=== PATIENT | female | born 1970 | race Caucasian/White ===

== ENCOUNTER 2018-04-22 21:30 | Inpatient (IN) | payer OTHER, SELFPAY ==
[2018-04-22 21:31] VITALS: BP 117/93; PULSE 80; RESP 22; TEMP 36.2; O2SAT 100; BMI 21.9
[2018-04-22 21:38] VITALS: BP 117/93; PULSE 74; RESP 20; O2SAT 100
--- NOTE | 2018-04-22 21:41 | EKG12_ITS ---
Test Reason : CHEST PAIN Blood Pressure : / mmHG Vent. Rate : 073 BPM Atrial Rate : 073 BPM P-R Int : 142 ms QRS Dur : 092 ms QT Int : 400 ms P-R-T Axes : 073 081 072 degrees QTc Int : 440 ms Normal sinus rhythm Incomplete right bundle branch block Confirmed by SEBAS RODRIGUEZ, RONAN ([id number]), field map editor JADON CAMPBELL ([id number]) on 05/03/2018 8:32:20 AM Referred By: GLORY Confirmed By:RONAN MULLEN MD
[2018-04-22 21:46] VITALS: O2SAT 100
--- NOTE | 2018-04-22 21:55 | RAD_ITS ---
STUDY: X-RAY CHEST REASON FOR EXAM: Female, 48 years old. Chest pain TECHNIQUE: AP COMPARISON: January 08, 2017 FINDINGS: The lungs are clear and expanded. There is no demonstrated pleural abnormality. Normal size heart. Normal mediastinum and patrick. Normal visualized pulmonary arteries. Normal visualized aortic arch and descending thoracic aorta. Normal visualized thoracic spine. Normal visualized ribs, clavicles, and shoulders. There is no demonstrated abnormality of the visualized soft tissue structures of the upper abdomen. RAD/Chest 1 View (Portable) IMPRESSION: Normal x-ray examination of the chest. Electronically Signed: Hernandez Mckeon MD at 22:29 EDT , Service support ,
[2018-04-22 21:58] LABS: Absolute Lymphocyte Count 1.82 X10^3/ul (0.83-4.51); Absolute Neutrophil Count 2.8 X10^3/uL (2.0-7.7); Eosinophil# 0.02 X10^3/uL; Eosinophils% 0.4 % (0-5); Hematocrit 48.5 % (37-47); Hemoglobin 16.8 g/dl (12.0-15.0); Lymphocyte # 1.82 X10^3/ul (4.0); Lymphocyte % 36.3 % (19-41); Mean Corp Hgb Conc 34.6 g/gl (32-36); Mean Corpuscular Hgb 32.8 pg (27.0-32.0); Mean Corpuscular Volume 94.7 fL (81-99); Mean Platelet Vol. 9.6 fl (6.2-12.0); Monocyte# 0.36 X10^3/uL; Monocyte% 7.2 % (0-10); Neutrophil # 2.82 X10^3/uL (2.7-7.7); Neutrophil % 56.1 % (47-70); POSITIVE COUNT NO; POSITIVE DIFFERENTIAL NO; POSITIVE MORPHOLOGY NO; Platelet Count 268 K/mm3 (150-450); RBC Distribution Width CV 11.9 % (11.6-14.6); RBC Distribution Width SD 41.2 fl (35.1-43.9); Red Blood Count 5.12 M/mm3 (4.2-5.4)
[2018-04-22 22:14] LABS: Anion Gap 6 (5-15); BUN 12 mg/dL (7-18); BUN/Creat Ratio 14.8 RATIO (10-20); Calcium,Total 9.5 mg/dL (8.5-10.1); Chloride 104 mmol/L (98-107); Creatinine, Serum 0.81 mg/dL (0.55-1.02); EST Glomerular Filtration Rate 80 mL/min (>60); Est Glom Filt Rate - Afr Amer 96 mL/min (>60); Glucose 114 mg/dL (74-106); Potassium 3.4 mmol/L (3.5-5.1); Sodium Level 138 mmol/L (136-145)
--- NOTE | 2018-04-22 22:41 | ED.VISSUMM ---
- ER Visit Summary Date of Service: 04/22/18 Chief Complaint: [] Chest pain History of Present Illness: The patient is a 48 F complaining of chest discomfort since yesterday gradual onset continuous burning and indigestion sensation in her throat and the center of her chest. Feels like it is on fire. Worse with movement of her body. Relieved by nothing. She tried Rolaids with moderate relief. Tonight when she was lying down it took her breath away which brought her in. She states her arms and left flank developed hives 2 hours ago. She has never had these before. No cardiac PE or dissection risk factors. No previous stress test. No history of reflux or gastric ulcers Physical Examination: [] Vital signs reviewed General: Well-nourished well-developed Head: Normocephalic atraumatic Eyes: Pupils equal round and reactive to light extraocular movements intact ENT: TMs clear no hemotympanum no trauma Neck: Nontender full range of motion Cardiovascular: Regular rate rhythm no murmurs normal S1-S2 Respiratory: No distress clear to auscultation bilaterally chest nontender Abdomen: Soft nontender nondistended normal bowel sounds no masses Back: Nontender no CVA tenderness Extremities: Nontender active range of motion ?4 extremities no trauma Skin: Normal color no trauma Neuro alert oriented cranial nerves II through XII intact normal strength sensation reflexes Test Results: [] Emergency Department Course and Treatment: [] EKG shows sinus at 73 without ischemia. Chest x-ray shows nothing acute. CBC is normal except hemoglobin 16.8. Chemistries normal except potassium 3.4. Troponin negative less than 0.01. Given a dose of Benadryl and GI cocktail for her symptoms and she still had some chest pain. Her hives did get better with the Benadryl. She was given a dose of morphine 4 mg and IV Pepcid possibly 30-40 minutes after the initial GI cocktail did not provide relief. The patient had bradycardia 15 minutes after the morphine. The patient's stated that she was talking normally and then fell asleep. He turned around and woke her up and she talked to him. He stated that he turned around changing chin on the TV and looked back and she was unconscious. Maintaining sleep the nursing staff arrived. Nursing staff noted on the monitor that she went asystolic. CPR was began. Patient received 20 compressions and she came to conscious. Compressions were stopped. Patient was bradycardic on the monitors in the 20s and 30s. IV fluids were opened up and she was put on a nonrebreather. Patient given a dose of Narcan and atropine. She slowly regained full consciousness. Heart rate came up to the 80s. She is remained stable. Repeat EKG showed nothing acute. No arrhythmia or ischemia. Second troponin was negative. CT Angio of the chest is neg for acute disease. She will be admitted for further monitoring and treatment. Treatment Plan: [] Disposition: [] Impression: Chest pain Skin hives Cardiac arrest with asystole Sinus bradycardia Total critical CARE time 30-74 minutes This note was generated with [employer] Windows dictation software. It may contain incorrect words, spelling, and punctuation that were not noted in review of the chart prior to signing ED Disposition - Plan for ED Patient: Disposition: Home or Assisted Living Chief Complaint: Chest Pain Instructions: ED Chest Pain NonCardiac Prescriptions: Famotidine [Pepcid] 20 mg PO BID #28 tab Referrals: Lenora Sarah DO [Primary Care Provider] -
--- NOTE | 2018-04-22 22:44 | DCINST.ED_ITS ---
ED Disposition - Plan for ED Patient: Disposition: Home or Assisted Living Chief Complaint: Chest Pain Instructions: ED Chest Pain NonCardiac Prescriptions: Famotidine [Pepcid] 20 mg PO BID #28 tab Referrals: Lenora Sarah DO [Primary Care Provider] -
[2018-04-22] MEDS: DiphenhydrAMINE 25 MG Capsule 50 MG PO (22:49)
[2018-04-22] MEDS: Mag Hydrox/Al Hydrox/Simeth 30 ML UDC PO (22:52)
[2018-04-22 23:15] VITALS: BP 117/78; PULSE 62; RESP 18; O2SAT 98
[2018-04-22] MEDS: Morphine 4 MG/ML Syringe IV (23:50)
[2018-04-22] MEDS: Famotidine 20mg IV Push Syringe Q24 300 MG IVP (23:51)
[2018-04-22 23:56] VITALS: BP 110/82; PULSE 69; RESP 18; O2SAT 100
[2018-04-23] VITALS (41 sets, daily range): BP systolic 78–122; BP diastolic 46–89; PULSE 46–81; RESP 11–26; TEMP 36.1–37.1; O2SAT 96–100; BMI 22.1
[2018-04-23] MEDS: Atropine Sulfate 1 MG/10 ML Syringe 0.5 MG IV (00:06)
[2018-04-23] MEDS: Naloxone 0.4 MG/ML Syringe IV (00:07)
--- NOTE | 2018-04-23 00:10 | EKG12_ITS ---
Test Reason : UNRESPONSIVE Blood Pressure : / mmHG Vent. Rate : 066 BPM Atrial Rate : 066 BPM P-R Int : 164 ms QRS Dur : 088 ms QT Int : 424 ms P-R-T Axes : 071 077 060 degrees QTc Int : 444 ms Normal sinus rhythm Normal ECG Confirmed by SEBAS RODRIGUEZ, RONAN ([id number]), managing editor JADON CAMPBELL ([id number]) on 04/26/2018 1:13:26 PM Referred By: TOYA Confirmed By:RONAN MULLEN MD
--- NOTE | 2018-04-23 00:27 | CT_ITS ---
STUDY: CTA CHEST REASON FOR EXAM: Female, 48 years old. Chest pain and shortness of breath RADIATION DOSAGE (If Supplied By Facility): CTDIvol = ( 9.35 ) mGy, DLP = ( 392.95 ) mGycm TECHNIQUE: The examination was performed with the intravenous administration of 75ML ml of Isovue 370 contrast material. Post-processing of the angiographic images was performed, with multiplanar reformation and 3D reconstruction. Individualized dose optimization techniques were used for this CT. COMPARISON: April 22, 2018 chest x-ray FINDINGS: Normal enhancement of the main pulmonary artery and right and left pulmonary arteries. Normal enhancement of the bilateral peripheral pulmonary arteries. There is no demonstrated pulmonary embolism. The aorta has a anterior arch bulge/outpouching seen on image #164 /301 series #602 sagittal views which is most suggestive of a ductus diverticulum. There is no demonstrated aortic dissection. Normal heart and pericardium. Normal mediastinum. Normal hilar regions. Normal visualized trachea and bronchi. There is a hyperinflated appearance of the lungs without focal consolidation pleural effusion or pulmonary edema. Normal pulmonary parenchyma. Normal pleura. Normal chest wall structures. There are degenerative changes of thoracic spine. Normal visualized upper abdomen. CT/CTA Chest W/WO Contrast IMPRESSION: No evidence of pulmonary embolism. No evidence of focal infiltrate. Ductus diverticulum of the aorta. Electronically Signed: Anju Burt MD at 1:22 EDT Tel , Service support ,
--- NOTE | 2018-04-23 00:28 | ED.RN ---
After morphine administration at 2350, this RN was in room talking with pt and . was still having abd pain and epigastric pain. was giving report to RN and monitor read carmen in the 30's and then asystole. see code charting.
--- NOTE | 2018-04-23 01:45 | HP.PCM_ITS ---
Problem List (1) Chest pain Status: Acute Qualifiers: Chest pain type: unspecified Qualified Code(s): R07.9 - Chest pain, unspecified History of Present Illness Date of Admission: 04/23/18 Chief Complaint: chest pain The patient is a 48 year old female patient who presented with chest pain that began yesterday. She complained of burning and indigestion in her chest that radiated up to her throat. She has no previous cardiac history nor risk factors. Initial troponin was negative and a GI cocktail was administered with the thought of GI etiology. Her pain in the esophagus/chest pain became worse so she received 4mg of morphine for her pain. She started to develop some hives as well and Benadryl was given. Soon thereafter she was in asystole. [facility] team was called in the ER. She received chest compressions x 20 and a pulse was obtained. She had a heart rate of 20-30 and was given atropine and her heart rate returned to within normal limits. She received a dose of Narcan as well. It was thought that she responded strongly to the narcotics. She is now tired but denies chest pain. She will be admitted to the ICU overnight for continued monitoring following [facility] team and intervention. Past Medical History Allergies acetaminophen [From Percocet] Allergy (Verified 04/23/18 00:01) Itching oxycodone HCl [From Percocet] Allergy (Verified 04/23/18 00:01) Itching anesthesia Adverse Reaction (Uncoded 04/23/18 00:01) Other became very sick after previous surgeries pt does not know what kind of anesthetic was used Home Medications: Ambulatory Orders Medication Instructions Recorded Famotidine [Pepcid] 20 mg PO BID #28 tab 04/22/18 Surgical History: cholecystectomy Smoking Status: Never smoker - *Family History Maternal History Items: No pertinent history Review of Systems Constitutional: Denies: Chills, Fever, Weight Change HEENT: Denies: Head Aches, Sinus Congestion, Sinus Drainage Cardiovascular: Reports: Chest Pain. Denies: Palpitations Respiratory: Denies: Cough, Shortness of breath at rest, Sputum production Gastrointestinal: Denies: Abdominal Pain, Nausea, Vomiting Genitourinary: Denies: Dysuria Musculoskeletal: Denies: Joint Pain, Joint Tenderness Skin: Denies: Rash, Wounds Neurological: Denies: Numbness, Tingling, Focal weakness Psychiatric: Denies: Anxiety, Depression, Homicidal Ideations, Suicidal Ideations Hematologic/ Lymphatic: Denies: Easy Bruising, Easy Bleeding VTE Information - Inpt Only VTE Present on Admission: No VTE Mechan Device Prophylaxis: None VTE Pharm Prophylaxis ordered?: Yes Patient Problems: Active and Suspected Problems Chest pain (Acute) - Physical Exam General: Alert, Oriented x3, Cooperative HEENT: Atraumatic, Normocephalic Neck: Supple, No JVD, Negative Carotid Bruits Lungs: Clear to auscultation, Normal air movement, No rhonchi, No wheeze, No rales Cardiovascular: Regular rate, Regular Rhythm, Normal S1, Normal S2, No murmurs Abdomen: Bowel Sounds Present, Soft, Non Tender Extremities: No edema Skin: No breakdown Musculoskeletal: No Tenderness to Palpation of Joints or Extremities Neurological: Neuro grossly intact Psych/Mental Status: Normal Affect, Appropriate Vital Signs Temp Pulse Resp BP Pulse Ox 97.1 F L 69 16 103/66 99 04/22/18 21:31 04/23/18 01:23 04/23/18 01:23 04/23/18 01:23 04/23/18 01:23 Oxygen Flow Rate (L/min) 2 Oxygen Delivery Method Nasal Cannula Weight: 142 lb 6.698 oz Body Mass Index (BMI) 21.9 Laboratory Tests Past 24 Hrs 04/22/18 04/22/18 04/23/18 21:45 21:45 00:20 WBC 5.0 RBC 5.12 Hgb 16.8 H Hct 48.5 H MCV 94.7 MCH 32.8 H MCHC 34.6 RDW 11.9 RDW Differential 41.2 Plt Count 268 MPV 9.6 Immature Gran % (Auto) 0.000 Neut % (Auto) 56.1 Lymph % (Auto) 36.3 [place] % (Auto) 7.2 Eos % (Auto) 0.4 Baso % (Auto) 0.0 Absolute Neuts (auto) 2.8 Absolute Lymphs (auto) 1.82 Total Counted Not Reportable Sodium 138 Potassium 3.4 L Chloride 104 Carbon Dioxide 28.0 Anion Gap 6 BUN 12 Creatinine 0.81 Estim Creat Clear Calc 80.80 Est GFR (MDRD) Af Amer 96 Est GFR (MDRD) Non-Af 80 BUN/Creatinine Ratio 14.8 Glucose 114 H Calcium 9.5 Troponin I < 0.015 < 0.015 Assessment/Plan All Active Problems Chest pain (Acute) Plan - admit to ICU - consult ICU physician - cycle cardiac enzymes - toradol 15mg iv q 6hrs prn pain, asa and oxygen per protocol - may consider stress test in future but tondeepthi will continue to monitor her recovery - cbc, bmp in am - LMWH for DVT prophylaxis Code Visit Inpatient E&M: 65833 Init Hosp L3
--- NOTE | 2018-04-23 02:39 | NURSING ---
ER nurse called to bring pt up at 02:30. Pt arrived to floor at 02:40
[2018-04-23] MEDS: Ketorolac 15 MG/ML Vial IV ×2 (03:19→14:18)
[2018-04-23] MEDS: 0.9% NaCl Peripheral Flush Adult/Peds IV ×2 (03:20→03:21)
[2018-04-23 04:30] LABS: Hematocrit 39.9 % (37-47); Hemoglobin 13.7 g/dl (12.0-15.0); Mean Corp Hgb Conc 34.3 g/gl (32-36); Mean Corpuscular Hgb 32.9 pg (27.0-32.0); Mean Corpuscular Volume 95.7 fL (81-99); Mean Platelet Vol. 9.4 fl (6.2-12.0); Platelet Count 223 K/mm3 (150-450); RBC Distribution Width CV 11.6 % (11.6-14.6); RBC Distribution Width SD 39.6 fl (35.1-43.9); Red Blood Count 4.17 M/mm3 (4.2-5.4); White Blood Count 2.5 K/mm3 (4.4-11.0)
[2018-04-23 04:31] LABS: Scan Indicated on CBC? Y/N NO
[2018-04-23 04:46] LABS: ALB/GLOB Ratio 1.1 RATIO (0.9-2.4); AST(SGOT) 142 U/L (15-37); Alanine Aminotransfer ALT/SGPT 210 U/L (13-56); Albumin, Serum 3.3 g/dL (3.2-5.0); Alkaline Phosphatase 117 U/L (45-117); Anion Gap 6 (5-15); BUN 12 mg/dL (7-18); BUN/Creat Ratio 15.4 RATIO (10-20); Calcium,Total 8.2 mg/dL (8.5-10.1); Chloride 107 mmol/L (98-107); Cholesterol 155 mg/dL (200); Creatinine, Serum 0.78 mg/dL (0.55-1.02); EST Glomerular Filtration Rate 84 mL/min (>60); Est Glom Filt Rate - Afr Amer 101 mL/min (>60); Estimated Creatinine Clearance 83.91 ml/min; Globulin 2.9 g/dL (2.2-4.2); Glucose 95 mg/dL (74-106); High Density Lipoprotein 47 mg/dL; Potassium 4.2 mmol/L (3.5-5.1); Protein, Total 6.2 g/dL (6.4-8.2); Sodium Level 143 mmol/L (136-145); Triglycerides 83 mg/dL; Very Low Density Lipoprotein 17 mg/dL (5-40)
[2018-04-23 05:06] LABS: M R Staph aureus DNA By PCR Negative (Negative); Probe Check PASS; Specimen Processing Control PASS
--- NOTE | 2018-04-23 07:08 | ECHOD_ITS ---
Reason For Study: CHEST PAIN Procedure This was a 2D Doppler, Color Flow transthoracic echocardiogram. The study was technically difficult. Exam performed portable in ICU/CCU. Left Ventricle Normal LV size. Left ventricular systolic function is normal. The estimated ejection fraction is 60 %. Normal diastology for age. No regional wall motion abnormalities noted. Right Ventricle Borderline enlarged right ventricle. Normal systolic function. Atria Normal left atrium. Normal right atrium. No doppler evidence for ASD. Mitral Valve There is no mitral annular calcification. Normal mitral valve. Trivial mitral valve insufficiency. Tricuspid Valve Normal tricuspid valve. Mild to moderate (1-2+) tricuspid valve insufficiency. Right ventricular systolic pressure estimated to be 22 mmHg. Aortic Valve Trisinus/trileaflet aortic valve. Normal aortic valve. Pulmonic Valve The pulmonic valve is not well visualized. Great Vessels The aortic root is not well visualized. Pericardium/Pleural Trivial pericardial effusion. There are no echocardiographic indications of cardiac tamponade. MMode/2D Measurements & Calculations LVIDd: 4.2 cm IVSd: 0.75 cm LAV(MOD-bp): 24.4 ml LVIDs: 2.8 cm LVPWd: 0.80 cm LAV(MOD-bp) Indexed: 14.0 ml/m2 RVDd: 3.6 cm FS: 32.7 % LAV(MOD-sp2): 20.5 ml LAV(MOD-sp4): 29.1 ml LVAd ap4: 23.1 cm2 SV(MOD-sp4): 39.3 ml SV(sp4-el): 42.2 ml EDV(MOD-sp4): 62.3 ml EDV(sp4-el): 65.0 ml LVAs ap4: 12.4 cm2 ESV(MOD-sp4): 23.0 ml ESV(sp4-el): 22.8 ml EF(MOD-sp4): 63.1 % EF(sp4-el): 64.9 % LA A4 area: 11.7 cm2 RA A4 area: 11.5 cm2 Time Measurements MV dec time: 0.23 sec Doppler Measurements & Calculations MV E max alfred: 59.9 cm/sec Lat Peak E' Alfred: 12.8 cm/sec Med Peak E' Alfred: 9.9 cm/sec MV A max alfred: 38.9 cm/sec E/E' lat: 4.7 E/E' med: 6.1 MV E/A: 1.5 Ao V2 max: 85.0 cm/sec LV V1 max: 61.0 cm/sec PA V2 max: 57.5 cm/sec Ao max P.9 mmHg LV V1 max P.5 mmHg TR max alfred: 219.9 cm/sec TR max P.4 mmHg Interpretation Summary The study was technically difficult. Left ventricular systolic function is normal. The estimated ejection fraction is 60 %. Borderline enlarged right ventricle. Trivial mitral valve insufficiency. Mild to moderate (1-2+) tricuspid valve insufficiency. Trivial pericardial effusion. There are no echocardiographic indications of cardiac tamponade. Right ventricular systolic pressure estimated to be 22 mmHg. Normal diastology for age. Ordering Physician: Myles Engle Referring Physician: FREDDY WORTHINGTON Performed By: Sarika Wright, KEITH, RVT
--- NOTE | 2018-04-23 07:22 | CON.PCM_ITS ---
Problem List (1) Cardiac asystole Status: Acute (2) Chest pain Status: Acute Qualifiers: Chest pain type: unspecified Qualified Code(s): R07.9 - Chest pain, unspecified Reason for Consult Date of Consultation: 04/23/18 Reason for Consultation: Asystolic arrest History of Present Illness: The patient is a 48 year old F, with no real significant past medical history, who presented to [facility] on 04/22/2018 after complaining of a 3 day history of progressive and gradual continuous burning and indigestion sensation in her chest with radiation into her neck. Patient stated that it felt like fire. Patient had also reported nausea with no vomiting. No melena or hematochezia was reported. Patient states that she attempted Rolaids at home with moderate relief, but given progression and concern that the pain was going to take her breath away, patient presented to the ER for evaluation. Patient was noted to have hives on her arms and flank, which is not normal for her. Patient was given Benadryl. While in the emergency department, patient was noted to have a normal sinus rhythm EKG with a heart rate of 73. Chest x-ray was unremarkable and labs showed only a hemoglobin of 16.8. Patient was given a GI cocktail along with Benadryl for GI symptoms. Patient was given 4 mg of morphine when no response to GI cocktail was noted. Approximately 15 minutes later, the patient developed bradycardia with decreased level of consciousness. Patient was then noted to go asystolic and CPR was initiated. Patient reportedly received brief compressions and was noted to be bradycardic in the 20s and 30s on telemetry. Patient was given supplemental oxygen and an IV fluid bolus. Patient was given Narcan with reported response. Patient was also given atropine with elevation in heart rate to the 80s. CT scan of the chest was obtained showing no acute pulmonary embolism. Patient was admitted to the intensive care unit for further monitoring. Patient reports significant improvement in symptoms today. Patient is not reporting any nausea or chest pain at this time. Patient does report that she tends to run lower blood pressure, but is unable to provide examples. Patient does state that her resting heart rate is typically approximately 70 on her [employer] wristwatch. Patient states it is very odd for her to develop hives. Patient does report a history of back pain with recent surgery, but does not take narcotics at baseline. Patient does state that she regularly exercises on a bicycle and overall has had no health concerns. Patient reports a brief history of social tobacco exposure in her 20s. Patient reports rare alcohol and no illicit drug use. 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 Patient denies any exposure to asbestos or tuberculosis. Past Medical History Allergies acetaminophen [From Percocet] Allergy (Verified 04/23/18 00:01) Itching oxycodone HCl [From Percocet] Allergy (Verified 04/23/18 00:01) Itching anesthesia Adverse Reaction (Uncoded 04/23/18 00:01) Other became very sick after previous surgeries pt does not know what kind of anesthetic was used Surgical History: cholecystectomy Smoking Status: Never smoker Tobacco Use: Non-smoker - *Family History Maternal History Items: No pertinent history Review of Systems Comment: See HPI, otherwise negative ?10 systems. Patient Problems: Active and Suspected Problems Chest pain (Acute) Cardiac asystole (Acute) Objective: CTA of the chest was personally reviewed. This shows no significant infiltrates , mediastinal lymphadenopathy or pulmonary embolism. There was a potential artifact noted in the ascending aorta on my review. Plans to review this with radiology - Physical Exam General: Alert, Oriented x3, Cooperative, No apparent distress, Well developed, Well nourished, - - Speaks in full sentences. Appears stated age. HEENT: Atraumatic, PERRLA, EOMI, Normocephalic, - - No scleral icterus or injection noted. Oral: Moist Mucosa, No Gingival or Mucosal Lesions/ Ulcerations Neck: Supple, No JVD, No Nodes, Trachea Midline Lungs: Clear to auscultation, Normal air movement, No rhonchi, No wheeze, No rales, - - Symmetric expansion. No dullness to percussion. Cardiovascular: Normal S1, Normal S2, No murmurs, Bradycardic, No rub noted, No Gallop Abdomen: Bowel Sounds Present, Soft, Non Tender, Non-Distended Extremities: No clubbing, No cyanosis, No edema Skin: No rashes, No breakdown Musculoskeletal: No Tenderness to Palpation of Joints or Extremities, No Muscle Wasting Lymphatic: No Cervical, Supraclavicular, or Inguinal Adenopathy Neurological: Cranial nerves II-XII grossly intact, Neuro grossly intact, Motor Exam 5/5 strength throughout, Sensory exam intact to light touch and pain Psych/Mental Status: Alert and oriented to time, place, person, mood and affect Vital Signs Temp Pulse Resp BP Pulse Ox 36.9 C 46 L 13 81/56 L 99 04/23/18 06:00 04/23/18 07:00 04/23/18 07:00 04/23/18 07:00 04/23/18 07:00 Oxygen Flow Rate (L/min) 4 Oxygen Delivery Method Room Air Weight: 64.9 kg Body Mass Index (BMI) 22.1 Intake and Output for Last 24 Hours 04/21/18 04/22/18 04/23/18 23:59 23:59 23:59 Intake Total 100 / 100 Output Total 100 / 100 Balance 0 / 0 Laboratory Tests Past 24 Hrs 04/23/18 04/23/18 04/23/18 03:00 03:15 04:15 WBC 2.5 L RBC 4.17 L Hgb 13.7 Hct 39.9 MCV 95.7 MCH 32.9 H MCHC 34.3 RDW 11.6 RDW Differential 39.6 Plt Count 223 MPV 9.4 Sodium Potassium Chloride Carbon Dioxide Anion Gap BUN Creatinine Estim Creat Clear Calc Est GFR (MDRD) Af Amer Est GFR (MDRD) Non-Af BUN/Creatinine Ratio Glucose Calcium Total Bilirubin AST ALT Alkaline Phosphatase Troponin I < 0.015 Total Protein Albumin Globulin Albumin/Globulin Ratio Triglycerides Cholesterol LDL Cholesterol VLDL Cholesterol HDL Cholesterol MRSA (PCR) Negative 04/23/18 04:15 WBC RBC Hgb Hct MCV MCH MCHC RDW RDW Differential Plt Count MPV Sodium 143 Potassium 4.2 Chloride 107 Carbon Dioxide 30.0 Anion Gap 6 BUN 12 Creatinine 0.78 Estim Creat Clear Calc 83.91 Est GFR (MDRD) Af Amer 101 Est GFR (MDRD) Non-Af 84 BUN/Creatinine Ratio 15.4 Glucose 95 Calcium 8.2 L Total Bilirubin 0.60 AST 142 H ALT 210 H Alkaline Phosphatase 117 Troponin I Total Protein 6.2 L Albumin 3.3 Globulin 2.9 Albumin/Globulin Ratio 1.1 Triglycerides 83 Cholesterol 155 LDL Cholesterol 91 VLDL Cholesterol 17 HDL Cholesterol 47 MRSA (PCR) Clinical Impression(s) from Imaging Studies Chest X-Ray 04/22/18 21:55 IMPRESSION: Normal x-ray examination of the chest. Electronically Signed: Hernandez Mckeon MD at 22:29 EDT , Service support , Chest CTA 04/23/18 00:27 IMPRESSION: No evidence of pulmonary embolism. No evidence of focal infiltrate. Ductus diverticulum of the aorta. Electronically Signed: Anju Burt MD at 1:22 EDT Tel , Service support , Assessment/Plan Active and Suspected Problems Chest pain (Acute) Cardiac asystole (Acute) RECOMMENDATION: 1. Continue telemetry 2. Review CT with radiology 3. Stat echocardiogram 4. Check orthostatics IMPRESSIONS: 1. Asystolic arrest status post CPR Patient with rapid response to CPR while in the ER. Patient appears to be improved compared to previous. Patient's blood pressure and heart rate are on the lower side, but acceptable at this time. Some concern on review of CT scan for possible dissection, so will review with radiology. Also obtain an echocardiogram. Patient currently doing well on room air. Will hold off on adding any pressors until further information can be obtained. Cardiology is consulted and will see the patient. Patient should remain in the intensive care unit for now Addendum 950: CT does not show any dissection per radiology. Echocardiogram was reviewed at the bedside and did not show any regurgitation. Code Visit Inpatient E&M: 22085 Init Hosp L3
--- NOTE | 2018-04-23 07:27 | NURSING ---
Charting documented by Linda Vee RN reviewed and agreed with by this RN
[2018-04-23] MEDS: Aspirin E.C. 325 MG Tablet PO (09:41)
--- NOTE | 2018-04-23 14:10 | PCM.CONS.C ---
Problem List (1) Chest pain Status: Acute Qualifiers: Chest pain type: unspecified Qualified Code(s): R07.9 - Chest pain, unspecified (2) Cardiac asystole Status: Acute (3) Hypotension Status: Acute Reason for Consult Date of Consultation: 04/23/18 History of Present Illness: The patient is a 48 year old white female with no past cardiovascular history other than nausea/emesis induced syncopal events who presents for evaluation of chest pain and subsequent cardiac arrest secondary to asystole. The patient states she was in her usual state of health until approximately the last 2 days when she is developed abdominal discomfort with subsequent radiation to her chest and neck with associated sensation of nausea without emesis. She denied any significant change in her respiratory status at rest or with exertion. There has been no recurrent near syncope or syncope. She states she was concerned that she had contracted a gastroenteritis virus as other people at her work related environment had similar conditions. She subsequently noted that she broke out in hives . She presented to the emergency department for further evaluation and care. There she was being evaluated for possible gastrointestinal related issues and treated for such. This time she received a GI cocktail . She states she still had symptoms. Thus for her ongoing symptoms as well as concerns of her hives she received a combination of morphine sulfate and Benadryl. She was subsequently noted to have evidence of marked sinus bradycardia and then became asystolic. She required CPR of reportedly 20 compressions. She had return of her rate and rhythm, etc. She was then placed in the ICU for further evaluation and care. Today she states overall she feels better. She did have a small meal early this morning without any significant recurrence of her obvious symptoms. She still has some epigastric tenderness to palpation. She has undergone evaluation with cardiac enzymes which have been negative. Her ECGs have demonstrated sinus rhythm without acute ECG changes. She underwent a transthoracic echocardiogram. The results are as noted below. Interpretation Summary The study was technically difficult. Left ventricular systolic function is normal. The estimated ejection fraction is 60 %. Borderline enlarged right ventricle. Trivial mitral valve insufficiency. Mild to moderate (1-2+) tricuspid valve insufficiency. Trivial pericardial effusion. There are no echocardiographic indications of cardiac tamponade. Right ventricular systolic pressure estimated to be 22 mmHg. Normal diastology for age. She also underwent a chest CT scan. There was no reported great vessel disease with respect to thoracic aortic dissection. There was no thromboembolic events. She has been otherwise active healthy person, bicycling multiple miles per week, other than a history of musculoskeletal/back related issues/surgery and status post cholecystectomy-remote. She has denied previous episodes of orthopnea, PND, or peripheral pitting edema. However, she has had nausea/emesis induced syncopal events in the past. Noted she had similar type events when she had her gallbladder related disease prior to her cholecystectomy. [] Past Medical History Allergies/Adverse Reactions: Allergies acetaminophen [From Percocet] Allergy (Verified 04/23/18 00:01) Itching oxycodone HCl [From Percocet] Allergy (Verified 04/23/18 00:01) Itching anesthesia Adverse Reaction (Uncoded 04/23/18 00:01) Other became very sick after previous surgeries pt does not know what kind of anesthetic was used Surgical History: cholecystectomy - *Family History Maternal History Items: No pertinent history Lives: Spouse/ Significant Other Smoking Status: Never smoker Tobacco Use: Non-smoker Alcohol: None Drugs: None Review of Systems - Review of Systems General: Denies: Fever, Night Sweats, Fatigue Cardiovascular: Reports: Chest Discomfort, Chest Discomfort at Rest, Near Syncope, Syncope. Denies: Shortness of Breath, Orthopnea, PND, Peripheral Edema, Palpitations, Lightheadedness, Dizziness Respiratory: Denies: Cough, Sputum Production, Hemoptysis Gastrointestinal: Reports: Indigestion, Heart Burn, Abdominal Discomfort. Denies: Hematemesis, Hematochezia, Melena Genitourinary: Denies: Dysuria, Hematuria Skin: Denies: Rash Subjectve: This is a 48-year-old white female who appears to be resting comfortably at the moment in no acute distress. Objective: Vital Signs Temp Pulse Resp BP Pulse Ox 98.7 F 60 16 103/69 97 04/23/18 11:59 04/23/18 13:00 04/23/18 13:00 04/23/18 13:00 04/23/18 13:00 Oxygen Flow Rate (L/min) 4 Oxygen Delivery Method Room Air Weight: 143 lb 1.28 oz Body Mass Index (BMI) 22.1 Orthostatic Vital Signs Start: 04/23/18 11:06 Freq: q24h Status: Active Protocol: Activity Type Activity Date Activity User E-Sign Co-Sign Detail Recorded Client Recorded Date Recorded By Document 04/23/18 10:30 DEAN [id number] 04/23/18 11:08 DEAN 04/23/18 10:30 Orthostatic Vitals Standing -Blood Pressure (90/60-120/80) 85/64 L -Extremity Use Right Arm -Pulse Rate (60-100) 68 Sitting -Blood Pressure (90/60-120/80) 93/69 -Extremity Use Right Arm -Pulse Rate (60-100) 81 Lying -Blood Pressure (90/60-120/80) 91/55 L -Extremity Use Right Arm -Pulse Rate (60-100) 56 L Intake and Output for Last 24 Hours 04/21/18 04/22/18 04/23/18 23:59 23:59 23:59 Intake Total 460 / 460 Output Total 600 / 600 Balance -140 / -140 General: Healthy Appearing, Awake, Alert, Oriented x 3, Cooperative, No Acute Distress HEENT: Atraumatic, Normocephalic, PERRL, EOMI, Sclera Non Icteric Oral: Moist Mucosa Neck: Supple, Good ROM, No JVD Lungs: Clear to auscultation Cardiovascular: Regular Rhythm, Normal S1, Normal S2 Vascular: No Carotid Bruits Abdomen: Bowel Sounds Present, Soft, - - Positive epigastric tenderness Extremities: No Cyanosis, No Clubbing, No edema Neurological: No Focal Motor or Sensory Deficit Psych/Mental Status: Appropriate, Normal Affect 04/23/18 03:15: Troponin I < 0.015 04/23/18 04:15: WBC 2.5 L, RBC 4.17 L, Hgb 13.7, Hct 39.9, MCV 95.7, MCH 32.9 H, MCHC 34.3, RDW 11.6, RDW Differential 39.6, Plt Count 223, MPV 9.4 04/23/18 04:15: Sodium 143, Potassium 4.2, Chloride 107, Carbon Dioxide 30.0, Anion Gap 6, BUN 12, Creatinine 0.78, Est GFR (MDRD) Af Amer 101, Est GFR (MDRD) Non-Af 84, BUN/Creatinine Ratio 15.4, Glucose 95, Calcium 8.2 L, Total Bilirubin 0.60, Triglycerides 83, Cholesterol 155, LDL Cholesterol 91, VLDL Cholesterol 17, HDL Cholesterol 47 Rhythm: Sinus rhythm EKG: As noted above ECHO: As noted above CXR: Preliminary evaluation: No acute cardiopulmonary disease process: Please see official report Chest CT Scan: As noted above: Please see official report Assessment/Plan 1. Chest pain The patient has had chest discomfort. The etiology is unclear at this time. There are concerns she may have gastrointestinal related symptoms. At the same time there are concerns based upon her subsequent cardiovascular event that there could be concerns of underlying coronary artery disease with myocardial ischemia. The patient does not appear to have classic symptoms of ongoing pericardial disease. She has been evaluated for great vessel disease which appears to be negative based upon the chest CTA scan. Thus at the present time, with the patient's symptoms, events, etc. was felt reasonable the patient be further evaluated for the possibility of premature CAD with a diagnostic cardiac catheterization. The procedure and risks were discussed with the patient and she agrees to this approach. 2. Cardiac arrest-asystole The patient did have a cardiac arrest event. The clinical scenario is as previously described. It is unclear whether this may be related to a vasovagal mediated event compounded by the multiple medications she received that may affect her vital signs versus being related to a primary underlying cardiovascular mediated event with CAD and subsequent ischemic mediated cardiac dysrhythmia/conduction system related events, etc. Thus far there appears to be no other obvious issues to explain her event other than her aforementioned concerns. She has been in the ICU. Her rhythm has remained sinus rhythm. She has had no other obvious cardiac dysrhythmias or conduction system related events reported. At the present time she will continue to be monitored. Based upon her clinical scenario and objective findings she will undergo further evaluation for the possibility of CAD with diagnostic cardiac catheterization. If this is unremarkable and there are no other etiologies to explain her event other than possible vasovagal mediated events then she may also need to be further evaluated for the possibility of an underlying primary cardiac dysrhythmia with continued inpatient and outpatient cardiac rhythm monitoring devices. Based upon concerns of possible vasovagal mediated events that she may eventually need to be further evaluated with a formal tilt table study. 3. Hypotension The patient does have a low blood pressure. She appears to be without acute symptoms at this time. Her blood pressures will need to be monitored. She may need additional medications to support her blood pressure if deemed appropriate. At the moment medications that may lower her blood pressure are being avoided. Comment: The patient's case has been discussed with the patient, her spouse, Dr. Tanner, and Dr. Engle. This note was generated with [employer] software. It may contain incorrect words, spelling, and punctuation that were not noted in checking the note before signing.
--- NOTE | 2018-04-23 14:20 | NURSING ---
to laborer pipelines per bed on monitor, laborer pipelines RN in attendance.
[2018-04-23 14:25] LABS: Prothrombin Time (Protime)PT. 12.9 SECONDS (11.7-14.9)
[2018-04-23 14:26] LABS: Partial Thromboplast Time 25.8 Seconds (24.1-36.2)
--- NOTE | 2018-04-23 14:52 | CASEMGMT ---
According to [facility] website, the following are in-network tertiary facilities: [facility], [place], [facility], [facility], [facility], and . Alex HWANG CM
--- NOTE | 2018-04-23 14:56 | CASEMGMT ---
This RN CM to room to complete CM assessment and pt is out of the dept having a heart cath at this time. SStsridhar HWANG CM
--- NOTE | 2018-04-23 15:32 | CL.D_ITS ---
Patient Name: SUMANTH ACOSTA Study Date: 04/23/2018 Performing: Raffi Moralez MD Ht: 67 inches 171 cm : 1970 Wt: 143.5 lbs 65 kg Age: 48 Gender: female BSA: 1.76 PROCEDURE(S) PERFORMED [id number] CLINICAL PROFILE AND INDICATIONS Indications: Other Heart Failure: None Stress/Imaging Stress/Image Study Performed: No Angina Classification Anginal Classification w/in 2 Weeks: CCS IV CAD Presentations: Other: Chest pain - unspecified; Cardiac Arrest - asystole CONCLUSIONS Normal Left Ventricular End Diastolic Pressure Normal LV size, wall motion,and systolic function LVEF: by LV gram 65 % Normal coronary arteries RECOMMENDATIONS Risk factor modification Medical therapy DESCRIPTION OF PROCEDURE The patient arrived to the procedure lab. The risks and benefits of the procedure as well as a full d escription of our services here and current unavailability of surgical backup were fully explained to the patient and/or their significant other prior to the catheterization. The Timeout was completed, verifying the correct patient and procedure. The patient's procedural site was prepped and draped in the usual fashion. Local anesthetic was given subcutaneously to right groin region with Lidocaine 2%. Using a modified Seldinger technique, arterial access was obtained via the right femoral artery, a 4 Fr sheath was inserted Left Coronary Artery selective angiography was performed in multiple views us ing a 4 Fr. JL5 catheter. Right Coronary Artery selective angiography was then performed in multiple views using a 4 Fr. 3DRC catheter. Left Ventriculography was performed in COLLAZO projection using a 4 Fr . Pigtail catheter. LV to AO pullback pressures were then recorded.The arterial sheath was pulled and manual compression applied until hemostasis is achieved. CORONARY ANGIOGRAPHY DOMINANCE: Right Dominant LEFT HEART ASSESSMENT Left Ventricular Ejection Fraction: by LV Gram 65 % Normal LV wall motion Normal Left Ventricular End Diastolic Pressure LVEDP: 12 mmHg LEFT MAIN: Angiographically normal LEFT ANTERIOR DECENDING ARTERY: Angiographically normal CIRCUMFLEX ARTERY: Angiographically normal RIGHT CORONARY ARTERY: Angiographically normal VALVE FINDINGS: Normal Aortic Valve function Normal Mitral Valve function AORTIC ROOT: Possible dilatation COMPLICATIONS No Complications PROCEDURE MEDICATIONS Versed 1 mg IV Versed 1 mg IV Oxygen: 2 L/min via nasal cannula Solu-medrol 125 mg IV 04/23/2018 14:40:35 SUMMARY OF HEMODYNAMIC DATA Time AIR REST ECG 14:34:57 AO 102/63 (81) SA 14:57:48 LV 120/10, 28 15:06:05 LV 115/8, 12 15:06:12 LV 118/5, 21 15:07:37 LVp 119/5, 16 15:07:43 AOp 120/62 (87) 15:07:48 Signed By Raffi Moralez MD On 04/23/2018 15:31:51 Raffi Moralez MD
[2018-04-23] MEDS: Mag Hydrox/Al Hydrox/Simeth 30 ML UDC PO (17:23)
--- NOTE | 2018-04-23 18:52 | PCM.HOSP.N ---
Hospitalist Note Patient was seen and examined today briefly in the ICU, I had a discussion with her information systems director concerning her medical care. Patient underwent a cardiac catheterization this afternoon which did not show any occlusive coronary artery disease. Patient will probably need an event monitor placed at the time of discharge.
[2018-04-23] MEDS: Pantoprazole Sodium 40 MG Tablet PO (21:33)
[2018-04-24] VITALS (9 sets, daily range): BP systolic 86–107; BP diastolic 54–73; PULSE 55–76; RESP 12–18; TEMP 36.3–36.8; O2SAT 96–100
[2018-04-24] MEDS: 0.9% NaCl Peripheral Flush Adult/Peds IV (04:11)
[2018-04-24 04:45] LABS: Anion Gap 7 (5-15); BUN 12 mg/dL (7-18); BUN/Creat Ratio 19.1 RATIO (10-20); Calcium,Total 8.7 mg/dL (8.5-10.1); Chloride 109 mmol/L (98-107); Creatinine, Serum 0.63 mg/dL (0.55-1.02); EST Glomerular Filtration Rate 107 mL/min (>60); Est Glom Filt Rate - Afr Amer 129 mL/min (>60); Estimated Creatinine Clearance 103.89 ml/min; Glucose 128 mg/dL (74-106); Potassium 4.2 mmol/L (3.5-5.1); Sodium Level 144 mmol/L (136-145)
--- NOTE | 2018-04-24 06:44 | PCM.PN.INT ---
Subjective: Patient did well overnight. No complaints this morning. Patient denies recurrence of pain leading to presentation except for a brief episode yesterday associated with swallowing of Protonix. Patient's blood pressure has improved, but remains bradycardic. Objective: Left heart catheterization was completed yesterday and shows no lesion requiring intervention. General: Alert, Oriented x3, Cooperative, No apparent distress, Well developed, Well nourished, - - Speaking in full sentences. HEENT: Atraumatic, PERRLA, EOMI, Normocephalic, - - No scleral icterus or injection noted. Oral: Moist Mucosa, No Gingival or Mucosal Lesions/ Ulcerations Neck: Supple, No JVD, No Nodes, Trachea Midline Lungs: Clear to auscultation, Normal air movement, No rhonchi, No wheeze, No rales, - - Symmetric expansion. No dullness to percussion. Cardiovascular: Regular rate, Regular Rhythm, Normal S1, Normal S2, No murmurs, No rub noted, No Gallop Abdomen: Bowel Sounds Present, Soft, Non Tender, Non-Distended Extremities: No clubbing, No cyanosis, No edema, Capillary Refill Less than 3 Seconds Skin: No rashes, No breakdown Musculoskeletal: No Tenderness to Palpation of Joints or Extremities, No Muscle Wasting Lymphatic: No Cervical, Supraclavicular, or Inguinal Adenopathy Neurological: Cranial nerves II-XII grossly intact, Neuro grossly intact, Motor Exam 5/5 strength throughout Psych/Mental Status: Alert and oriented to time, place, person, mood and affect Vital Signs Temp Pulse Resp BP Pulse Ox 36.3 C L 61 16 97/64 100 04/24/18 05:19 04/24/18 05:19 04/24/18 05:19 04/24/18 05:19 04/24/18 05:19 Oxygen Flow Rate (L/min) 2 Oxygen Delivery Method Room Air Weight: 64.9 kg Body Mass Index (BMI) 22.1 Orthostatic Vital Signs Start: 04/23/18 11:06 Freq: q24h Status: Active Protocol: Activity Type Activity Date Activity User E-Sign Co-Sign Detail Recorded Client Recorded Date Recorded By Document 04/23/18 10:30 DEAN [id number] 04/23/18 11:08 DEAN 04/23/18 10:30 Orthostatic Vitals Standing -Blood Pressure (90/60-120/80) 85/64 L -Extremity Use Right Arm -Pulse Rate (60-100) 68 Sitting -Blood Pressure (90/60-120/80) 93/69 -Extremity Use Right Arm -Pulse Rate (60-100) 81 Lying -Blood Pressure (90/60-120/80) 91/55 L -Extremity Use Right Arm -Pulse Rate (60-100) 56 L Intake and Output for Last 24 Hours 04/22/18 04/23/18 04/24/18 23:59 23:59 23:59 Intake Total 967 / 967 1865 / 1865 Output Total 1000 / 1000 1000 / 1000 Balance -33 / -33 865 / 865 Labs (Last 48 Hours) 04/23/18 04/23/18 04/23/18 03:00 03:15 04:15 WBC 2.5 L RBC 4.17 L Hgb 13.7 Hct 39.9 MCV 95.7 MCH 32.9 H MCHC 34.3 RDW 11.6 RDW Differential 39.6 Plt Count 223 MPV 9.4 PT INR APTT Sodium Potassium Chloride Carbon Dioxide Anion Gap BUN Creatinine Estim Creat Clear Calc Est GFR (MDRD) Af Amer Est GFR (MDRD) Non-Af BUN/Creatinine Ratio Glucose Calcium Total Bilirubin AST ALT Alkaline Phosphatase Troponin I < 0.015 Total Protein Albumin Globulin Albumin/Globulin Ratio Triglycerides Cholesterol LDL Cholesterol VLDL Cholesterol HDL Cholesterol MRSA (PCR) Negative 04/23/18 04/23/18 04/24/18 04:15 14:10 04:15 WBC RBC Hgb Hct MCV MCH MCHC RDW RDW Differential Plt Count MPV PT 12.9 INR 1.0 APTT 25.8 Sodium 143 144 Potassium 4.2 4.2 Chloride 107 109 H Carbon Dioxide 30.0 28.0 Anion Gap 6 7 BUN 12 12 Creatinine 0.78 0.63 Estim Creat Clear Calc 83.91 103.89 Est GFR (MDRD) Af Amer 101 129 Est GFR (MDRD) Non-Af 84 107 BUN/Creatinine Ratio 15.4 19.1 Glucose 95 128 H Calcium 8.2 L 8.7 Total Bilirubin 0.60 AST 142 H ALT 210 H Alkaline Phosphatase 117 Troponin I Total Protein 6.2 L Albumin 3.3 Globulin 2.9 Albumin/Globulin Ratio 1.1 Triglycerides 83 Cholesterol 155 LDL Cholesterol 91 VLDL Cholesterol 17 HDL Cholesterol 47 MRSA (PCR) Clinical Impression(s) from Imaging Studies Chest CTA 04/23/18 00:27 IMPRESSION: No evidence of pulmonary embolism. No evidence of focal infiltrate. Ductus diverticulum of the aorta. Electronically Signed: Anju Burt MD at 1:22 EDT Tel , Service support , ADDENDUM: 04/23/18 0918 Medical Necessity - Tobacco Use Smoking Status: Never smoker Tobacco Use: Non-smoker Assessment/Plan All Active Problems Chest pain (Acute) Cardiac asystole (Acute) Hypotension (Acute) RECOMMENDATION: 1. Liberalize diet 2. Consider outpatient GI workup 3. Likely okay to be discharged from my perspective IMPRESSIONS: 1. Asystolic arrest status post CPR Patient did well overnight. Patient did have a brief recurrence with swallowing Protonix. Unclear if presenting symptoms secondary to esophagitis. This could be worked up as an outpatient. Patient had a heart catheterization yesterday showing no lesion requiring intervention. Patient's orthostatic blood pressures are normal. No desaturation is been noted with ambulation. No recurrent events of asystole, bradycardia or heart block have been noted over the last 24 hours of telemetry monitoring. Code Visit Inpatient E&M: [id number] [facility] Hosp L2
--- NOTE | 2018-04-24 06:46 | NURSING ---
Charting documented by Linda Vee RN reviewed and agreed with by this RN
[2018-04-24] MEDS: Mag Hydrox/Al Hydrox/Simeth 30 ML UDC PO (08:38)
[2018-04-24] MEDS: Aspirin E.C. 325 MG Tablet PO (08:39)
--- NOTE | 2018-04-24 08:49 | PCM.PN.CARD ---
Subjectve: The patient is awake and alert. She has no new acute complaints or concerns other than some residual chest discomfort related to her previous CPR/compressions. She states her abdominal discomfort has improved. Objective: Vital Signs Temp Pulse Resp BP Pulse Ox 98.2 F 74 15 107/73 100 04/24/18 08:00 04/24/18 08:00 04/24/18 08:00 04/24/18 08:00 04/24/18 08:41 Oxygen Flow Rate (L/min) 2 Oxygen Delivery Method Room Air Weight: 143 lb 1.28 oz Body Mass Index (BMI) 22.1 Orthostatic Vital Signs Start: 04/23/18 11:06 Freq: q24h Status: Active Protocol: Activity Type Activity Date Activity User E-Sign Co-Sign Detail Recorded Client Recorded Date Recorded By Document 04/23/18 10:30 DEAN [id number] 04/23/18 11:08 DEAN 04/23/18 10:30 Orthostatic Vitals Standing -Blood Pressure (90/60-120/80) 85/64 L -Extremity Use Right Arm -Pulse Rate (60-100) 68 Sitting -Blood Pressure (90/60-120/80) 93/69 -Extremity Use Right Arm -Pulse Rate (60-100) 81 Lying -Blood Pressure (90/60-120/80) 91/55 L -Extremity Use Right Arm -Pulse Rate (60-100) 56 L Intake and Output for Last 24 Hours 04/22/18 04/23/18 04/24/18 23:59 23:59 23:59 Intake Total 967 / 967 1865 / 1865 Output Total 1000 / 1000 1000 / 1000 Balance -33 / -33 865 / 865 General: Healthy Appearing, Awake, Alert, Oriented x 3, Cooperative, No Acute Distress HEENT: Atraumatic, Normocephalic, PERRL, EOMI, Sclera Non Icteric Oral: Moist Mucosa Neck: Supple, Good ROM, No JVD Lungs: Clear to auscultation Cardiovascular: Regular Rhythm, Normal S1, Normal S2 Vascular: No Carotid Bruits, Normal Femoral Pulses Abdomen: Bowel Sounds Present, Soft, Non Tender Extremities: No Cyanosis, No Clubbing, No edema Neurological: No Focal Motor or Sensory Deficit Psych/Mental Status: Appropriate, Normal Affect 04/23/18 14:10: PT 12.9, INR 1.0, APTT 25.8 04/24/18 04:15: Sodium 144, Potassium 4.2, Chloride 109 H, Carbon Dioxide 28.0, Anion Gap 7, BUN 12, Creatinine 0.63, Est GFR (MDRD) Af Amer 129, Est GFR (MDRD) Non-Af 107, BUN/Creatinine Ratio 19.1, Glucose 128 H, Calcium 8.7 Rhythm: Sinus rhythm Medical Necessity - Tobacco Use Smoking Status: Never smoker Tobacco Use: Non-smoker Assessment/Plan 1. Chest pain The patient has undergone diagnostic cardiac catheterization based upon her aforementioned symptoms and objective findings. She had angiographically normal-appearing coronary arteries and overall preserved LV systolic function. Thus at the present time it appears her chest discomfort is non-CAD related. It may be related to her previous concerns of a gastrointestinal related illness and subsequently, at the present time, with respect to her post CPR/compression musculoskeletal tenderness. 2. Cardiac arrest-asystole The patient did have a cardiac arrest event. The present time there are concerns, based on the patient's past history, past negative responses to medications such as narcotics and antihistamines such as Benadryl, with respect to what appears to be vasovagal mediated near syncope/syncope, that the patient may have variance to a similar type event during her emergency department evaluation. She has undergone cardiovascular evaluation from a noninvasive and invasive standpoint. Thus far there is been no obvious evidence of acute coronary syndrome, coronary artery disease, left ventricular systolic dysfunction, or great vessel disease. Also she has been monitored. She has had no recurrent cardiac dysrhythmias or conduction system disturbances. At the present time she will continue to be monitored while she is in the hospital. As an outpatient she will have a 30 day ambulatory event monitor and attempt to correlate any concerning symptoms with underlying rate and rhythm changes. Depending upon her overall status she may need further evaluation for possible vagal mediated events with a tilt table study. 3. Hypotension The patient does have a low blood pressure. He states her blood pressures tend to run on the low side area and she appears to be without obvious symptoms related to her lower blood pressures. Comment: The patient's case has been discussed with the patient and Dr. Tanner. This note was generated with [employer] dictation software. It may contain incorrect words, spelling, and punctuation that were not noted in checking the note before signing.
--- NOTE | 2018-04-24 08:54 | PN.CARD_ITS ---
Subjectve: The patient is awake and alert. She has no new acute complaints or concerns other than some residual chest discomfort related to her previous CPR/ compressions. She states her abdominal discomfort has improved. Objective: Vital Signs Temp Pulse Resp BP Pulse Ox 98.2 F 74 15 107/73 100 04/24/18 08:00 04/24/18 08:00 04/24/18 08:00 04/24/18 08:00 04/24/18 08:41 Oxygen Flow Rate (L/min) 2 Oxygen Delivery Method Room Air Weight: 143 lb 1.28 oz Body Mass Index (BMI) 22.1 Orthostatic Vital Signs Start: 04/23/18 11:06 Freq: q24h Status: Active Protocol: Activity Type Activity Date Activity User E-Sign Co-Sign Detail Recorded Client Recorded Date Recorded By Document 04/23/18 10:30 DEAN [id number] 04/23/18 11:08 DEAN 04/23/18 10:30 Orthostatic Vitals Standing -Blood Pressure (90/60-120/80) 85/64 L -Extremity Use Right Arm -Pulse Rate (60-100) 68 Sitting -Blood Pressure (90/60-120/80) 93/69 -Extremity Use Right Arm -Pulse Rate (60-100) 81 Lying -Blood Pressure (90/60-120/80) 91/55 L -Extremity Use Right Arm -Pulse Rate (60-100) 56 L Intake and Output for Last 24 Hours 04/22/18 04/23/18 04/24/18 23:59 23:59 23:59 Intake Total 967 / 967 1865 / 1865 Output Total 1000 / 1000 1000 / 1000 Balance -33 / -33 865 / 865 General: Healthy Appearing, Awake, Alert, Oriented x 3, Cooperative, No Acute Distress HEENT: Atraumatic, Normocephalic, PERRL, EOMI, Sclera Non Icteric Oral: Moist Mucosa Neck: Supple, Good ROM, No JVD Lungs: Clear to auscultation Cardiovascular: Regular Rhythm, Normal S1, Normal S2 Vascular: No Carotid Bruits, Normal Femoral Pulses Abdomen: Bowel Sounds Present, Soft, Non Tender Extremities: No Cyanosis, No Clubbing, No edema Neurological: No Focal Motor or Sensory Deficit Psych/Mental Status: Appropriate, Normal Affect 04/23/18 14:10: PT 12.9, INR 1.0, APTT 25.8 04/24/18 04:15: Sodium 144, Potassium 4.2, Chloride 109 H, Carbon Dioxide 28.0, Anion Gap 7, BUN 12, Creatinine 0.63, Est GFR (MDRD) Af Amer 129, Est GFR (MDRD ) Non-Af 107, BUN/Creatinine Ratio 19.1, Glucose 128 H, Calcium 8.7 Rhythm: Sinus rhythm Medical Necessity - Tobacco Use Smoking Status: Never smoker Tobacco Use: Non-smoker Assessment/Plan 1. Chest pain The patient has undergone diagnostic cardiac catheterization based upon her aforementioned symptoms and objective findings. She had angiographically normal -appearing coronary arteries and overall preserved LV systolic function. Thus at the present time it appears her chest discomfort is non-CAD related. It may be related to her previous concerns of a gastrointestinal related illness and subsequently, at the present time, with respect to her post CPR/compression musculoskeletal tenderness. 2. Cardiac arrest-asystole The patient did have a cardiac arrest event. The present time there are concerns, based on the patient's past history, past negative responses to medications such as narcotics and antihistamines such as Benadryl, with respect to what appears to be vasovagal mediated near syncope/ syncope, that the patient may have variance to a similar type event during her emergency department evaluation. She has undergone cardiovascular evaluation from a noninvasive and invasive standpoint. Thus far there is been no obvious evidence of acute coronary syndrome, coronary artery disease, left ventricular systolic dysfunction, or great vessel disease. Also she has been monitored. She has had no recurrent cardiac dysrhythmias or conduction system disturbances. At the present time she will continue to be monitored while she is in the hospital. As an outpatient she will have a 30 day ambulatory event monitor and attempt to correlate any concerning symptoms with underlying rate and rhythm changes. Depending upon her overall status she may need further evaluation for possible vagal mediated events with a tilt table study. 3. Hypotension The patient does have a low blood pressure. He states her blood pressures tend to run on the low side area and she appears to be without obvious symptoms related to her lower blood pressures. Comment: The patient's case has been discussed with the patient and Dr. Tanner. This note was generated with [employer] dictation software. It may contain incorrect words, spelling, and punctuation that were not noted in checking the note before signing.
[2018-04-24] MEDS: DiphenhydrAMINE 25 MG Capsule 50 MG PO (09:12)
--- NOTE | 2018-04-24 09:14 | PCM.DC ---
- Discharge Diagnoses Current Active Problems: Current Active and Chronic Problems Chest pain (Acute) Cardiac asystole (Acute) Hypotension (Acute) You will use the following diet at home:: No restrictions Your food should be the consistency of: Regular Your liquids should be the consistency of: Regular/Thin Discharge Activity: Return to Normal Activity Weight Bearing Status: Full weight bearing Instructions: ED Chest Pain NonCardiac Additional Instructions: go to cardiopulmonary department after discharge to have an event monitor placed Allergies/Adverse Reactions: Allergies acetaminophen [From Percocet] Allergy (Verified 04/23/18 00:01) Itching oxycodone HCl [From Percocet] Allergy (Verified 04/23/18 00:01) Itching anesthesia Adverse Reaction (Uncoded 04/23/18 00:01) Other became very sick after previous surgeries pt does not know what kind of anesthetic was used Primary Care Physician: Lenora Sarah DO [Primary Care Provider] - Please follow up with your Primary Care Physician in: in 2 weeks Test Results: Test results from this visit will be discussed in further detail at your follow-up appointment, if applicable. Please Follow Up With: Raffi Moralez MD When: in 4 weeks
--- NOTE | 2018-04-24 09:17 | DCINST_ITS ---
- Discharge Diagnoses Current Active Problems: Current Active and Chronic Problems Chest pain (Acute) Cardiac asystole (Acute) Hypotension (Acute) You will use the following diet at home:: No restrictions Your food should be the consistency of: Regular Your liquids should be the consistency of: Regular/Thin Discharge Activity: Return to Normal Activity Weight Bearing Status: Full weight bearing Instructions: ED Chest Pain NonCardiac Additional Instructions: go to cardiopulmonary department after discharge to have an event monitor placed Allergies/Adverse Reactions: Allergies acetaminophen [From Percocet] Allergy (Verified 04/23/18 00:01) Itching oxycodone HCl [From Percocet] Allergy (Verified 04/23/18 00:01) Itching anesthesia Adverse Reaction (Uncoded 04/23/18 00:01) Other became very sick after previous surgeries pt does not know what kind of anesthetic was used Primary Care Physician: Lenora Sarah DO [Primary Care Provider] - Please follow up with your Primary Care Physician in: in 2 weeks Test Results: Test results from this visit will be discussed in further detail at your follow- up appointment, if applicable. Please Follow Up With: Raffi Moralez MD When: in 4 weeks
--- NOTE | 2018-04-24 11:51 | CASEMGMT ---
Addendum entered by Logan Colby 04/24/18 12:43: Pt stated would like Adv Directive info. E.Summer BEST notified. Original Note: SEE RN GABBIE ASSESS LINK: Intro role to RN GABBIE. Pt sitting up in recliner chair, alert, and oriented. Pt willing to participate in assessment and is able to answer questions appropriately. D/C PLAN: Home no needs. Rashard LAL RN CM
--- NOTE | 2018-04-25 11:28 | DS.PCM_ITS ---
Discharge Date and Diagnosis Date of Admission: 04/23/18 Date of Discharge: 04/24/18 - Primary Discharge Diagnosis #1 cardiac [id number] unclear #2 chest pain-noncardiac in nature, musculoskeletal etiology suspected #3 hypotension #4 hives-etiology unknown #5 hypokalemia Hospital Course and Treatment Operations: None Procedures: 2-D Echocardiogram, Cardiac catheterization Summary of Care Provided: The patient is a 48 year old F seen in the emergency room at [facility] complaints of chest discomfort. Workup in the emergency room showed a normal sinus rhythm on her EKG at 73 without ischemic changes, chest x-ray showed nothing acute, CBC was normal except for hemoglobin of 16.8, potassium was slightly low at 3.4, troponin was unremarkable. Patient was given a dose of Benadryl and GI cocktail for her symptomology in the emergency room but still had some chest pain, she was given a dose of IV morphine and IV Pepcid after the initial treatment with the GI cocktail did not provide relief. Approximately 15 minutes after the administration of the morphine, patient had a bradycardic episode and the patient's was in the room with her and he noticed that she lost consciousness, nursing staff noted on the monitor that the patient went into asystole, CPR was begun and patient received 20 compressions and then became alert and conscious. Patient was noted be bradycardic on the monitors then in the 20s and 30s, IV fluid was administered, patient was given a dose of Narcan and atropine. She is heart rate increased to the 80s, repeat EKG is performed and showed no acute ischemic changes. Another troponin was obtained which was negative, CT angiogram of the chest was performed which was negative for acute disease. Patient was admitted to the ICU for chest pain and cardiac arrest with asystole, she was seen in consultation by cardiology and she continued to have episodes of chest pain but her troponins remained normal. It was felt that the patient should undergo cardiac catheterization to rule out serious coronary disease, echocardiogram was performed also. Echocardiogram was normal, cardiac catheterization was also normal. Patient was observed in the ICU and the next morning on 04/23/18, she was seen and examined by myself as well as cardiology, it was felt she was stable for discharge, she was discharged with instructions to go to the cardiopulmonary department for application of a 30 day event monitor. Discharge Activity: Return to Normal Activity Weight Bearing Status: Full weight bearing Primary Care Physician: Lenora Sarah DO [Primary Care Provider] - Please follow up with your Primary Care Physician in: in 2 weeks Please Follow Up With: Raffi Moralez MD When: in 4 weeks Patient Instructions: ED Chest Pain NonCardiac Disposition: Home Minutes spent on discharge:: 32 Patient Condition:: Stable Medical Necessity - Tobacco Use Smoking Status: Never smoker Tobacco Use: Non-smoker Meaningful Use Info Meaningful Use Diagnoses (Choose all that apply): None applicable Code Visit Inpatient E&M: 55718 Disch Hosp
== END 2018-04-24 12:45 | disposition home or self-care (01) | DRG 287 ==
LOC: ED 04-23 01:51 → ICU 04-23 01:52
PROVIDERS: Internal Medicine Cardiovascular Disease; Admitting Provider Family Medicine; Emergency Provider Emergency Medicine; Family Provider Internal Medicine; PCP Internal Medicine; Visit Provider Internal Medicine
DX: I46.9 Cardiac arrest, cause unspecified (principal); R07.9 Chest pain, unspecified; I95.9 Hypotension, unspecified; R00.1 Bradycardia, unspecified; L50.9 Urticaria, unspecified; E87.6 Hypokalemia; R10.13 Epigastric pain
CPT/HCPCS: 71045; 71275; 80048; 80053; 80061; 84484; 85025; 85027; 85610; 85730; 87641; 92950; 93005; 93306; 93458; 99152; 99153; 99283; J7030; Q9967; A4216; C1769; C1894; J2310; J3490

== ENCOUNTER → 2018-04-24 11:13 | Outpatient (REF) | payer OTHER, SELFPAY | LOC: CVS 11:13 | PROVIDERS: Family Provider Internal Medicine; PCP Internal Medicine; Visit Provider Internal Medicine Cardiovascular Disease | DX: R00.1 Bradycardia, unspecified (principal) | CPT/HCPCS: 93270 ==

== ENCOUNTER → 2019-08-25 09:10 | Outpatient (CLI) | payer BC, SELFPAY ==
--- NOTE | 2019-08-25 09:18 | US_ITS ---
STUDY: RENAL ULTRASOUND - COMPLETE REASON FOR EXAM: Female, 49 years old. Chronic, recurrent UTIs TECHNIQUE: Ultrasound evaluation of the kidneys was performed with real-time and static franklin-scale imaging. COMPARISON: None. FINDINGS: RIGHT KIDNEY: Normal location of the right kidney, which is normal in size. The right kidney measures 11.5 x 5.0 x 3.9 cm. There is a normal cortex of the right kidney. The renal cortex measures 1.6 cm. There is no right renal mass or cyst. There are no right renal calculi. There is an extra-renal pelvis of the right kidney. There is no distention of the renal calyces. DISTAL RIGHT URETER: There is non-visualization of the distal right ureter. There is no demonstrated right ureterovesical junction calculus. There is a visualized right ureteral jet. LEFT KIDNEY: Normal location of the left kidney, which is normal in size. The left kidney measures 11.2 x 5.2 x 5.6 cm. There is a normal cortex of the left kidney. The renal cortex measures 2.1 cm. There is no left renal mass or cyst. There are no left renal calculi. There is no left hydronephrosis. DISTAL LEFT URETER: There is non-visualization of the distal left ureter. There is no demonstrated left ureterovesical junction calculus. There is a visualized left ureteral jet. BLADDER: The distended urinary bladder has a volume of 240 ml. The empty urinary bladder has a volume of 33 ml. There is a normal wall thickness of the distended urinary bladder. There is no demonstrated mass within the urinary bladder. Low-level spectral foci of the urinary bladder. US/Kidney and Bladder IMPRESSION: 1. No hydronephrosis or shadowing calculi. 2. Urinary bladder luminal spectral foci to be related to infectious debris, hemorrhagic products or proteinaceous material. Electronically Signed: Mauricio Alexander MD (Brooks) at 9:07 EST , Service support ,
== END ==
PROVIDERS: Family Provider Internal Medicine; PCP Internal Medicine; Referring Provider Urology; Visit Provider Urology
DX: N39.0 Urinary tract infection, site not specified (principal); N11.9 Chronic tubulo-interstitial nephritis, unspecified
CPT/HCPCS: 76770

== ENCOUNTER 2019-09-30 06:02 | Day surgery (SDC) | payer BC, SELFPAY ==
[2019-09-30 06:26] VITALS: BP 110/72; PULSE 66; RESP 16; TEMP 36.3; O2SAT 100; BMI 22.6
[2019-09-30] MEDS: Lactated Ringers 1,000 ML 100 ML IV (06:40)
--- NOTE | 2019-09-30 07:41 | OP.PCM_ITS ---
Problem List (1) Urethral stenosis Status: Acute (2) Urinary tract infection Status: Acute Report of Operation Date of Procedure: 09/30/19 Pre-Operative Diagnosis: urethral stenosis, urinary tract infection Post-Operative Diagnosis: same Surgery/Procedure Performed:: cystoscopy, urethral dilation, pelvic exam under anesthesia Type of Anesthesia:: General Specimen's removed: none Description of Procedure: The patient is a 49-year-old female who is been having issues with recurrent urinary tract infections, lower abdominal and pelvic pain. On evaluation in the office I was unable to pass the cystoscope for further evaluation. We have decided to proceed with intervention and evaluation under anesthesia. Risks benefits and alternatives were discussed and informed consent was obtained. The patient was taken to the operating room and placed on the operating room table. Anesthesia monitored the head, neck, airway, IV access and vital signs throughout the case. Once anesthesia was appropriately administered the patient was prepped and draped in usual sterile fashion. On pelvic exam, the posterior floor under anesthesia was felt to be very thin and there is significant atrophy of the levator complexes bilaterally. The uterus is enlarged on exam and definitely causing external compression of the bladder. The urethra was subsequently dilated from 16 Luxembourgish to 30 Luxembourgish, using urethral sounds. A cystourethroscopy with a 70 degree lens was then performed. There is diffuse cy stitis cystica. There are no masses or areas of mucosal abnormality other than the cystitis cystica present. The the detrusor musculature appears thin and there are multiple varicose veins visible under the bladder mucosa. There are no ulcerations identified. There is no trabeculation present. The urethra was normal on cystoscopic visualization. The patient's bladder was then emptied. She was awakened and taken to the recovery room in good condition. There were no complications during the procedure. Grafts/Implants Used: none - Complications none - Admit VTE Documentation VTE Present on Admission: Yes VTE Mechan Device Prophylaxis: SCD's VTE Pharm Prophylaxis ordered?: No Reason prophylaxis not ordered:: Treatment Not Indicated
--- NOTE | 2019-09-30 07:43 | DCINST_ITS ---
Discharge Diet: No Restrictions Discharge Activity: Return to Normal Activity, May not drive while taking narcotic pain medications. Call your doctor if you observe: Fever of 101 or Higher, Inability to urinate, Inability to have a bowel movement, Shortness of breath, Chest pain, Calf discomfort, Uncontrolled pain Allergies/Adverse Reactions: Allergies acetaminophen [From Percocet] Allergy (Verified 09/30/19 06:26) Itching oxycodone HCl [From Percocet] Allergy (Verified 09/30/19 06:26) Itching morphine Adverse Reaction (Verified 09/30/19 06:26) Other states heart stopped with morphine 2017. had to have narcan anesthesia Adverse Reaction (Uncoded 09/30/19 06:26) Other became very sick after previous surgeries pt does not know what kind of anesthetic was used Medications to take at Discharge L.acidoph,Paracasei, B.lactis [Probiotic] 1 ea PO DAILY 09/22/19 RX: Nitrofurantoin Macrocrystals [Macrobid] 1 cap PO BID 09/30/19 Primary Care Physician: Lenora Sarah DO [Primary Care Provider] - Test Results: Test results from this visit will be discussed in further detail at your follow- up appointment, if applicable. Please Follow Up With: Alba Ricks MD When: call office for appt in 2-3 weeks Proposed Discharge Date: 09/30/19
[2019-09-30 08:16] VITALS: BP 110/72; BP 99/66; PULSE 92; RESP 14; TEMP 36.6; O2SAT 97
[2019-09-30 08:30] VITALS: BP 110/72; BP 91/63; PULSE 76; RESP 14; O2SAT 98
[2019-09-30 08:44] VITALS: BP 110/72; BP 95/65; PULSE 67; RESP 14; O2SAT 98
[2019-09-30 08:56] VITALS: BP 110/72; BP 91/59; PULSE 66; RESP 14; TEMP 36.3; O2SAT 99
[2019-09-30 10:38] VITALS: BP 110/72; BP 93/64; PULSE 64; RESP 16; TEMP 36.3; O2SAT 98
== END 2019-09-30 10:48 | disposition home or self-care (01) ==
LOC: SDC 06:03 → AC 06:04
PROVIDERS: Family Provider Internal Medicine; PCP Internal Medicine; Referring Provider Urology; Visit Provider Urology
PROC: 0T7D8ZZ Dilation of Urethra, Via Natural or Artificial Opening Endoscopic (ICD-10-PCS; CPT 52281; principal; 2019-09-30 07:20)
DX: N35.92 Unspecified urethral stricture, female (principal); N30.80 Other cystitis without hematuria; Z87.440 Personal history of urinary (tract) infections
CPT/HCPCS: 00910; 52281; J7120

== ENCOUNTER 2019-12-25 10:13 | Emergency (ER) | payer BC, SELFPAY ==
[2019-12-25 10:13] VITALS: BP 98/60; PULSE 72; RESP 18; O2SAT 98
[2019-12-25 10:15] VITALS: BP 91/60; PULSE 118; RESP 20; TEMP 36.6; O2SAT 98; BMI 22.8
--- NOTE | 2019-12-25 10:54 | ED.DCSUM_ITS ---
- ER Visit Summary Date of Service: 12/25/19 Chief Complaint: Nausea, vomiting and diarrhea with epigastric abdominal pain History of Present Illness: The patient is a 49 F is post prior cholecystectomy. No other segment past medical history. Said last night she began feeling ill with indigestion. Today she is noted nausea vomiting and diarrhea. With epigastric pain. She denies any chest pain or shortness of breath. No exertional symptoms recently. She denies any hematemesis or melena. No fever. No dysuria. Physical Examination: Well-appearing middle-aged female. No acute distress. Vital signs showed initial blood pressure 91/60 consistent with mild dehydration. Heart rate 118. And afebrile. H EENT exam unremarkable save for mild dry mucous membranes. Neck nontender no lymphadenopathy. Lungs clear to auscultation. Heart tachycardic rate about 115 no murmur. Abdomen soft. Nondistended. Normal bowel sounds. No peritoneal signs. Mild tenderness periumbilical and epigastric. Right upper and right lower quadrant unremarkable. No hernias or masses. No signs of obstruction. Patient moving all 4 extremities. No edema. Back nontender. Neurologically she is awake alert with no focal motor deficits. Test Results: White count of 3. Hemoglobin 15. Chemistries normal normal creatinine gap. Liver enzymes are somewhat elevated alk phos 150 ALT 112 AST 79 but they have been this high or higher before. Lipase normal. Emergency Department Course and Treatment: Patient treated with IV fluids for dehydration, nausea and vomiting. Treated with Zofran for nausea. Labs are being obtained. Repeat exam patient doing well at 12:20 PM. Abdomen is benign. Nondistended. Soft. No peritoneal signs. No signs of obstruction. Patient I went over all of her labs. Clinically she is feeling better after the Toradol. She deferred getting the Zofran because her nausea was improving on its own. Clinically I do not feel this to be an obstruction nor do I feel that she needs any imaging. Treatment Plan: Fluids and rest. Zofran as needed for nausea. Tylenol and Motrin as needed. Follow-up with your doctor if not improving. Return if worse. Disposition: dc Impression: Acute viral gastroenteritis Acute abdominal pain Acute dehydration This note was generated with [employer] dictation software. It may contain incorrect words, spelling, and punctuation that were not noted in review of the chart prior to signing ED Disposition - Plan for ED Patient: Referrals: Lenora Sarah DO [Primary Care Provider] -
[2019-12-25 11:01] LABS: Absolute Lymphocyte Count 0.55 X10^3/uL (0.83-4.51); Absolute Neutrophil Count 2.5 X10^3/uL (2.0-7.7); Basophil# 0.02 X10^3/uL; Basophil% 0.6 % (0-1); Hematocrit 45.9 % (37-47); Hemoglobin 15.5 g/dL (12.0-15.0); Lymphocyte # 0.55 X10^3/ul (4.0); Lymphocyte % 15.9 % (19-41); Mean Corp Hgb Conc 33.8 g/dL (32-36); Mean Corpuscular Hgb 31.6 pg (27.0-32.0); Mean Corpuscular Volume 93.7 fL (81-99); Mean Platelet Vol. 9.5 fl (6.2-12.0); Monocyte# 0.39 X10^3/uL; Monocyte% 11.3 % (0-10); NRBC Flagged by Analyzer 0 % (0-5); Neutrophil # 2.49 X10^3/uL (2.7-7.7); Neutrophil % 71.9 % (47-70); POSITIVE DIFFERENTIAL YES; Platelet Count 279 K/mm3 (150-450); RBC Distribution Width CV 11.8 % (11.6-14.6); RBC Distribution Width SD 40.5 fl (35.1-43.9); White Blood Count 3.5 K/mm3 (4.4-11.0)
[2019-12-25 11:04] LABS: Differential Indicated SCAN CRITERIA MET
[2019-12-25] MEDS: Ketorolac 30 MG/ML Syringe IV (11:07)
[2019-12-25] MEDS: 0.9% Normal Saline 1,000 ML 1000 ML IV (11:07)
[2019-12-25 11:14] LABS: AST(SGOT) 79 U/L (15-37); Alanine Aminotransfer ALT/SGPT 112 U/L (13-56); Albumin, Serum 4.3 g/dL (3.2-5.0); Alkaline Phosphatase 150 U/L (45-117); Anion Gap 10 (5-15); BUN 16 mg/dL (7-18); BUN/Creat Ratio 16.6 RATIO (10-20); Calcium,Total 9.5 mg/dL (8.5-10.1); Chloride 101 mmol/L (98-107); Creatinine, Serum 0.96 mg/dL (0.55-1.02); EST Glomerular Filtration Rate 65 mL/min (>60); Est Glom Filt Rate - Afr Amer 78 mL/min (>60); Estimated Creatinine Clearance 67.42 ml/min; Globulin 4.4 g/dL (2.2-4.2); Glucose 116 mg/dL (74-106); Lipase 114 U/L (73-393); Potassium 3.5 mmol/L (3.5-5.1); Protein, Total 8.7 g/dL (6.4-8.2); Sodium Level 139 mmol/L (136-145)
[2019-12-25 11:22] LABS: Differential Comment SCANNED
[2019-12-25 12:11] VITALS: BP 97/43; PULSE 78; RESP 16; O2SAT 100
--- NOTE | 2019-12-25 12:30 | ED.DEP ---
ED Disposition - Plan for ED Patient: Disposition: Home or Assisted Living Instructions: ED Viral Gastroenteritis Prescriptions: Dicyclomine HCl [Bentyl] 10 mg PO TID PRN PRN #10 cap PRN Reason: abdominal pain Prescription Printed Ondansetron [Zofran Odt] 4 mg PO Q8H PRN PRN #10 tab PRN Reason: Nausea Prescription Printed Referrals: Lenora Sarah DO [Primary Care Provider] - 3-5 Days if not improving Additional Instructions: Plenty of fluids and rest. Zofran as needed for nausea. Tylenol and Motrin for pain. This should improve over the next 24 to 48 hours. Follow-up with your doctor if not improving return emergency department if worse. Clinically this is most likely from a viral gastroenteritis. There is no signs of a bowel obstruction or any type of retained gallstone.
[2019-12-25 12:49] VITALS: BP 97/43; PULSE 75; RESP 16; O2SAT 96
[2019-12-26 11:37] LABS: Pathologist Review Reviewed
== END 2019-12-25 12:49 | disposition home or self-care (01) ==
PROVIDERS: Emergency Provider Emergency Medicine; PCP Internal Medicine
DX: A08.4 Viral intestinal infection, unspecified (principal); E86.0 Dehydration; Z90.49 Acquired absence of other specified parts of digestive tract
CPT/HCPCS: 80053; 83690; 85025; 96361; 96374; 99284; J7030; A4216; J2405

== ENCOUNTER → 2021-09-15 | Outpatient (CLI) | payer OTHER, SELFPAY ==
[2021-09-21 16:35] LABS: HPV APTIMA, High Risk Negative (Negative)
== END | disposition home or self-care (01) ==
LOC: LABSPEC 15:42
PROVIDERS: PCP Internal Medicine; Referring Provider Nurse Practitioner Women's Health; Visit Provider Nurse Practitioner Women's Health
DX: Z78.0 Asymptomatic menopausal state (principal)
CPT/HCPCS: 87624; 88175; G0145

== ENCOUNTER 2021-10-27 14:59 | Outpatient (CLI) | payer OTHER, SELFPAY ==
--- NOTE | 2021-10-27 15:01 | BI_ITS ---
MAMMOGRAPHY - BILATERAL SCREENING REASON FOR EXAM: Female, 51 years old. Routine annual screening examination. PERTINENT HISTORY: Mother with breast cancer. TECHNIQUE: Digital bilateral breast don (3D mammographic acquisition) in the CC and MLO projections. 2-D mediolateral oblique (MLO) and craniocaudad (CC) views of both breasts were obtained. CAD: Full Field Digital Mammography with Computer Added Detection was performed. COMPARISON: None. Baseline examination. FINDINGS: Breast Composition: The breasts are heterogeneously dense, which may obscure small masses. There are no dominant masses or suspicious calcifications. No other significant abnormalities are identified. BI/SCRN MAMM (CAD)W/DON BILAT IMPRESSION: Negative screening mammogram. Yearly followup mammogram recommended. (A) ASSESSMENT CATEGORY: BIRADS Category 1: Negative. A letter regarding these results will be sent to the patient by the facility within 30 days. Approximately 10% of breast cancers are not detected by mammography. A normal mammogram should not delay biopsy of a clinically suspicious abnormality. [id number] Electronically Signed: Wiliam Reynaga MD at 8:18 EST ,
== END 2021-10-27 23:59 | disposition short-term general hospital (02) ==
LOC: OPBI 14:59
PROVIDERS: PCP Internal Medicine; Referring Provider Nurse Practitioner Women's Health; Visit Provider Nurse Practitioner Women's Health
DX: Z12.31 Encounter for screening mammogram for malignant neoplasm of breast (principal); Z15.01 Genetic susceptibility to malignant neoplasm of breast; Z15.09 Genetic susceptibility to other malignant neoplasm
CPT/HCPCS: 77063; 77067

== ENCOUNTER → 2024-01-31 | Outpatient (CLI) | payer OTHER, SELFPAY ==
--- NOTE | 2024-01-31 07:54 | CT_ITS ---
STUDY: CT BRAIN WITHOUT CONTRAST REASON FOR EXAM: Female, 53 years old. Acute nonintractable headache unspexified RADIATION DOSAGE (If Supplied By Facility): CTDIvol = ( 44.99 ) mGy, DLP = ( 796.11 ) mGycm TECHNIQUE: Transaxial CT imaging of the brain was performed without administration of intravenous contrast material. Individualized dose optimization techniques were used for this CT. COMPARISON: No relevant priors. FINDINGS: Normal soft tissue structures. Normal calvarium. Normal size ventricles and extra-axial spaces for the patient''s age. Normal white matter tracts of the cerebral hemispheres. Normal basal ganglia and thalami. Normal brainstem. Normal cerebellum. There is no intracranial hemorrhage. There are no findings of an acute ischemic infarction. Partial opacification of the sphenoid sinuses bilaterally. CT/Brain/Head without Contrast IMPRESSION: Partial opacification of the sphenoid sinuses bilaterally. Electronically Signed: Wiliam Reynaga MD at 15:18 EDT ,
== END | disposition home or self-care (01) ==
PROVIDERS: PCP Internal Medicine; Referring Provider Internal Medicine; Visit Provider Internal Medicine
DX: R51.9 Headache, unspecified (principal)
CPT/HCPCS: 70450

== ENCOUNTER → 2024-09-02 | Outpatient (CLI) | payer OTHER, SELFPAY ==
--- NOTE | 2024-09-02 15:02 | BI_ITS ---
MAMMOGRAPHY - BILATERAL SCREENING REASON FOR EXAM: Female, 54 years old. Routine annual screening examination. PERTINENT HISTORY: Mother with breast cancer. TECHNIQUE: Digital bilateral breast don (3D mammographic acquisition) in the CC and MLO projections. 2-D mediolateral oblique (MLO) and craniocaudad (CC) views of both breasts were obtained. CAD: Full Field Digital Mammography with Computer Added Detection was performed. COMPARISON: Comparison is made with prior study dated October 27, 2021. FINDINGS: Breast Composition: The breasts are heterogeneously dense, which may obscure small masses. There are no dominant masses or suspicious calcifications. No other significant abnormalities are identified. There has been no significant change since the prior study. BI/SCRN MAMM (CAD)W/DON BILAT IMPRESSION: Stable bilateral screening mammogram. Yearly follow-up mammogram recommended. (A) ASSESSMENT CATEGORY: BIRADS Category 1: Negative. A letter regarding these results will be sent to the patient by the facility within 30 days. Approximately 10% of breast cancers are not detected by mammography. A normal mammogram should not delay biopsy of a clinically suspicious abnormality. [id number] Electronically Signed: Wiliam Reynaga MD at 15:28 EST ,
== END | disposition home or self-care (01) ==
LOC: OPBI 15:02
PROVIDERS: PCP Internal Medicine; Referring Provider Nurse Practitioner Women's Health; Visit Provider Nurse Practitioner Women's Health
DX: Z12.31 Encounter for screening mammogram for malignant neoplasm of breast (principal); Z80.3 Family history of malignant neoplasm of breast
CPT/HCPCS: 77063; 77067

== ENCOUNTER → 2025-09-10 | Outpatient (CLI) | payer OTHER, SELFPAY ==
[2025-09-10 15:23] LABS: Mucous, Urine 0 SEEN /hpf (<or=2+)
--- OUTSIDE RECORDS SUMMARY | 2025-09-10 18:07 | XMS RPT_ITS | CCD ---
Author Organization [facility] ion [facility] Care Team Providers Care Model Engine Mechanic Name Role Phone Elin, Lenora Unavailable Erick Marie Unavailable Unavailable Jose Manuel Luna Unavailable Kofi Balbuena Unavailable Edson Figueredo Unavailable Aj Osullivan Unavailable Micheal Juarez Unavailable Gravmanuel Syl Unavailable Unavailable Danielle, Sara Unavailable Unavailable Cady Cohn Unavailable Unavailable Sara Young Unavailable Unavailable Unavailable Unavailable Slakristopher, Rita Unavailable Unavailable Alba Ricks Unavailable Janny Pink Unavailable Unavailable Gravius, Syl Unavailable Unavailable Cristy Centeno Unavailable Unavailable Sara Santos Unavailable Unavailable Steve Steven Unavailable Unavailable Janny Pink Unavailable Unavailable EMILIANO MEYERS Attending Unavailable SELF, SELF Referring Unavailable Lenora Sarah DO Unavailable Erick Marie Unavailable Unavailable Jose Manuel Luna Unavailable Dr. Kofi Balbuena Unavailable Alba Ricks Unavailable Edson Figueredo Unavailable Aj Osullivan MD Unavailable Micheal Juarez MD Unavailable Cristy Centeno LPN Unavailable Unavailable Javier Tuttle CMA Unavailable Unavailable Messenger Sara HWANG Unavailable Unavailable Steve Steven LPN Unavailable Unavailable Gravius MEDICAL RECORDS CUSTODIAN, Syl Unavailable Unavailable Sara Yougn Unavailable Unavailable Cady Cohn Unavailable Unavailable Joesph HWANG, Janny Gill Unavailable Unavailable Unavailable Unavailable Elin DOLenora Attending Unavailable Elin DO, Lenora Referring Unavailable Elin DO, Lenora Consulting Unavailable Elin, Lenora Unavailable Lucas Marino Unavailable Unavailabl e [facility], He [facility] Unavailable [place] UNDER GROUND MINER, Connor Unavailable Unavailable Elin DO, Lenora K Unavailable Elin DO, Lenora K Primary Care Provider HUY CAMPBELL Attending Unavailable HUY CAMPBELL Referring Unavailable ELIN, LENORA Donta Primary Care Unavailable Elin DUMONT, Dr. Cooley Primary Care Provider Rambo RODRIGUEZ, Dr. Willis Attending Provider Elin DUMONT, Dr. Cooley Referring Provider PINKY VIRK Attending Unavailable PINKY VIRK Primary Care Unavailable PINKY VIRK Admitting Unavailable Elin, Lenora Referring Unavailable Elin, Lenora Primary Care Unavailable Alba Ricks Attending Unavailable Elin, Lenora Referring Unavailable Elin, Lenora Primary Care Unavailable [place] PUBLIC HE[employer] AIDES TEACHER, Yesenia Attending Unavailable Elin, Lenora Primary Care Unavailable Leslie PUBLIC HEALTH AIDES TEACHER, Yesenia Referring Unavailable Leslie PUBLIC HEALTH AIDES TEACHER, Yesenia Attending Unavailable Elin, Lenora Referring Unavailable Elin, Lenora Primary Care Unavailable Alba Ricks Attending Unavailable Allergies Allergy Classification Reported Allergen(s) Allergy Type Date of Onset Reaction(s) Facility (20 sources) NITROFURANTOIN, MACROCRYSTALS / Nitrofurantoin, Monohydrate; Translations: [Macrobid *URINARY ANTI-INFECTIVES*] Drug Allergy 03-23-20 20 Unknown [facility] Work Phone: Comment on above: GI upset (20 sources) Morphine Derivatives drug allergy [facility] Work Phone: Comment on above: arrest (4 sources) Acetaminophen Drug Allergy 09-15-20 21 Unknown, Itching [facility] (6 sources) Morphine; Translations: [MORPHINE] Drug Allergy 09-30-20 19 Cardiac arrhythmia/arr est, Other, Unknown [facility] Comment on above: states heart stopped with morphine 2017. had to have narcan (2 sources) Nitrofurantoin Drug Allergy 06-05-20 25 Unknown, passed out [facility] (3 sources) oxyCODONE; Translations: [OXYCODONE] Drug Allergy 08-05-20 18 Itching, Unknown [facility] (4 sources) oxyCODONE; Translations: [oxycodone HCl] Drug Allergy 09-15-20 21 Itching [facility] (4 sources) anesthesia; Translations: [anesthesia] Propensity to adverse reactions 09-15-20 21 Other [facility] Comment on above: became very sick af ter previous surgeries pt does not know what kind of anesthetic was used (1 source) NITROFURANTOIN MONOHYD/M-CRYST; Translations: [NITROFURANTOIN MONOHYD/M-CRYST] Propensity to adverse reactions to drug (disorder) 03-23-20 20 [facility] 2 Repository (1 source) Acetaminophen Drug Allergy 06-05-20 [facility] Repository (1 source) Morphine Drug Allergy 06-05-20 [facility] Repository (1 source) Nitrofurantoin Drug Allergy 06-05-20 [facility] Repository Medications Current Medications Medication Drug Class(es) Dates Sig (Normalized) Sig (Original) cyclobenzaprine hydrochloride 5 mg oral tablet (4 sources) Muscle Relaxant Start: 06-02-2023 take 1 tablet by mouth three times daily cyclobenzaprine 5 mg oral tablet ; 1 tab(s) orally 3 times a day, As Needed Quantity: 12 Refills: 0 Ordered: 02-Jun-2023 Lucas Marino Start: 02-Jun-2023 Generic Substitution Allowed Comments: Some non-prescription drugs may aggravate your condition. Read all labels carefully. If a warning appears, check with your doctor before taking.This drug may impair the ability to drive or operate machinery. Use care until you become familiar with its effects. Comment on above: Some non-prescriptio n drugs may aggravate your condition. Read all labels carefully. If a warning appears, check with your doctor before taking.This drug may impair the ability to drive or operate machinery. Use care until you become familiar with its effects. Medication taken as needed. hyoscyamine sulfate 0.12 mg / methenamine 118 mg / methylene blue 10 mg / phenyl salicylate 36 mg / sodium phosphate, monobasic 40.8 mg oral capsule (1 source) Oxidation-Reduct ion Agent Start: 06-05-2025 Methen-M.Blue-S.Phos -Phsal-Hyo (Uro-Mp) 118-10-40.8-36 mg capsule Active 1 {tbl} PO .COMPLEX 90 1 June 05, 2025 12:00am 1 TAB orally TID for 7 days, then BID for 7 days, then QHS for 30 days then PRN; administer with plenty of fluids L.Acidoph, Paracasei,B. Lactis (1 source) Start: 09-22-2019 L.Acidoph, Paracasei,B. Lactis Active 1 EACH PO DAILY September 22, 2019 1:00am L.Acidoph,Paracasei,B .Animalis 1 EACH capsule (2 sources) Start: 09-22-2019 take 1 capsule by mouth once daily L.Acidoph,Paracasei, B.Animalis 1 EACH capsule Active 1 NMA PO DAILY September 22, 2019 1:00am supplement meclizine hydrochloride 25 mg oral tablet (20 sources) Antiemetic Start: 06-02-2023 take 1 tablet by mouth three times daily meclizine 25 mg oral tablet ; 1 tab(s) orally 3 times a day Quantity: 12 Refills: 0 Ordered: 02-Jun-2023 Lucas Marino Start: 02-Jun-2023 Generic Substitution Allowed Comments: May cause drowsiness. Alcohol may intensify this effect. Use care when operating dangerous machinery. Start: 12-13-2011 End: 07-10-2012 take 1 tablet by mouth every four to six hours as needed for dizziness ANTIVERT, 12.5MG (Oral Tablet) 1 Tablet q4-6 hr prn for dizziness for 0 days Quantity: 30 {Tablet} Refills: 0 Ordered: 10-Jul-2012 Sara Santos RN Start : 13-Dec-2011 End : 10-Jul-2012 Inactive Comment on above: May cause drowsiness . Alcohol may intensify this effect. Use care when operating dangerous machinery. oxyCODONE hydrochloride 5 mg oral tablet (1 source) Opioid Agonist Start: 01-18-20 End: 01-21-20 take 1 tablet by mouth every six hours for pain oxyCODONE (Roxicodone) 5 mg immediate release tablet Indications: Sprain of left knee, initial encounter Take 1 tablet (5 mg) by mouth every 6 hours if needed for severe pain (7 - 10) for up to 3 days. 12 tablet 01/17/2025 01/20/2025 Active predniSONE 20 mg oral tablet (20 sources) Start: 06-02-20 End: 06-06-20 take 2 tablets by mouth once daily at mealtime predniSONE 20 mg oral tablet ; 2 tab(s) orally once a day Quantity: 10 Refills: 0 Ordered: 02-Jun-2023 Lucas Marino Start: 02-Jun-2023 End: 06-Jun-2023 Generic Substitution Allowed Comments: It is very important that you take or use this exactly as directed. Do not skip doses or discontinue unless directed by your doctor.Obtain medical advice before taking any non-prescription drugs as some may affect the action of this medication.Take with food or milk. Start: 09-14-2011 End: 10-05-2011 PREDNISONE, 20MG (Oral Table t) 1 Tablet qd x7 days. 1/2 qd x 7 days and 1/2 qod x 1 week for 21 days Quantity: 13 {Tablet} Refills: 0 Ordered: 14-Sep-2011 Janny Pink RN Start : 14-Sep-2011 End : 05-Oct-2011 Inactive Comment on above: It is very important that you take or use this exactly as directed. Do not skip doses or discontinue unless directed by your doctor.Obtain medical advice before taking any non-prescription drugs as some may affect the action of this medication.Take with food or milk. Completed/Discontinued Medications Medication Drug Class(es) Dates Sig (Normalized) Sig (Original) acetaminophen 325 mg / HYDROcodone bitartrate 5 mg oral tablet (20 sources) Opioid Agonist Start: 10-09-2014 End: 07-22-2015 take 1-2 tablets by mouth every four hours as needed HYDROCODONE-ACETA MINOPHEN, 5-325MG (Oral Tablet) 1-2 Tablet Tablet q4 hrs prn for 4 days Refills: 0 Ordered: 22-Jul-2015 LIDIA Jacques LPN Start : 09-Oct-2014 End : 22-Jul-2015 Inactive Start: 08-31-2011 End: 07-10-2012 take 1 tablet by mouth twice daily VICODIN, 5-500MG (Oral Tablet) 1 Tablet bid for 0 days Quantity: 60 {Tablet} Refills: 2 Ordered: 10-Jul-2012 Sara Santos RN Start : 31-Aug-2011 End : 10-Jul-2012 Inactive acetaminophen 325 mg / oxyCODONE hydrochloride 5 mg oral tablet (4 sources) Opioid Agonist Start: 01-16-2025 End: 01-16-2025 take 1 tablet by mouth once as needed for pain 1 tablet, oral, Once, On Sun01/16/25 at 2220, For 1 dose, If ordered PRN for pain, nurse is permitted to administer this medication for higher pain scores based on patient preference? Yes Start: 07-30-2013 End: 07-31-2013 Oxycodone-Acetaminophen 1 TA BLET tablet Discontinued 1 - 2 {tbl} PO EVERY 4 HOURS NEEDED as needed for Pain July 30, 2013 12:00am July 31, 2013 2:19pm Start: 07-30-2013 End: 07-31-2013 take 1 tablet by mouth every four hours as needed Oxycodone-Acetaminophen Discontinued 1 - 2 TABLET PO EVERY 4 HOURS NEEDED July 30, 2013 12:00am July 31, 2013 2:19pm [id number] 60 actuat albuterol 0.09 mg/actuat metered dose inhaler (20 sources) beta2-Adrenergic Agonist Start: 02-16-2010 End: 02-26-2010 VENTOLIN HFA, 108 (90 Base)MCG/ACT (Inhalation Aerosol Solution) 2 (two) Aerosol Soln q 6 hr prn for 10 days Quantity: 1 {Aerosol_Soln} Refills: 0 Ordered: 07-Mar-2010 Lenora Sarah DO, DO, Kathleen Start : 16-Feb-2010 End : 26-Feb-2010 Inactive Start: 02-16-2010 End: 02-26-2010 VENTOLIN HFA, 108 (90 Base)M CG/ACT (Inhalation Aerosol Solution) 2 (two) Aerosol Soln q 6 hr prn for 10 days Quantity: 1 {Aerosol_Soln} Refills: 0 Ordered: 07-Mar-2010 Elin DUMONT Lenora Jesus DO Start : 16-Feb-2010 End : 26-Feb-2010 Inactive amoxicillin 875 mg / clavulanate 125 mg oral tablet (20 sources) Penicillin-class Antibacterial Start: 06-15-2014 End: 06-29-2014 take 1 tablet by mouth twice daily AUGMENTIN, 875-125MG (Oral Tablet) 1 Tablet bid for 14 days Quantity: 28 {Tablet} Refills: 0 Ordered: 15-Jun-2014 Nereyda Iyer Start : 15-Jun-2014 End : 29-Jun-2014 Inactive bifidobacterium infantis 4 mg oral capsule (20 sources) Start: 08-27-2013 End: 10-09-2014 take 1 capsule by mouth once daily ALIGN, 4MG (Oral Capsule) 1 Capsule daily for 0 days Quantity: 30 {Capsule} Refills: 0 Ordered: 09-Oct-2014 Sara Santos RN Start : 27-Aug-2013 End : 09-Oct-2014 Inactive ciclesonide 0.05 mg/actuat metered dose nasal spray (20 sources) Start: 08-15-2010 End: 12-13-2011 OMNARIS, 50MCG/ACT (Nasal Suspension) 2 (two) Suspension qd for 0 days Quantity: 1 {Suspension} Refills: 0 Ordered: 13-Dec-2011 Riri Johnson LPN Start : 15-Aug-2010 End : 13-Dec-2011 Inactive ciprofloxacin 500 mg oral tablet (20 sources) Quinolone Antimicrobial Start: 08-07-2019 End: 08-14-2019 take 1 tablet by mouth twice daily Ciprofloxacin HCl 500 MG Oral Tablet 1 (one) Tablet bid for 7 days Quantity: 14 {Tablet} Refills: 0 Ordered: 07-Aug-2019 Sara Young Start : 07-Aug-2019 End : 14-Aug-2019 Inactive Start: 06-18-2018 End: 06-21-2018 take 1 tablet by mouth twice daily Ciprofloxacin HCl 500 MG Oral Tablet 1 (one) Tablet bid for 3 days Quantity: 6 {Tablet} Refills: 0 Ordered: 18-Jun-2018 Nereyda Iyer CNP Start : 18-Jun-2018 End : 21-Jun-2018 Inactive Start: 04-29-2014 End: 05-06-2014 take 1 tablet by mouth twice daily CIPRO, 500MG (Oral Tablet) 1 Tablet bid for 7 days Quantity: 20 {Tablet} Refills: 0 Ordered: 29-Apr-2014 Nereyda Iyer Start : 29-Apr-2014 End : 06-May-2014 Inactive 24 hr clarithromycin 500 mg extended release oral tablet (20 sources) Macrolide Antimicrobial Start: 11-06-2006 End: 11-06-2006 take 2 tablets by mouth once daily BIAXIN XL PAC, 500MG (Oral Tablet Extended Release 24 Hour) 2 (two) Tablet ER 24HR Daily for 0 days Quantity: 1 {Tablet_ER_24HR} Refills: 0 Ordered: 06-Nov-2006 Riri Johnson LPN Start : 06-Nov-2006 End : 06-Nov-2006 Discontinued Comments: Pt could not tolerate Start: 11-06-2006 End: 11-06-2006 take 2 tablets by mouth once daily BIAXIN XL PAC, 500MG (Oral Tablet Extended Release 24 Hour) 2 (two) Tablet ER 24HR Daily for 0 days Quantity: 1 {Tablet_ER_24HR} Refills: 0 Ordered: 06-Nov-2006 Riri Johnson LPN Start : 06-Nov-2006 End : 06-Nov-2006 Discontinued Comments: Pt could not tolerate Comment on above: Pt could not tolerat e dicyclomine hydrochloride 10 mg oral capsule (3 sources) Anticholinergic Start: 12-25-19 End: 09-15-20 21 take 1 capsule by mouth three times daily as needed for pain Dicyclomine 10 MG capsule Discontinued 10 mg PO 3 TIMES DAILY NEEDED as needed for abdominal pain 10 0 December 25, 2019 12:39pm September 15, 2021 3:23pm etodolac 200 mg oral capsule (20 sources) Nonsteroidal Anti-inflammatory Drug Start: 10-09-19 15 End: 07-22-20 15 take 1 capsule by mouth three times daily ETODOLAC, 200MG (Oral Capsule) 1 (one) Capsule Capsule tid for 5 days Refills: 0 Ordered: 22-Jul-2015 LIDIA Jacques LPN Start : 09-Oct-2014 End : 22-Jul-2015 Inactive Start: 03-07-2010 End: 08-15-2010 take 2 tablets by mouth once daily ETODOLAC CR, 400MG (Oral Tablet Extended Release 24 Hour) 2 (two) Tablet ER 24HR qd for 0 days Quantity: 30 {Tablet_ER_24HR} Refills: 0 Ordered: 15-Aug-2010 Sara Santos RN Start : 07-Mar-2010 End : 15-Aug-2010 Inactive 14 actuat fluticasone propionate 0.25 mg/actuat / salmeterol 0.05 mg/actuat dry powder inhaler (20 sources) Corticosteroid, beta2-Adrenergic Agonist Start: 11-05-2006 End: 12-13-2007 ADVAIR DISKUS, 250-50MCG/DOSE (Inhalation Miscellaneous) 1 (one) Misc Twice daily for 0 days Refills: 0 Ordered: 05-Nov-2006 Riri Johnson LPN Start : 05-Nov-2006 End : 13-Dec-2007 Inactive Start: 11-05-2006 End: 12-13-2007 ADVAIR DISKUS, 250-50MCG/DOS E (Inhalation Miscellaneous) 1 (one) Misc Twice daily for 0 days Refills: 0 Ordered: 05-Nov-2006 Riri Johnson LPN Start : 05-Nov-2006 End : 13-Dec-2007 Inactive gabapentin 300 mg oral capsule (20 sources) Anti-epileptic Agent Start: 01-22-2020 End: 02-18-2020 Gabapentin 300 MG Oral Capsule 1 (one) Capsule qhs for one week can increase to onebid for 0 days Quantity: 60 {Capsule} Refills: 0 Ordered: 18-Feb-2020 Syl Chandler CMA Start : 22-Jan-2020 End : 18-Feb-2020 Discontinued Comments: B02.9sixty Start: 09-08-2011 End: 07-10-2012 take 1 capsule by mouth once daily NEURONTIN, 300MG (Oral Capsule) 1 Capsule qd for 0 days Quantity: 30 {Capsule} Refills: 1 Ordered: 10-Jul-2012 Sara Santos RN Start : 08-Sep-2011 End : 10-Jul-2012 Inactive Comment on above: B02.9sixty 12 hr guaiFENesin 600 mg extended release oral tablet (20 sources) Start: 4 End: 5 MUCINEX, 600MG (Oral Tablet Extended Release 12 Hour) 1 (one) Tablet ER 12HR bid for 0 days Quantity: 30 {Tablet} Refills: 0 Ordered: 09-Oct-2014 Sara Santos RN Start : 15-Jun-2014 End : 09-Oct-2014 Inactive ibuprofen 400 mg oral tablet (20 sources) Nonsteroidal Anti-inflammatory Drug Start: End: 0 take 1 tablet by mouth every six hours Ibuprofen 400 MG Oral Tablet 1 (one) Tablet Tablet q6hrs for 0 days Quantity: 30 {Tablet} Refills: 0 Ordered: 25-Dec-2019 Sara Santos RN Start : 12-Jun-2018 End : 25-Dec-2019 Inactive Start: 10-16-2014 End: 07-22-2015 take 1 tablet by mouth three times daily as needed IBUPROFEN, 600MG (Oral Tablet) 1 (one) Tablet tid prn with food for 0 days Quantity: 60 {Tablet} Refills: 0 Ordered: 22-Jul-2015 LIDIA Jacques LPN Start : 16-Oct-2014 End : 22-Jul-2015 Inactive Start: 07-28-2013 End: 07-31-2013 Ibuprofen 600 MG tablet Discontinued 800 mg PO EVERY 6 HOURS NEEDED as needed for Pain July 28, 2013 12:00am July 31, 2013 2:19pm Start: 07-28-2013 End: 07-31-2013 take 800 mg by mouth every six hours as needed Ibuprofen Discontinued 800 MG PO EVERY 6 HOURS NEEDED July 28, 2013 12:00am July 31, 2013 2:19pm Start: 07-04-2013 End: 07-22-2015 take 1 tablet by mouth once daily at mealtime IBUPROFEN, 800MG (Oral Tablet) 1 Tablet daily for 810 days Quantity: 30 {Tablet} Refills: 0 Ordered: 22-Jul-2015 LIDIA Jacques LPN Start : 04-Jul-2013 End : 22-Jul-2015 Inactive Comments: take with food Comment on above: take with food 1 ml ketorolac tromethamine 30 mg/ml injection (8 sources) Nonsteroidal Anti-inflammatory Drug, Cyclooxygenase Inhibitor Start: 01-18-20 End: 01-18-20 inject 15 mg by intramuscular injection once 15 mg, intramuscula r, Once, On 01/17/25 at 0030, For 1 dose Start: 06-02-2023 End: 06-06-2023 take 1 tablet by mouth four times daily at mealtime ketorolac 10 mg oral tablet ; 1 tab(s) orally 4 times a day Quantity: 20 Refills: 0 Ordered: 02-Jun-2023 Lucas Marino Start: 02-Jun-2023 End: 06-Jun-2023 Generic Substitution Allowed Comments: It is very important that you take or use this exactly as directed. Do not skip doses or discontinue unless directed by your doctor.May cause drowsiness or dizziness.Obtain medical advice before taking any non-prescription drugs as some may affect the action of this medication.Take with food or milk. Start: 09-30-2019 End: 10-07-2019 take 1 tablet by mouth every six hours Ketorolac 10 MG tablet Discontinued 10 mg PO EVERY 6 HOURS 20 7 0 September 30, 2019 1:00am October 06, 2019 1:00am October 07, 2019 1:08am Comment on above: It is very important that you take or use this exactly as directed. Do not skip doses or discontinue unless directed by your doctor.May cause drowsiness or dizziness.Obtain medical advice before taking any non-prescription drugs as some may affect the action of this medication.Take with food or milk. levoFLOXacin 500 mg oral tablet (20 sources) Quinolone Antimicrobial Start: 2009 End: 2011 take 1 tablet by mouth once daily LEVAQUIN, 500MG (Oral Tablet) 1 Tablet daily for 0 days Quantity: 10 {Tablet} Refills: 0 Ordered: 13-Dec-2011 Riri Johnson LPN Start : 15-Aug-2010 End : 13-Dec-2011 Inactive LORazepam 0.5 mg oral tablet (20 sources) Benzodiazepine End: 2009 take 1 tablet by mouth every eight hours ATIVAN, 0.5MG (Oral Tablet) 1 q 8 hrs for 0 days Refills: 0 Ordered: 15-Aug-2010 Sara Santos RN End : 15-Aug-2010 Inactive meloxicam 15 mg oral tablet (3 sources) Nonsteroidal Anti-inflammatory Drug Start: 2022 take 1 tablet by mouth once daily at mealtime meloxicam 15 mg oral tablet 1 (one) tablet qd with food for 0 days Quantity: 30 {Tablet} Refills: 0 Ordered: 07-Jun-2023 Lenora Sarah DO, DO, Kathleen Start : 07-Jun-2023 Active methylPREDNISolone 4 mg oral tablet (20 sources) Corticosteroid Start: 2014 End: 2014 take 1 tablet by mouth at mealtime MEDROL (KARL), 4MG (Oral Tablet) 1 (one) Tablet TAD for 0 days Quantity: 1 {Package} Refills: 0 Ordered: 22-Jul-2015 LIDIA Jacques LPN Start : 11-Nov-2014 End : 22-Jul-2015 Inactive Comments: with food Comment on above: with food naproxen sodium 220 mg oral tablet (20 sources) Nonsteroidal Anti-inflammatory Drug Start: 2007 End: 2011 take 2 tablets by mouth twice daily as needed ALEVE, 220MG (Oral Tablet) 2 (two) Tablet Twice daily/PRN for 0 days Refills: 0 Ordered: 10-Jul-2012 Sara Santos RN Start : 13-Dec-2007 End : 10-Jul-2012 Inactive nitrofurantoin, macrocrystals 100 mg oral capsule (20 sources) Nitrofuran Antibacterial Start: 2016 End: 2016 take 1 capsule by mouth twice daily Nitrofurantoin Macrocrystal 100 MG Oral Capsule 1 (one) Capsule bid for 0 days Quantity: 10 {Capsule} Refills: 0 Ordered: 08-Jan-2017 Kaitlin Burch CMA Start : 03-Jan-2017 End : 08-Jan-2017 Inactive nitrofurantoin, macrocrystals 25 mg / nitrofurantoin, monohydrate 75 mg oral capsule (20 sources) Nitrofuran Antibacterial Start: 2024 End: 2024 take 1 capsule by mouth twice daily at mealtime Nitrofurantoin Monohyd/M-Cryst (Macrobid) 100 mg capsule Discontinued 100 mg PO TWICE A DAY 14 0 May 18, 2025 12:00am June 05, 2025 1:50pm must administer with a meal/food Start: 06-12-2018 End: 06-18-2018 take 1 capsule by mouth twice daily Macrobid 100 MG Oral Capsule 1 (one) Capsule Capsule bid for 7 days Quantity: 14 {Capsule} Refills: 0 Ordered: 18-Jun-2018 Janny Pink RN Start : 12-Jun-2018 End : 18-Jun-2018 Inactive ondansetron 4 mg disintegrating oral tablet (20 sources) Serotonin-3 Receptor Antagonist Start: 12-25-2019 End: 09-15-2021 take 1 tablet by mouth every eight hours as needed for nausea Ondansetron 4 MG tablet Discontinued 4 mg PO EVERY 8 HOURS NEEDED as needed for Nausea December 25, 2019 12:00am September 15, 2021 3:23pm Start: 08-07-2019 End: 12-25-2019 take 1 tablet by mouth every eight hours as needed Zofran 4 MG Oral Tablet 1 (one) Tablet q8hrs prn for 4 days Quantity: 12 {Tablet} Refills: 0 Ordered: 25-Dec-2019 Sara Santos RN Start : 07-Aug-2019 End : 25-Dec-2019 Inactive Start: 06-17-2018 End: 08-07-2019 take 1 tablet by mouth every eight hours as needed Ondansetron 8 MG Oral Tablet Disintegrating 1 (one) Tablet Tablet PO Q8 Hours PRN for 0 days Quantity: 9 {Tablet} Refills: 0 Ordered: 07-Aug-2019 Janny Pink RN Start : 17-Jun-2018 End : 07-Aug-2019 Inactive Start: 10-09-2014 End: 07-22-2015 take 1 tablet by mouth every eight hours as needed ZOFRAN, 4MG (Oral Tablet) 1 (one) Tablet Tablet q8hrs prn for 4 days Refills: 0 Ordered: 22-Jul-2015 Lenora Sarah DO, DO, Kathleen Start : 09-Oct-2014 End : 22-Jul-2015 Discontinued Comments: This order discontinued per [facility]. Comment on above: This order discontin ued per [facility]. 12 hr orphenadrine citrate 100 mg extended release oral tablet (20 sources) Muscle Relaxant Start: 10-09-19 15 End: 07-22-20 15 ORPHENADRINE CITRATE ER, 100MG (Oral Tablet Extended Release 12 Hour) 1 (one) Tablet ER 12HR Tablet ER 12HR bid for 4 days Refills: 0 Ordered: 22-Jul-2015 LIDIA Jacques LPN Start : 09-Oct-2014 End : 22-Jul-2015 Inactive oseltamivir 75 mg oral capsule (20 sources) Neuraminidase Inhibitor Start: 11-06-19 07 End: 11-26-19 07 take 1 capsule by mouth twice daily TAMIFLU, 75MG (Oral Capsule) 1 (one) Capsule BID for 5 days Quantity: 10 {Capsule} Refills: 0 Ordered: 06-Nov-2006 Riri Johnson LPN Start : 06-Nov-2006 End : 26-Nov-2006 Inactive pantoprazole 40 mg delayed release oral tablet (20 sources) Proton Pump Inhibitor Start: 03-08-20 09 take 1 tablet by mouth once daily PROTONIX, 40MG (Oral Tablet Delayed Release) 1 (one) Tablet DR daily for 0 days Quantity: 30 {Tablet_DR} Refills: 0 Ordered: 16-Feb-2010 Sara Santos RN Start : 08-Mar-2009 Inactive phenazopyridine hydrochloride 200 mg oral tablet (20 sources) Start: 12-15-19 23 take 1 tablet by mouth three times daily as needed Pyridium 200 mg oral tablet 1 (one) tablet tid prn urinary freq for 0 days Quantity: 20 {Tablet} Refills: 0 Ordered: 14-Dec-2022 Lenora Sarah DO, DO, Kathleen Start : 14-Dec-2022 Active Start: 02-03-2008 End: 02-06-2008 take 1 tablet by mouth three times daily PYRIDIUM, 100MG (Oral Tablet) 1 Tablet tid for 2 days Quantity: 6 {Tablet} Refills: 0 Ordered: 03-Feb-2008 BisiNereyda neal Start : 03-Feb-2008 End : 06-Feb-2008 Inactive promethazine hydrochloride 12.5 mg oral tablet (20 sources) Phenothiazine Start: 11-06-2006 End: 12-13-2007 take 1 tablet by mouth three times daily as needed PHENERGAN, 12.5MG (Oral Tablet) 1 (one) Tablet TID/PRN for 0 days Quantity: 10 {Tablet} Refills: 0 Ordered: 06-Nov-2006 Riri Johnson LPN Start : 06-Nov-2006 End : 13-Dec-2007 Inactive sulfacetamide sodium 100 mg/ml ophthalmic solution (20 sources) Sulfonamide Antibacterial Start: 07-22-2015 End: 01-03-2017 Bleph-10 10 % Ophthalmic Solution 1 (one) Solution 1-2 gtt every 4 hours while awake both eyes for 0 days Quantity: 1 {Bottle} Refills: 0 Ordered: 03-Jan-2017 Rita Goldberg LPN Start : 22-Jul-2015 End : 03-Jan-2017 Discontinued sulfamethoxazole 800 mg / trimethoprim 160 mg oral tablet (20 sources) Dihydrofolate Reductase Inhibitor Antibacterial, Sulfonamide Antimicrobial Start: 12-14-2022 End: 12-24-2022 take 1 tablet by mouth twice daily Bactrim DS 800-160 mg oral tablet 1 (one) Tablet bid for 10 days Quantity: 20 {Tablet} Refills: 0 Ordered: 14-Dec-2022 Lenora Sarah DO, DO, Kathleen Start : 14-Dec-2022 End : 24-Dec-2022 Inactive Start: 10-08-2018 End: 01-06-2019 take 1 tablet by mouth once daily Bactrim DS 800-160 MG Oral Tablet 1 (one) Tablet qd for 90 days Quantity: 90 {Tablet} Refills: 0 Ordered: 08-Oct-2018 Lenora Sarah DO, DO, Kathleen Start : 08-Oct-2018 End : 06-Jan-2019 Inactive tiZANidine 4 mg oral tablet (3 sources) Central alpha-2 Adrenergic Agonist Start: 06-07-2023 take 1 tablet by mouth three times daily as needed for muscle spasms tiZANidine 4 mg oral tablet 1 (one) tablet tid prn muscle spasm for 0 days Quantity: 20 {Tablet} Refills: 0 Ordered: 07-Jun-2023 Lenora Sarah DO, DO, Kathleen Start : 07-Jun-2023 Active triamcinolone acetonide 0.055 mg/actuat metered dose nasal spray (20 sources) Corticosteroid Start: 12-13-2011 End: 07-10-2012 NASACORT AQ, 55MCG/ACT (Nasal Aerosol Solution) 2 (two) Puff(s) each nare daily for 0 days Refills: 0 Ordered: 10-Jul-2012 Sara Santos RN Start : 13-Dec-2011 End : 10-Jul-2012 Inactive Start: 12-13-2011 End: 07-10-2012 NASACORT AQ, 55MCG/ACT (Nasa l Aerosol Solution) 2 (two) Puff(s) each nare daily for 0 days Refills: 0 Ordered: 10-Jul-2012 Sara Santos RN Start : 13-Dec-2011 End : 10-Jul-2012 Inactive Start: 12-13-2011 End: 07-10-2012 NASACORT AQ, 55MCG/ACT (Nasa l Aerosol Solution) 2 (two) Puff(s) each nare daily for 0 days Refills: 0 Ordered: 10-Jul-2012 Sara Santos LPN Start : 13-Dec-2011 End : 10-Jul-2012 Inactive valACYclovir 1000 mg oral tablet (20 sources) Herpesvirus Nucleoside Analog DNA Polymerase Inhibitor, Herpes Simplex Virus Nucleoside Analog DNA Polymerase Inhibitor, Herpes Zoster Virus Nucleoside Analog DNA Polymerase Inhibitor Start: 01-22-2020 End: 01-29-2020 take 1 tablet by mouth three times daily Valtrex 1 GM Oral Tablet 1 Tablet tid for 7 days Quantity: 21 {Tablet} Refills: 0 Ordered: 22-Jan-2020 Lenora Sarah DO, DO, Kathleen Start : 22-Jan-2020 End : 29-Jan-2020 Inactive Start: 12-13-2011 End: 12-14-2011 take 1 tablet by mouth twice daily VALTREX, 1GM (Oral Tablet) 1 Tablet bid for 1 days Quantity: 2 {Tablet} Refills: 0 Ordered: 13-Dec-2011 Jaylon RODRIGUEZ Theodora Start : 13-Dec-2011 End : 14-Dec-2011 Inactive NEGATED: Highlighted row has not occurred!drug or medication (20 sources) No Known Histori carrie Medications Problems Active Problems Problem Classification Problem Date Documented Da te Episodic/Chronic Abdominal pain (20 sources) Acute abdominal pain; Translations: [Epigastric pain] Resolved: 12-14-2022 08-16-2015 Episodic Acute bronchitis (20 sources) Acute bronchitis; Translations: [Acute bronchitis] Resolved: 05-03-2011 05-01-2013 Episodic Anxiety disorders (20 sources) Anxiety; Translations: [Anxiety] 07-12-2020 Chronic Cardiac arrest and ventricular fibrillation (3 sources) Asystole; Translations: [Cardiac arrest, cause unspecified] 09-30-2019 Chronic Cardiac dysrhythmias (20 sources) Palpitations; Translations: [Palpitations] Resolved: 07-22-2015 07-22-2015 Episodic Chronic obstructive pulmonary disease and bronchiectasis (20 sources) Bronchitis; Translations: [Bronchitis] Onset: 07-10-2012 Resolved: 05-01-2013 07-06-2015 Episodic Chronic obstructive pulmonary disease and bronchiectasis (20 sources) Chronic obstructive pulmonary disease and bronchiectasis Conditions associated with dizziness or vertigo (20 sources) Dizziness; Translations: [Vertigo] Resolved: 07-22-2015 03-19-2019 Episodic Diseases of white blood cells (20 sources) Leukopenia; Translations: [Leukopenia, unspecified type] 03-19-2019 Chronic Fever of unknown origin (20 sources) Fever with chills; Translations: [Fever chills] Resolved: 10-08-2018 10-08-2018 Episodic Fluid and electrolyte disorders (20 sources) Dehydration; Translations: [Dehydration] Resolved: 10-08-2018 06-20-2018 Episodic Genitourinary symptoms and ill-defined conditions (20 sources) Urinary symptoms ; Translations: [Bilirubinuria] Resolved: 06-07-2023 03-19-2019 Episodic Comment on above: resolved recurrent Headache; including migraine (20 sources) Pain in face; Translations: [Headache] Resolved: 07-22-2015 07-22-2015 Episodic Inflammation; infection of eye (except that caused by tuberculosis or sexually transmitteddisease) (20 sources) Viral conjunctivitis; Translations: [Bilateral viral conjunctivitis] Resolved: 06-07-2023 03-19-2019 Episodic Comment on above: told could be allerg y told not work while draining. Influenza (20 sources) Influenza with other respiratory manifestations; Translations: [Influenza due to unidentified influenza virus with other respiratory manifestations] Resolved: 02-18-2009 09-08-2015 Episodic Comment on above: Probable? Will have tested and if positive pt to get scipt filled. Menopausal disorders (2 sources) Menopausal flushing; Translations: [Menopausal and female climacteric states] 09-02-2024 Chronic Nausea and vomiting (20 sources) Nausea; Translations: [Vomiting] Resolved: 10-08-2018 08-17-2015 Episodic Nonmalignant breast conditions (20 sources) Breast lump; Translations: [Breast lump] Resolved: 07-22-2015 08-20-2015 Episodic Nonspecific chest pain (20 sources) Chest pain; Translations: [Chest pain at rest] Onset: 07-10-2012 Resolved: 07-22-2015 07-22-2015 Episodic Comment on above: musculosketal/ combi carol with pleuritic in nature Other bone disease and musculoskeletal deformities (20 sources) Tietze's disease; 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, NOS] Resolved: 07-22-2015 07-22-2015 Episodic Other circulatory disease (3 sources) Low blood pressure; Translations: [Hypotension, unspecified] 09-30-2019 Episodic Other connective tissue disease (20 sources) Pain in calf; Translations: [Calf pain] Resolved: 02-18-2009 05-01-2013 Episodic Other diseases of bladder and urethra (3 sources) Urethral stenosis; Translations: [Urethral stenosis] 09-30-2019 Episodic Other ear and sense organ disorders (20 sources) Impacted cerumen; Translations: [Cerumen impaction] Resolved: 05-03-2011 07-06-2015 Episodic Other gastrointestinal disorders (20 sources) Diarrhea; Translations: [Diarrhea] Resolved: 05-01-2013 05-01-2013 Episodic Comment on above: most likely side eff ect from augmentin Other infections; including parasitic (6 sources) Late effects of other and unspecified infectious and parasitic diseases; 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] 06-07-2023 Chronic Other lower respiratory disease (20 sources) Cough; Translations: [Cough] Onset: 07-10-2012 Resolved: 05-01-2013 05-01-2013 Episodic Other lower respiratory disease (20 sources) Dyspnea; Translations: [Dyspnea on exertion] Episodic Other nervous system disorders (6 sources) Impaired cognition; Translations: [Brain fog] 06-07-2023 Episodic Other nervous system disorders (4 sources) Word finding difficulty ; Translations: [Word finding difficulty] 06-08-2023 Episodic Other non-traumatic joint disorders (20 sources) Hip pain; Translations: [Pain in unspecified hip] Resolved: 02-18-2009 08-17-2015 Episodic Other non-traumatic joint disorders (20 sources) Joint pain; Translations: [Pain in unspecified joint] Resolved: 07-22-2015 08-16-2015 Episodic Comment on above: generalized aches sh e could be getting version of a flu but no fever currently and asx otherwise-- she has had jt aches badly in past so we are just going to w/u now mary beth since liver enz normalized and shouldnt be and all etiology for that being negative Other nutritional; endocrine; and metabolic disorders (10 sources) Lipids abnormal; Translations: [Abnormal cholesterol test] 07-12-2020 Chronic Other skin disorders (15 sources) Eruption; Translations: [Rash] 07-12-2020 Episodic Other upper respiratory infections (20 sources) Acute pharyngitis; Translations: [Acute sinusitis, unspecified] Onset: 12-13-2011 Resolved: 07-22-2015 08-17-2015 Episodic Otitis media and related conditions (20 sources) Dysfunction of eustachian tube; Translations: [Eustachian tube dysfunction] Resolved: 07-22-2015 07-22-2015 Episodic Residual codes; unclassified (20 sources) Postmenopausal state; Translations: [Postmenopausal (Renamed from Postmenopausal status)] 03-19-2019 Episodic Residual codes; unclassified (20 sources) Family history of malignant neoplasm of breast; Translations: [Family history of malignant neoplasm of breast] Resolved: 07-22-2015 07-22-2015 Episodic Residual codes; unclassified (20 sources) Body mass index (BMI) 20.0-20.9, adult; Translations: [Body mass index (BMI) 21.0-21.9, adult] Resolved: 12-14-2022 03-19-2019 Episodic Residual codes; unclassified (18 sources) Body Mass Index between 19-24, adult; Translations: [Finding of body mass index] 06-12-2018 Episodic Residual codes; unclassified (20 sources) Generalized aches and pains; Translations: [Body aches] 03-19-2019 Episodic Residual codes; unclassified (10 sources) Influenza vaccination declined; Translations: [Influenza vaccination declined (Renamed from Refused influenza vaccine)] 07-12-2020 Episodic Residual codes; unclassified (20 sources) Non-smoker; Translations: [Nonsmoker] 12-14-2022 Episodic Residual codes; unclassified (3 sources) BRCA2 gene mutation positive; Translations: [Genetic susceptibility to malignant neoplasm of breast] 09-15-2021 Episodic Comment on above: Patient and 2 daught ers are positive. Patient's mother with breast and ovarian cancer. Sep 0603/2024 colon cancerPatient will do yearly mammogram and breast MRI alternating Q6mo. Considering pelvic US vs BSO. Enc consult Dr Canales for screening options Residual codes; unclassified (2 sources) Family history of cancer of colon; Translations: [Family history of malignant neoplasm of digestive organs] 09-02-2024 Episodic Residual codes; unclassified (2 sources) Family history of malignant neoplasm of ovary in first degree relative; Translations: [Family history of malignant neoplasm of ovary] 09-02-2024 Episodic Comment on above: mother Residual codes; unclassified (2 sources) Family history of malignant neoplasm of breast in first degree relative; Translations: [Family history of malignant neoplasm of breast] 09-02-2024 Episodic Spondylosis; intervertebral disc disorders; other back problems (20 sources) Degeneration of lumbar intervertebral disc; Translations: [Other intervertebral disc degeneration, lumbar region] 03-19-2019 Chronic Spondylosis; intervertebral disc disorders; other back problems (20 sources) Low back pain; Translations: [Spasm of back muscles] Resolved: 07-22-2015 07-22-2015 Episodic Comment on above: worsening will MRIdo ing exercises, known herniation in past been to ER x 2on nsaids pos st leg raise Sprains and strains (20 sources) Other sprains and strains of ankle; Translations: [Other ankle sprain] Onset: 01-16-2025 Resolved: 02-18-2009 05-01-2013 Episodic Syncope (2 sources) Syncope; Translations: [Syncope and collapse] 06-02-2023 Episodic Unclassified (20 sources) Unclassified (20 sources) ARTHRALGIAS 719.40 Unclassified (20 sources) Non-smoker; Translations: [Nonsmoker] 03-19-2019 Unclassified (20 sources) Cerumen impaction (380.4) Unclassified (20 sources) PHARYNGITIS, ACUTE (462.) Unclassified (20 sources) Breast screening (V76.10) Unclassified (20 sources) BMI 21.0-21.9, adult; Translations: [Body mass index 20-24 - normal] 10-08-2018 Unclassified (20 sources) Leukopenia, unspecified type Unclassified (20 sources) Chronic back pain, unspecified back location, unspecified back pain laterality Unclassified (2 sources) SYNCOPAL EPISODE 06-02-2023 Comment on above: SYNCOPAL EPISODE Unclassified (1 source) Back pain, acute 06-02-2023 Urinary tract infections (20 sources) Acute cystitis; Translations: [Recurrent urinary tract infection] Onset: 06-05-2025 Resolved: 07-22-2015 07-27-2015 Episodic Comment on above: E coli-- sept infect ion repeat urine cx clear post treatmenth/o of recurrent but this fall escalted with severity and closer 3mo apart -- perimenopausal contrib?? ck cat scan tract & kidneys. look for stone and health of kidneys, lab for kidney fcn, rev lab from 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 Will have tested and if positive pt to get scipt filled. Other lower respiratory disease (20 sources) Dyspnea on exertion; Translations: [SOB (shortness of breath) on exertion] Resolved: 05-01-2013 08-13-2015 Episodic Other screening for suspected conditions (not mental disorders or infectious disease) (20 sources) Elevated C-reactive protein (CRP); Translations: [Blood chemistry abnormal] Onset: 10-02-2024 Resolved: 07-22-2015 03-19-2019 Episodic Comment on above: cbc Other screening for suspected conditions (not mental disorders or infectious disease) (17 sources) Elevated C-reactive protein; Translations: [CRP elevated] 03-19-2019 Residual codes; unclassified (20 sources) Chronic back pain ; Translations: [Chronic back pain, unspecified back location, unspecified back pain laterality] 03-19-2019 Episodic Residual codes; unclassified (16 sources) Lipids abnormal; Translations: [Abnormal cholesterol test] 04-07-2019 Episodic Unclassified (20 sources) Unspecified Diagnosis Resolved: 07-22-2015 07-22-2015 Unclassified (20 sources) Flank pain, acute Unclassified (20 sources) SYMPTOMS INVOLVING URINARY SYSTEM; DYSURIA (788.1) Unclassified (20 sources) VOLUME DEPLETION DISORDER; DEHYDRATION (276.51) Unclassified (20 sources) Patient encounter status; Translations: [Colon cancer screening] 03-19-2019 Unclassified (20 sources) Pelvis/Thigh/Hip Pain (719.45) Unclassified (20 sources) Deliveries (Parity); Translations: [Deliveries (Parity)] 03-19-2019 Comment on above: 3 Unclassified (20 sources) Eustachian Tube Dysfunction (381.81) Unclassified (20 sources) Other ankle sprain (845.09) Unclassified (20 sources) LOW BACK PAIN WITH RADICULOPATHY (724.4) Unclassified (20 sources) Degenerative Disc Disease - Lumbar (722.52) Unclassified (20 sources) Pregnancies (); Translations: [Pregnancies ()] 03-19-2019 Comment on above: 4 Unclassified (20 sources) Abnormal mammogram (793.80) Unclassified (20 sources) COSTALCHONDRITIS, NOS (733.6) Unclassified (20 sources) glucosuria Resolved: 07-22-2015 07-22-2015 Unclassified (20 sources) STENOSIS, LUMBAR SPINE, NO NEURO CLAUDICATION (724.02) Unclassified (20 sources) COLD SORES (054.2) Unclassified (20 sources) Cystitis,Acute (595.0) Unclassified (20 sources) Abortions/Miscarriage s; Translations: [Abortions/Miscarriag es] 03-19-2019 Comment on above: 1 Unclassified (20 sources) Well woman exam (Renamed from Encounter for well woman exam) Unclassified (20 sources) Screening breast examination Unclassified (20 sources) Postmenopausal (Renamed from Postmenopausal status) Unclassified (20 sources) Abnormal blood chemistry (790.6) Unclassified (20 sources) ELEVATED LFT (794.8) Unclassified (20 sources) Acute viral conjunctivitis of both eyes Unclassified (20 sources) CRP elevated Unclassified (20 sources) BMI 20.0-20.9, adult; Translations: [Body mass index 20-24 - normal] 03-19-2019 Unclassified (20 sources) Body aches Unclassified (20 sources) Acute cystitis without hematuria Unclassified (20 sources) Dizzy Unclassified (20 sources) UTI symptoms Unclassified (20 sources) BMI between 19-24,adult; Translations: [Finding of body mass index] 06-12-2018 Unclassified (20 sources) Bilirubinuria (791.4) Unclassified (20 sources) Abdominal Pain,RUQ(789.01) Unclassified (20 sources) Abdominal pain, acute Unclassified (16 sources) Abnormal cholesterol test Unclassified (15 sources) Body mass index 20-24 - normal; Translations: [BMI 22.0-22.9, adult] 07-12-2020 Unclassified (10 sources) Influenza vaccination declined; Translations: [Influenza vaccination declined (Renamed from Refused influenza vaccine)] 07-12-2020 Unclassified (5 sources) Encntr for general adult medical exam w/o abnormal findings Unclassified (5 sources) BMI 23.0-23.9, adult Unclassified (5 sources) Shingles Unclassified (5 sources) Rash Unclassified (5 sources) Acute back pain, unspecified back location, unspecified back pain laterality Urinary tract infections (20 sources) Urinary tract infections Results Test Name Value Interpretation Reference Range Facility Office Visit Reporton 2024 Office Visit Report [facility] [address] [place] [id number] OFFICE VISIT Date of Service: 06/16/25 MR#: [id number] Acct: [id number] Patient: SUMANTH ACOSTA Rep #: [id number] : 1970 Provider: Dr. Alba Peguero i, MD Age/Sex: 55/F Location: [facility] Status: Signed Intake Vital Signs 06/05/25 13:52 Height 5 ft 7.5 in Weight: 152 lb BMI 23.4 BP 114/77 Pulse 85 Intake Visit Reasons: urine drop off Allergies acetaminophen (From Percocet) Allergy (Verified 06/05/25 13:51) Itching nitrofurantoin (From Macrobid) Allergy (Verified 06/05/25 13:51) passed out oxycodone HCl (From Percocet) Allergy (Verified 06/05/25 13:51) Itching morphine Adverse Reaction (Verified 06/05/25 13:51) Other anesthesia Adverse Reaction (Uncoded 06/05/25 13:51) Other 06/16/25 1608 Date Alba Canela Signature: Date (if applicable) CC: Josefa [facility] MR/BMSOlu 06-05-2025 MR/BMSPB [facility] [address], [address] [place] [address] OFFICE VISIT Date of Service: 06/05/25 MR#: [id number] Acct: [id number] Name: SUMANTH ACOSTA Rep #: [id number] : 1970 Provider: Dr. Alba Peguero i, MD Age/Sex: 55/F Location[place] [facility] Status: Signed Intake Vital Signs 05/15/25 09:04 06/05/25 13:52 Height 5 ft 7.5 in 5 ft 7.5 in Weight: 152 lb BMI 23.4 BP 114/77 Pulse 85 Intake Visit Reasons: uti f/u Chief Complaint: uti follow up Hatchery Manager Required: No Accompanied by: Self Is patient in pain?: No Allergies acetaminophen (From Percocet) Allergy (Verified 06/05/25 13:51) Itching nitrofurantoin (From Macrobid) Allergy (Verified 06/05/25 13:51) passed out oxycodone HCl (From Percocet) Allergy (Verified 06/05/25 13:51) Itching morphine Adverse Reaction (Verified 06/05/25 13:51) Other anesthesia Adverse Reaction (Uncoded 06/05/25 13:51) Other Medications ???Medication ???Instructions ???Recorded ???Confirmed ???Type L.acidoph,paracasei,B.anim alexandra 10 1 ea PO DAILY supplement 09/22/19 06/05/25 History billion cell capsule methenam 118 mg-m.blue 10 1 tab PO .COMPLEX #90 caps 5 06/05/25 Rx mg-s.phos 40.8 mg-p.salic 36 mg-hyos capsule (Uro-MP) Nurse's Note: x 3 weeks ago- strated UTI sx and did and CTS with us. Took abx and several hours later passed out, vomiting, shaking, went to the hospital and had to stay for a few days. This past sunday her urgency is back dysuria given abx again and passed out again after taking the first dose. [facility] Medical History (Updated 06/12/25 @ 08:[address] 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 She is here for follow up after taking her antibiotic for a positive urine culture here from [facility]. She had issues with passing out after taking Macrobid. She was seen in the ER and had a thorough evaluation. She is taking probiotics, estrogen cream once weekly, bowel regimen. Her bowels have been off for the last 2-3 weeks with diarrhea. She is still struggling with urgency, frequency and bladder irritation. No hematuria. The urine does look concentrated. ROS Const Constitutional: No chills, fatigue, fever(s), headache(s), night sweats, weakness, weight change, abnormal sleep pattern or change in appetite Eyes Eyes: No change in vision ENT ENT: No headache(s) or dry mouth Resp Respiratory: No cough, chest congestion, shortness of breath or wheezing Cardio Cardiology: Positive for other (No chest pain.); No shortness of breath, irregular heart rhythm or lightheadedness Gastro GI: Positive for other (No nausea.); No abdominal pain, change in bowel habits, constipation, diarrhea or vomiting Musc Musculoskeletal: No abnormal gait Skin Skin: No yellowing of the eye, lesions, itchy eyes, rash or skin ulcer Neuro Neurology: No abnormal gait, confusion, dizziness, weakness, headache(s) or memory loss Psych Psychiatric: No abnormal sleep pattern, No change in appetite, No confusion and No memory loss Endo Endocrine: No fatigue, increased thirst/drinking or weight change Aller/Imm Allergy/Immunologic: No itchy eyes or wheezing Adryan/Lymp Hematologic/Lymphatic: No easy bleeding, easy bruising or enlarged lymph nodes Exam Const General: cooperative, healthy appearing, comfortable and no acute distress [facility] Head: normocephalic and atraumatic Ears: hearing grossly normal bilaterally and external ears normal Nose: external nose normal Eyes General: appearance normal, both eyes and all related structures Neck Neck: normal visual inspection and trachea midline Chest Chest palpation inspection: normal inspection of the chest Resp Effort Inspection: normal respiratory effort, able to speak in complete sentences and symmetric chest movement Cardio Rate: regular rate GI Inspection: normal to inspection Palpation: soft and nontender General: No CVA tenderness Skin General: no rashes or lesions noted Neuro General: patient alert, patient awake, patient oriented x3 and CN's II-XI intact bilaterally E (more content not included)... Normal [facility] URINE CULTURE [CCL]on 2024 Bacteria identified Cx Nom (U) URCUL See Results Below See Below CULTURE, URINE No growth (<1,000 CFU/ml) SOURCE: Urine (Nonspecific) [place] [address] Jalil Rios III, M.D. [id number] SEND TO IC NO Normal [facility] Comment on above: Performed By: #### [id number] #### [facility],[address] [place], [place] [id number] HEPATITIS ACUTE PANEL [CCL]o n 05-21-2025 Hep B Core Ab, IgM Negative Normal Negative [facility] Comment on above: Result Comment: No e vidence of recent infection with Hepatitis B virus. Should recent infection be suspected, repeat testing may be considered 3-4 weeks after this draw. Performed By: #### 2 [id number] #### [facility],[address] [place], [place] [id number] Hepatitis A Ab IgM Negative Normal [facility] Comment on above: Result Comment: No e vidence of recent infection with Hepatitis A virus. Performed By: #### 2 [id number] #### [facility],[address] [place], [place] [id number] Hepatitis B Surf. Ag Negative Normal Negative [facility] Comment on above: Result Comment: [facility] [address] [place] [address] Jalil Rios III, M.D. [id number] Performed By: #### 2 [id number] #### [facility],[address] [place] [address] Hepatitis C Ab [place] Negative Normal Negative [facility] Comment on above: Result Comment: The result suggests no evidence of infection with Hepatitis C virus. Should recent infection be suspected, repeat testing may be considered 4-6 weeks after this draw. 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 Order Comments: 19:32 05/19/2025 Order Completed pt received 324 ASA in route Karley Campbell R.N. NitroGLYCERIN 21:35 05/19 NitroGLYCERIN Refused Paste Topical 1 Paste Topical refused. Refused 21:35 05/19/2025 inch (NOW x1) by patient - 21:40 Karley Nicole R.N. RKeatonN. Ondansetron 19:11 05/19 Ondansetron Given (Zofran) ODT PO 4 (Zofran) ODT PO 4 mg given. - 19:11 05/19/2025 mg (NOW x1) 19:12 Alen Lynn R.N. Scanned LORazepam 21:36 05/19 LORazepam Refused (Ativan) IVP 0.5 mg (Ativan) IVP refused. Refused by 21:36 05/19/2025 (NOW x1) patient - 21:41 Karley Nicole R.N. 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 diluted in sodium sodium chloride IVPB 0.9 % Stopped chloride IVPB 0.9 % Minibag+ 50 mL via Site# 1. 23:06 05/19/2025 Minibag+ 50 mL at Allergies verified and confirmed Brittney Ding R.N. 100 mL/hr (NOW x1) 5 rights. IV patency established. Scanned IV site checked: no pain, redness, or swelling. IV flushed thoroughly pre-medication administration. Information reviewed. Verbalizes understanding. - 21:31 Karley Campbell R.N. 23:06 05/19 Medication Discontinued: IV infused. Total amount infused: 50 mL. IV patency established. IV site checked: no pain, redness, or swelling. IV flushed thoroughly post-medication administration. - 00:07 Brittney Ding R.N. Ondansetron IVP 4 22:14 05/19 Ondansetron IVP 4 Given mg (NOW x1) mg given via Site# 1. Allergies 22:14 05/19/2025 verified. - 22:15 Karley Campbell, Karley Campbell R.N. 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 Allergies Karley Campbell R.N. verified and confirmed 5 rights. Stopped IV patency established. IV site 23:07 05/19/2025 checked: no pain, redness, or Brittney Ding R.N. swelling. IV flushed thoroughly Scanned pre-medication administration. - 22:14 Karley Campbell R.N. 23:07 05/19 Medication Discontinued: bag #1 infused. Total amount infused: 1000 mL. IV patency established. IV site checked: no pain, redness, or swelling. IV flushed thoroughly post-medication administration. - 00:07 Brittney Ding R.N. 3 of 3 Normal [facility] ED NURSES CLINICAL NOTEon ED NURSES CLINICAL NOTE Nurse Narrative - SUMNATH ACOSTA, : 1970, , [place] [address] [id number] 05/19/2025 18:40:00 Patient: SUMANTH ACOSTA Sex: Female : 1970 Age: 55y Disposition: Discharge to Home Disposition Decision Time: 23:46 05/19/2025 Departure Time: 23:57 05/19/2025 TRIAGE Arrived by EMS. Historian: (patient). Accompanied by family. Triage time: 18:57 05/19/2025. Acuity: LEVEL 2. Chief Complaint: CHEST PAIN and DISCOMFORT. Alert. This started just prior to arrival. The patient has had difficulty breathing and nausea. SEPSIS SCREEN: POSITIVE. SIRS criteria: heart rate greater than 90 and respiratory rate greater than 20. Possible sources of infection: UTI. -- 19:05/19/25 EDT Catherine Vail R.N. 19:05/19/25. BP: 117/52 MAP: 74. HR: 97. RR: 29. O2 saturation: 100% Pain level now 05/10. -- 19:05/19/25 EDT Catherine Vail R.N. 19:05/19/25. Temperature: 98.1 F. -- :05/19/25 EDT Catherine Vail R.N. Measurements: 19:05/19/25 Wt: 63.5 kg, Ht/Nithin: 67.0 in, BMI: 21.93 -- :05/19/25 EDT Catherine Vail R.N. Medications: unable to obtain home medications -- 21:27 05/19/25 EDT Karley Campbell R.N. 1 of 4 Nurse Narrative - SUMANTH ACOSTA, : 1970, , Allergies: morphine -- 19:05/19/25 EDT Catherine Vail R.N. Problems: no known problem -- 19:05/19/25 EDT Catherine Vail R.N. Surgeries: Back Surgery -- 19:14 05/19/25 EDT Catherine Vail R.N. Gallbladder Surgery -- 19:05/19/25 EDT Catherine Vail R.N. Tonsillectomy Adenoidectomy -- 19:05/19/25 EDT Catherine Vail R.N. History 18:57 05/19/25. SOCIAL HX: Never smoker. No alcohol use or drug use. The patient has not traveled outside the [place] Infectious disease exposure: No infectious disease exposure. ABUSE ASSESSMENT: The patient answered yes to the question(s) Do you feel safe in your home? and no to the question(s) Are you afraid to go home?. SELF HARM ASSESSMENT: Self harm assessment unable to obtain due to patient condition. FALL RISK ASSESSMENT: Fall risk assessment completed. No risk factors identified. -- 19:05/19/25 EDT Catherine Vail R.N. Interventions 18:57 05/19/25. Identification band on patient. Advanced care plan discussed with patient. Patient does not have advanced directive. -- 19:23 05/19/25 EDT Catherine Vail R.N. PHYSICAL ASSESSMENT 19:16 05/19/25. To room via stretcher. GENERAL / NEURO / PSYCH: Alert. Oriented X 4. Appears anxious. RESPIRATORY: Respirations not labored. Chest wall tenderness. Breath sounds within normal limits. 2 of 4 Nurse Narrative - SUMANTH ACOSTA, : 1970, , CVS: Normal sinus rhythm noted. Heart sounds within normal limits. Pulses within normal limits. Capillary refill less than 2 seconds. GI / : The patient has had nausea. Abdomen soft. EXTREMITIES: No lower extremity edema. SKIN: Skin is warm and dry. Skin is non-tender. ( mucous membranes dry). -- 21:56 05/19/25 EDT Karley Campbell R.N. NURSING PROGRESS NOTES 19:11 05/19/25. Ondansetron (Zofran) ODT PO 4 mg given. -- 19:12 05/19/25 EDT Catherine Vail R.N. 20:48 05/19/25. Site #1 started in the right forearm with a 20g needle with ultrasound guidance; 1 attempt. Saline lock flushed with 10 mL saline. -- 20:48 05/19/25 EDT Nikita Freitas R.N. 21:30 05/19/25. cefTRIAXone (Rocephin) IVPB 1gm/50ml NS 1 g started at 100 mL/hr diluted in sodium chloride IVPB 0.9 % Minibag+ 50 mL via Site# 1. Allergies verified and confirmed 5 rights. IV patency established. IV site checked: no pain, redness, or swelling. IV flushed thoroughly pre-medication administration. Information reviewed. Verbalizes understanding. -- 21:31 05/19/25 IZAIAHT Karley Campbell R.N. 21:35 05/19/25. NitroGLYCERIN Paste Topical: Medication Refused. Refused by patient -- 21:40 05/19/25 IZAIAHT Karley Campbell R.N. 21:36 05/19/25. LORazepam (Ativan) IVP: Medication Refused. Refused by patient -- 21:41 05/19/25 EDT Karley Campbell R.N. 21:45 05/19/25. Patient transported to CT by stretcher with structured cabling technician. -- 02:34 05/20/25 EDT Karley Campbell R.N. 22:14 05/19/25. Ondansetron IVP 4 mg given via Site# 1. Allergies verified. -- 22:15 05/19/25 EDT Karley Campebll R.N. 22:14 05/19/25. IV NS 0.9 % 1000 mL started in bag#1 1000 mL at 999 mL/hr via Site# 1. Allergies verified and confirmed 5 rights. IV patency established. IV site checked: no pain, redness, or swelling. IV flushed thoroughly pre-medication administration. -- 22:14 05/19/25 EDT Karley Campbell R.N. 22:35 05/19/25. Rounding: Pain: assessed pain level. Proximity of possessions / care items: call light within easy reach. Set (more content not included)... Normal [facility] ED ORDER SHEET (CPOE ONLY)on 05-20-2025 ED ORDER SHEET (CPOE ONLY) Order Sheet - SUMANTH ACOSTA, : 1970, , Order Sheet [address] [address] [id number] 05/19/2025 Patient: SUMANTH ACOSTA Sex: Female : 1970 Age: 55y MEASUREMENTS: Wt: 63.5 kg, Ht/Nithin: 67.0 in, BMI: 21.93 ALLERGIES: morphine MEDICATION/IV/DRIP/FLUID ORDERS Order Description Priority Entered Acknowledged Completed Aspirin PO [id number] mg (NOW 18:55 05/19/2025 19:32 x1) Haritha Porter D.O. 05/19/2025 Karley Campbell R.N. Order Comments: 19:32 05/19/2025: Order Completed pt received 324 ASA in route Karley Campbell R.N. NitroGLYCERIN Paste Topical1 18:55 05/19/2025 21:40 inch (NOW x1) Haritha Porter D.O. 05/19/2025 Karley Campbell R.N. Ondansetron (Zofran) ODT PO4 18:59 05/19/2025 19:09 19:12 mg (NOW x1) Haritha Porter D.O. 05/19/2025 05/19/2025 Alen Willson R.N. LORazepam (Ativan) IVP0.5 mg 19:03 05/19/2025 21:41 (NOW x1) Haritha Porter D.O. 05/19/2025 Karley Campbell, 1 of 5 Order Sheet - SUMANTH ACOSTA, : 1970, , R.NKeaton cefTRIAXone (Rocephin) IVPB 19:09 05/19/2025 21:31 1gm/50ml NS1 g diluted in Haritha Porter D.O. 05/19/2025 sodium chloride IVPB 0.9 % Karley Campbell Minibag+ 50 mL at 100 mL/hr R.NKeaton (NOW x1) Ondansetron IVP4 mg (NOW x1) 22:06 05/19/2025 22:15 Haritha Porter D.O. 05/19/2025 Karley Campbell R.N. Reason for ordering with alerts: Clinical consideration given --22:06 05/19/2025 Haritha Porter D.O. IV NS 0.9 %1000 mL at 999 22:07 05/19/2025 22:14 mL/hr (NOW x1) Haritha Porter D.O. 05/19/2025 Karley Campbell R.N. Reason for ordering with alerts: Clinical consideration given --22:07 05/19/2025 Haritha Porter D.O. LAB ORDERS Order Description Priority Entered Acknowledged Collected Completed CBC w Diff Stat Stat 18:55 05/19/2025 19:31 05/19/2025 20:57 05/19/2025 Monica Moya R.N. Tessa Miller, R.NKeaton BNP Stat Stat 18:55 05/19/2025 19:31 05/19/2025 20:57 05/19/2025 Monica Moya, Alen Campbell R.N. CMP Stat Stat 18:55 05/19/2025 19:31 05/19/2025 20:57 05/19/2025 Monica Moya, Alen Campbell R.N. D-Dimer Stat Stat 18:55 05/19/2025 19:31 05/19/2025 20:57 05/19/2025 Monica Moya, Alen Campbell, Alen 2 of 5 [facility] - JESÚSSUMANTH GALEANO, : 1970, , EKG - ED Stat Stat 18:55 05/19/2025 19:31 05/19/2025 20:57 05/19/2025 Monica Moya, Alen Campbell, [place].NKeaton Troponin-I Protocol Stat 18:55 05/19/2025 19:31 05/19/2025 20:57 05/19/2025 (STAT 1hr) (Sched: q1h Monica Moya, Alen Campbell, R.NKeaton X2); Stat 1 of 2 Troponin-I Protocol Stat 18:55 05/19/2025 19:31 05/19/2025 21:41 05/19/2025 (STAT 1hr) (Sched: q1h Monica Moya, Alen Campbell, R.NKeaton X2); Stat 2 of 2 Lipase Stat Stat 18:55 05/19/2025 19:31 05/19/2025 20:57 05/19/2025 Monica Moya, Georges CadeNKeaton CRP Stat Stat 18:55 05/19/2025 19:31 05/19/2025 20:57 05/19/2025 Monica Moya, Alen Campbell R.N. Urinalysis Stat Stat 19:07 05/19/2025 19:31 05/19/2025 22:41 05/19/2025 Monica Moya R.N. Tessa Miller, R.N. Blood Culture Stat 19:07 05/19/2025 19:31 05/19/2025 20:57 05/19/2025 [Akila] # 1 Stat Monica Moya, Alen Campbell R.N. Blood Culture Stat 19:07 05/19/2025 19:31 05/19/2025 20:57 05/19/2025 [Akila] # 2 Stat Monica Moya R.N. Tessa Miller, R.N. Lactate, Serum Stat Stat 19:07 05/19/2025 19:31 05/19/2025 20:57 05/19/2025 Monica Moya, Alen Campbell R.NKeaton Blood Alcohol - ETOH Stat 20:39 05/19/2025 20:58 05/19/2025 Stat Monica Moya R.N. 3 of 5 Order Sheet - SUMANTH ACOSTA, : 1970, , Monoscreen Stat Stat 20:39 05/19/2025 20:58 05/19/2025 Monica Moya R.N. Hepatitis Acute Panel Stat 20:39 05/19/2025 20:58 05/19/2025 [CCL] Stat Monica Moya R.N. Urine Culture [CCL] Stat Stat 22:36 05/19/2025 22:41 05/19/2025 22:41 05/19/2025 Monica Moya, Alen Campbell, R.NKeaton DIAGNOSTIC STUDY ORDERS Order Description Priority Entered Acknowledged Completed Chest 1V Stat Stat 18:55 05/19/2025 19:31 20:57 Haritha Porter D.O. 05/19/2025 05/19/2025 Karley Nicole R.N. RStephani Order Comments: 18:54 05/19/2025: Status: Not . Haritha Porter D.O. Reason for Study: Chest Pain CT Chest PE Study Stat Stat 20:39 05/19/2025 21:41 21:41 Haritha Porter D.O. 05/19/2025 05/19/2025 Karley Nicole R.N. RStephani Reason for Study: Pulmonary (more content not included)... Normal [facility] ED PHYSICIAN CLINICAL REPORT on 05-20-2025 ED PHYSICIAN CLINICAL REPORT Narrative - SUMANTH ACOSTA, : 1970, , Physician Clinical Narrative [address] [address] [id number] 05/19/2025 18:40:00 Patient: SUMANTH ACOSTA Sex: Female : 1970 Age: 55y Disposition: Discharge to Home Disposition Decision Time: 23:46 05/19/2025 Departure Time: 23:57 05/19/2025 Measurements Wt: 63.5 kg, Ht/Nithin: 67.0 in, BMI: 21.93 Initial Vital Sign Measured Time BP MAP HR RR O2Sat ETCO2 Temp Pain GCS RTS 19:09 05/19/2025 117/52 74 97 29 100% 8 Time Seen: 18:41 05/19/2025. Arrived- By ambulance. Historian- patient. Independent historian- EMS personnel and family. HISTORY OF PRESENT ILLNESS Chief Complaint: CHEST PAIN. It is described as located in the left chest area. This started today and is still present. At its maximum, severity described as 8 / 10. When seen in the E.D., severity described as 5 / 10. The patient has had difficulty breathing and nausea. No vomiting or diaphoresis. Similar symptoms previously. Patient has had similar symptoms once. ( in 2018. Had heart cath done at [facility]. Was ok.). Recent medical care: Not recently seen/assessed. REVIEW OF SYSTEMS 1 of 13 SUMANTH Kitchen, : 1970, , MUSCULOSKELETAL: No joint pain. CONSTITUTIONAL: No fever or chills. RESPIRATORY: No cough. CVS: No pedal edema or calf pain. THROAT: No sore throat. GI: No abdominal pain or black stools. : No difficulty with urination. SKIN: No skin rash. ENDO/HEME/LYMPH: No enlarged lymph nodes. NEUROLOGICAL: No fainting episodes or headache. EYES: No blurred vision. Status: Not . PAST HISTORY See nurses notes. no known problem Surgeries: Back Surgery Gallbladder Surgery Tonsillectomy Adenoidectomy Medications: unable to obtain home medications Allergies: morphine SOCIAL HISTORY Never smoker. No alcohol use or drug use. ADDITIONAL NOTES The nursing notes have been reviewed. PHYSICAL EXAM Appearance: Alert. Oriented X3. Anxious. Eyes: Pupils equal, round and reactive to light. ENT: Nose normal. Pharynx normal. Neck: Normal inspection. Neck supple. CVS: Normal heart rate and rhythm. Heart sounds normal. Pulses normal. Respiratory: No respiratory distress. Breath sounds normal. Chest nontender. 2 of 13 SUMANTH Kitchen, : 1970, , Abdomen: Soft and nontender. Bowel sounds normal. No mass. Skin: Skin warm and dry. No rash. Extremities: Extremities exhibit normal ROM. No lower extremity edema. Neuro: Oriented X 3. No motor deficit. No sensory deficit. LABS, X-RAYS, AND EKG 12-LEAD EKG: EKG time: 18:48 05/19/2025. Normal sinus rhythm. Rate: 100. Normal P waves. Normal QRS complex. Normal ST and T waves. The study has been interpreted contemporaneously by me. The EKG appears to be a good tracing. Interpretation time: 18:48 05/19/2025. Chest CT: (Normal heart size. No thoracic aortic aneurysm or dissection. No pulmonary embolus. Minimal atelectasis at the lung bases. Minimal atelectasis in the right middle lobe and lower lingula. No bronchial inflammation. No mediastinal or hilar adenopathy. Normal thyroid gland.). Chest CT performed with contrast. The study was interpreted by the radiologist. Interpretation time: 23:17 05/19/2025. CT Abdomen - Pelvis: No acute process seen in the spleen liver pancreas adrenal glands and renal parenchyma. Extrarenal pelvis noted on the right and left side, right greater than left. The gallbladder is not identified. Mild constipation throughout the right colon and transverse colon segments. Small umbilical hernia contains only fat. Fluid-filled bladder with small volume of air identified in the bladder lumen. Bladder wall thickening with stranding suggested of mild cystitis. No acute process seen in the uterus. Bilateral lower pelvic phleboliths. No free fluid or free air. No abscess or hematoma. No abdominal aortic aneurysm or aortic dissection. 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 Interpretation time: 23:17 05/19/2025. Laboratory Tests: CBC + DIFF Final MATTHEW: 05/19/2025 19:20:00 EDT MsgRcvd: 05/19/2025 19:41 EDT Lab Test Result Reference Status Received 05/19/2025 19:41 CBC + DIFF Final EDT CBC-COMPLETE BLOOD COUNT 05/19/2025 19:41 WBC 8.8 x 10/UL 4.5 - 10.8 Final EDT 3 of 13 Narrative - SUMANTH ACOSTA, : 1970, , 05/19/2025 19:41 RBC 4.28 x 10/UL 4.10 - 5.30 Final EDT 05/19/2025 19:41 HEMOGLOBIN 14.5 g/dl 12.0 - 16.0 Final EDT H AND H REPEATED 05/19/2025 19:41 HEMATOCRIT 40.4 % 34.0 - 46.0 Final EDT 05/19/2025 19:41 MCV 94 fl 80 - 99 (more content not included)... Normal [facility] ED SUPER BILLon 05-20-2025 ED SUPER BILL [facility] - SUMANTH ACOSTA, : 1970, , [address] [place] [address] [id number] 05/19/2025 Patient: SUMANTH ACOSTA Sex: Female : 1970 Age: 55y Facility Professional Category Item Description Code Code Quantity Fee Total Drugs Normal Saline 823076 1 $0.00 $0.00 1000cc (686813) Nurse/E/M EMERGENCY 603275 1 $0.00 $0.00 DEPT VISIT HIGH SEVERITYFUNCJ (07433-24) Nurse/IV/IM/Infusions Drip/IVPB 231651 1 $0.00 $0.00 additional hour (11896) Nurse/IV/IM/Infusions Drip/IVPB initial 302120 1 $0.00 $0.00 (35353) Nurse/IV/IM/Infusions IVP additional 375836 1 $0.00 $0.00 push (43993) Grand $0.00 Total Providers Haritha Porter D.O. 1 of 2 [facility] - SUMANTH ACOSTA, : 1970, , Chief Complaint CHEST PAIN. Principal Diagnosis Chest pain characterized as pressure. Acute urinary tract infection with cystitis. No hematuria. Mild hyponatremia ICD-10 Codes N30.90: Cystitis, unspecified without hematuria R07.89: Other chest pain E87.1: Hypo-osmolality and hyponatremia 2 of 2 [facility] ED VISIT SUMMARYon ED VISIT SUMMARY Visit Overview - SUMANTH DOMINGUEZ, : 1970, , Visit [address] [address] [id number] 05/19/2025 Patient: SUMANTH ACOSTA Sex: Female : 1970 Age: 55y 05/20/2025 02:35 AM EDT ED Arrival:18:40 05/19/2025 EDT Status:not Recent Travel:no Language:eng Adv Directive:No Isolation Status: Ethnicity:N Fall Risk:no risk Infectious Disease Exposure:no Measurements:5'7 / 170.2 Self-Harm Status:risk Sepsis Screen:positive cm 140.0 lb / 63.5 kg Chief Complaint:CHEST DISCOMFORT and CHEST PAIN ALLERGIES morphine HOME MEDICATIONS Unable To Obtain PAST MEDICAL HISTORY / PROBLEMS None See nurses notes 1 of 4 Visit Overview - SUMANTH ACOSTA, : 1970, , PAST SURGICAL HISTORY Back Surgery Gallbladder Surgery Tonsillectomy Adenoidectomy SOCIAL HISTORY Smoking status: No Alcohol use: No Drug use: No ED COURSE MEDICATIONS GIVEN IN EMERGENCY DEPARTMENT 19:11 05/19/25 Ondansetron (Zofran) ODT PO 4 mg cefTRIAXone (Rocephin) IVPB 1gm/50ml NS 1 g diluted in sodium chloride IVPB 0.9 % 21:30 05/19/25 Minibag+ 50 mL 100 mL/hr 22:14 05/19/25 Ondansetron IVP 4 mg 22:14 05/19/25 IV NS 0.9 % 1000 mL 999 mL/hr IV SITE INFORMATION INTAKE OUTPUT REASSESMENT (most recent) 19:16 05/19/25. To room via stretcher. GENERAL / NEURO / PSYCH: Alert. Oriented X 4. Appears anxious. RESPIRATORY: Respirations not labored. Chest wall tenderness. Breath sounds within normal limits. CVS: Normal sinus rhythm noted. Heart sounds within normal limits. Pulses within normal limits. Capillary refill less than 2 seconds. GI / : The patient has had nausea. Abdomen soft. EXTREMITIES: No lower extremity edema. SKIN: Skin is warm and dry. Skin is non-tender. ( mucous membranes dry). VITAL SIGNS First Vitals Last Vitals Temp 19:05/19/25 Temp 22:00 05/19/25 BP 19:05/19/25 117/52 BP 22:00 05/19/25 2 of 4 Visit Overview - JESÚSNILESHSUMANTH MUÑOZ, : 1970, , First Vitals Last Vitals HR 19:05/19/25 97 HR 22:00 05/19/25 129 RR 19:05/19/25 29 RR 22:00 05/19/25 O2 Sat 19:05/19/25 100% O2 Sat 22:00 05/19/25 98% Pain 19:05/19/25 8 Pain 22:00 05/19/25 ETCO2 19:09 05/19/25 ETCO2 22:00 05/19/25 GCS 19:09 05/19/25 GCS 22:00 05/19/25 RTS 19:09 05/19/25 RTS 22:00 05/19/25 PROCEDURES NURSING INTERVENTIONS LABS / STUDIES LABS / STUDIES ORDERED Blood Alcohol - ETOH Blood Culture [Akila] # 1 Blood Culture [Akila] # 2 BNP CBC w Diff Chest 1V CMP CRP CT ABD/PEL w Cont CT Chest PE Study D-Dimer EKG - ED Hepatitis Acute Panel [CCL] Lactate, Serum Lipase Monoscreen Troponin-I Protocol (STAT 1hr) Troponin-I Protocol (STAT 1hr) Urinalysis Urine Culture [CCL] CLINICAL IMPRESSION 3 of 4 Visit Overview - SUMANTH ACOSTA, : 1970, , ACUTE URINARY TRACT INFECTION WITH CYSTITIS. NO HEMATURIA CHEST PAIN CHARACTERIZED PRESSURE MILD HYPONATREMIA 4 of 4 Normal [facility] ED VITALS FLOW SHEETon 05-20 ED VITALS FLOW SHEET Vitals - SUMANTH ACOSTA, : 1970, , [place] [address] [id number] 05/19/2025 Patient: SUMANTH ACOSTA Sex: Female : 1970 Age: 55y Measurements Wt: 63.5 kg, Ht/Nithin: 67.0 in, BMI: 21.93 Measured Time BP MAP HR RR O2Sat ETCO2 Temp Pain GCS RTS 22:00 05/19/2025 129 98% 21:55 05/19/2025 102 95% 21:50 05/19/2025 100 97% 21:50 05/19/2025 114/60 76 98 21:45 05/19/2025 96 95% 21:40 05/19/2025 99 96% 21:35 05/19/2025 95 98% 21:35 05/19/2025 119/62 73 94 21:30 05/19/2025 97 97% 21:30 05/19/2025 115/60 73 96 21:23 05/19/2025 99 98% 21:18 05/19/2025 89 94% 21:13 05/19/2025 89 98% 21:06 05/19/2025 97 98% 21:01 05/19/2025 95 98% 1 of 2 Vitals - SUMANTH ACOSTA, : 1970, , Measured Time BP MAP HR RR O2Sat ETCO2 Temp Pain GCS RTS 20:56 05/19/2025 95 97% 20:51 05/19/2025 95 98% 20:46 05/19/2025 94 98% 20:41 05/19/2025 98 97% 20:36 05/19/2025 99 97% 20:31 05/19/2025 95 96% 20:26 05/19/2025 104 97% 20:21 05/19/2025 103 96% 20:16 05/19/2025 106 97% 20:11 05/19/2025 107 97% 20:06 05/19/2025 105 95% 20:01 05/19/2025 96 92% 19:56 05/19/2025 99 94% 19:51 05/19/2025 98 89% 19:46 05/19/2025 95 95% 19:41 05/19/2025 99 97% 19:36 05/19/2025 92 97% 19:31 05/19/2025 92 97% 19:26 05/19/2025 94 97% 19:21 05/19/2025 95 98% 19:16 05/19/2025 99 99% 19:13 05/19/2025 98.1 F 19:11 05/19/2025 90 100% 19:09 05/19/2025 117/52 74 97 29 100% 8 2 of 2 Normal [facility] ALCOHOL-BLOOD MEDICALon 08- Ethanol [Mass/Vol] 9 mg/dL Normal 0 - 50 [facility] Comment on above: Performed By: #### 2 [id number] #### [facility],[address] [place] [address] Bacteria Ur Culton 5 Bacteria identified Cx Nom (U) CULTURE, URINE: No growth (<1,000 CFU/ml) Normal [facility] Comment on above: Performed By: #### 6 30-4 #### [facility] CLIA [id number] [address] [place] [address] [place] C-REACTIVE PROTEINon 025 CRP 0.07 mg/dl Normal 0.00 - 0.90 [facility] Comment on above: Performed By: #### 2 [id number] #### [facility],[address] [place] [address] CBC + DIFFon 05-19-2025 Baso # 0.01 x10EE3/UL Normal 0.00 - 0.10 [facility] Comment on above: Performed By: #### 2 [id number] #### [facility],[address] [place] [address] Basophils/100 WBC (Bld) 0.1 % Normal 0.0 - 2.0 [facility] Comment on above: Performed By: #### 2 [id number] #### [facility],[address] [place] [address] CBC + DIFF Normal [facility] Comment on above: Result Comment: CBC- COMPLETE BLOOD COUNT Performed By: #### 2 [id number] #### [facility],[address] [place] [address] EO # 0.06 x10EE3/UL Normal 0.00 - 0.50 [facility] Comment on above: Performed By: #### 2 10229 #### [address] [address] Eosinophils/100 WBC (Bld) 0.6 % Normal 0.0 - 7.0 [facility] Comment on above: Performed By: #### 2 73049 #### [facility],[address],[place] [address] Erythrocyte distribution width (RBC) [Ratio] 12.2 % Normal 12.0 - 15.6 [facility] Comment on above: Performed By: #### 2 72087 #### [facility],[address] [place], [place] [address] Hematocrit (Bld) [Volume fraction] 40.4 % Normal 34.0 - 46.0 [facility] Comment on above: Performed By: #### 2 16467 #### [facility],[address] [place], [place] [address] Hemoglobin (Bld) [Mass/Vol] 14.5 g/dL Normal 12.0 - 16.0 [facility] Comment on above: Result Comment: H AN D H REPEATED Performed By: #### 2 66602 #### [facility],[address] [place], [place] [address] Lymph # 0.31 x10EE3/UL Low 0.80 - 2.80 [facility] Comment on above: Performed By: #### 2 04130 #### [facility],[address] [place] [address] Lymphocytes/100 WBC (Bld) 3.5 % Low 20.0 - 45.0 [facility] Comment on above: Performed By: #### 2 93846 #### [facility],[address] [place] [address]26 MANUAL DIFF N/A Normal [facility] Comment on above: Performed By: #### 2 08140 #### [facility],[address] [place] [address] 92205 MCH (RBC) [Entitic mass] 34 pg High 27 - 33 [facility] Comment on above: Performed By: #### 2 72277 #### [facility],[address] [place] [address] MCHC 36 X10 3 Normal 32 - 36 [facility] Comment on above: Performed By: #### 2 45682 #### [facility],[address] [place] [address]39 MCV (RBC) [Entitic vol] 94 fL Normal 80 - 99 [facility] Comment on above: Performed By: #### 2 62040 #### [facility],[address] [place] [address] Deuel # 0.06 x10EE3/UL Low 0.20 - 1.00 [facility] Comment on above: Performed By: #### 2 39049 #### [facility],[address] [place] [address] MONOS % 0.7 % Normal 0.0 - 10.0 [facility] Comment on above: Performed By: #### 2 94558 #### [facility],[address] [place] [address] 24879 Morphology Greg (Bld) [Interp] N/A Normal [facility] Comment on above: Performed By: #### 2 82470 #### [facility],[address] [place] [address] Neut # 8.34 x10EE3/UL High 1.50 - 7.10 [facility] Comment on above: Performed By: #### 2 21182 #### [facility],[address] [place] [address] 75234 Neutrophils/100 WBC (Bld) 95.1 % High 46.0 - 76.0 [facility] Comment on above: Performed By: #### 2 81229 #### [facility],[address] [place] [address]2345 PLATELET 255 x10EE3/UL Normal 150 - 450 [facility] Comment on above: Performed By: #### 2 46981 #### [facility],[address] [place] [address] Platelet mean volume (Bld) [Entitic vol] 7.3 fL Normal 6.6 - 10.5 [facility] Comment on above: Result Comment: AUTO MATED DIFFERENTIAL Performed By: #### 2 83173 #### [facility],[address] [place] [address] 19213 RBC 4.28 x 10EE6/UL Normal 4.10 - 5.30 [facility] Comment on above: Performed By: #### 2 65598 #### [facility],[address] [place] [address] 40324 WBC 8.8 x 10EE3/UL Normal 4.5 - 10.8 [facility] Comment on above: Performed By: #### 2 24496 #### [facility],[address] [place] [address] 18851 CHEST 1 VIEWon 05-19-2025 CHEST [address] [address] Patient: SUMANTH ACOSTA Phone#: : 1970 Age: 55 Gender: F Pt. Type: ER Account: [id number] Location: [facility] Ordering: HARITHA PORTER Exam Date: 05/19/2025/20:40 Family Phys: Charge Code: 705294 Physician: [place] Order #: [id number] Dose#: PROCEDURE: X-RAY CHEST 1 VIEW COMPARISON: [facility], CT, CHEST PE W CON, 05/19/2025, 21:14. INDICATIONS: Chest pain. FINDINGS: LUNGS: Subtle increased opacities in the bilateral lung bases may represent atelectasis. VASCULATURE: Normal. Unremarkable pulmonary vasculature. CARDIAC: Normal. No cardiac silhouette abnormality or cardiomegaly. MEDIASTINUM: Normal. No visible mass or adenopathy. PLEURA: Normal. No effusion or pleural thickening. BONES: Normal. No fracture or visible bony lesion. OTHER: Monitoring leads project across the thorax CONCLUSION: No acute disease. Dictated by: May Remy MD on 05/20/2025 at 8:54 Approved by: May Remy MD on 05/20/2025 at 8:58 Normal [facility] CMP with eGFRon 05-19-2025 AGE 55 years Normal [facility] Comment on above: Performed By: #### 2 31780 #### [facility],[address] [place] [address] 80598 Albumin [Mass/Vol] 4.1 g/dL Normal 3.4 - 5.0 [facility] Comment on above: Performed By: #### 2 66576 #### [facility],[address] [place] [address] 35181 Albumin/Globulin [Mass ratio] 1.2 {ratio} Normal 0.9 - 1.6 [facility] Comment on above: Performed By: #### 2 04284 #### [facility],[address] [place] [address] 40406 ALK PHOS 165 U/L High 46 - 116 [facility] Comment on above: Performed By: #### 2 65074 #### [facility],[address] [place] [address] 86061 ALT [Catalytic activity/Vol] 106 U/L High 16 - 63 [facility] Comment on above: Performed By: #### 2 41283 #### [facility],[address] [place] [address] 45496 Anion gap [Moles/Vol] 7 mmol/L Low 10 - 20 [facility] Comment on above: Performed By: #### 2 50004 #### [facility],[address] [place] [address] 16583 AST [Catalytic activity/Vol] 81 U/L High 13 - 39 [facility] Comment on above: Performed By: #### 2 97805 #### [facility],[address] [place] [address] 11008 B/C RATIO 16 ratio Normal 0 - 30 [facility] Comment on above: Performed By: #### 2 34786 #### [facility],[address] [place] [address] Bilirubin [Mass/Vol] 0.6 mg/dL Normal 0.2 - 1.0 [facility] Comment on above: Performed By: #### 2 51342 #### [facility],[address] [place] [address] 19088 Calcium [Mass/Vol] 9.6 mg/dL Normal 8.5 - 10.1 [facility] Comment on above: Performed By: #### 2 16432 #### [facility],[address] [place] [address] 99422 Chloride [Moles/Vol] 100 mmol/L Normal 98 - 107 [facility] Comment on above: Performed By: #### 2 05413 #### [facility],[address] [place] [address] 01618 CMP with eGFR Normal [facility] Comment on above: Result Comment: COMP REHENSIVE METABOLIC PANEL Performed By: #### 2 96116 #### [facility],[address] [place] [address] 71833 CO2 [Moles/Vol] 25.2 mmol/L Normal 21.0 - 32.0 [facility] Comment on above: Performed By: #### 2 94536 #### [facility],[address] [place] [address] 61459 Creatinine [Mass/Vol] 1.00 mg/dL Normal 0.55 - 1.02 [facility] Comment on above: Performed By: #### 2 22198 #### [facility],[address] [place] [address] 72467 eGFR 57 ML/MINUTE Low 60 - 999 [facility] Comment on above: Performed By: #### 2 57918 #### [facility],[address] [place] [address] 17989 GFR/1.73 sq M.predicted among non-blacks MDRD (S/P/Bld) [Vol rate/Area] mL/min/{1.73_m2} Normal 60 - 999 [facility] Comment on above: Result Comment: ACCO RDING TO THE NATIONAL KIDNEY DISEASE EDUCATION PROGRAM(NKDE), A NORMAL eGFR IS A VALUE GREATER THAN OR EQUAL TO 60 ML/MIN/1.73 SQ METERS. CHRONIC KIDNEY DISEASE: <60mL/MIN/1.73 SQ METERS KIDNEY FAILURE: <15mL/MIN/1.73 SQ METERS THIS TEST SHOULD ONLY BE USED FOR PATIENTS 18 YEARS OF AGE AND OLDER. Performed By: #### 2 33121 #### [facility],[address] [place] [address] 17855 Globulin (S) [Mass/Vol] 3.4 g/dL Normal 1.5 - 3.8 [facility] Comment on above: Performed By: #### 2 14222 #### [facility],[address] [place] [address] 21223 Glucose [Mass/Vol] 101 mg/dL Normal 74 - 106 [facility] Comment on above: Performed By: #### 2 69536 #### [facility],[address] [place] [address] 13689 Potassium [Moles/Vol] 3.2 mmol/L Low 3.5 - 5.1 [facility] Comment on above: Performed By: #### 2 19333 #### [facility],[address] [place] [address] 29166 Protein [Mass/Vol] 7.5 g/dL Normal 6.4 - 8.2 [facility] Comment on above: Performed By: #### 2 73463 #### [facility],[address] [place] [address]606 Sodium [Moles/Vol] 129 mmol/L Low 136 - 145 [facility] Comment on above: Performed By: #### 2 61940 #### [facility],[address] [place] [address] 67801 Urea nitrogen [Mass/Vol] 16 mg/dL Normal 7 - 18 [facility] Comment on above: Performed By: #### 2 96411 #### [facility],[address] [place] [address] ABDOMEN/PELVIS Won 2024 CT ABDOMEN/PELVIS [address] [address] Patient: SUMANTH ACOSTA Phone#: : 1970 Age: 55 Gender: F Pt. Type: ER Account: [id number] Location: [facility] Ordering: HARITHA PORTER Exam Date: 05/19/2025/21:14 Family Phys: Charge Code: [id number] Physician: [place] Order #: [id number] Dose#: 11.0 PROCEDURE: CT ABDOMEN/PELVIS WITH CONTRAST COMPARISON: None. INDICATIONS: Elevated LFT. TECHNIQUE: After obtaining the patient's consent, CT images were created with non-ionic intravenous contrast material. All CT scans at this facility use dose modulation, iterative reconstruction, and/or weight based dosing when appropriate to reduce radiation dose to as low as reasonably achievable. IV CONTRAST: Omnipaque 350,90ml TOTAL DOSE: 11.0 CTDIvol(mGy) FINDINGS: LIVER: Normal. No enlargement, atrophy, abnormal density, or significant focal lesion. BILIARY: Gallbladder is absent PANCREAS: Normal. No lesion, fluid collection, ductal dilatation, or atrophy. SPLEEN: Normal. No enlargement or focal lesion. KIDNEYS: Kidneys enhance and excrete contrast symmetrically. No hydronephrosis. There is a right extrarenal pelvis. ADRENALS: Normal. No mass or enlargement. AORTA/VASCULAR: No aortic aneurysm. Circumaortic left renal vein. Atherosclerotic calcifications of the aorta and branch vessels. RETROPERITONEUM: Normal. No mass or adenopathy. BOWEL/MESENTERY: No bowel obstruction or dilatation. Moderate stool burden in the ascending colon. The appendix is not visualized. ABDOMINAL WALL: Fat containing umbilical hernia. URINARY BLADDER: Small amount of air in the urinary bladder. There is small amount of stranding adjacent to the anterior bladder wall. PELVIC NODES: Normal. No adenopathy. PELVIC ORGANS: Uterus is present. No adnexal mass. BONES: Disc height loss at L5-S1 Continued Report - Page 2 of 2 Patient: SUMANTH ACOSTA Phone#: : 1970 Age: 55 Gender: F Pt. Type: ER Account: [id number] Location: 052 Ordering: HARITHA PORTER Exam Date: 05/19/2025/21:14 Family Phys: Charge Code: [id number] Physician: [place] Order #: [id number] Dose#: 11.0 LUNG BASES: Dependent changes in the lung bases. OTHER: Negative. CONCLUSION: 1. Small amount of air in the urinary bladder, correlate for recent instrumentation versus cystitis. Dictated by: May Remy MD on 05/20/2025 at 9:36 Approved by: May Remy MD on 05/20/2025 at 9:48 Normal [facility] CT CHEST (PE PROTOCOL)on CT CHEST (PE PROTOCOL) [place] [address] Patient: SUMANTH ACOSTA Phone#: : 1970 Age: 55 Gender: F Pt. Type: ER Account: [id number] Location: 052 Ordering: HARITHA PORTER Exam Date: 05/19/2025/21:14 Family Phys: Charge Code: 087401 Physician: [place] Order #: [id number] Dose#: 3.70 PROCEDURE: CT CHEST WITH CONTRAST FOR PE COMPARISON: [facility], CT, ABDOMEN/PELVIS W CON, 05/19/2025, 21:14. INDICATIONS: Pulmonary disease. TECHNIQUE: After obtaining the patient's consent, CT images were obtained with non-ionic intravenous contrast material. Multi-planar images were created to optimize visualization of vascular anatomy with MPR/MIPS and 3D imaging. All CT scans at this facility use dose modulation, iterative reconstruction, and/or weight based dosing when appropriate to reduce radiation dose to as low as reasonably achievable. IV CONTRAST: Omnipaque 350,90ml TOTAL DOSE: 3.70 CTDIvol(mGy) FINDINGS: VASCULATURE: No pulmonary embolism. AORTA: No aortic aneurysm. There is a small ductus bump. LUNGS: There are dependent changes. Mild atelectasis in the lingula and right middle lobe. PATRICK: Normal. No mass or adenopathy. MEDIASTINUM: Normal. No mass or adenopathy. CARDIAC: Normal. No enlargement, pericardial thickening, or significant calcification. PLEURA: Normal. No mass or effusion. CHEST WALL: Normal. No mass or axillary adenopathy. LIMITED ABDOMEN: Normal. Limited images of the upper abdomen are unremarkable. BONES: Normal. No bony lesion or fracture. OTHER: Negative. CONCLUSION: 1. No pulmonary embolism or acute pulmonary parenchymal abnormality. Dictated by: May Remy MD on 05/20/2025 at 9:16 Continued Report - Page 2 of 2 Patient: SUMANTH ACOSTA Phone#: : 1970 Age: 55 Gender: F Pt. Type: ER Account: [id number] Location: [facility] Ordering: HARITHA PORTER Exam Date: 05/19/2025/21:14 Family Phys: Charge Code: [id number] Physician: [place] Order #: [id number] Dose#: 3.70 Approved by: May Remy MD on 05/20/2025 at 9:33 Normal [facility] CULTURE BLOOD [AKILA]on Microscopic examination of blood, culture CULTURE BLOOD [AKILA] _BLOOD CULTURE_ [facility] AND [facility] FOR SCANNED REPORT 05/26/25.917.DNP.COMPLETE Normal [facility] Comment on above: Performed By: #### 2 00151 #### [facility],[address] [place], [place] [address] Microscopic examination of blood, culture CULTURE BLOOD [AKILA] _BLOOD CULTURE_ [facility] AND ATTACH[facility] FOR SCANNED REPORT 05/26/25.DNP.COMPLETE Normal [facility] Comment on above: Performed By: #### 2 93898 #### [facility],[address] [place], [place] [address] D-DIMER, QUANTITATIVEon 08 D-DIMER QUANT 320 ng/ml High 0 - 230 [facility] Comment on above: Performed By: #### 2 82905 #### [facility],[address] [place] [address] [place] [address] D-DIMER, QUANTITATIVE Normal [facility] Comment on above: Result Comment: DEVEN T D-DIMER Performed By: #### 2 37580 #### [facility],[address] [place] [address] [place] [address] HAV IgM Ser Qlon 05-19-2025 HAV IgM Ql (S) Negative Normal Negative [facility] Comment on above: Order Comment: Liu collins Type: BLOOD SPECIMEN Ordering Facility: [facility] Address: [address] [place] [address] Result Comment: No e vidence of recent infection with Hepatitis A virus. Performed By: #### 1 6128-1, 70388-8, , 5194-3 #### [facility] CLIA [id number] [address] [place] [address] [place] HBV core IgM Ser Qlon 2024 HBV core IgM Ql (S) Negative Normal Negative [facility] Comment on above: Order Comment: Lui collins Type: BLOOD SPECIMEN Ordering Facility: [facility] Address: [address] [place] [address] Result Comment: No e vidence of recent infection with Hepatitis B virus. Should recent infection be suspected, repeat testing may be considered 3-4 weeks after this draw. Performed By: #### 1 6128-1, 09458-6, , 5194-3 #### [facility] CLIA [id number] [address] [place] [address] [place] HBV surface Ag Ser Qlon 05-01 HBV surface Ag Ql (S) Negative Normal Negative [facility] Comment on above: Order Comment: Lui collins Type: BLOOD SPECIMEN Ordering Facility: [facility] Address: [address] [place] [address] Performed By: #### 1 6128-1, 57163-2, , 5194-3 #### [facility] CLIA [id number] [address] [place] [address] [place] HCV Ab Ser Qlon 05-19-2025 HCV Ab Ql (S) Negative Normal Negative [facility] Comment on above: Order Comment: Speci men Type: BLOOD SPECIMEN Ordering Facility: [facility] Address: [address] [place] [address] Result Comment: The result suggests no evidence of infection with Hepatitis C virus. Should recent infection be suspected, repeat testing may be considered 4-6 weeks after this draw. Performed By: #### 1 6128-1, 35478-0, 17945-5, 5195-3 #### [facility] [place] [id number] [address] [place] [address] [place] LACTATEon 05-19-2025 Lactate [Moles/Vol] 2.5 mmol/L High 0.4 - 2.0 [facility] Comment on above: Result Comment: LACT ATE 3 HR NOTIFIED TO: _NIKITA_RN 05/19/25.ALA. . . LACTATE 3 HR NOTIFIED BY: _AA 05/19/25.ALA. . . Performed By: #### 2 68985 #### [facility],[address] [place] [address] Lactate [Moles/Vol] 3.3 mmol/L High 0.4 - 2.0 [facility] Comment on above: Result Comment: LACT ATE 3 HR NOTIFIED TO: _YARELIRN 05/19/25.ALA. . . LACTATE 3 HR NOTIFIED BY: _AA 05/19/25.ALA. . . 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 Performed By: #### 2 92337 #### [place] [address] MONO TESTon 05-19-2025 MONO TEST Negative Normal NRL: Negative [facility] Comment on above: Performed By: #### 2 32731 #### [place] [address] NT-proBNPon 05-19-2025 Natriuretic peptide B (Bld) [Mass/Vol] 30 pg/mL Normal 0 - 125 [facility] Comment on above: Performed By: #### 2 58261 #### [place] [address] TROPONINon 05-19-2025 HS TROPONIN <4.0 Normal 0.0 - 51.4 [facility] Comment on above: Performed By: #### 2 39235 #### [place] [address] HS TROPONIN <4.0 Normal 0.0 - 51.4 [facility] Comment on above: Performed By: #### 2 37546 #### [place] [id number] URINALYSISon 05-19-2025 Amorphous NONE Normal [facility] Comment on above: Performed By: #### 2 56127 #### [place] [address] Bacteria TRACE Normal [facility] Comment on above: Performed By: #### 2 13668 #### [facility],[address] [place] [address]6640 Bilirubin Ql (U) Negative Normal NORMAL: NEGATIVE [facility] Comment on above: Performed By: #### 2 52441 #### [facility],[address] [place] [address] 63696 Casts NONE Normal [facility] Comment on above: Performed By: #### 2 91124 #### [facility],[address] [place] [address] 51152 Clarity (U) sl.cloudy Normal NORMAL: CLEAR [facility] Comment on above: Performed By: #### 2 89321 #### [facility],[address] [place] [address] 14090 Color (U) yellow Normal NORMAL: YELLOW [facility] Comment on above: Performed By: #### 2 00731 #### [facility],[address] [place] [address] 78624 Crystals LM Nom (Urine sed) NONE Normal [facility] Comment on above: Performed By: #### 2 49085 #### [facility],[address] [place] [address] 95626 Epi Cells OCC Normal [facility] Comment on above: Performed By: #### 2 67941 #### [facility],[address] [place] [address] 25761 Glucose Ql (U) NORM Normal NORMAL: NORMAL [facility] Comment on above: Performed By: #### 2 62018 #### [facility],[address] [place] [address] 53722 Hemoglobin Ql (U) Negative Normal NORMAL: NEGATIVE [facility] Comment on above: Performed By: #### 2 47452 #### [facility],[address] [place] [address] 90972 Ketone Negative Normal NORMAL: NEGATIVE [facility] Comment on above: Performed By: #### 2 65242 #### [facility],[address] [place] [address] Leukocytes 100 Abnormal NORMAL: NEGATIVE [facility] Comment on above: Performed By: #### 2 39652 #### [facility],[address] [place] [address] 96965 Mucous NONE Normal [facility] Comment on above: Performed By: #### 2 30339 #### [facility],[address] [place] [address] Nitrite Ql (U) Negative Normal NORMAL: NEGATIVE [facility] Comment on above: Performed By: #### 2 48756 #### [facility],[address] [place] [address] pH (U) 8 [pH] Normal NORMAL: 5.0-8.0 [facility] Comment on above: Performed By: #### 2 93423 #### [facility],[address] [place] [address] Protein Ql (U) Negative Normal NORMAL: NEGATIVE [facility] Comment on above: Performed By: #### 2 52520 #### [facility],[address] [place] [address] Rbc 0-5 Normal 0-3/hpf [facility] Comment on above: Performed By: #### 2 98647 #### [facility],[address] [place] [address] Sp Novelty 1.015 Normal NORMAL: 1.010-1.03 0 [facility] Comment on above: Performed By: #### 2 86222 #### [facility],[address] [place] [address] Specimen Type R Normal [facility] Comment on above: Performed By: #### 2 83309 #### [facility],[address] [place] [address] Urinalysis dipstick W Reflex Microscopic panel (U) SEE BELOW Normal [facility] Comment on above: Result Comment: MICR OSCOPIC Performed By: #### 2 85143 #### [facility],[address] [place], [place] [address] Urobilinog NORM Normal NORMAL: NORMAL [facility] Comment on above: Performed By: #### 2 84531 #### [facility],[address] [place] [address] 21611 Wbc 16-25 Normal 0-5/hpf [facility] Comment on above: Performed By: #### 2 37627 #### [facility],[address] [place] [address] Yeast NONE Normal [facility] Comment on above: Performed By: #### 2 03311 #### [facility],[address] [place] [address] Laboratory - Chemistry and C hemistry - challengeOrdered By: Alba Ricks on 05-15-2025 Bilirubin Ql (U) Negative [facility] Glucose Ql (U) Negative [facility] Laboratory - Hematology and Cell countsOrdered By: Alba Ricks on 05-15-2025 Hemoglobin Ql (U) Trace [facility] Laboratory - UrinalysisOrder ed By: Alba Ricks on 05-15-2025 Nitrite Ql (U) Negative [facility] Protein Ql (U) 1+ [facility] [facility] No Panel InformationOrdered By: Alba Ricks on 05-15-2025 Urine Leukocytes Positive [facility] Office Visit Reporton [address] [facility] [address] [place] [address] OFFICE VISIT Date of Service: 05/15/25 MR#: [id number] Acct: [id number] Patient: SUMANTH ACOSTA Rep #: [id number] : 1970 Provider: Dr. Alba Peguero i, MD Age/Sex: 55/F Location: [facility] Status: Signed Intake Vital Signs 09/02/24 14:34 05/15/25 09:04 Height 5 ft 7.5 in 5 ft 7.5 in Intake Visit Reasons: UTI. URINE DROP Chief Complaint: Annual Allergies acetaminophen (From Percocet) Allergy (Verified 09/02/24 14:28) Itching oxycodone HCl (From Percocet) Allergy (Verified 09/02/24 14:28) Itching morphine Adverse Reaction (Verified 09/02/24 14:28) Other anesthesia Adverse Reaction (Uncoded 09/02/24 14:28) Other Nurse's Note: Patient stopped in for a urine drop off because she is feeling symptomatic of a UTI this morning. Will call for a follow up appointment after her results. Results POC UA Auto w/o Microscopy Office Urine Color Last Edit by Angelia Mcgregor on 05/15/25 13:06 Office Urine Clarity Last Edit by Angelia Mcgregor on 05/15/25 13:06 Office Urine Glucose Negative Last Edit by Angelia Mcgregor on 05/15/25 13:06 Office Urine Ketones Last Edit by Angelia Mcgregor on 05/15/25 13:06 Office Urine Bilirubin Negative Last Edit by Angelia Mcgregor on 05/15/25 13:06 Office Urine Urobilinogen Last Edit by Angelia Mcgregor on 05/15/25 13:06 Off Ur Spec Novelty Last Edit by Angelia Mcgregor on 05/15/25 13:06 Office Urine pH Last Edit by Angelia Mcgregor on 05/15/25 13:06 Office Urine Protein 1+ Last Edit by Angelia Mcgregor on 05/15/25 13:06 Office Urine Blood Trace Last Edit by Angelia Mcgregor on 05/15/25 13:06 Office Urine Blood Hemolyzed Last Edit by Angelia Mcgregor on 05/15/25 13:06 Office Urine Nitrate Negative Last Edit by Angelia Mcgregor on 05/15/25 13:06 Off Ur Leukocytes Positive Last Edit by Angelia Mcgregor on 05/15/25 13:06 Leuks Assessment and Plan Assessment and Plan (1) UTI (urinary tract infection): Status: Acute Orders: Orders POC UA Auto w/o Microscopy 05/15/25 N39.0 - Urinary tract infection, site not specified 05/18/25 3514 Date Alba Ricks MD Cosigner Signature: Date (if applicable) CC: Normal [facility] XR Knee - left 1 or 2 Viewso n 01-17-2025 No acute osseous abnormality identified. Signed by Yomi Nieto TELERADIOLOGY STUDY: Knee Radiographs; 01/16/2025 10:18PM INDICATION: Pain. COMPARISON: None Available. ACCESSION NUMBER(S): [id number] ORDERING CLINICIAN: HUY CAMPBELL TECHNIQUE: Two view(s) of the left knee. FINDINGS: There is no displaced fracture. The alignment is anatomic. No soft tissue abnormality is seen. There is no joint effusion. TELERADIOLOGY Yomi Nieto MD - 01/17/2025 STUDY: Knee Radiographs; 01/16/2025 10:18PM INDICATION: Pain. COMPARISON: None Available. ACCESSION NUMBER(S): [id number] ORDERING CLINICIAN: HUY CAMPBELL TECHNIQUE: Two view(s) of the left knee. FINDINGS: There is no displaced fracture. The alignment is anatomic. No soft tissue abnormality is seen. There is no joint effusion. IMPRESSION: No acute osseous abnormality identified. Signed by Yomi Nieto [facility] Work Phone: XR Knee - left 1 or 2 ViewsO rdered By: Yomi Nieto on 01-17-2025 [facility] Work Phone: XR KNEE LEFT 1-2 VIEWSon XR KNEE LEFT 1-2 VIEWS STUDY: Knee Radiographs; 01/16/2025 10:18PM INDICATION: Pain. COMPARISON: None Available. ACCESSION NUMBER(S): [id number] ORDERING CLINICIAN: HUY CAMPBELL TECHNIQUE: Two view(s) of the left knee. FINDINGS: There is no displaced fracture. The alignment is anatomic. No soft tissue abnormality is seen. There is no joint effusion. IMPRESSION: No acute osseous abnormality identified. 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: Field Operator Office Visit Reporton 09-02-2024 Field Operator Office Visit Report [facility] [address], [address] [place] [address] OFFICE VISIT Date of Service: 09/02/24 MR#: [id number] Acct: [id number] Name: SUMNATH ACOSTA Rep #: [id number] : 1970 Provider: CHRIS fernandes Age/Sex: 54/F [place] [facility] [place]: Signed Intake Vital Signs 09/15/21 14:27 09/02/24 14:29 09/02/24 14:34 Height 5 ft 7.5 in 5 ft 7.5 in 5 ft 7.5 in Weight: 160 lb BMI 24.7 BP 110/64 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 She is BRCA2 +. She has not done any further imaging or management due to this other that mammogram and colonoscopy 2021. Her mother had breast, ovarian and colon cancer. She passed in March 2024. States has been very difficult for her. Her daughters are very upset with her for not doing more intervention. She states tearfully that she is just not ready to be poked and prodded. 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 Last PAP: 2020 History of abnormal PAP: no Last mammogram: today History of abnormal mammogram: no Colon cancer screenin Other preventative health care screenings: Elin ROS Const Constitutional: Denies fatigue, weight gain or weight loss Cardio Card: Denies chest pain Resp Resp: Denies cough or dyspnea on exertion GI GI: Denies abdominal pain, bloating, change in stool character, constipation or vomiting : Reports as per HPI; Denies difficulty voiding, pelvic pain, urinary frequency, urinary incontinence, urinary urgency, vaginal discharge or vaginal pruritus Exam Const General: cooperative, healthy appearing, no acute distress and well developed Orientation: alert, oriented to person and oriented to place [facility] Head: normal to inspection Neck Neck: normal visual inspection Thyroid: thyroid normal Lymphatic: no lymphadenopathy noted Chest Breast inspection: normal inspection of the breasts and normal inspection of the axillae Breast palpation: normal palpation of the breasts, normal palpation of the axillae and no axillary lymphadenopathy Resp Effort Inspection: normal respiratory effort GI Palpation: soft, no masses and nontender Rectal Exam: deferred External Female Exam: normal external appearance and normal appearance of the urethra Urethra: normal appearance of the urethra and normal palpation Speculum Exam - Vagina: normal appearance of the vagina and normal vaginal discharge Speculum Exam - Cervix: normal appearance of the cervix Bimanual Exam- Vagina Uterus: normal bimanual exam, uterine size normal, uterine shape normal and non-tender Bimanual Exam- Adnexa, other: normal adnexae, no masses, normal and non-tender Pelvic Support: normal Neuro General: patient alert and patient oriented x3 Psych Affect: normal affect Coding Level of Care Code Off vis,est,prev 40-64yrs Diagnoses Encounter for gynecological examination with abnormal finding Z01.411 Gynecological examination findings: abnormal findings PRESENT BRCA2 gene mutation positive in female Z15.01; Z15.02; Z15.09 Family history of malignant neoplasm of ovary in first degree relative Z80.41 Family history of breast cancer in mother Z80.3 Family history of colon cancer in mother Z80.0 Hot flashes due to menopause N95.1 Assessment and Plan Assessment (more content not included)... Normal [facility] SCRN MAMM (CAD)W/DON BILATo n 09-02-2024 SCRN MAMM (CAD)W/DON BILAT [facility] Imaging Services [address] [place], [place] [address] SCRN MAMM (CAD)W/DON BILAT MR#: [id number] Acct: [id number] Name: SUMANTH ACOSTA Rep #: [id number] : 1970 F 54 From: Wiliam hidalgo MD PCP: Dr. 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 Routine annual screening examination. PERTINENT HISTORY: Mother with breast cancer. TECHNIQUE: Digital bilateral breast don (3D mammographic acquisition) in the CC and MLO projections. 2-D mediolateral oblique (MLO) and craniocaudad (CC) views of both breasts were obtained. CAD: Full Field Digital Mammography with Computer Added Detection was performed. COMPARISON: Comparison is made with prior study dated October 27, 2021. FINDINGS: Breast Composition: The breasts are heterogeneously dense, which may obscure small masses. There are no dominant masses or suspicious calcifications. No other significant abnormalities are identified. There has been no significant change since the prior study. BI/SCRN MAMM (CAD)W/DON BILAT IMPRESSION: Stable bilateral screening mammogram. Yearly follow-up mammogram recommended. (A) ASSESSMENT CATEGORY: BIRADS Category 1: Negative. A letter regarding these results will be sent to the patient by the facility within 30 days. Approximately 10% of breast cancers are not detected by mammography. A normal mammogram should not delay biopsy of a clinically suspicious abnormality. [id number] Electronically Signed: Wiliam Reynaga MD at 15:28 EST Reading Location ID and State: [facility] / [place] , Service support , CC: CHRIS Nelson; Dr. Lenora Sarah, Barrel Dedenting Machine Operator: Signed Normal [facility] URINE COURTNEY CULTURE[place]IF[place] ([id number])Ordered By: Signalman on 12-14-2022 Bacteria identified Cx Nom (U) Final report Abnormal [facility]; [facility] Work Phone: Comment on above: PERFORMED BY: ASYM III sobeida Xhywiy5958 [facility] [id number] Information: SRC:UR Bacteria identified Cx Nom (U) ENTECC Abnormal [facility]; [facility] Work Phone: Comment on above: Enterobacter cloacae complexGreater than 100,000 colony forming units per mL S = Susceptible; I = Intermediate; R = Resistant P = Positive; N = Negative MICS are expressed in micrograms per mL Antibiotic RSLT#1 RSLT#2 RSLT#3 RSLT#4Amoxicillin/Clavulanic Acid RCefazolin RCefepime SCefuroxime RCiprofloxacin SGentamicin SImipenem SLevofloxacin SMeropenem SNitrofurantoin ITetracycline STobramycin STrimethoprim/Sulfa S PERFORMED BY: [facility] sobeida Lnyeju5819 [facility] [id number] Information: SRC:UR Urinalysis, Office ([id number])Or dered By: Javier Tuttle on 12-14-2022 Bilirubin Ql (U) ++ Abnormal Comprehe ns[facility]; [facility] Work Phone: Glucose Test strip (U) [Mass/Vol] 100 1 Abnormal [facility]; [facility] Work Phone: Hemoglobin Ql (U) Negative Normal Compreh ensive [facility]; [facility] Work Phone: Ketones Ql (U) Negative Normal Comprehens som[facility]; [facility] Work Phone: Leukocyte esterase Test strip Ql (U) Trace Normal [facility]; [facility] Work Phone: Nitrite Ql (U) + Abnormal Comprehens [facility]; [facility] Work Phone: pH (U) 6.0 [pH] Normal [facility]; [facility] Work Phone: Protein Ql (U) Negative Normal Comprehens [facility]; [facility] Work Phone: Specific gravity (U) [Rel density] 1.015 1 Normal [facility]; [facility] Work Phone: Urobilinogen (24H U) [Mass/Time] 2 mg/dL Normal [facility]; [facility] Work Phone: LIPID PANEL ([id number])Ordered B y: Signalman on 07-12-2020 Cholesterol [Mass/Vol] 183 mg/dL Normal 100-199 [facility] Work Phone: Comment on above: PATIENT NOT FASTINGP ERFORMED BY: ARISTEO [facility] [id number] [facility] [id number] Cholesterol in HDL [Mass/Vol] 43 mg/dL Normal [facility] Work Phone: Comment on above: PATIENT NOT FASTINGP ERFORMED BY: ARISTEO [facility] Dseffl0751 [facility] [id number] Cholesterol in LDL/Cholesterol in HDL [Mass ratio] 2.5 {ratio} Normal 0.0-3.2 [facility] Work Phone: Comment on above: LDL/HDL Ratio Men Wo men 1/2 Avg.Risk 1.0 1.5 Avg.Risk 3.6 3.2 2X Avg.Risk 6.2 5.0 3X Avg.Risk 8.0 6.1 PATIENT NOT FASTINGP ERFORMED BY: ARISTEO [facility] [id number] [facility] [id number] Triglyceride [Mass/Vol] 193 mg/dL Abnormal 0-149 [facility] Work Phone: Comment on above: PATIENT NOT FASTINGP ERFORMED BY: ARISTEO [facility] Nhmivj0211 [facility] [id number] LIPID PANEL ([id number]) 34 mg/dL Normal 5-40 Compr ensive [facility] Work Phone: Comment on above: PATIENT NOT FASTINGP ERFORMED BY: ARISTEO [facility] Kqrbiq6278 [facility] [id number] LIPID PANEL (96914) 106 mg/dL Abnormal 0-99 Compr ens[facility] Work Phone: Comment on above: PATIENT NOT FASTINGP ERFORMED BY: ARISTEO [facility] Kimawa7723 [facility] [id number] LIPID PANEL (91027) 2.5 {ratio} Normal 0.0-3.2 Comp [facility]; [facility] Work Phone: Comment on above: LDL/HDL Ratio Men Wo men 1/2 Avg.Risk 1.0 1.5 Avg.Risk 3.6 3.2 2X Avg.Risk 6.2 5.0 3X Avg.Risk 8.0 6.1 PATIENT NOT FASTINGP ERFORMED BY: ARISTEO [facility] [id number] [facility] [id number] URINE [place] ([address])Ordered By: Signalman on 08-07-2019 Bacteria identified Cx Nom (U) Final report Abnormal [facility] Work Phone: Comment on above: PATIENT NOT FASTINGP ERFORMED BY: [employer]70 [facility] PageAt[facility] [id number] Information: SRC: Bacteria identified Cx Nom (U) Escherichia coli Abnormal [facility] Work Phone: Comment on above: Greater than 100,000 colony forming units per mLCefazolin <=4 ug/mLCefazolin with an HERMELINDA <=16 predicts susceptibility to the oral agentscefaclor, cefdinir, cefpodoxime, cefprozil, cefuroxime, cephalexin,and loracarbef when used for therapy of uncomplicated urinary tractinfections due to E. coli, Klebsiella pneumoniae, and Proteusmirabilis. PATIENT NOT FASTINGP ERFORMED BY: [employer]70 [facility]Health[facility] [id number] Information: SRC:[place] Other Antibiotic [Susc] MIHEAD Normal [facility] Work Phone: Comment on above: S = Susceptible; I = Intermediate; R = Resistant P = Positive; N = Negative MICS are expressed in micrograms per mL Antibiotic RSLT#1 RSLT#2 RSLT#3 RSLT#4Amoxicillin/Clavulanic Acid SAmpicillin SCefepime SCeftriaxone SCefuroxime SCiprofloxacin SErtapenem SGentamicin SImipenem SLevofloxacin SMeropenem SNitrofurantoin RPiperacillin/Tazobactam STetracycline STobramycin STrimethoprim/Sulfa R PATIENT NOT FASTINGP ERFORMED BY: [employer]6370 Near PageAt[facility] [id number] Information: SRC: Urinalysis, Office ([id number])Or dered By: Janny Pink on 08-07-2019 Bilirubin Ql (U) Negative Normal Comprehe nsive Internal Medicine Work Phone: Bilirubin Ql (U) Negative Normal Comprehe ns[facility]; [facility] Work Phone: Glucose Test strip (U) [Mass/Vol] Negative Normal [facility] Work Phone: Glucose Test strip (U) [Mass/Vol] Negative Normal [facility]; [facility] Work Phone: Hemoglobin Ql (U) Negative Normal Compreh ensive [facility] Work Phone: Hemoglobin Ql (U) Negative Normal Compreh ens[facility]; [facility] Work Phone: Ketones Ql (U) Negative Normal Comprehens sommer [facility] Work Phone: Ketones Ql (U) Negative Normal Comprehens [facility]; [facility] Work Phone: Leukocyte esterase Test strip Ql (U) Large Normal [facility] Work Phone: Nitrite Ql (U) Positive Normal Comprehens som[facility] Work Phone: Nitrite Ql (U) Positive Normal Comprehens som[facility]; [facility] Work Phone: pH (U) 6 [pH] Abnormal [facility] Work Phone: Protein Ql (U) Negative Normal Comprehens som[facility] Work Phone: Protein Ql (U) Negative Normal Comprehens sommer [facility]; [facility] Work Phone: Specific gravity (U) [Rel density] 1.015 1 Normal [facility] Work Phone: Urobilinogen (24H U) [Mass/Time] Normal Normal [facility] Work Phone: HPV, Reflex ([id number])Ordered B y: Signalman on 03-19-2019 Microscopic observation Other stain Nom (Unsp spec) . Normal [facility] Work Phone: Comment on above: Source.............C ervix;EndocervixNo. of containers..01 ThinPrep VialPATIENT NOT FASTINGPERFORMED BY: [facility] [address] [id number] Information: [id number] Pathology report final diagnosis Narrative SPRCS Normal [facility] Work Phone: Comment on above: NEGATIVE FOR INTRAEP ITHELIAL LESION OR MALIGNANCY.THIS SPECIMEN WAS RESCREENED PART OF OUR PROCESS DESIGN CHEMICAL ENGINEER PROGRAM.Satisfactory for evaluation. Endocervical and/or squamous metaplasticcells (endocervical component) are present.Z01.419Aracelis Laguerre, Infant Nanny (ASC)Gladys Calix, Infant Nanny (ASC) Source.............C ervix;EndocervixNo. of containers..01 ThinPrep VialPATIENT NOT FASTINGPERFORMED BY: [employer] [id number] Information: [id number] HPV, Reflex ([id number]) PAPSMR Normal [facility] Work Phone: Comment on above: The Pap smear is a s creening test designed to aid in the detection ofpremalignant and malignant conditions of the uterine cervix. It is not adiagnostic procedure and should not be used as the sole means of detectingcervical cancer. Both false-positive and false-negative reports do occur. .The HPV DNA reflex criteria were not met with this specimen resulttherefore, no HPV testing was performed. . Source.............C ervix;EndocervixNo. of containers..01 ThinPrep VialPATIENT NOT FASTINGPERFORMED BY: [address] [id number] Information: [id number] NMR Profile ([id number])Ordered B y: Signalman on 03-19-2019 Cholesterol mass conc 227 mg/dL Abnormal 100-199 [facility] Work Phone: Comment on above: PATIENT WAS FASTINGP ERFORMED BY: [employer] [id number] Lipoprotein.alpha molar conc 37.9 umol/L Normal [facility] Work Phone: Comment on above: PATIENT WAS FASTINGP ERFORMED BY: [employer] O[address]en[address] [id number] Lipoprotein.beta.sub particle Entitic length 21.2 nm Normal [facility] Work Phone: Comment on above: INTERPRETATIVE INFORMATION PARTICLE CONCENTRATION AND SIZE <--Lower CVD Risk Higher CVD Risk--> LDL AND HDL PARTICLES Percentile in Reference Population HDL-P (total) High 75th 50th 25th Low >34.9 34.9 30.5 26.7 <26.7 . Small LDL-P Low 25th 50th 75th High <117 117 527 839 >839 . LDL Size <-Large (Pattern A)-> <-Small (Pattern B)-> 23.0 20.6 20.5 19.0 Small LDL-P and LDL Size are associated with CVD risk, but not afterLDL-P is taken into account. .These assays were developed and their performance characteristicsdetermined by [employer]. These assays have not been cleared by [employer] Food and Drug Administration. The clinical utility of theselaboratory values have not been fully established. PATIENT WAS FASTINGP ERFORMED BY: Anewston1447 [facility] [id number] Lipoprotein.beta.sub particle molar conc 1644 nmol/L Abnormal Comprehensiv e [facility] Work Phone: Comment on above: Low < 1000 Moderate 1000 - 1299 Borderline-High 1300 - 1599 High 1600 - 2000 Very High > 2000 PATIENT WAS FASTINGP ERFORMED BY: [employer] [id number] Lipoprotein.beta.sub particle.small molar conc 555 nmol/L Abnormal [facility] Work Phone: Comment on above: PATIENT WAS FASTINGP ERFORMED BY: [employer] [id number] Triglyceride mass conc 113 mg/dL Normal 0-149 [facility] Work Phone: Comment on above: PATIENT WAS FASTINGP ERFORMED BY: [employer] [id number] NMR Profile ([id number]) 55 mg/dL Normal Compr ensive [facility] Work Phone: Comment on above: PATIENT WAS FASTINGP ERFORMED BY: [employer] [id number] NMR Profile ([id number]) 149 mg/dL Abnormal 0-99 Compr ensive [facility] Work Phone: Comment on above: . Optimal < 100 Abov e optimal 100 - 129 Borderline 130 - 159 High 160 - 189 Very high > 189 .LDL-C is inaccurate if patient is non-fasting. PATIENT WAS FASTINGP ERFORMED BY: [employer] [id number] CBC W/AUTO DIFF WBC ([id number])O rdered By: Signalman on 10-08-2018 Basophils #/vol (Bld) 0.0 {x10E3/uL} Normal 0.0-0.2 [facility] Work Phone: Comment on above: PATIENT NOT FASTINGP ERFORMED BY: [employer] [id number] Near PageAt[facility] [id number] Basophils (Bld) [#/Vol] 0.0 10*3/uL Normal 0.0-0.2 [facility]; [facility] Work Phone: Comment on above: PATIENT NOT FASTINGP ERFORMED BY: [employer] Ulykis0014 [facility] [place] [id number] Basophils/100 WBC (Bld) 1 % Normal [facility] Work Phone: Comment on above: PATIENT NOT FASTINGP ERFORMED BY: [employer] [id number] Near PageAt[facility] [id number] Eosinophils #/vol (Bld) 0.1 {x10E3/uL} Normal 0.0-0.4 [facility] Work Phone: Comment on above: PATIENT NOT FASTINGP ERFORMED BY: ARISTEO LabCochauncey GormanOawtzp2336 [facility] [place] [id number] Eosinophils (Bld) [#/Vol] 0.1 10*3/uL Normal 0.0-0.4 [facility]; [facility] Work Phone: Comment on above: PATIENT NOT FASTINGP ERFORMED BY: ARISTEO HarrisCochauncey RuffCcfutp5636 [facility] [id number] Eosinophils/100 WBC (Bld) 3 % Normal [facility] Work Phone: Comment on above: PATIENT NOT FASTINGP ERFORMED BY: ARISTEO Ruff6370 [facility] [id number] Erythrocyte distribution width Ratio (RBC) 13.1 % Normal 12.3-15.4 [facility] Work Phone: Comment on above: PATIENT NOT FASTINGP ERFORMED BY: ARISTEO Gormanlin6370 [facility] [id number] Hematocrit Volume Fraction (Bld) 41.7 % Normal 34.0-46.6 [facility] Work Phone: Comment on above: PATIENT NOT FASTINGP ERFORMED BY: ARISTEO Ruff6370 [facility] [id number] Hemoglobin mass conc (Bld) 14.2 g/dL Normal 11.1-15.9 [facility] Work Phone: Comment on above: PATIENT NOT FASTINGP ERFORMED BY: ARISTEO [facility] Yfavfk2037 [facility] [id number] Immature granulocytes #/vol (Bld) 0.0 {x10E3/uL} Normal 0.0-0.1 [facility] Work Phone: Comment on above: PATIENT NOT FASTINGP ERFORMED BY: ARISTEO [facility] Pqjffk7618 [facility] [place] [id number] Immature granulocytes (Bld) [#/Vol] 0.0 10*3/uL Normal 0.0-0.1 [facility]; [facility] Work Phone: Comment on above: PATIENT NOT FASTINGP ERFORMED BY: ARISTEO LabCochauncey GormanYizatm6003 [facility] [id number] Immature granulocytes/100 WBC (Bld) 0 % Normal [facility] Work Phone: Comment on above: PATIENT NOT FASTINGP ERFORMED BY: ARISTEO LabCochauncey GormanDgpgbs2630 [facility] [id number] Lymphocytes #/vol (Bld) 1.4 {x10E3/uL} Normal 0.7-3.1 [facility] Work Phone: Comment on above: PATIENT NOT FASTINGP ERFORMED BY: ARISTEO LabCochauncey GormanVppnjv0542 [facility] [id number] Lymphocytes (Bld) [#/Vol] 1.4 10*3/uL Normal 0.7-3.1 [facility]; [facility] Work Phone: Comment on above: PATIENT NOT FASTINGP ERFORMED BY: ARISTEO KimberlySobeida GormanVohyib6256 [facility] [id number] Lymphocytes/100 WBC (Bld) 41 % Normal [facility] Work Phone: Comment on above: PATIENT NOT FASTINGP ERFORMED BY: ARISTEO KimberlySobeida GormanSamfpo9029 [facility] [id number] MCH Entitic mass (RBC) 32.1 pg Normal 26.6-33.0 [facility] Work Phone: Comment on above: PATIENT NOT FASTINGP ERFORMED BY: ARISTEO LabCochauncey GormanKobigo4094 [facility] [id number] MCHC mass conc (RBC) 34.1 g/dL Normal 31.5-35.7 Comp rehensive Internal Medicine Work Phone: Comment on above: PATIENT NOT FASTINGP ERFORMED BY: ARISTEO LabCochauncey Nqwvba8599 [facility] [id number] MCV Entitic volume (RBC) 94 fL Normal 79-97 [facility] Work Phone: Comment on above: PATIENT NOT FASTINGP ERFORMED BY: ARISTEO LabSobeida GormanVgwxlm0949 [facility]in [place] [id number] Monocytes #/vol (Bld) 0.5 {x10E3/uL} Normal 0.1-0.9 [facility] Work Phone: Comment on above: PATIENT NOT FASTINGP ERFORMED BY: ARISTEO [facility] Utwzup9731 [address] RoadD[address] [place] [id number] Monocytes (Bld) [#/Vol] 0.5 10*3/uL Normal 0.1-0.9 [facility]; [facility] Work Phone: Comment on above: PATIENT NOT FASTINGP ERFORMED BY: ARISTEO [facility] Xglecs2602 [address] RoadFirsthealthin [place] [id number] Monocytes/100 WBC (Bld) 15 % Normal [facility] Work Phone: Comment on above: PATIENT NOT FASTINGP ERFORMED BY: ARISTEO LabCochauncey GormanWancph8364 [address] RoadFirsthealthin [place] [id number] Neutrophils #/vol (Bld) 1.4 {x10E3/uL} Normal 1.4-7.0 [facility] Work Phone: Comment on above: PATIENT NOT FASTINGP ERFORMED BY: ARISTEO LabSobeida GormanXvxyvo0321 [facility] [place] [id number] Neutrophils (Bld) [#/Vol] 1.4 10*3/uL Normal 1.4-7.0 [facility]; [facility] Work Phone: Comment on above: PATIENT NOT FASTINGP ERFORMED BY: ARISTEO [facility] Qeyycn3839 [address] RoadD[address] [place] [id number] Neutrophils/100 WBC (Bld) 40 % Normal [facility] Work Phone: Comment on above: PATIENT NOT FASTINGP ERFORMED BY: CB [facility] Zrmhko1521 [address] RoadDublin [place] [id number] Platelets #/vol (Bld) 492 {x10E3/uL} Abnormal 150-379 [facility] Work Phone: Comment on above: PATIENT NOT FASTINGP ERFORMED BY: ARISTEO [facility] Yknrya9475 [address] RoadDublin [place] [id number] Platelets (Bld) [#/Vol] 492 10*3/uL Abnormal 150-379 [facility]; [facility] Internal Medicine Work Phone: Comment on above: PATIENT NOT FASTINGP ERFORMED BY: ARISTEO Ruff6370 [address]bl[address] [place] [id number] RBC #/vol (Bld) 4.43 {x10E6/uL} Normal 3.77-5.28 [facility] Work Phone: Comment on above: PATIENT NOT FASTINGP ERFORMED BY: ARISTEO LabAlex Ltdsqu5492 [facility]in [place] [id number] RBC (Bld) [#/Vol] 4.43 10*6/uL Normal 3.77-5.28 Compr [facility] Internal Medicine; [facility] Internal Medicine Work Phone: Comment on above: PATIENT NOT FASTINGP ERFORMED BY: ARISTEO Amaya Yqodyb9851 [facility]in [place] [id number] WBC #/vol (Bld) 3.5 {x10E3/uL} Normal 3.4-10.8 Compr [facility] Internal Medicine Work Phone: Comment on above: PATIENT NOT FASTINGP ERFORMED BY: ARISTEO Gormanlin6370 [facility]in [place] [id number] WBC (Bld) [#/Vol] 3.5 10*3/uL Normal 3.4-10.8 Compre [facility] Internal Medicine; [facility] Internal Medicine Work Phone: Comment on above: PATIENT NOT FASTINGP ERFORMED BY: ARISTEO [facility] Npmetg2921 [facility]in [place] [id number] Metabolic Panel, Basic (8004 8)Ordered By: Signalman on 10-08-2018 Calcium mass conc 10.0 mg/dL Normal 8.7-10.2 Compreh [facility] Internal Medicine Work Phone: Comment on above: PATIENT NOT FASTINGP ERFORMED BY: ARISTEO [facility] Qzawfs7013 [facility]in [place] [id number] Chloride molar conc 100 mmol/L Normal 96-106 Compr ehensive Internal Medicine Work Phone: Comment on above: PATIENT NOT FASTINGP ERFORMED BY: ARISTEO [facility] Qggzep0183 [address] RoadDublin [place] [id number] CO2 molar conc 23 mmol/L Normal 20-29 Comprehens sommer Internal Medicine Work Phone: Comment on above: PATIENT NOT FASTINGP ERFORMED BY: CB [facility] Wgyfbc1873 [address] RoadDublin [place] [id number] Creatinine mass conc 0.73 mg/dL Normal 0.57-1.00 Comp rehensive [facility] Medicine Work Phone: Comment on above: PATIENT NOT FASTINGP ERFORMED BY: ARISTEO [facility] Yzjbht5088 [address] Roadblin [place] [id number] GFR/1.73 sq M predicted among blacks CKD-EPI vol rate/area (S/P/Bld) 111 mL/min/1.73 Normal Comprehensiv e Internal Medicine Work Phone: Comment on above: PATIENT NOT FASTINGP ERFORMED BY: ARISTEO [facility] Lvkgat4504 [address] RoadFirsthealthin [place] [id number] GFR/1.73 sq M predicted among non-blacks CKD-EPI vol rate/area (S/P/Bld) 96 mL/min/1.73 Normal [facility] Work Phone: Comment on above: PATIENT NOT FASTINGP ERFORMED BY: ARISTEO [facility] Mwglrl7025 [facility]in [place] [id number] Glucose mass conc 97 mg/dL Normal 65-99 Compreh ensive Internal Medicine Work Phone: Comment on above: PATIENT NOT FASTINGP ERFORMED BY: ARISTEO [facility] Nvqdhx6106 [address] RoadDublin [place] [id number] Potassium molar conc 4.6 mmol/L Normal 3.5-5.2 Comp rehensive Internal Medicine Work Phone: Comment on above: PATIENT NOT FASTINGP ERFORMED BY: ARISTEO [facility] Fyhcdd7532 [address] RoadDublin [place] [id number] Sodium molar conc 140 mmol/L Normal 134-144 Compreh ensive Internal Medicine Work Phone: Comment on above: PATIENT NOT FASTINGP ERFORMED BY: ARISTEO [facility] Nbynwq4712 [facility]in [place] [id number] Urea nitrogen mass conc 14 mg/dL Normal 6-24 [facility] Work Phone: Comment on above: PATIENT NOT FASTINGP ERFORMED BY: ARISTEO [facility] Ggrptk3335 [facility] RoadAt[facility] [id number] Urea nitrogen/Creatinine mass ratio 19 mg/mg Normal 9-23 [facility] Work Phone: Comment on above: PATIENT NOT FASTINGP ERFORMED BY: ARISTEO [facility] Trhxvy6258 [facility]in [place] [id number] URINE COURTNEY CULTURE-DEVEN COL C OUNT (80889)Ordered By: Signalman on 10-08-2018 Bacteria identified Cx Nom (U) MUG Normal [facility] Work Phone: Comment on above: Mixed urogenital markel ra3,000 Colonies/mL PATIENT NOT FASTINGP ERFORMED BY: ARISTEO [facility] Ukwoha1211 [facility] [id number] Information: SRC:UC Bacteria identified Cx Nom (U) Final report Normal [facility] Work Phone: Comment on above: PATIENT NOT FASTINGP ERFORMED BY: ARISTEO [facility] Dgtxcv2828 [facility] [id number] Information: SRC:UC C-REACTIVE PROTEIN (48713)Or dered By: Signalman on 06-17-2018 CRP mass conc 71.9 mg/L Abnormal 0.0-4.9 Comprehensi ve Internal Medicine Work Phone: Comment on above: PATIENT NOT FASTINGP ERFORMED BY: ARISTEO [facility] Hikwky1658 [facility] [id number] CBC & PLATELETS (AUTO) (8502 7)Ordered By: Signalman on 06-17-2018 Erythrocyte distribution width Ratio (RBC) 12.8 % Normal 12.3-15.4 [facility] Work Phone: Comment on above: PATIENT NOT FASTINGP ERFORMED BY: ARISTEO [facility] Pycitg1167 [address] RoadDublin [place] [id number] Hematocrit Volume Fraction (Bld) 36.1 % Normal 34.0-46.6 [facility] Work Phone: Comment on above: PATIENT NOT FASTINGP ERFORMED BY: ARISTEO [facility] Mcnhrg7088 [address] RoadDublin [place] [id number] Hemoglobin mass conc (Bld) 12.6 g/dL Normal 11.1-15.9 [facility] Work Phone: Comment on above: PATIENT NOT FASTINGP ERFORMED BY: ARISTEO [facility] Gelcmd7539 [address] RoadDublin [place] [id number] MCH Entitic mass (RBC) 32.3 pg Normal 26.6-33.0 [facility] Work Phone: Comment on above: PATIENT NOT FASTINGP ERFORMED BY: ARISTEO [facility] Wzaijd5596 [address] RoadDuin [place] [id number] MCHC mass conc (RBC) 34.9 g/dL Normal 31.5-35.7 [facility] Internal Medicine Work Phone: Comment on above: PATIENT NOT FASTINGP ERFORMED BY: ARISTEO [facility] Cuwbqp2285 [address] RoadD[address] [place] [id number] MCV Entitic volume (RBC) 93 fL Normal 79-97 [facility] Work Phone: Comment on above: PATIENT NOT FASTINGP ERFORMED BY: ARISTEO [facility] Cgkeuz0836 [address] RoadDuin [place] [id number] Platelets #/vol (Bld) 181 {x10E3/uL} Normal 150-379 [facility] Work Phone: Comment on above: PATIENT NOT FASTINGP ERFORMED BY: ARISTEO [facility] Dcshmg9758 [address] RoadD[address] [place] [id number] Platelets (Bld) [#/Vol] 181 10*3/uL Normal 150-379 [facility]; [facility] Work Phone: Comment on above: PATIENT NOT FASTINGP ERFORMED BY: ARISTEO [facility] Ludurg1854 [address] [place] [id number] RBC #/vol (Bld) 3.90 {x10E6/uL} Normal 3.77-5.28 [facility] Work Phone: Comment on above: PATIENT NOT FASTINGP ERFORMED BY: ARISTEO [facility] Wwnniw3533 [address] RoadD[address] [place] [id number] RBC (Bld) [#/Vol] 3.90 10*6/uL Normal 3.77-5.28 [facility] Internal Medicine; [facility] Work Phone: Comment on above: PATIENT NOT FASTINGP ERFORMED BY: CB [facility] Vpdwuz8474 [address] [place] [id number] WBC #/vol (Bld) 2.0 {x10E3/uL} Abnormal 3.4-10.8 [facility] Internal Medicine Work Phone: Comment on above: Verified by repeat analysis PATIENT NOT FASTINGP ERFORMED BY: ARISTEO [facility] Qzrffl2715 [address] [place] [id number] WBC (Bld) [#/Vol] 2.0 10*3/uL Abnormal 3.4-10.8 [facility]; [facility] Internal Medicine Work Phone: Comment on above: Verified by repeat analysis PATIENT NOT FASTINGP ERFORMED BY: ARISTEO [facility] Oliozi7317 [address] [facility] HospitalD[facility] [place] [id number] METABOLIC PANEL, COMPREHENSI VE (25113)Ordered By: Signalman on 06-17-2018 Albumin mass conc 3.7 g/dL Normal 3.5-5.5 [facility] Internal Medicine Work Phone: Comment on above: PATIENT NOT FASTINGP ERFORMED BY: CB [facility] Fbzqtw5371 [address] [place] [id number] Albumin/Globulin mass ratio 1.8 {ratio} Normal 1.2-2.2 [facility] Internal Medicine Work Phone: Comment on above: PATIENT NOT FASTINGP ERFORMED BY: CB [facility] Ebqyzf7490 [address] RoadD[address] [place] [id number] ALP [Catalytic activity/Vol] 274 U/L Abnormal 39-117 [facility]; [facility] Work Phone: Comment on above: PATIENT NOT FASTINGP ERFORMED BY: RAISTEO [facility] Dnwyga1289 [address] RoadD[address] [place] [id number] ALP enzyme act/vol 274 [iU]/L Abnormal 39-117 [facility] Internal [facility] Work Phone: Comment on above: PATIENT NOT FASTINGP ERFORMED BY: CB [facility] Kxwuij9813 [address] RoadD[address] [place] [id number] ALT [Catalytic activity/Vol] 211 U/L Abnormal 0-32 [facility]; [facility] Internal Medicine Work Phone: Comment on above: PATIENT NOT FASTINGP ERFORMED BY: ARISTEO [facility] Gmbbcr9987 [address] RoadD[address] [place] [id number] ALT enzyme act/vol 211 [iU]/L Abnormal 0-32 [facility] Internal Medicine Work Phone: Comment on above: PATIENT NOT FASTINGP ERFORMED BY: CB [facility] Arkemk1333 [address] [place] [id number] AST [Catalytic activity/Vol] 99 U/L Abnormal 0-40 [facility]; [facility] Internal Medicine Work Phone: Comment on above: PATIENT NOT FASTINGP ERFORMED BY: ARISTEO [facility] Oifuvf9898 [address] RoadD[address] [place] [id number] AST enzyme act/vol 99 [iU]/L Abnormal 0-40 [facility] Internal Medicine Work Phone: Comment on above: PATIENT NOT FASTINGP ERFORMED BY: CB [facility] Rgvhov8197 [address] [place] [id number] Bilirubin mass conc 1.0 mg/dL Normal 0.0-1.2 [facility] Internal Medicine Work Phone: Comment on above: PATIENT NOT FASTINGP ERFORMED BY: CB [facility] Zfkoth6086 [address] [place] [id number] Calcium mass conc 8.3 mg/dL Abnormal 8.7-10.2 [facility] Internal Medicine Work Phone: Comment on above: PATIENT NOT FASTINGP ERFORMED BY: CB [facility] Kblsqd8396 [address] RoadD[address] [place] [id number] Chloride molar conc 106 mmol/L Normal 96-106 Compr ehensive Internal Medicine Work Phone: Comment on above: PATIENT NOT FASTINGP ERFORMED BY: CB [facility] Xsbumn4427 [address] [place] [id number] CO2 molar conc 24 mmol/L Normal 20-29 Comprehens sommer Internal Medicine Work Phone: Comment on above: PATIENT NOT FASTINGP ERFORMED BY: CB [facility] Afamzi4756 [address] [place] [id number] Creatinine mass conc 0.74 mg/dL Normal 0.57-1.00 Comp [facility] Work Phone: Comment on above: PATIENT NOT FASTINGP ERFORMED BY: CB [facility] Bgmygr9232 [address] [place] [id number] GFR/1.73 sq M predicted among blacks CKD-EPI vol rate/area (S/P/Bld) 109 mL/min/1.73 Normal Comprehensiv e Internal Medicine Work Phone: Comment on above: PATIENT NOT FASTINGP ERFORMED BY: CB [facility] Stfvmt6488 [address] [place] [id number] GFR/1.73 sq M predicted among non-blacks CKD-EPI vol rate/area (S/P/Bld) 95 mL/min/1.73 Normal [facility] Work Phone: Comment on above: PATIENT NOT FASTINGP ERFORMED BY: CB [facility] Feywci4598 [address] [place] [id number] Globulin mass conc (S) 2.1 g/dL Normal 1.5-4.5 [facility] Work Phone: Comment on above: PATIENT NOT FASTINGP ERFORMED BY: CB [facility] Dagkud5041 [address] [place] [id number] Glucose mass conc 91 mg/dL Normal 65-99 Compreh ensive Internal Medicine Work Phone: Comment on above: PATIENT NOT FASTINGP ERFORMED BY: ARISTEO [facility] Jihvsf2343 [address] [place] [id number] Potassium molar conc 3.9 mmol/L Normal 3.5-5.2 Comp rehensive Internal Medicine Work Phone: Comment on above: PATIENT NOT FASTINGP ERFORMED BY: ARISTEO [facility] Zhrjag5391 [address]bl[address] [place] [id number] Protein mass conc 5.8 g/dL Abnormal 6.0-8.5 Compreh ensive Internal Medicine Work Phone: Comment on above: PATIENT NOT FASTINGP ERFORMED BY: CB [facility] Ykkspn5063 [address]Duin [place] [id number] Sodium molar conc 142 mmol/L Normal 134-144 Compreh ensive Internal Medicine Work Phone: Comment on above: PATIENT NOT FASTINGP ERFORMED BY: ARISTEO [facility] Riwcre9911 [facility] [id number] Urea nitrogen mass conc 15 mg/dL Normal 6-24 [facility] Work Phone: Comment on above: PATIENT NOT FASTINGP ERFORMED BY: ARISTEO [facility] Vteuer8883 [facility]in [place] [id number] Urea nitrogen/Creatinine mass ratio 20 mg/mg Normal 9-23 [facility] Work Phone: Comment on above: PATIENT NOT FASTINGP ERFORMED BY: ARISTEO [facility] Tcvlro9363 [facility] [id number] Rapid Flu (71690 x 2)Ordered By: Janny Pink on 06-17-2018 FLUAV Ag IA Ql (Throat) Negative Normal [facility] Work Phone: FLUAV Ag IA Ql (Throat) Negative Normal [facility]; [facility] Work Phone: SED RATE ERYTHROCYTE (25114) Ordered By: Signalman on 06-17-2018 ESR Velocity (Bld) 14 mm/h Normal 0-40 Compre hensive Internal Medicine Work Phone: Comment on above: PATIENT NOT FASTINGP ERFORMED BY: ARISTEO [facility] Krooxc0199 [facility] [id number] URINE COURTNEY CULTURE-IDENTIFICA [place] (84157)Ordered By: Signalman on 06-17-2018 Bacteria identified Cx Nom (U) Final report Normal [facility] Work Phone: Comment on above: PATIENT NOT FASTINGP ERFORMED BY: CB [facility] Foufdp5391 [address] RoadAccessPayblin [place] [id number] Information: SRC:UC Bacteria identified Cx Nom (U) MUG Normal [facility] Work Phone: Comment on above: Mixed urogenital markel ra600 Colonies/mL PATIENT NOT FASTINGP ERFORMED BY: CB [facility] Hrkfhr4505 [address] InVisionin [place] [id number] Information: SRC:UC Urinalysis, Office (77206)Or dered By: Janny Pink on 06-17-2018 Bilirubin Ql (U) Moderate Normal Comprehe nsive Internal Medicine Work Phone: Glucose Test strip (U) [Mass/Vol] Negative Normal [facility]; [facility] Work Phone: Glucose Test strip mass conc (U) Negative Normal [facility] Work Phone: Hemoglobin Ql (U) Negative Normal Compreh ensive Internal Medicine Work Phone: Hemoglobin Ql (U) Negative Normal Compreh ensive Internal Medicine; [facility] Work Phone: Leukocyte esterase Test strip Ql (U) Negative Normal [facility] Work Phone: Leukocyte esterase Test strip Ql (U) Negative Normal [facility]; [facility] Work Phone: Nitrite Ql (U) Negative Normal Comprehens sommer Internal Medicine Work Phone: Nitrite Ql (U) Negative Normal Comprehens sommer Internal Medicine; [facility] Work Phone: pH (U) 6 [pH] Abnormal [facility] Work Phone: Protein Ql (U) 30 mg/dL Normal Comprehens sommer Internal Medicine Work Phone: Specific gravity Relative Density (U) 1.015 1 Normal Comprehensi ve Internal Medicine Work Phone: Urobilinogen mass/time (24H U) 4 mg/dL Normal [facility] Work Phone: URINE COURTNEY CULTURE-IDENTIFICA [place] (94541)Ordered By: Signalman on 06-12-2018 Bacteria identified Cx Nom (U) Escherichia coli Abnormal [facility] Work Phone: Comment on above: Greater than 100,000 colony forming units per mLCefazolin <=4 ug/mLCefazolin with an HERMELINDA <=16 predicts susceptibility to the oral agentscefaclor, cefdinir, cefpodoxime, cefprozil, cefuroxime, cephalexin,and loracarbef when used for therapy of uncomplicated urinary tractinfections due to E. coli, Klebsiella pneumoniae, and Proteusmirabilis. PATIENT NOT FASTINGP ERFORMED BY: ARISTEO [employer] Back Vzufxw4342 [employer] [place] [id number] Information: SRC:[place] Bacteria identified Cx Nom (U) Final report Abnormal [facility] Work Phone: Comment on above: PATIENT NOT FASTINGP ERFORMED BY: ARISTEO LabClasstingrp Cfyixt8478 [address] [id number] Information: SRC:[place] Other Antibiotic susc MIHEAD Normal [facility] Work Phone: Comment on above: S = Susceptible; I = Intermediate; R = Resistant P = Positive; N = Negative MICS are expressed in micrograms per mL Antibiotic RSLT#1 RSLT#2 RSLT#3 RSLT#4Amoxicillin/Clavulanic Acid IAmpicillin RCefepime SCeftriaxone SCefuroxime SCiprofloxacin SErtapenem SGentamicin SImipenem SLevofloxacin SMeropenem SNitrofurantoin SPiperacillin/Tazobactam STetracycline STobramycin STrimethoprim/Sulfa S PATIENT NOT FASTINGP ERFORMED BY: ARISTEO LabClasstingrp Diylsu8733 [address] InVisionin [place] [id number] Information: SRC:[place] Urinalysis, Office (08875)on 06-12-2018 Bilirubin Ql (U) Small Normal Comprehe nsive Internal Medicine Work Phone: Comment on above: on azo for uti. Glucose Test strip mass conc (U) 100 1 Abnormal [facility] Work Phone: Comment on above: on azo for uti. Hemoglobin Ql (U) Negative Normal Compreh ensive Internal Medicine Work Phone: Comment on above: on azo for uti. Hemoglobin Ql (U) Negative Normal Compreh ensive Internal Medicine; [facility] Internal Medicine Work Phone: Comment on above: on azo for uti. Ketones Ql (U) Negative Normal Comprehens sommer Internal Medicine Work Phone: Comment on above: on azo for uti. Ketones Ql (U) Negative Normal Comprehens sommer Internal Medicine; [facility] Internal Medicine Work Phone: Comment on above: on azo for uti. Leukocyte esterase Test strip Ql (U) Trace Normal [facility] Internal Medicine Work Phone: Comment on above: on azo for uti. Nitrite Ql (U) Positive Normal Comprehens sommer Internal Medicine Work Phone: Comment on above: on azo for uti. Nitrite Ql (U) Positive Normal Comprehens sommer Internal Medicine; [facility] Internal Medicine Work Phone: Comment on above: on azo for uti. pH (U) 5.0 [pH] Normal [facility] Internal Medicine Work Phone: Comment on above: on azo for uti. Protein Ql (U) 30 mg/dL Normal Comprehens sommer Internal Medicine Work Phone: Comment on above: on azo for uti. Specific gravity Relative Density (U) 1.020 1 Normal Comprehensi Internal Medicine Work Phone: Comment on above: on azo for uti. Urobilinogen mass/time (24H U) Normal Normal [facility] Internal Medicine Work Phone: Comment on above: on azo for uti. URINE COURTNEY CULTURE-IDENTIFICA [place] (56005)Ordered By: Signalman on 01-08-2017 Bacteria identified Cx Nom (U) Escherichia coli Abnormal [facility] Internal Medicine Work Phone: Comment on above: Greater than 100,000 colony forming units per mL PATIENT NOT FASTINGP ERFORMED BY: CB [facility] Bslush1339 [address] [place] [id number] Information: SRC:UC Bacteria identified Cx Nom (U) Final report Abnormal [facility] Work Phone: Comment on above: PATIENT NOT FASTINGP ERFORMED BY: CB [facility] Bsraxp3717 [address] RoadDublin [place] [id number] Information: SRC: Other Antibiotic susc [facility] Comprehensive [facility] Medicine Work Phone: Comment on above: S = Susceptible; I = Intermediate; R = Resistant P = Positive; N = Negative MICS are expressed in micrograms per mL Antibiotic RSLT#1 RSLT#2 RSLT#3 RSLT#4Amoxicillin/Clavulanic Acid SAmpicillin SCefepime SCeftriaxone SCefuroxime SCephalothin ICiprofloxacin RErtapenem SGentamicin SImipenem SLevofloxacin RNitrofurantoin SPiperacillin STetracycline STobramycin STrimethoprim/Sulfa S PATIENT NOT FASTINGP ERFORMED BY: ARISTEO [facility] Zlafxg7083 [address] RoadDublin [place] [id number] Information: SRC: URINE COURTNEY CULTURE-DEVEN COL C OUNT ([id number])Ordered By: Signalman on 01-03-2017 Bacteria identified Cx Nom (U) Final report Abnormal [facility] Work Phone: Comment on above: PATIENT NOT FASTINGP ERFORMED BY: CB [facility] Hanoqx3164 Cox RoadDublin [place] [id number] Information: [id number] SRC: Bacteria identified Cx Nom (U) Escherichia coli Abnormal [facility] Work Phone: Comment on above: Greater than 100,000 colony forming units per mL PATIENT NOT FASTINGP ERFORMED BY: CB [facility] Enzzvt9024 Cox RoadDublin [place] [id number] Information: [id number] SRC: Other [facility]iotic [facility] Work Phone: Comment on above: S = Susceptible; I = Intermediate; R = Resistant P = Positive; N = Negative MICS are expressed in micrograms per mL Antibiotic RSLT#1 RSLT#2 RSLT#3 RSLT#4Amoxicillin/Clavulanic Acid SAmpicillin SCefepime SCeftriaxone SCefuroxime SCephalothin ICiprofloxacin RErtapenem SGentamicin SImipenem SLevofloxacin RNitrofurantoin SPiperacillin STetracycline STobramycin STrimethoprim/Sulfa S PATIENT NOT FASTINGP ERFORMED BY: ARISTEO [facility] Hfukyw3403 Cox RoadDublin [place] [id number] Information: [id number] SRC: Urinalysis, Office (77913)on 01-03-2017 Bilirubin Ql (U) Small Normal Compre[facility] nsive [facility] Work Phone: Glucose Test strip mass conc (U) 100 1 Abnormal [facility] Work Phone: Hemoglobin Ql (U) Negative Normal Compre[facility] Work Phone: Hemoglobin Ql (U) Negative Normal Compre[facility]; [facility] Work Phone: Ketones Ql (U) Small Normal [facility] Work Phone: Leukocyte esterase Test strip Ql (U) Large Normal [facility] Work Phone: Nitrite Ql (U) Positive Normal [facility] Work Phone: Nitrite Ql (U) Positive Normal [facility]; [facility] Work Phone: pH (U) 6 [pH] Abnormal [facility] Work Phone: Protein Ql (U) 30 mg/dL Normal [facility] Work Phone: Specific gravity Relative Density (U) 1.020 1 Normal Compre[facility] Work Phone: Urobilinogen mass/time (24H U) Normal Normal [facility] Work Phone: URINE COURTNEY CULTURE-DEVEN COL C OUNT ([id number])Ordered By: Signalman on 04-29-2014 Bacteria identified Cx Nom (U) Final report Abnormal [facility] Work Phone: Comment on above: PATIENT NOT FASTINGP ERFORMED BY: ARISTEO Ruff6370 [facility] [id number] Information: SRC:UR [id number] Bacteria identified Cx Nom (U) Escherichia coli Abnormal [facility] Work Phone: Comment on above: Greater than 100,000 colony forming units per mL PATIENT NOT FASTINGP ERFORMED BY: ARISTEO Connor Ruff6370 [facility] [id number] Information: SRC:UR [id number] Other Antibiotic susc MIHEAD Normal [facility] Work Phone: Comment on above: S = Susceptibl e; I = Intermediate; R = Resistant P = Positive; N = Negative MICS are expressed in micrograms per mL Antibiotic RSLT#1 RSLT#2 RSLT#3 RSLT#4Amoxicillin/Clavulanic Acid SAmpicillin SCefepime SCeftriaxone SCefuroxime SCephalothin ICiprofloxacin SErtapenem SGentamicin SImipenem SLevofloxacin SNitrofurantoin SPiperacillin STetracycline RTobramycin STrimethoprim/Sulfa S PATIENT NOT FASTINGP ERFORMED BY: ARISTEO Connor Ruff6370 [facility] [id number] Information: SRC:SHELBIE [id number] Urinalysis, Office ([id number])on 04-29-2014 Bilirubin Ql (U) Negative Normal Comprehe ns[facility] Work Phone: Bilirubin Ql (U) Negative Normal Comprehe ns[facility]; [facility] Work Phone: Glucose Test strip (U) [Mass/Vol] Negative Normal [facility]; [facility] Work Phone: Glucose Test strip mass conc (U) Negative Normal [facility] Work Phone: Hemoglobin Ql (U) Negative Normal Compreh ensive [facility] Work Phone: Hemoglobin Ql (U) Negative Normal Compreh ens[facility]; [facility] Work Phone: Ketones Ql (U) Negative Normal Comprehens [facility] Work Phone: Ketones Ql (U) Negative Normal Comprehens [facility]; [facility] Work Phone: Leukocyte esterase Test strip Ql (U) Large Normal [facility] Work Phone: Nitrite Ql (U) Negative Normal Comprehens [facility] Work Phone: Nitrite Ql (U) Negative Normal Comprehens [facility]; [facility] Work Phone: pH (U) 7 [pH] Normal [facility] Work Phone: Protein Ql (U) Negative Normal Comprehens [facility] Work Phone: Protein Ql (U) Negative Normal Comprehens [facility]; [facility] Work Phone: Specific gravity Relative Density (U) 1.015 1 Normal Comprehensi ve [facility] Work Phone: Urobilinogen mass/time (24H U) Normal Normal [facility] Work Phone: URINE COURTNEY CULTURE-DEVEN COL C OUNT ([id number])Ordered By: Signalman on 10-29-2013 Bacteria identified Cx Nom (U) Escherichia coli Normal [facility] Work Phone: Comment on above: Greater than 100,000 colony forming units per mL PATIENT NOT FASTINGP ERFORMED BY: [facility] [id number] Information: SRC:SHELBIE ADD P99993 Bacteria identified Cx Nom (U) Final report Normal [facility] Work Phone: Comment on above: PATIENT NOT FASTINGP ERFORMED BY: [employer] [id number] Information: SRC:SHELBIE ADD [id number] Other Antibiotic susc MIHEAD Normal [facility] Work Phone: Comment on above: S = Susceptibl e; I = Intermediate; R = Resistant P = Positive; N = Negative MICS are expressed in micrograms per mL Antibiotic RSLT#1 RSLT#2 RSLT#3 RSLT#4Amoxicillin/Clavulanic Acid SAmpicillin SCefepime SCeftriaxone SCefuroxime SCephalothin SCiprofloxacin SErtapenem SGentamicin SImipenem SLevofloxacin SNitrofurantoin SPiperacillin STetracycline STobramycin STrimethoprim/Sulfa S PATIENT NOT FASTINGP ERFORMED BY: ARISTEO [facility] Soqqjd2620 Cox RoadAtrium Health [facility] [id number] Information: SRC:UR ADD [id number] Urinalysis, Office (60805)Or dered By: Janny Pink on 10-29-2013 Bilirubin Ql (U) Large Normal Compre[facility] ns[facility] Work Phone: Glucose Test strip mass conc (U) 100 1 Abnormal [facility] Work Phone: Hemoglobin Ql (U) Negative Normal Compre[facility] ens[facility] Work Phone: Hemoglobin Ql (U) Negative Normal Compreh ens[facility]; [facility] Work Phone: Ketones Ql (U) 15 mg/dL Abnormal Comprehens [facility] Work Phone: Leukocyte esterase Test strip Ql (U) Large Normal [facility] Work Phone: Nitrite Ql (U) Positive Normal Comprehens [facility] Work Phone: Nitrite Ql (U) Positive Normal Comprehens [facility]; [facility] Work Phone: pH (U) 8 [pH] Abnormal [facility] Work Phone: Protein Ql (U) Negative Normal Comprehens [facility] Work Phone: Protein Ql (U) Negative Normal Comprehens [facility]; [facility] Work Phone: Specific gravity Relative Density (U) 1.020 1 Normal Comprehen[facility] Work Phone: Urinalysis, Office (22001)Or dered By: Riri Johnson on 09-12-2013 Bilirubin Ql (U) Negative Normal Comprehe nsive [facility] Work Phone: Bilirubin Ql (U) Negative Normal Comprehe ns[facility]; [facility] Work Phone: Glucose Test strip (U) [Mass/Vol] Negative Normal [facility]; [facility] Work Phone: Glucose Test strip mass conc (U) Negative Normal [facility] Work Phone: Hemoglobin Ql (U) Negative Normal Compreh ensive [facility] Work Phone: Hemoglobin Ql (U) Negative Normal Compre[facility] ens[facility]; [facility] Work Phone: Ketones Ql (U) Negative Normal Comprehens [facility] Work Phone: Ketones Ql (U) Negative Normal Comprehens [facility]; [facility] Work Phone: Leukocyte esterase Test strip Ql (U) Negative Normal [facility] Work Phone: Leukocyte esterase Test strip Ql (U) Negative Normal [facility]; [facility] Work Phone: Nitrite Ql (U) Negative Normal Comprehens [facility] Work Phone: Nitrite Ql (U) Negative Normal Comprehens [facility]; [facility] Work Phone: pH (U) 5.0 [pH] Normal [facility] Work Phone: Protein Ql (U) Negative Normal Comprehens [facility] Work Phone: Protein Ql (U) Negative Normal Comprehens [facility]; [facility] Work Phone: Specific gravity Relative Density (U) 1.025 1 Normal Comprehensi [facility] Work Phone: Urobilinogen mass/time (24H U) 2 mg/dL Normal [facility] Work Phone: URINE COURTNEY CULTURE-IDENTIF[place] ([id number])Ordered By: Signalman on 08-27-2013 Bacteria identified Cx Nom (U) Final report Normal [facility] Work Phone: Comment on above: PATIENT NOT FASTINGP ERFORMED BY: [facility]Special[facility] at MonmouthOeoffx5847 [facility] [id number] Information: [id number] Bacteria identified Cx Nom (U) ECV Normal [facility] Work Phone: Comment on above: Escherichia coli, id entified by an automated biochemical system.Greater than 100,000 colony forming units per mL S = Susceptible; I = Intermediate; R = Resistant P = Positive; N = Negative MICS are expressed in micrograms per mL Antibiotic RSLT#1 RSLT#2 RSLT#3 RSLT#4Amoxicillin/Clavulanic Acid SAmpicillin SCefepime SCeftriaxone SCefuroxime SCephalothin SCiprofloxacin SErtapenem SGentamicin SImipenem SLevofloxacin SNitrofurantoin SPiperacillin STetracycline STobramycin STrimethoprim/Sulfa S PATIENT NOT FASTINGP ERFORMED BY: ARISTEO [facility] Yrdagw3621 [address] [facility] [id number] Information: [id number] Urinalysis, Office (47065)on 08-27-2013 Bilirubin Ql (U) Negative Normal Comprehe ns[facility] Work Phone: Bilirubin Ql (U) Negative Normal Compre[facility] ns[facility]; [facility] Work Phone: Glucose Test strip mass conc (U) Trace Normal [facility] Work Phone: Ketones Ql (U) Negative Normal Comprehens [facility] Work Phone: Ketones Ql (U) Negative Normal Comprehens [facility]; [facility] Work Phone: Leukocyte esterase Test strip Ql (U) Large Normal [facility] Work Phone: Nitrite Ql (U) Positive Normal Comprehens [facility] Work Phone: Nitrite Ql (U) Positive Normal Comprehens [facility]; [facility] Work Phone: pH (U) 5.0 [pH] Normal [facility] Work Phone: Comment on above: 5.5 Protein Ql (U) 100 mg/dL Normal Comprehens [facility] Work Phone: Specific gravity Relative Density (U) 1.025 1 Normal Comprehensi [facility] Work Phone: Comment on above: > 1.030 appears as i f she is on Pyridium Urobilinogen mass/time (24H U) Normal Normal [facility] Work Phone: Urinalysis, Office ([id number])Or dered By: Riri Johnson on 07-28-2013 Bilirubin Ql (U) Negative Normal Compre[facility] ns[facility] Work Phone: Bilirubin Ql (U) Negative Normal Comprehe ns[facility]; [facility] Work Phone: Glucose Test strip (U) [Mass/Vol] Negative Normal [facility]; [facility] Work Phone: Glucose Test strip mass conc (U) Negative Normal [facility] Work Phone: Hemoglobin Ql (U) Negative Normal Compreh ensive [facility] Work Phone: Hemoglobin Ql (U) Negative Normal Compreh ens[facility]; [facility] Work Phone: Ketones Ql (U) Negative Normal Comprehens [facility] Work Phone: Ketones Ql (U) Negative Normal Comprehens [facility]; [facility] Work Phone: Leukocyte esterase Test strip Ql (U) Negative Normal [facility] Work Phone: Leukocyte esterase Test strip Ql (U) Negative Normal [facility]; [facility] Work Phone: Nitrite Ql (U) Negative Normal Comprehens [facility] Work Phone: Nitrite Ql (U) Negative Normal Comprehens [facility]; [facility] Work Phone: pH (U) 6.0 [pH] Normal [facility] Work Phone: Protein Ql (U) Negative Normal Comprehens [facility] Work Phone: Protein Ql (U) Negative Normal Comprehens [facility]; [facility] Work Phone: Specific gravity Relative Density (U) 1.015 1 Normal Comprehensi [facility] Work Phone: Urobilinogen mass/time (24H U) 2 mg/dL Normal [facility] Work Phone: FINN (ANTINUCLEAR ANTIBODY) ( [id number])Ordered By: Signalman on 05-01-2013 Nuclear Ab Ql (S) Negative Normal Compre[facility] ens[facility] Work Phone: Comment on above: PATIENT NOT FASTINGP ERFORMED BY: CB [facility] Hfkeef5049 [address] [facility] [id number] BY: [employer] [id number] Nuclear Ab Ql (S) Negative Normal Compreh ensive [facility]; [facility] Work Phone: Comment on above: PATIENT NOT FASTINGP ERFORMED BY: CB [facility] Zmdslw5891 [address] [facility] [id number] BY: [employer] [id number] C-REACTIVE PROTEIN ([id number])Or dered By: Signalman on 05-01-2013 CRP [Mass/Vol] mg/L Normal 0.0-4.9 Comprehens [facility]; [facility] Work Phone: Comment on above: PATIENT NOT FASTINGP ERFORMED BY: CB [facility] Vtrgkd8433 [facility] [id number] BY: [employer] [id number] CRP mass conc mg/L Normal 0.0-4.9 Comprehensi ve [facility] Work Phone: Comment on above: PATIENT NOT FASTINGP ERFORMED BY: CB [facility] Teclti8778 [facility] [id number] BY: [employer] [id number] CBC WITH MANUAL DIFF ([id number]) Ordered By: Signalman on 05-01-2013 Basophils #/vol (Bld) 0.0 {x10E3/uL} Normal 0.0-0.2 [facility] Work Phone: Comment on above: PATIENT NOT FASTINGP ERFORMED BY: [facility] Upzbwe5032 [facility] [place] [id number] BY: [address] [id number] Information: [id number] Basophils (Bld) [#/Vol] 0.0 10*3/uL Normal 0.0-0.2 [facility]; [facility] Work Phone: Comment on above: PATIENT NOT FASTINGP ERFORMED BY: [facility] Bstwkb4761 [address] [facility] [id number] BY: [employer] [id number] Information: [id number] Basophils/100 WBC (Bld) 1 % Normal 0-3 [facility] Work Phone: Comment on above: PATIENT NOT FASTINGP ERFORMED BY: [facility] Bsfrce1973 [facility] [id number] BY: [address] [id number] Information: [id number] Eosinophils #/vol (Bld) 0.1 {x10E3/uL} Normal 0.0-0.4 [facility] Work Phone: Comment on above: PATIENT NOT FASTINGP ERFORMED BY: [facility] Afopsh9650 [address] [facility] [id number] BY: [address] [id number] Information: [id number] Eosinophils (Bld) [#/Vol] 0.1 10*3/uL Normal 0.0-0.4 [facility]; [facility] Work Phone: Comment on above: PATIENT NOT FASTINGP ERFORMED BY: [facility] Fpeeht3608 [facility] [id number] BY: [address] [id number] Information: [id number],[id number] Eosinophils/100 WBC (Bld) 4 % Normal 0-7 [facility] Work Phone: Comment on above: PATIENT NOT FASTINGP ERFORMED BY: [facility] Bxmqzi3256 [facility] [id number] BY: [address] [id number] Information: 611657,[id number] Erythrocyte distribution width Ratio (RBC) 11.9 % Abnormal 12.3-15.4 [facility] Work Phone: Comment on above: PATIENT NOT FASTINGP ERFORMED BY: CB [facility] Rpuytc2066 [facility] [id number] BY: [address] [id number] Information: [id number] Hematocrit Volume Fraction (Bld) 42.1 % Normal 34.0-46.6 [facility] Work Phone: Comment on above: PATIENT NOT FASTINGP ERFORMED BY: CB [facility] Aqsxhj2388 [facility] [id number] BY: [address] [id number] Information: [id number] Hemoglobin mass conc (Bld) 14.6 g/dL Normal 11.1-15.9 [facility] Work Phone: Comment on above: PATIENT NOT FASTINGP ERFORMED BY: CB [facility] Lofmnc0631 [facility] [id number] BY: [address] [id number] Information: 191402,[id number] Immature granulocytes #/vol (Bld) 0.0 {x10E3/uL} Normal 0.0-0.1 [facility] Work Phone: Comment on above: PATIENT NOT FASTINGP ERFORMED BY: CB [facility] Ibkmkn9579 [facility] [place] [id number] BY: [address] [id number] Information: 713171,[id number] Immature granulocytes (Bld) [#/Vol] 0.0 10*3/uL Normal 0.0-0.1 [facility]; [facility] Work Phone: Comment on above: PATIENT NOT FASTINGP ERFORMED BY: [facility] Htkmwa6544 [facility] [id number] BY: [address] [id number] Information: [id number] Immature granulocytes/100 WBC (Bld) 0 % Normal 0-2 [facility] Work Phone: Comment on above: PATIENT NOT FASTINGP ERFORMED BY: [facility] Sycbcm5786 [facility] [id number] BY: [address] [id number] Information: [id number],[id number] Lymphocytes #/vol (Bld) 1.1 {x10E3/uL} Normal 0.7-4.5 [facility] Work Phone: Comment on above: PATIENT NOT FASTINGP ERFORMED BY: [facility] Tmyzkd1790 [facility] [id number] BY: [address] [id number] Information: [id number] Lymphocytes (Bld) [#/Vol] 1.1 10*3/uL Normal 0.7-4.5 [facility]; [facility] Work Phone: Comment on above: PATIENT NOT FASTINGP ERFORMED BY: CB [facility] Vkibzj6067 [facility] [id number] BY: BN [facility] [id number] Information: [id number] Lymphocytes/100 WBC (Bld) 40 % Normal 14-46 [facility] Work Phone: Comment on above: PATIENT NOT FASTINGP ERFORMED BY: [facility] Yxrjes8970 [facility] [id number] BY: [facility] [id number] Information: [id number] MCH Entitic mass (RBC) 32.9 pg Normal 26.6-33.0 [facility] Work Phone: Comment on above: PATIENT NOT FASTINGP ERFORMED BY: [facility] Pzlbwg7044 [facility] [id number] BY: [address] [id number] Information: [id number] MCHC mass conc (RBC) 34.7 g/dL Normal 31.5-35.7 [facility] Work Phone: Comment on above: PATIENT NOT FASTINGP ERFORMED BY: [facility] [address] [id number] BY: [facility] [id number] Information: 440245,[id number] MCV Entitic volume (RBC) 95 fL Normal 79-97 [facility] Work Phone: Comment on above: PATIENT NOT FASTINGP ERFORMED BY: [facility] Edbjbx9786 [facility] [id number] BY: [address] [id number] Information: [id number] Monocytes #/vol (Bld) 0.4 {x10E3/uL} Normal 0.1-1.0 [facility] Work Phone: Comment on above: PATIENT NOT FASTINGP ERFORMED BY: [facility] Oslnfn6391 [facility] [id number] BY: Lab[address] [id number] Information: [id number],[id number] Monocytes (Bld) [#/Vol] 0.4 10*3/uL Normal 0.1-1.0 [facility]; [facility] Work Phone: Comment on above: PATIENT NOT FASTINGP ERFORMED BY: [facility] Bmrvte0082 [facility] [id number] BY: [address] [id number] Information: [id number],[id number] Monocytes/100 WBC (Bld) 16 % Abnormal 4-13 [facility] Work Phone: Comment on above: PATIENT NOT FASTINGP ERFORMED BY: [facility] Fqdhnk6865 [facility] [id number] BY: Lab[address] [id number] Information: 295355,[id number] Neutrophils #/vol (Bld) 1.1 {x10E3/uL} Abnormal 1.8-7.8 [facility] Work Phone: Comment on above: PATIENT NOT FASTINGP ERFORMED BY: [facility] Ocajkb1083 [facility] [id number] BY: [address] [id number] Information: [id number],[id number] Neutrophils (Bld) [#/Vol] 1.1 10*3/uL Abnormal 1.8-7.8 [facility]; [facility] Work Phone: Comment on above: PATIENT NOT FASTINGP ERFORMED BY: [facility] Akyzgq7379 [facility] [id number] BY: [address] [id number] Information: [id number],[id number] Neutrophils/100 WBC (Bld) 39 % Abnormal 40-74 [facility] Work Phone: Comment on above: PATIENT NOT FASTINGP ERFORMED BY: ARISTEO [facility] Wcoywf6766 [facility] [id number] BY: [facility] [id number] Information: [id number] Platelets #/vol (Bld) 260 {x10E3/uL} Normal 140-415 [facility] Work Phone: Comment on above: PATIENT NOT FASTINGP ERFORMED BY: ARISTEO [facility] Wotbel5927 [facility] [id number] BY: [facility] [address] [id number] Information: [id number] Platelets (Bld) [#/Vol] 260 10*3/uL Normal 140-415 [facility]; [facility] Work Phone: Comment on above: PATIENT NOT FASTINGP ERFORMED BY: ARISTEO [facility] Ielamj5721 [facility] [id number] BY: [facility] [id number] Information: [id number] RBC #/vol (Bld) 4.44 {x10E6/uL} Normal 3.77-5.28 [facility] Internal Medicine Work Phone: Comment on above: PATIENT NOT FASTINGP ERFORMED BY: CB [facility] Xujulc2145 [facility] [id number] BY: [address] [id number] Information: [id number] RBC (Bld) [#/Vol] 4.44 10*6/uL Normal 3.77-5.28 [facility]; [facility] Work Phone: Comment on above: PATIENT NOT FASTINGP ERFORMED BY: CB [facility] Htobll9906 [facility] [id number] BY: Lab[address] [id number] Information: [id number] WBC #/vol (Bld) 2.8 {x10E3/uL} Abnormal 4.0-10.5 [facility]pr [facility] Internal Medicine Work Phone: Comment on above: PATIENT NOT FASTINGP ERFORMED BY: [facility] Zfgjpe5878 [facility] [id number] BY: [address] [id number] Information: 807791,Z33724 WBC (Bld) [#/Vol] 2.8 10*3/uL Abnormal 4.0-10.5 Compre hensive Internal Medicine; [facility] Work Phone: Comment on above: PATIENT NOT FASTINGP ERFORMED BY: LabClassting Vebher9723 [facility] [id number] BY: Iotera[address] [id number] Information: [id number] CCP ANTIBODY ([id number])Ordered By: Signalman on 05-01-2013 Cyclic citrullinated peptide IgA+IgG IA Qn 1 {units} Normal 0-19 [facility] Work Phone: Comment on above: Negative <20 Weak po sitive 20 - 39 Moderate positive 40 - 59 Strong positive >59 PATIENT NOT FASTINGP ERFORMED BY: TripsourcingSpecialty Hospital at MonmouthUeeqll4020 [facility] [id number] BY: [address] [id number] METABOLIC PANEL, COMPREHENSI VE (47520)Ordered By: Signalman on 05-01-2013 Albumin mass conc 4.7 g/dL Normal 3.5-5.5 Compreh ensive Internal Medicine Work Phone: Comment on above: PATIENT NOT FASTINGP ERFORMED BY: [facility]6370 [facility] [place] [id number] BY: [address] [id number] Albumin/Globulin mass ratio 1.9 {ratio} Normal 1.1-2.5 [facility] Work Phone: Comment on above: PATIENT NOT FASTINGP ERFORMED BY: [facility] [id number] [facility] [id number] BY: [address] [id number] ALP [Catalytic activity/Vol] 109 U/L Abnormal 42-107 [facility]; [facility] Work Phone: Comment on above: PATIENT NOT FASTINGP ERFORMED BY: [facility] Kqgvve0854 [facility] [id number] BY: [address] [id number] ALP enzyme act/vol 109 [iU]/L Abnormal 42-107 [facility] Internal Medicine Work Phone: Comment on above: PATIENT NOT FASTINGP ERFORMED BY: [facility] Xguomj8941 [facility] [id number] BY: [address] [id number] ALT [Catalytic activity/Vol] 72 U/L Abnormal 0-32 [facility]; [facility] Internal Medicine Work Phone: Comment on above: PATIENT NOT FASTINGP ERFORMED BY: [facility] Iyhnfp5547 [facility] [place] [id number] BY: [address] [id number] ALT enzyme act/vol 72 [iU]/L Abnormal 0-32 [facility] Internal Medicine Work Phone: Comment on above: PATIENT NOT FASTINGP ERFORMED BY: [facility] Xyazcw1078 [facility] [id number] BY: [address] [id number] AST [Catalytic activity/Vol] 48 U/L Abnormal 0-40 [facility]; [facility] Work Phone: Comment on above: PATIENT NOT FASTINGP ERFORMED BY: CB [facility] Scmcon1270 Cox RoadDublin [place] [id number] BY: [address] [id number] AST enzyme act/vol 48 [iU]/L Abnormal 0-40 Compre hensive Internal Medicine Work Phone: Comment on above: PATIENT NOT FASTINGP ERFORMED BY: CB [facility] Gyemcz8151 [facility] [id number] BY: LabCo[address] [id number] Bilirubin mass conc 0.7 mg/dL Normal 0.0-1.2 Compr ehensive Internal Medicine Work Phone: Comment on above: PATIENT NOT FASTINGP ERFORMED BY: CB [facility] Qrydjl6286 [facility] [id number] BY: [address]Co[address] [id number] Calcium mass conc 9.7 mg/dL Normal 8.7-10.2 Compreh ensive Internal Medicine Work Phone: Comment on above: PATIENT NOT FASTINGP ERFORMED BY: CB [facility] Rhvpnk3662 [facility] [id number] BY: [facility] [address] [id number] Chloride molar conc 100 mmol/L Normal 97-108 Compr ehensive Internal Medicine Work Phone: Comment on above: PATIENT NOT FASTINGP ERFORMED BY: CB [facility] Wngdaw1512 [facility] [place] [id number] BY: LabCo[address] [id number] CO2 molar conc 25 mmol/L Normal 19-28 Comprehens smomer Internal Medicine Work Phone: Comment on above: PATIENT NOT FASTINGP ERFORMED BY: CB [facility] Gwvtlj5609 Cox RoadDublin [place] [id number] BY: [facility] [address] [id number] Creatinine mass conc 0.73 mg/dL Normal 0.57-1.00 Comp rehensive Internal Medicine Work Phone: Comment on above: PATIENT NOT FASTINGP ERFORMED BY: CB [facility] [id number] [facility] RoadAt[facility] [id number] BY: [facility] [address] [id number] GFR/1.73 sq M predicted among blacks CKD-EPI vol rate/area (S/P/Bld) 115 mL/min/1.73 Normal Comprehensiv e Internal Medicine Work Phone: Comment on above: PATIENT NOT FASTINGP ERFORMED BY: CB [facility] Wafzkg8325 Cox RoadAtrium Health [facility] [id number] BY: [facility] [address] [id number] GFR/1.73 sq M predicted among non-blacks CKD-EPI vol rate/area (S/P/Bld) 100 mL/min/1.73 Normal [facility] Work Phone: Comment on above: PATIENT NOT FASTINGP ERFORMED BY: CB [facility] Bsulhr6020 [address] RoadDublin [place] [id number] BY: [facility] [address] [id number] Globulin mass conc (S) 2.5 g/dL Normal 1.5-4.5 [facility] Work Phone: Comment on above: PATIENT NOT FASTINGP ERFORMED BY: CB [facility] Mxhuxy5014 [facility] [place] [id number] BY: [facility] [address] [id number] Glucose mass conc 77 mg/dL Normal 65-99 Compreh ensive Internal Medicine Work Phone: Comment on above: PATIENT NOT FASTINGP ERFORMED BY: CB [facility] Jndxmj6862 Cox RoadDublin [place] [id number] BY: [facility] [address] [id number] Potassium molar conc 4.1 mmol/L Normal 3.5-5.2 Comp rehensive Internal Medicine Work Phone: Comment on above: PATIENT NOT FASTINGP ERFORMED BY: CB [facility] Zouqzt4689 [address] RoadDublin [place] [id number] BY: [facility] [address] [id number] Protein mass conc 7.2 g/dL Normal 6.0-8.5 Compreh ensive Internal Medicine Work Phone: Comment on above: PATIENT NOT FASTINGP ERFORMED BY: CB [facility] Vscnnp6415 Cox RoadDublin [place] [id number] BY: LabCo[address] [id number] Sodium molar conc 140 mmol/L Normal 134-144 Compreh ensive Internal Medicine Work Phone: Comment on above: PATIENT NOT FASTINGP ERFORMED BY: CB [facility] Drihgv7901 [address] RoadDublin [place] [id number] BY: [facility] [id number] Urea nitrogen mass conc 16 mg/dL Normal 6-24 [facility] Work Phone: Comment on above: PATIENT NOT FASTINGP ERFORMED BY: CB [facility] Aqxrbk6538 [address] RoadDublin [place] [id number] BY: [facility]Co[address] [id number] Urea nitrogen/Creatinine mass ratio 22 mg/mg Normal 9-23 [facility] Work Phone: Comment on above: PATIENT NOT FASTINGP ERFORMED BY: CB [facility] Vszxzu2097 [address] RoadDublin [place] [id number] BY: [facility] [id number] RHEUMATOID FACTOR-QUANT ([id number] 31)Ordered By: Signalman on 05-01-2013 Rheumatoid factor Qn 6.4 {IU/mL} Normal 0.0-13.[address] [facility] prehensive Internal Medicine Work Phone: Comment on above: PATIENT NOT FASTINGP ERFORMED BY: [facility] Wtyfom6746 [address] RoadDublin [place] [id number] BY: [address] [id number] Rheumatoid factor Qn 6.4 [IU]/mL Normal 0.0-13.[address] [facility] prehensive Internal Medicine; [facility] Work Phone: Comment on above: PATIENT NOT FASTINGP ERFORMED BY: [facility] Wupewi9786 Cox RoadDuAtrium Health [facility] [place] [id number] BY: [address] [id number] SED RATE ERYTHROCYTE ([id number]) Ordered By: Signalman on 05-01-2013 ESR Velocity (Bld) 2 mm/h Normal 0-32 [facility] Work Phone: Comment on above: PATIENT NOT FASTINGP ERFORMED BY: [facility] Zuqlql1140 [facility] [id number] BY: [address] [id number] TSH ([id number])Ordered By: Ramsey m Last Repairer Helper on 05-01-2013 Thyrotropin Qn 0.986 {uIU/mL} Normal 0.450-4.50 0 [facility] Work Phone: Comment on above: PATIENT NOT FASTINGP ERFORMED BY: CB [facility] Axzxlx1295 [facility] [id number] BY: [address] [id number] Urinalysis, Office ([id number])Or dered By: Riri Johnson on 03-05-2012 Bilirubin Ql (U) Negative Normal Comprehe ive Internal Medicine Work Phone: Bilirubin Ql (U) Negative Normal Comprehe nsive Internal Medicine; [facility] Work Phone: Glucose Test strip (U) [Mass/Vol] Negative Normal [facility]; [facility] Work Phone: Glucose Test strip mass conc (U) Negative Normal [facility] Work Phone: Hemoglobin Ql (U) Hemolyzed Small Normal Co mprehensive Internal Medicine Work Phone: Ketones Ql (U) Negative Normal Comprehens sommer Internal Medicine Work Phone: Ketones Ql (U) Negative Normal Comprehens sommer Internal Medicine; [facility] Work Phone: Leukocyte esterase Test strip Ql (U) Moderate Normal [facility] Work Phone: Nitrite Ql (U) Negative Normal Comprehens sommer Internal Medicine Work Phone: Nitrite Ql (U) Negative Normal Comprehens sommer Internal Medicine; [facility] Work Phone: pH (U) 7.0 [pH] Normal [facility] Work Phone: Protein Ql (U) Negative Normal Comprehens sommer Internal Medicine Work Phone: Protein Ql (U) Negative Normal Comprehens sommer Internal Medicine; [facility] Work Phone: Specific gravity Relative Density (U) 1.010 1 Normal Comprehensi ve Internal Medicine Work Phone: Urobilinogen mass/time (24H U) 2 mg/dL Normal [facility] Work Phone: Blood Glucose , Office ([phone])Ordered By: Kusum Hurtado on 05-03-2011 Glucose Glucometer molar conc (BldC) 100 1 Normal [facility] Work Phone: Urinalysis, Office ([id number])Or dered By: Peyton Paniagua on 05-03-2011 Bilirubin Ql (U) Moderate Normal Comprehe nsive Internal Medicine Work Phone: Glucose Test strip mass conc (U) Small Normal [facility] Work Phone: Hemoglobin Ql (U) Non Hemolyzed Moderate Normal [facility] Work Phone: Ketones Ql (U) Small Normal Comprehens sommer Internal Medicine Work Phone: Leukocyte esterase Test strip Ql (U) Large Normal [facility] Work Phone: Nitrite Ql (U) Positive Normal Comprehens sommer Internal Medicine Work Phone: Nitrite Ql (U) Positive Normal Comprehens sommer Internal Medicine; [facility] Work Phone: pH (U) 7.0 [pH] Normal [facility] Work Phone: Protein Ql (U) 100 mg/dL Normal Comprehens sommer Internal Medicine Work Phone: Specific gravity Relative Density (U) 1.020 1 Normal Comprehensi ve Internal Medicine Work Phone: Urobilinogen mass/time (24H U) 4 mg/dL Normal [facility] Work Phone: COURTNEY CULTURE-OTHER ([id number])Ord ered By: Signalman on 08-15-2010 Bacteria identified Respiratory culture Nom (Unsp spec) RRF Normal [facility] Work Phone: Comment on above: Routine respiratory alvaro PERFORMED BY: [employer] Ph[address]gv[address] [place] [address] [id number] Information: SRC: THROAT Bacteria identified Respiratory culture Nom (Unsp spec) Final report Normal [facility] Work Phone: Comment on above: PERFORMED BY: [employer] [address] [id number] Information: SRC: THROAT Rapid Strep Test, Office ([phone])on 08-15-2010 S. pyogenes Ag EIA Ql (Throat) Negative Normal [facility]; [facility] Work Phone: S. pyogenes Ag IA Ql (Unsp spec) Negative Normal [facility] Work Phone: TSH ([id number])Ordered By: Ramsey m Last Repairer Helper on 02-16-2010 Thyrotropin Qn 1.110 {uIU/mL} Normal 0.450-4.50 0 [facility] Work Phone: Comment on above: PERFORMED BY: ASYM III Sobeida Rdfijv3359 [facility] [id number] URINE COURTNEY CULTURE-DEVEN COL C OUNT ([id number])Ordered By: Nereyda Jaylon on 02-03-2008 Bacteria identified Cx Nom (U) Final report Normal [facility] Work Phone: Comment on above: PATIENT NOT FASTINGC linical Information: SRC:SHELBIE ADD [id number] PERFORMED BY: [employer]70 [facility]Health[facility] [id number] Bacteria identified Cx Nom (U) Escherichia coli Normal [facility] Work Phone: Comment on above: Greater than 100,000 colony forming units per mL PATIENT NOT FASTINGC linical Information: SRC:SHELBIE ADD [id number] PERFORMED BY: [employer]70 Near PageAtrium [facility] [id number] Other Antibiotic susc [facility] Normal [facility] Work Phone: Comment on above: S = Susceptibl e; I = Intermediate; R = Resistant P = Positive; N = Negative MICS are expressed in micrograms per mL Antibiotic RSLT#1 RSLT#2 RSLT#3 RSLT#4Amoxicillin/Clavulanic Acid SAmpicillin SCefepime SCeftriaxone SCefuroxime SCephalothin SCiprofloxacin SESBL NGentamicin SImipenem SLevofloxacin SNitrofurantoin SPiperacillin/Tazobactam STetracycline STobramycin STrimethoprim/Sulfa S PATIENT NOT FASTINGC linical Information: SRC:SHELBIE ADD [id number] PERFORMED BY: [employer]6370 Near PageAt[facility] [id number] Urinalysis, Office (37933)Or dered By: Riri Johnson on 02-03-2008 Bilirubin Ql (U) Negative Normal Comprehe nsive Internal Medicine Work Phone: Bilirubin Ql (U) Negative Normal Comprehe nsive Internal Medicine; [facility] Work Phone: Glucose Test strip (U) [Mass/Vol] Negative Normal [facility]; [facility] Work Phone: Glucose Test strip mass conc (U) Negative Normal [facility] Work Phone: Hemoglobin Ql (U) Negative Normal Compreh ensive Internal Medicine Work Phone: Hemoglobin Ql (U) Negative Normal Compreh ensive Internal Medicine; [facility] Work Phone: Ketones Ql (U) Small Normal Comprehens sommer Internal Medicine Work Phone: Leukocyte esterase Test strip Ql (U) Trace Normal [facility] Work Phone: Nitrite Ql (U) Positive Normal Comprehens sommer Internal Medicine Work Phone: Nitrite Ql (U) Positive Normal Comprehens sommer Internal Medicine; [facility] Work Phone: pH (U) 6.0 [pH] Normal [facility] Work Phone: Protein Ql (U) Trace Normal Comprehens sommer Internal Medicine Work Phone: Specific gravity Relative Density (U) 1.025 1 Normal Comprehensi ve Internal Medicine Work Phone: Urobilinogen mass/time (24H U) 2 mg/dL Normal [facility] Work Phone: Vital Signs Date Time Vital Sign Value Performing Clinician Facility 06-05-2025 13:52-0400 Body height 171.[address] Lenora Sarah DO Work Phone: [facility] 06-05-2025 13:52-0400 Body mass index (BMI) [Ratio] 23.4 kg/m2 Dr. Lenora Sarah DO Work Phone: [facility] 06-05-2025 13:52-0400 Body weight 68.[address] Lenora Sarah DO Work Phone: [facility] 06-05-2025 13:52-0400 Diastolic blood pressure 77 mm[Hg] Dr. Lenora Sarah DO Work Phone: [facility] 06-05-2025 13:52-0400 Heart rate 85 /min Dr. Lenora Sarah DO Work Phone: [facility] 06-05-2025 13:52-0400 Systolic blood pressure 114 mm[Hg] Dr. Lenora Sarah DO Work Phone: [facility] 05-15-2025 09:04-0400 Body height 171.[address] Lenora Sarah DO Work Phone: [facility] 01-17-2025 00:40-0400 Diastolic blood pressure 70 mm[Hg] Huy Campbell DO Work Phone: [facility] 01-17-2025 00:40-0400 Heart rate 62 /min Huy Campbell DO Work Phone: [facility] 01-17-2025 00:40-0400 Respiratory rate 16 /min Huy Campbell DO Work Phone: [facility] 01-17-2025 00:40-0400 SaO2% (BldA) [Mass fraction] 98 % Huy Campblel DO Work Phone: [facility] 01-17-2025 00:40-0400 Systolic blood pressure 128 mm[Hg] Huy Campbell DO Work Phone: [facility] 01-16-2025 22:15-0400 Body height 170.2 cm Huy Campbell DO Work Phone: [facility] 01-16-2025 22:15-0400 Body mass index (BMI) [Ratio] 24.28 kg/m2 Huy Campbell DO Work Phone: [facility] 01-16-2025 22:15-0400 Body temperature 96.91 [degF] Huy Campbell DO Work Phone: [facility] 01-16-2025 22:15-0400 Body weight 70.31 kg Huy Campbell DO Work Phone: [facility] 06-07-2023 12:04-0400 Body height 172.72 cm [facility]; [facility] Work Phone: 06-07-2023 12:04-0400 Body mass index (BMI) [Ratio] 22.41 kg/m2 [facility]; [facility] Work Phone: 06-07-2023 12:04-0400 Body surface area Derived from formula 1.8 m2 [facility]; [facility] Work Phone: 06-07-2023 12:04-0400 Body temperature 97 [degF] [facility]; [facility] Work Phone: 06-07-2023 12:04-0400 Body weight 66.85 kg [facility]; [facility] Work Phone: 06-07-2023 12:04-0400 Diastolic blood pressure 76 mm[Hg] [facility]; [facility] Work Phone: Comment on above: Patient Position: Sitting; Cuff Location : Left Arm; Cuff Size: Standard 06-07-2023 12:04-0400 Heart rate 67 /min [facility]; [facility] Work Phone: Comment on above: Pattern: Regular 06-07-2023 12:04-0400 Respiratory rate 20 /min [facility]; [facility] Work Phone: Comment on above: Pattern: Unlabored 06-07-2023 12:04-0400 SaO2% (BldA) [Mass fraction] 96 % [facility]; [facility] Work Phone: Comment on above: Room air 06-07-2023 12:04-0400 Systolic blood pressure 120 mm[Hg] [facility]; [facility] Work Phone: Comment on above: Patient Position: Sitting; Cuff Location : Left Arm; Cuff Size: Standard 06-02-2023 19:30-0400 Diastolic blood pressure 68 mm[Hg] Lenora Sarah Other Phone: [facility] 06-02-2023 19:30-0400 Heart rate 62 /min Lenora Sarah Other Phone: [facility] 06-02-2023 19:30-0400 SaO2% (BldA) [Mass fraction] 97 % Lenora Sarah Other Phone: [facility] 06-02-2023 19:30-0400 Systolic blood pressure 100 mm[Hg] Lenora Sarah Other Phone: [facility] 06-02-2023 13:13-0400 Body height 170.1 cm Lenora Sarah Other Phone: [facility] 06-02-2023 13:13-0400 Body temperature 97.34 [degF] Lenora Sarah Other Phone: [facility] 06-02-2023 13:13-0400 Body weight 68.2 kg Lenora Sarah Other Phone: [facility] 06-02-2023 13:13-0400 Respiratory rate 12 /min Lenora Sarah Other Phone: [facility] 12-14-2022 11:57-0400 Body height 172.72 cm [facility]; [facility] Work Phone: 12-14-2022 11:57-0400 Body mass index (BMI) [Ratio] 22.41 kg/m2 [facility]; [facility] Work Phone: 12-14-2022 11:57-0400 Body surface area Derived from formula 1.8 m2 [facility]; [facility] Work Phone: 12-14-2022 11:57-0400 Body temperature 96.9 [degF] Kayela Marry [employer]ICAL RECORDS CUSTODIAN [facility]; [facility] Work Phone: 12-14-2022 11:57-0400 Body [facility]; [facility] Work Phone: 12-14-2022 11:57-0400 Diastolic blood pressure 80 mm[Hg] [facility]; [facility] Work Phone: Comment on above: Patient Position: Sitting; Cuff Location : Left Arm; Cuff Size: Standard 12-14-2022 11:57-0400 Heart rate 72 /min [facility]; [facility] Work Phone: Comment on above: Pattern: Regular 12-14-2022 11:57-0400 Respiratory rate 16 /min [facility]; [facility] Work Phone: Comment on above: Pattern: Unlabored 12-14-2022 11:57-0400 SaO2% (BldA) [Mass fraction] 97 % [facility]; [facility] Work Phone: Comment on above: Room air 12-14-2022 11:57-0400 Systolic blood pressure 120 mm[Hg] [facility]; [facility] Work Phone: Comment on above: Patient Position: Sitting; Cuff Location : Left Arm; Cuff Size: Standard 07-12-2020 13:39-0400 BMI (Body Mass Index) 22.35 kg/m2 [facility] Internal Medicine Work Phone: 07-12-2020 13:39-0400 Body Temperature 96.9 [degF] [facility] Work Phone: Comment on above: Method: Thermal Scan 07-12-2020 13:39-0400 Body weight 66.68 kg [facility] Work Phone: 07-12-2020 13:39-0400 BP Diastolic 62 mm[Hg] [facility] Work Phone: Comment on above: Patient Position: Sitting; Cuff Location : Left Arm; Cuff Size: Standard 07-12-2020 13:39-0400 BP Systolic 116 mm[Hg] Cristy [facility] Internal Medicine Work Phone: Comment on above: Patient Position: Sitting; Cuff Location : Left Arm; Cuff Size: Standard 07-12-2020 13:39-0400 BSA (Body Surface Area) 1.79 m2 [facility] Work Phone: 07-12-2020 13:39-0400 Height 172.72 cm [facility] Work Phone: 07-12-2020 13:39-0400 Pulse (Heart Rate) 68 /min Cristy Cent[facility] Comprehens e Internal Medicine Work Phone: Comment on above: Pattern: Regular 07-12-2020 13:39-0400 Pulse Oximetry 98 % Lenora Sarah [facility] Internal Medicine Work Phone: Comment on above: Room air 07-12-2020 13:39-0400 Respiratory Rate 16 /min [facility] Work Phone: Comment on above: Pattern: Unlabored 07-12-2020 13:39-0400 SaO2% (BldA) [Mass fraction] 98 % [facility]; [facility] Work Phone: Comment on above: Room air 01-22-2020 12:49-0400 BMI (Body Mass Index) 23.04 kg/m2 Syl Chandler [facility] [facility] Work Phone: 01-22-2020 12:49-0400 Body Temperature 96.7 [degF] Syl Chandler [facility] Work Phone: Comment on above: Method: Temporal 01-22-2020 12:49-0400 Body weight 68.72 kg Syl Chandler [facility] [address] [facility] [facility] Work Phone: 01-22-2020 12:49-0400 BP Diastolic 64 mm[Hg] Syl Chandler [facility] Work Phone: Comment on above: Patient Position: Sitting; Cuff Location : Left Arm; Cuff Size: Standard 01-22-2020 12:49-0400 BP Systolic 118 mm[Hg] Syl Chandler [facility] [address] [facility] Work Phone: Comment on above: Patient Position: Sitting; Cuff Location : Left Arm; Cuff Size: Standard 01-22-2020 12:49-0400 BSA (Body Surface Area) 1.82 m2 Syl Chandler [facility] [address] [facility] Work Phone: 01-22-2020 12:49-0400 Height 172.72 cm Syl Chandler [facility] Internal Medicine Work Phone: 01-22-2020 12:49-0400 Pulse (Heart Rate) 67 /min Syl Chandler [facility] [address] [facility] Work Phone: Comment on above: Pattern: Regular 01-22-2020 12:49-0400 Pulse Oximetry 98 % Lenora Sarah [facility] Internal Medicine Work Phone: Comment on above: Room air 01-22-2020 12:49-0400 Respiratory Rate 18 /min Syl Chandler [facility] [address] [facility] Work Phone: Comment on above: Pattern: Unlabored 01-22-2020 12:49-0400 SaO2% (BldA) [Mass fraction] 98 % Syl Chandler [facility] Internal Medicine; [facility] Work Phone: Comment on above: Room air 12-25-2019 09:34-0400 BMI (Body Mass Index) 21.82 kg/m2 Sara Santos RN [facility] Work Phone: 12-25-2019 09:34-0400 Body Temperature 97.7 [degF] Sara Santos RN [facility] Work Phone: Comment on above: Method: Temporal 12-25-2019 09:34-0400 Body weight 65.09 kg Sara Santos RN [facility] Work Phone: 12-25-2019 09:34-0400 BP Diastolic 60 mm[Hg] Sara Santos RN [facility] Work Phone: Comment on above: Patient Position: Sitting; Cuff Location : Left Arm; Cuff Size: Standard 12-25-2019 09:34-0400 BP Systolic 118 mm[Hg] Sara Santos RN [facility] Work Phone: Comment on above: Patient Position: Sitting; Cuff Location : Left Arm; Cuff Size: Standard 12-25-2019 09:34-0400 BSA (Body Surface Area) 1.78 m2 Sara Santos RN [facility] Work Phone: 12-25-2019 09:34-0400 Height 172.72 cm Sara Santos RN [facility] Work Phone: 12-25-2019 09:34-0400 Pulse (Heart Rate) 112 /min Sara Santos RN [facility] Work Phone: Comment on above: Pattern: Regular 12-25-2019 09:34-0400 Pulse Oximetry 96 % Lenora Sarah [facility] Work Phone: Comment on above: Room air 12-25-2019 09:34-0400 Respiratory Rate 18 /min Sara Santos RN [facility] Work Phone: Comment on above: Pattern: Unlabored 12-25-2019 09:34-0400 SaO2% (BldA) [Mass fraction] 96 % Sara Santos RN [facility]; [facility] Work Phone: Comment on above: Room air 08-07-2019 14:23-0500 BMI (Body Mass Index) 21.82 kg/m2 Janny Pink RN [facility] Internal Medicine Work Phone: 08-07-2019 14:23-0500 Body Temperature 97.1 [degF] Janny Pink RN [facility] Work Phone: Comment on above: Method: Temporal 08-07-2019 14:23-0500 Body weight 65.09 kg Janny Pink RN [facility] Work Phone: 08-07-2019 14:23-0500 BP Diastolic 80 mm[Hg] Janny Pink RN [facility] Work Phone: Comment on above: Patient Position: Sitting; Cuff Location : Left Arm; Cuff Size: Standard 08-07-2019 14:23-0500 BP Systolic 124 mm[Hg] Janny Jairo Joesph HWANG [facility] Work Phone: Comment on above: Patient Position: Sitting; Cuff Location : Left Arm; Cuff Size: Standard 08-07-2019 14:23-0500 BSA (Body Surface Area) 1.78 m2 Janny Pink RN [facility] Work Phone: 08-07-2019 14:23-0500 Height 172.72 cm Janny Pink RN [facility] Work Phone: 08-07-2019 14:23-0500 Pulse (Heart Rate) 72 /min Janny Pink RN [facility] Work Phone: Comment on above: Pattern: Regular 08-07-2019 14:23-0500 Respiratory Rate 16 /min Janny Pink RN [facility] Work Phone: Comment on above: Pattern: Unlabored 03-19-2019 09:40-0400 BMI (Body Mass Index) 21.82 kg/m2 Syl Chandler [facility] [address] [facility] Work Phone: 03-19-2019 09:40-0400 Body Temperature 96.1 [degF] Syl Chandler [facility] [address] [facility] Work Phone: Comment on above: Method: Axillary 03-19-2019 09:40-0400 Body weight 65.09 kg Syl Chandler [facility] Internal Medicine Work Phone: 03-19-2019 09:40-0400 BP Diastolic 68 mm[Hg] Syl Chandler [facility] [address] [facility] Work Phone: Comment on above: Patient Position: Sitting; Cuff Location : Left Arm; Cuff Size: Standard 03-19-2019 09:40-0400 BP Systolic 100 mm[Hg] Syl Chandler [facility] [address] [facility] Work Phone: Comment on above: Patient Position: Sitting; Cuff Location : Left Arm; Cuff Size: Standard 03-19-2019 09:40-0400 BSA (Body Surface Area) 1.78 m2 Syl Chandler [facility] [address] [facility] Work Phone: 03-19-2019 09:40-0400 Height 172.72 cm Syl Chandler CMA [facility] Work Phone: 03-19-2019 09:40-0400 Pulse (Heart Rate) 94 /min Syl Chandler CMA [facility] Work Phone: Comment on above: Pattern: Regular 03-19-2019 09:40-0400 Pulse Oximetry 97 % Lenora Sarah [facility] Internal Medicine Work Phone: Comment on above: Room air 03-19-2019 09:40-0400 Respiratory Rate 16 /min Syl Chandler [employer] [facility] Work Phone: Comment on above: Pattern: Unlabored 03-19-2019 09:40-0400 SaO2% (BldA) [Mass fraction] 97 % Syl Chandler [facility] [address] [facility]; [facility] Work Phone: Comment on above: Room air 03-19-2019 09:40-0400 Weight 65.09 kg Lenora Sarah [facility] Work Phone: 10-08-2018 09:44-0500 BMI (Body Mass Index) 21.67 kg/m2 Sara Santos RN [facility] Work Phone: 10-08-2018 09:44-0500 Body weight 64.64 kg Sara Santos RN [facility] Work Phone: 10-08-2018 09:44-0500 BP Diastolic 62 mm[Hg] Sara Santos RN [facility] Work Phone: Comment on above: Patient Position: Sitting; Cuff Location : Left Arm; Cuff Size: Standard 10-08-2018 09:44-0500 BP Systolic 120 mm[Hg] Sara Santos RN [facility] Work Phone: Comment on above: Patient Position: Sitting; Cuff Location : Left Arm; Cuff Size: Standard 10-08-2018 09:44-0500 BSA (Body Surface Area) 1.77 m2 Sara Santos RN [facility] Work Phone: 10-08-2018 09:44-0500 Height 172.72 cm Sara Santos RN [facility] Work Phone: 10-08-2018 09:44-0500 Pulse (Heart Rate) 89 /min Sara Santos RN [facility] Work Phone: Comment on above: Pattern: Regular 10-08-2018 09:44-0500 Pulse Oximetry 98 % Lenora Sarah [facility] Internal Medicine Work Phone: Comment on above: Room air 10-08-2018 09:44-0500 Respiratory Rate 18 /min Sara Santos RN [facility] Work Phone: Comment on above: Pattern: Unlabored 10-08-2018 09:44-0500 SaO2% (BldA) [Mass fraction] 98 % Sara Santos RN [facility]; [facility] Work Phone: Comment on above: Room air 10-08-2018 09:44-0500 Weight 64.64 kg Lenora Sarah [facility] Work Phone: 06-17-2018 10:46-0400 BMI (Body Mass Index) 20.53 kg/m2 Janny Pink RN [facility] Internal Medicine Work Phone: 06-17-2018 10:46-0400 Body Temperature 100.5 [degF] Janny Pink RN [facility] Work Phone: Comment on above: Method: Temporal 06-17-2018 10:46-0400 Body weight 61.24 kg Janny Pink RN [facility] Work Phone: 06-17-2018 10:46-0400 BP Diastolic 74 mm[Hg] Janny Pink RN [facility] Work Phone: Comment on above: Patient Position: Sitting; Cuff Location : Left Arm; Cuff Size: Standard 06-17-2018 10:46-0400 BP Systolic 110 mm[Hg] Janny Pink RN [facility] Work Phone: Comment on above: Patient Position: Sitting; Cuff Location : Left Arm; Cuff Size: Standard 06-17-2018 10:46-0400 BSA (Body Surface Area) 1.73 m2 Janny Pink RN [facility] Work Phone: 06-17-2018 10:46-0400 Height 172.72 cm Janny Pink RN [facility] Work Phone: 06-17-2018 10:46-0400 Pulse (Heart Rate) 91 /min Janny Pink RN [facility] Work Phone: Comment on above: Pattern: Regular 06-17-2018 10:46-0400 Pulse Oximetry 99 % Lenora Lucason [facility] Internal Medicine Work Phone: Comment on above: Room air 06-17-2018 10:46-0400 Respiratory Rate 16 /min Janny Pink RN [facility] Work Phone: Comment on above: Pattern: Unlabored 06-17-2018 10:46-0400 SaO2% (BldA) [Mass fraction] 99 % Janny Pink RN [facility]; [facility] Work Phone: Comment on above: Room air 06-17-2018 10:46-0400 Weight 61.24 kg Lenora Lucason [facility] Internal Medicine Work Phone: 06-12-2018 10:14-0400 BMI (Body Mass Index) 21.51 kg/m2 Cady Cohn [facility] Internal Medicine Work Phone: 06-12-2018 10:14-0400 Body Temperature 98.5 [degF] Cady Cohn [facility] Internal Medicine Work Phone: Comment on above: Method: Temporal 06-12-2018 10:14-0400 Body weight 64.18 kg Cady Cohn [facility] Internal Medicine Work Phone: 06-12-2018 10:14-0400 BP Diastolic 76 mm[Hg] Cady Cohn [facility] Internal Medicine Work Phone: Comment on above: Patient Position: Sitting; Cuff Location : Left Arm; Cuff Size: Standard 06-12-2018 10:14-0400 BP Systolic 110 mm[Hg] Cady Cohn [facility] Internal Medicine Work Phone: Comment on above: Patient Position: Sitting; Cuff Location : Left Arm; Cuff Size: Standard 06-12-2018 10:14-0400 BSA (Body Surface Area) 1.76 m2 Cady Cohn [facility] Internal Medicine Work Phone: 06-12-2018 10:14-0400 Height 172.72 cm Cady Cohn [facility] Internal Medicine Work Phone: 06-12-2018 10:14-0400 Pulse (Heart Rate) 91 /min Cady Cohn [facility] Internal Medicine Work Phone: Comment on above: Pattern: Regular 06-12-2018 10:14-0400 Pulse Oximetry 98 % Lenora Sarah [facility] Internal Medicine Work Phone: Comment on above: Room air 06-12-2018 10:14-0400 Respiratory Rate 13 /min Cady Cohn [facility] Internal Medicine Work Phone: Comment on above: Pattern: Unlabored 06-12-2018 10:14-0400 SaO2% (BldA) [Mass fraction] 98 % Cady Cohn [facility] Internal Medicine; [facility] Work Phone: Comment on above: Room air 06-12-2018 10:14-0400 Weight 64.18 kg Lenora Sarah [facility] Internal Medicine Work Phone: 01-08-2017 11:30-0400 BMI (Body Mass Index) 21.82 kg/m2 Kaitlin Burch [facility] Internal Medicine Work Phone: 01-08-2017 11:30-0400 Body Temperature 99.1 [degF] Kaitlin Burch [facility] Internal Medicine Work Phone: Comment on above: Method: Temporal 01-08-2017 11:30-0400 Body weight 65.09 kg Kaitlin Burch [facility] Internal Medicine Work Phone: 01-08-2017 11:30-0400 BP Diastolic 70 mm[Hg] Kaitlin Burch [facility] Internal Medicine Work Phone: Comment on above: Patient Position: Sitting; Cuff Location : Left Arm; Cuff Size: Standard 01-08-2017 11:30-0400 BP Systolic 120 mm[Hg] Kaitlin Burch [facility] Internal Medicine Work Phone: Comment on above: Patient Position: Sitting; Cuff Location : Left Arm; Cuff Size: Standard 01-08-2017 11:30-0400 BSA (Body Surface Area) 1.78 m2 Kaitlin Burch [facility] Internal Medicine Work Phone: 01-08-2017 11:30-0400 Height 172.72 cm Kaitlin Burch [facility] Internal Medicine Work Phone: 01-08-2017 11:30-0400 Pulse (Heart Rate) 85 /min Kaitlin Burch [facility] Internal Medicine Work Phone: Comment on above: Pattern: Regular 01-08-2017 11:30-0400 Pulse Oximetry 98 % Lenora Sarah [facility] Internal Medicine Work Phone: Comment on above: Room air 01-08-2017 11:30-0400 Respiratory Rate 16 /min Kaitlin Burch [facility] Internal Medicine Work Phone: Comment on above: Pattern: Unlabored 01-08-2017 11:30-0400 SaO2% (BldA) [Mass fraction] 98 % Kaitlin Burch [facility] Internal Medicine; [facility] Work Phone: Comment on above: Room air 01-08-2017 11:30-0400 Weight 65.09 kg Lenora Sarah [facility] Internal Medicine Work Phone: 01-03-2017 10:11-0400 BMI (Body Mass Index) 21.82 kg/m2 Rita Slarb [employer] [facility] Internal Medicine Work Phone: 01-03-2017 10:11-0400 Body Temperature 97.3 [degF] Rita Slarb [employer] [facility] Internal Medicine Work Phone: 01-03-2017 10:11-0400 Body weight 65.09 kg Rita Slarb [employer] [facility] Internal Medicine Work Phone: 01-03-2017 10:11-0400 BP Diastolic 62 mm[Hg] Rita Slarb [employer] [facility] Internal Medicine Work Phone: Comment on above: Patient Position: Sitting; Cuff Location : Left Arm; Cuff Size: Standard 01-03-2017 10:11-0400 BP Systolic 102 mm[Hg] Rita Slarb [employer] [facility] Internal Medicine Work Phone: Comment on above: Patient Position: Sitting; Cuff Location : Left Arm; Cuff Size: Standard 01-03-2017 10:110400 BSA (Body Surface Area) 1.78 m2 Rita Goldberg NIKO [facility] Internal Medicine Work Phone: 01-03-2017 10:11-0400 Height 172.72 cm Rita Goldberg NIKO [facility] Internal Medicine Work Phone: 01-03-2017 10:11-0400 Pulse (Heart Rate) 81 /min Rita Goldberg LPN [facility] Internal Medicine Work Phone: Comment on above: Pattern: Regular 01-03-2017 10:11-0400 Pulse Oximetry 94 % Lenora Sarah [facility] Internal Medicine Work Phone: Comment on above: Room air 01-03-2017 10:110400 Respiratory Rate 16 /min Rita Sweeneykristopher POPE [facility] Internal Medicine Work Phone: Comment on above: Pattern: Unlabored 01-03-2017 10:11-0400 SaO2% (BldA) [Mass fraction] 94 % Rita Sweeneykristopher POPE [facility] Internal Medicine; [facility] Work Phone: Comment on above: Room air 01-03-2017 10:110400 Weight 65.09 kg Lenora Sarah [facility] Internal Medicine Work Phone: 07-22-2015 09:110400 BMI (Body Mass Index) 20.98 kg/m2 LIDIA Jacques NIKO [facility] Internal Medicine Work Phone: 07-22-2015 09:11-0400 Body Temperature 97.8 [degF] LIDIA Jacques NIKO [facility] Internal Medicine Work Phone: Comment on above: Method: Temporal 07-22-2015 09:110400 Body weight 62.6 kg LIDIA Jacques NIKO [facility] Internal Medicine Work Phone: 07-22-2015 09:11-0400 BP Diastolic 70 mm[Hg] LIDIA Jacques NIKO [facility] Internal Medicine Work Phone: Comment on above: Patient Position: Sitting; Cuff Location : Left Arm; Cuff Size: Standard 07-22-2015 09:11-0400 BP Systolic 114 mm[Hg] LIDIA Jacques NIKO [facility] Internal Medicine Work Phone: Comment on above: Patient Position: Sitting; Cuff Location : Left Arm; Cuff Size: Standard 07-22-2015 09:110400 BSA (Body Surface Area) 1.75 m2 LIDIA Sawyer POPE [facility] Internal Medicine Work Phone: 07-22-2015 09:110400 Height 172.72 cm LIDIA Sawyer POPE [facility] Internal Medicine Work Phone: 07-22-2015 09:11-0400 Pulse (Heart Rate) 76 /min LIDIA Jacques NIKO [facility] Internal Medicine Work Phone: Comment on above: Pattern: Regular 07-22-2015 09:11-0400 Pulse Oximetry 99 % Lenoradarya Lucason [facility] Internal Medicine Work Phone: Comment on above: Room air 07-22-2015 09:11-0400 Respiratory Rate 18 /min LIDIA Jacques NIKO [facility] Internal Medicine Work Phone: Comment on above: Pattern: Unlabored 07-22-2015 09:11-0400 SaO2% (BldA) [Mass fraction] 99 % LIDIA Sawyer POPE [facility] Internal Medicine; [facility] Work Phone: Comment on above: Room air 07-22-2015 09:11-0400 Weight 62.6 kg Lenora Lucason [facility] Internal Medicine Work Phone: 10-14-2014 11:25-0500 BMI (Body Mass Index) 21.05 kg/m2 Rita Slakristopher [facility] Internal Medicine Work Phone: 10-14-2014 11:25-0500 Body Temperature 96.5 [degF] Rita Slarb NIKO [facility] Internal Medicine Work Phone: 10-14-2014 11:25-0500 Body weight 62.8 kg Rita Slakristopher POPE [facility] Internal Medicine Work Phone: 10-14-2014 11:25-0500 BP Diastolic 68 mm[Hg] Rita Goldberg [employer] [facility] Work Phone: Comment on above: Patient Position: Sitting; Cuff Location : Left Arm; Cuff Size: Standard 10-14-2014 11:25-0500 BP Systolic 82 mm[Hg] Rita Goldberg [employer] [facility] Work Phone: Comment on above: Patient Position: Sitting; Cuff Location : Left Arm; Cuff Size: Standard 10-14-2014 11:25-0500 BSA (Body Surface Area) 1.75 m2 Rita Goldberg [employer] [facility] Work Phone: 10-14-2014 11:25-0500 Height 172.72 cm Rita Goldberg [employer] [facility] Work Phone: 10-14-2014 11:25-0500 Pulse (Heart Rate) 62 /min Rita Goldberg LPN Comprehens e Internal Medicine Work Phone: Comment on above: Pattern: Regular 10-14-2014 11:25-0500 Pulse Oximetry 98 % Lenora Sarah [facility] Internal Medicine Work Phone: Comment on above: Room air 10-14-2014 11:25-0500 Respiratory Rate 16 /min Rita Goldberg [employer] [facility] Work Phone: Comment on above: Pattern: Unlabored 10-14-2014 11:25-0500 SaO2% (BldA) [Mass fraction] 98 % Rita Slarb [employer] [facility]; [facility] Work Phone: Comment on above: Room air 10-14-2014 11:25-0500 Weight 62.8 kg Lenora Sarah [facility] Internal Medicine Work Phone: 06-15-2014 13:04-0400 BMI (Body Mass Index) 20.3 kg/m2 Riri Alex POPE [facility] Internal Medicine Work Phone: 06-15-2014 13:04-0400 Body Temperature 98.7 [degF] Riri Johnson [employer] [facility] Internal Medicine Work Phone: Comment on above: Method: Oral 06-15-2014 13:04-0400 Body weight 60.56 kg Riri Johnson LPN [facility] Internal Medicine Work Phone: 06-15-2014 13:04-0400 BP Diastolic 68 mm[Hg] Riri Johnson LPN [facility] Internal Medicine Work Phone: Comment on above: Patient Position: Sitting; Cuff Location : Left Arm; Cuff Size: Standard 06-15-2014 13:04-0400 BP Systolic 112 mm[Hg] Riri Johnson LPN [facility] Internal Medicine Work Phone: Comment on above: Patient Position: Sitting; Cuff Location : Left Arm; Cuff Size: Standard 06-15-2014 13:040400 BSA (Body Surface Area) 1.72 m2 Riri Johnson LPN [facility] Internal Medicine Work Phone: 06-15-2014 13:04-0400 Height 172.72 cm Riri Johnson [employer] [facility] Internal Medicine Work Phone: 06-15-2014 13:04-0400 Pulse (Heart Rate) 114 /min Riri Johnson LPN [facility] Internal Medicine Work Phone: Comment on above: Pattern: Regular 06-15-2014 13:04-0400 Pulse Oximetry 96 % Lenora Sarah [facility] Internal Medicine Work Phone: Comment on above: Room air 06-15-2014 13:04-0400 Respiratory Rate 17 /min Riri Johnson LPN [facility] Internal Medicine Work Phone: 06-15-2014 13:04-0400 SaO2% (BldA) [Mass fraction] 96 % Riri Johnson LPN [facility] Internal Medicine; [facility] Work Phone: Comment on above: Room air 06-15-2014 13:04-0400 Weight 60.56 kg Lenora Sarah [facility] Internal Medicine Work Phone: 04-29-2014 10:17-0400 BMI (Body Mass Index) 20.3 kg/m2 Riri Johnson [employer] [facility] Internal Medicine Work Phone: 04-29-2014 10:17-0400 Body Temperature 97 [degF] Riri Johnson LPN [facility] Work Phone: Comment on above: Method: Oral 04-29-2014 10:170400 Body weight 60.56 kg Riri Johnson LPN [facility] Work Phone: 04-29-2014 10:17-0400 BP Diastolic 72 mm[Hg] Riri Johnson LPN [facility] Work Phone: Comment on above: Patient Position: Sitting; Cuff Location : Left Arm; Cuff Size: Standard 04-29-2014 10:17-0400 BP Systolic 112 mm[Hg] Riri Johnson LPN [facility] Work Phone: Comment on above: Patient Position: Sitting; Cuff Location : Left Arm; Cuff Size: Standard 04-29-2014 10:170400 BSA (Body Surface Area) 1.72 m2 Riri Johnson LPN [facility] Work Phone: 04-29-2014 10:170400 Height 172.72 cm Riri Johnson LPN [facility] Work Phone: 04-29-2014 10:17-0400 Pulse (Heart Rate) 70 /min Riri Johnson LPN [facility] Work Phone: Comment on above: Pattern: Regular 04-29-2014 10:17-0400 Pulse Oximetry 98 % Lenora Sarah [facility] Internal Medicine Work Phone: Comment on above: Room air 04-29-2014 10:17-0400 Respiratory Rate 16 /min Riri Johnson LPN [facility] Work Phone: 04-29-2014 10:17-0400 SaO2% (BldA) [Mass fraction] 98 % Riri Johnson LPN [facility] Internal Medicine; [facility] Work Phone: Comment on above: Room air 04-29-2014 10:17-0400 Weight 60.56 kg Lenora Sarah [facility] Internal Medicine Work Phone: 10-29-2013 09:35-0500 BMI (Body Mass Index) 20.3 kg/m2 Janny Pink RN [facility] Internal Medicine Work Phone: 10-29-2013 09:35-0500 Body Temperature 98.7 [degF] Janny Pink RN [facility] Work Phone: Comment on above: Method: Temporal 10-29-2013 09:35-0500 Body weight 60.56 kg Janny Pink RN [facility] Work Phone: 10-29-2013 09:35-0500 BP Diastolic 74 mm[Hg] Janny Pink RN [facility] Work Phone: Comment on above: Patient Position: Sitting; Cuff Location : Left Arm; Cuff Size: Standard 10-29-2013 09:35-0500 BP Systolic 110 mm[Hg] Janny Pink RN [facility] Work Phone: Comment on above: Patient Position: Sitting; Cuff Location : Left Arm; Cuff Size: Standard 10-29-2013 09:35-0500 BSA (Body Surface Area) 1.72 m2 Janny Pink RN [facility] Work Phone: 10-29-2013 09:35-0500 Height 172.72 cm Janny Pink RN [facility] Work Phone: 10-29-2013 09:35-0500 Pulse (Heart Rate) 98 /min Janny Pink RN [facility] Work Phone: Comment on above: Pattern: Regular 10-29-2013 09:35-0500 Pulse Oximetry 97 % Lenora Sarah [facility] Work Phone: Comment on above: Room air 10-29-2013 09:35-0500 Respiratory Rate 16 /min Janny Pink RN [facility] Work Phone: Comment on above: Pattern: Unlabored 10-29-2013 09:35-0500 SaO2% (BldA) [Mass fraction] 97 % Janny Pink RN [facility]; [facility] Work Phone: Comment on above: Room air 10-29-2013 09:35-0500 Weight 60.56 kg Lenora Sarah [facility] Work Phone: 09-12-2013 08:13-0500 BMI (Body Mass Index) 20.3 kg/m2 Riri Johnson LPN [facility] Internal Medicine Work Phone: 09-12-2013 08:13-0500 Body Temperature 98.6 [degF] Riri Johnson LPN [facility] Internal Medicine Work Phone: Comment on above: Method: Oral 09-12-2013 08:0500 Body weight 60.56 kg Riri Johnson LPN [facility] Internal Medicine Work Phone: 09-12-2013 08:13-0500 BP Diastolic 72 mm[Hg] Riri Johnson LPN [facility] Work Phone: Comment on above: Patient Position: Sitting; Cuff Location : Left Arm; Cuff Size: Standard 09-12-2013 08:130500 BP Systolic 108 mm[Hg] Riri Johnson LPN [facility] Medicine Work Phone: Comment on above: Patient Position: Sitting; Cuff Location : Left Arm; Cuff Size: Standard 09-12-2013 08:130500 BSA (Body Surface Area) 1.72 m2 Riri Johnson LPN [facility] Work Phone: 09-12-2013 08:130500 Height 172.72 cm Riri Johnson LPN [facility] Work Phone: 09-12-2013 08:13-0500 Pulse (Heart Rate) 88 /min Riri Johnson LPN [facility] Work Phone: Comment on above: Pattern: Regular 09-12-2013 08:13-0500 Pulse Oximetry 98 % Lenora Elin [facility] Work Phone: Comment on above: Room air 09-12-2013 08:13-0500 Respiratory Rate 16 /min Riri Johnson LPN [facility] Work Phone: 09-12-2013 08:13-0500 SaO2% (BldA) [Mass fraction] 98 % Riri Johnson LPN [facility]; [facility] Work Phone: Comment on above: Room air 09-12-2013 08:13-0500 Weight 60.56 kg Lenora Sarah [facility] Internal Medicine Work Phone: 08-27-2013 10:02-0500 BMI (Body Mass Index) 20.3 kg/m2 Kaitlin Burch [facility] Internal Medicine Work Phone: 08-27-2013 10:02-0500 Body Temperature 97.9 [degF] Kaitlin Burch [facility] Internal Medicine Work Phone: Comment on above: Method: Oral 08-27-2013 10:02-0500 Body weight 60.56 kg Kaitlin Burch [facility] Internal Medicine Work Phone: 08-27-2013 10:02-0500 BP Diastolic 60 mm[Hg] Kaitlin Burch [facility] Internal Medicine Work Phone: Comment on above: Patient Position: Sitting; Cuff Location : Left Arm; Cuff Size: Standard 08-27-2013 10:02-0500 BP Systolic 108 mm[Hg] Kaitlin Burch [facility] Internal Medicine Work Phone: Comment on above: Patient Position: Sitting; Cuff Location : Left Arm; Cuff Size: Standard 08-27-2013 10:02-0500 BSA (Body Surface Area) 1.72 m2 Kaitlin Burch [facility] Internal Medicine Work Phone: 08-27-2013 10:02-0500 Height 172.72 cm Kaitlin Burch [facility] Internal Medicine Work Phone: 08-27-2013 10:02-0500 Pulse (Heart Rate) 95 /min Kaitlin Burch [facility] Internal Medicine Work Phone: Comment on above: Pattern: Regular 08-27-2013 10:02-0500 Pulse Oximetry 97 % Lenora Sarah [facility] Internal Medicine Work Phone: Comment on above: Room air 08-27-2013 10:02-0500 Respiratory Rate 16 /min Kaitlin Burch [facility] Internal Medicine Work Phone: Comment on above: Pattern: Unlabored 08-27-2013 10:02-0500 SaO2% (BldA) [Mass fraction] 97 % Kaitlin Burch [facility] [facility]; [facility] Work Phone: Comment on above: Room air 08-27-2013 10:02-0500 Weight 60.56 kg Lenora Sarah [facility] Internal Medicine Work Phone: 07-28-2013 10:090400 BMI (Body Mass Index) 20.3 kg/m2 Riri Johnson LPN [facility] Internal Medicine Work Phone: 07-28-2013 10:090400 Body Temperature 98.6 [degF] Riri Johnson [employer] [facility] Internal Medicine Work Phone: Comment on above: Method: Oral 07-28-2013 10:090400 Body weight 60.56 kg Riri Johnson [employer] [facility] Internal Medicine Work Phone: 07-28-2013 10:09-0400 BP Diastolic 70 mm[Hg] Riri Johnson [employer] [facility] Internal Medicine Work Phone: Comment on above: Patient Position: Sitting; Cuff Location : Left Arm; Cuff Size: Standard 07-28-2013 10:090400 BP Systolic 138 mm[Hg] Riri Johnson LPN [facility] Internal Medicine Work Phone: Comment on above: Patient Position: Sitting; Cuff Location : Left Arm; Cuff Size: Standard 07-28-2013 10:090400 BSA (Body Surface Area) 1.72 m2 Riri Johnson LPN [facility] Internal Medicine Work Phone: 07-28-2013 10:09-0400 Height 172.72 cm Riri Johnson [employer] [facility] Work Phone: 07-28-2013 10:09-0400 Pulse (Heart Rate) 98 /min Riri Johnson LPN [facility] Internal Medicine Work Phone: Comment on above: Pattern: Regular 07-28-2013 10:090400 Pulse Oximetry 98 % Lenora Sarah [facility] Internal Medicine Work Phone: Comment on above: Room air 07-28-2013 10:09-0400 Respiratory Rate 18 /min Riri Johnson NIKO [facility] Work Phone: 07-28-2013 10:09-0400 SaO2% (BldA) [Mass fraction] 98 % Riri Johnson NIKO [facility]; [facility] Work Phone: Comment on above: Room air 07-28-2013 10:09-0400 Weight 60.56 kg Lenora Elin [facility] Work Phone: 07-04-2013 15:04-0400 BMI (Body Mass Index) 20.3 kg/m2 Sara Santos RN [facility] Work Phone: 07-04-2013 15:04-0400 Body Temperature 98.5 [degF] Sara Santos RN [facility] Work Phone: Comment on above: Method: Oral 07-04-2013 15:04-0400 Body weight 60.56 kg Sara Santos RN [facility] Work Phone: 07-04-2013 15:04-0400 BP Diastolic 62 mm[Hg] Sara Santos RN [facility] Work Phone: Comment on above: Patient Position: Sitting; Cuff Location : Left Arm; Cuff Size: Standard 07-04-2013 15:04-0400 BP Systolic 102 mm[Hg] Sara Santos RN [facility] Work Phone: Comment on above: Patient Position: Sitting; Cuff Location : Left Arm; Cuff Size: Standard 07-04-2013 15:04-0400 BSA (Body Surface Area) 1.72 m2 Sara Santos RN [facility] Work Phone: 07-04-2013 15:04-0400 Height 172.72 cm Sara Santos RN [facility] Work Phone: 07-04-2013 15:04-0400 Pulse (Heart Rate) 101 /min Sara Santos RN [facility] Work Phone: Comment on above: Pattern: Regular 07-04-2013 15:04-0400 Pulse Oximetry 99 % Lenora Elin [facility] Work Phone: Comment on above: Room air 07-04-2013 15:04-0400 Respiratory Rate 20 /min Sara Santos RN [facility] Work Phone: Comment on above: Pattern: Unlabored 07-04-2013 15:04-0400 SaO2% (BldA) [Mass fraction] 99 % Sara Santos RN [facility]; [facility] Work Phone: Comment on above: Room air 07-04-2013 15:04-0400 Weight 60.56 kg Lenora Sarah [facility] Work Phone: 06-09-2013 10:15-0400 BMI (Body Mass Index) 20.3 kg/m2 Sara Santos RN [facility] Work Phone: 06-09-2013 10:15-0400 Body weight 60.56 kg Sara Santos RN [facility] Work Phone: 06-09-2013 10:15-0400 BP Diastolic 60 mm[Hg] Sara Santos RN [facility] Work Phone: Comment on above: Patient Position: Sitting; Cuff Location : Left Arm; Cuff Size: Standard 06-09-2013 10:15-0400 BP Systolic 102 mm[Hg] Sara Santos RN [facility] Work Phone: Comment on above: Patient Position: Sitting; Cuff Location : Left Arm; Cuff Size: Standard 06-09-2013 10:15-0400 BSA (Body Surface Area) 1.72 m2 Sara Santos RN [facility] Work Phone: 06-09-2013 10:15-0400 Height 172.72 cm Sara Santos RN [facility] Work Phone: 06-09-2013 10:15-0400 Pulse (Heart Rate) 60 /min Sara Santos RN [facility] Work Phone: Comment on above: Pattern: Regular 06-09-2013 10:15-0400 Respiratory Rate 18 /min Sara Santos RN [facility] Work Phone: Comment on above: Pattern: Unlabored 06-09-2013 10:15-0400 Weight 60.56 kg Lenora Sarah [facility] Work Phone: 05-01-2013 13:18-0400 BMI (Body Mass Index) 20.25 kg/m2 Sara Santos RN [facility] Work Phone: 05-01-2013 13:18-0400 Body Temperature 98.5 [degF] Sara Santos RN [facility] Work Phone: Comment on above: Method: Oral 05-01-2013 13:18-0400 Body weight 60.41 kg Sara Santos RN [facility] Work Phone: 05-01-2013 13:18-0400 BP Diastolic 60 mm[Hg] Sara Santos RN [facility] Work Phone: Comment on above: Patient Position: Sitting; Cuff Location : Left Arm; Cuff Size: Standard 05-01-2013 13:18-0400 BP Systolic 100 mm[Hg] Sara Santos RN [facility] Work Phone: Comment on above: Patient Position: Sitting; Cuff Location : Left Arm; Cuff Size: Standard 05-01-2013 13:18-0400 BSA (Body Surface Area) 1.72 m2 Sara Santos RN [facility] Work Phone: 05-01-2013 13:18-0400 Height 172.72 cm Sara Santos RN [facility] Work Phone: 05-01-2013 13:18-0400 Pulse (Heart Rate) 64 /min Sara Santos RN [facility] Work Phone: Comment on above: Pattern: Regular 05-01-2013 13:18-0400 Respiratory Rate 18 /min Sara Santos RN [facility] Work Phone: Comment on above: Pattern: Unlabored 05-01-2013 13:18-0400 Weight 60.41 kg Lenora Sarah [facility] Work Phone: 07-10-2012 10:22-0400 BMI (Body Mass Index) 19.81 kg/m2 Sara Santos RN [facility] Work Phone: 07-10-2012 10:22-0400 Body Temperature 97.7 [degF] Sara Santos RN [facility] Work Phone: Comment on above: Method: Oral 07-10-2012 10:22-0400 Body weight 59.11 kg Sara Santos RN [facility] Work Phone: 07-10-2012 10:22-0400 BP Diastolic 62 mm[Hg] Sara Santos RN [facility] Work Phone: Comment on above: Patient Position: Sitting; Cuff Location : Left Arm; Cuff Size: Standard 07-10-2012 10:22-0400 BP Systolic 98 mm[Hg] Sara Santos RN [facility] Work Phone: Comment on above: Patient Position: Sitting; Cuff Location : Left Arm; Cuff Size: Standard 07-10-2012 10:22-0400 BSA (Body Surface Area) 1.7 m2 Sara Santos RN [facility] Work Phone: 07-10-2012 10:22-0400 Height 172.72 cm Sara Santos RN [facility] Work Phone: 07-10-2012 10:22-0400 Pulse (Heart Rate) 72 /min Sara Santos RN [facility] Work Phone: Comment on above: Pattern: Regular 07-10-2012 10:22-0400 Respiratory Rate 16 /min Sara Santos RN [facility] Work Phone: Comment on above: Pattern: Unlabored 07-10-2012 10:22-0400 Weight 59.11 kg Lenora Sarah [facility] Work Phone: 03-05-2012 15:37-0400 BMI (Body Mass Index) 21.06 kg/m2 Riri Johnson LPN [facility] Work Phone: 03-05-2012 15:37-0400 Body Temperature 97.2 [degF] Riri Johnson LPN [facility] Work Phone: Comment on above: Method: Oral 03-05-2012 15:37-0400 Body weight 62.82 kg Riri Alex POPE [facility] Work Phone: 03-05-2012 15:37-0400 BP Diastolic 70 mm[Hg] Riri Johnson LPN [facility] Work Phone: Comment on above: Patient Position: Sitting; Cuff Location : Left Arm; Cuff Size: Standard 03-05-2012 15:37-0400 BP Systolic 106 mm[Hg] Riri Johnson LPN [facility] Work Phone: Comment on above: Patient Position: Sitting; Cuff Location : Left Arm; Cuff Size: Standard 03-05-2012 15:37-0400 BSA (Body Surface Area) 1.75 m2 Riri Johnson LPN [facility] Internal Medicine Work Phone: 03-05-2012 15:37-0400 Height 172.72 cm Riri Johnson LPN [facility] Medicine Work Phone: 03-05-2012 15:37-0400 Pulse (Heart Rate) 72 /min Riri Johnson LPN [facility] Work Phone: Comment on above: Pattern: Regular 03-05-2012 15:37-0400 Weight 62.82 kg Lenora Sarah [facility] Work Phone: 12-13-2011 16:04-0400 BMI (Body Mass Index) 21.06 kg/m2 Riri Johnson LPN [facility] Medicine Work Phone: 12-13-2011 16:04-0400 Body Temperature 97.3 [degF] Riri Johnson LPN [facility] Work Phone: Comment on above: Method: Oral 12-13-2011 16:04-0400 Body weight 62.82 kg Riri Johnson LPN [facility] Work Phone: 12-13-2011 16:04-0400 BP Diastolic 68 mm[Hg] Riri Johnson [employer] [facility] Medicine Work Phone: Comment on above: Patient Position: Sitting; Cuff Location : Left Arm; Cuff Size: Standard 12-13-2011 16:04-0400 BP Systolic 102 mm[Hg] Riri Johnson LPN [facility] Internal Medicine Work Phone: Comment on above: Patient Position: Sitting; Cuff Location : Left Arm; Cuff Size: Standard 12-13-2011 16:04-0400 BSA (Body Surface Area) 1.75 m2 Riri Johnson LPN [facility] Work Phone: 12-13-2011 16:04-0400 Height 172.72 cm Riri Johnson LPN [facility] Work Phone: 12-13-2011 16:04-0400 Pulse (Heart Rate) 78 /min Riri Johnson NIKO [facility] Work Phone: Comment on above: Pattern: Regular 12-13-2011 16:04-0400 Respiratory Rate 16 /min Riri Johnson LPN [facility] Work Phone: 12-13-2011 16:04-0400 Weight 62.82 kg Lenora Sarah [facility] Work Phone: 08-31-2011 14:12-0500 BMI (Body Mass Index) 21.06 kg/m2 Sara Santos RN [facility] Work Phone: 08-31-2011 14:12-0500 Body Temperature 98.2 [degF] Sara Santos RN [facility] Work Phone: Comment on above: Method: Oral 08-31-2011 14:12-0500 Body weight 62.82 kg Sara Santos RN [facility] Work Phone: 08-31-2011 14:12-0500 BP Diastolic 60 mm[Hg] Sara Santos RN [facility] Work Phone: Comment on above: Patient Position: Sitting; Cuff Location : Left Arm; Cuff Size: Large 08-31-2011 14:12-0500 BP Systolic 122 mm[Hg] Sara Santos RN [facility] Work Phone: Comment on above: Patient Position: Sitting; Cuff Location : Left Arm; Cuff Size: Large 08-31-2011 14:12-0500 BSA (Body Surface Area) 1.75 m2 Sara Santos RN [facility] Work Phone: 08-31-2011 14:12-0500 Height 172.72 cm Sara Santos RN [facility] Work Phone: 08-31-2011 14:12-0500 Pulse (Heart Rate) 60 /min Sara Santos RN [facility] Work Phone: Comment on above: Pattern: Regular 08-31-2011 14:12-0500 Respiratory Rate 20 /min Sara Santos RN [facility] Work Phone: Comment on above: Pattern: Unlabored 08-31-2011 14:12-0500 Weight 62.82 kg Lenora Sarah [facility] Work Phone: 05-03-2011 14:05-0400 BMI (Body Mass Index) 20.22 kg/m2 Peyton Paniagua [facility] Work Phone: 05-03-2011 14:05-0400 Body Temperature 98.3 [degF] Peyton Paniagua [facility] Work Phone: 05-03-2011 14:05-0400 Body weight 60.33 kg Peyton Paniagua [facility] Work Phone: 05-03-2011 14:05-0400 BP Diastolic 62 mm[Hg] Peyton Paniagua [facility] Medicine Work Phone: Comment on above: Patient Position: Sitting; Cuff Location : Left Arm; Cuff Size: Standard 05-03-2011 14:05-0400 BP Systolic 98 mm[Hg] Peyton Paniagua [facility] Medicine Work Phone: Comment on above: Patient Position: Sitting; Cuff Location : Left Arm; Cuff Size: Standard 05-03-2011 14:05-0400 BSA (Body Surface Area) 1.72 m2 Peyton Paniagua [facility] Medicine Work Phone: 05-03-2011 14:05-0400 Height 172.72 cm Peyton Paniagua [facility] Work Phone: 05-03-2011 14:05-0400 Pulse (Heart Rate) 80 /min Peyton Chrisensiv e [facility] Work Phone: Comment on above: Pattern: Regular 05-03-2011 14:05-0400 Respiratory Rate 16 /min Peyton Paniagua [facility] Work Phone: Comment on above: Pattern: Unlabored 05-03-2011 14:05-0400 Weight 60.33 kg Lenora Sarah [facility] Work Phone: 08-15-2010 11:32-0500 BMI (Body Mass Index) 21.15 kg/m2 Sara Santos RN [facility] Work Phone: 08-15-2010 11:32-0500 Body Temperature 96.7 [degF] Sara Santos RN [facility] Work Phone: Comment on above: Method: Oral 08-15-2010 11:32-0500 Body weight 63.11 kg Sara Santos RN [facility] Work Phone: 08-15-2010 11:32-0500 BP Diastolic 72 mm[Hg] Sara Santos RN [facility] Work Phone: Comment on above: Patient Position: Sitting; Cuff Location : Left Arm; Cuff Size: Standard 08-15-2010 11:32-0500 BP Systolic 118 mm[Hg] Sara Santos RN [facility] Work Phone: Comment on above: Patient Position: Sitting; Cuff Location : Left Arm; Cuff Size: Standard 08-15-2010 11:32-0500 BSA (Body Surface Area) 1.75 m2 Sara Santos RN [facility] Work Phone: 08-15-2010 11:32-0500 Height 172.72 cm Sara Santos RN [facility] Work Phone: 08-15-2010 11:32-0500 Pulse (Heart Rate) 80 /min Sara Santos RN [facility] Work Phone: Comment on above: Pattern: Regular 08-15-2010 11:32-0500 Respiratory Rate 18 /min Sara Santos RN [facility] Work Phone: Comment on above: Pattern: Unlabored 08-15-2010 11:32-0500 Weight 63.11 kg Lenora Sarah [facility] Work Phone: 03-07-2010 11:11-0400 BP Diastolic 58 mm[Hg] Kaye Freitas RN [facility] Work Phone: Comment on above: Patient Position: Sitting; Cuff Location : Left Arm; Cuff Size: Standard 03-07-2010 11:11-0400 BP Systolic 98 mm[Hg] Kaye Freitas RN [facility] Work Phone: Comment on above: Patient Position: Sitting; Cuff Location : Left Arm; Cuff Size: Standard 03-07-2010 11:11-0400 Pulse (Heart Rate) 72 /min Kaye Freitas RN [facility] Work Phone: Comment on above: Pattern: Regular 03-07-2010 11:11-0400 Respiratory Rate 16 /min Kaye Freitas RN [facility] Work Phone: Comment on above: Pattern: Unlabored 02-16-2010 15:10-0400 BMI (Body Mass Index) 21.15 kg/m2 Sara Santos RN [facility] Work Phone: 02-16-2010 15:10-0400 Body weight 63.11 kg Sara Santos RN [facility] Work Phone: 02-16-2010 15:10-0400 BP Diastolic 78 mm[Hg] Sara Santos RN [facility] Work Phone: Comment on above: Patient Position: Sitting; Cuff Location : Left Arm; Cuff Size: Large 02-16-2010 15:10-0400 BP Systolic 124 mm[Hg] Sara Santos RN [facility] Work Phone: Comment on above: Patient Position: Sitting; Cuff Location : Left Arm; Cuff Size: Large 02-16-2010 15:10-0400 BSA (Body Surface Area) 1.75 m2 Sara Santos RN [facility] Work Phone: 02-16-2010 15:10-0400 Height 172.72 cm Sara Santos RN [facility] Work Phone: 02-16-2010 15:10-0400 Pulse (Heart Rate) 80 /min Sara Santos RN [facility] Work Phone: Comment on above: Pattern: Regular 02-16-2010 15:10-0400 Respiratory Rate 20 /min Sara Santos RN [facility] Work Phone: Comment on above: Pattern: Unlabored 02-16-2010 15:10-0400 Weight 63.11 kg Lenora Sarah [facility] Medicine Work Phone: 03-08-2009 13:25-0400 Body Temperature 98.4 [degF] Anayeli Cerrato [facility] Medicine Work Phone: Comment on above: Method: Oral 03-08-2009 13:25-0400 Body [facility] 60.92 [facility] Work [facility]: 03-08-2009 13:25-0400 BP Diastolic 72 mm[Hg] Anayeli [facility] Internal Medicine Work Phone: Comment on above: Patient Position: Sitting; Cuff Location : Left Arm; Cuff Size: Standard 03-08-2009 13:25-0400 BP Systolic 112 mm[Hg] Anayeli Gerald [facility] Work Phone: Comment on above: Patient Position: Sitting; Cuff Location : Left Arm; Cuff Size: Standard 03-08-2009 13:25-0400 Head Circumference 0 cm Lenora Sarah [facility] Medicine Work Phone: 03-08-2009 13:25-0400 Head Occipital-frontal circumference 0 cm Anayeli Gerald [facility]; [facility] Work Phone: 03-08-2009 13:25-0400 Height 0 cm Anayeli Gerald [facility] Work Phone: 03-08-2009 13:25-0400 Pulse (Heart Rate) 69 /min Anayeli Gerald [facility] Medicine Work Phone: Comment on above: Pattern: Regular 03-08-2009 13:25-0400 Respiratory Rate 16 /min Anayeli Gerald [facility] Medicine Work Phone: Comment on above: Pattern: Unlabored 03-08-2009 13:25-0400 Weight 60.92 kg Lenora Sarah [facility] Medicine Work Phone: 02-02-2009 09:06-0400 Body Temperature 98 [degF] Peyton Paniagua [facility] Work Phone: Comment on above: Method: Undefined 02-02-2009 09:06-0400 Body weight 0 kg Peyton Paniagua [facility] Medicine Work Phone: 02-02-2009 09:06-0400 BP Diastolic 64 mm[Hg] Peyton Paniagua [facility] Work Phone: Comment on above: Patient Position: Sitting; Cuff Location : Left Arm; Cuff Size: Standard 02-02-2009 09:06-0400 BP Systolic 106 mm[Hg] Peyton Paniagua [facility] Medicine Work Phone: Comment on above: Patient Position: Sitting; Cuff Location : Left Arm; Cuff Size: Standard 02-02-2009 09:06-0400 Head Circumference 0 cm Lenora Sarah [facility] Medicine Work Phone: 02-02-2009 09:06-0400 Head Occipital-frontal circumference 0 cm Peyton Welshfelipe [facility]; [facility] Work Phone: 02-02-2009 09:06-0400 Height 0 cm Peyton Welshfelipe [facility] Work Phone: 02-02-2009 09:06-0400 Pulse (Heart Rate) 72 /min Peyton Paniagua [facility] Medicine Work Phone: Comment on above: Pattern: Regular 02-02-2009 09:06-0400 Respiratory Rate 16 /min Peyton Benítezsrinivasa [facility] Medicine Work Phone: Comment on above: Pattern: Undefined 02-02-2009 09:06-0400 Weight 0 kg Lenora Sarah [facility] Work Phone: 02-03-2008 14:23-0400 BMI (Body Mass Index) 22.69 kg/m2 Riri Alex POPE [facility] Work Phone: 02-03-2008 14:23-0400 Body Temperature 97.5 [degF] Riri Alex POPE [facility] Medicine Work Phone: Comment on above: Method: Oral 02-03-2008 14:23-0400 Body weight 67.7 kg Riri Carlosjimmie POPE [facility] Work Phone: 02-03-2008 14:23-0400 BP Diastolic 70 mm[Hg] Riri Johnson LPN [facility] Work Phone: Comment on above: Patient Position: Sitting; Cuff Location : Left Arm; Cuff Size: Standard 02-03-2008 14:23-0400 BP Systolic 112 mm[Hg] Riri Johnson LPN [facility] Work Phone: Comment on above: Patient Position: Sitting; Cuff Location : Left Arm; Cuff Size: Standard 02-03-2008 14:23-0400 BSA (Body Surface Area) 1.8 m2 Riri Johnson LPN [facility] Work Phone: 02-03-2008 14:23-0400 Head Circumference 0 cm Lenora Sarah [facility] Work Phone: 02-03-2008 14:23-0400 Head Occipital-frontal circumference 0 cm Riri Johnson LPN [facility]; [facility] Work Phone: 02-03-2008 14:23-0400 Height 172.72 cm Riri Johnson LPN [facility] Work Phone: 02-03-2008 14:23-0400 Pulse (Heart Rate) 90 /min Riri Johnson LPN [facility] Work Phone: Comment on above: Pattern: Regular 02-03-2008 14:23-0400 Respiratory Rate 18 /min Riri Johnson LPN [facility] Work Phone: Comment on above: Pattern: Unlabored 02-03-2008 14:23-0400 Weight 67.7 kg Lenora Sarah [facility] Work Phone: 12-30-2007 13:26-0400 BMI (Body Mass Index) 22.69 kg/m2 Sara Santos RN [facility] Work Phone: 12-30-2007 13:26-0400 Body weight 67.7 kg Sara Santos RN [facility] Work Phone: 12-30-2007 13:26-0400 BP Diastolic 64 mm[Hg] Sara Santos RN [facility] Work Phone: Comment on above: Patient Position: Sitting; Cuff Location : Left Arm; Cuff Size: Standard 12-30-2007 13:26-0400 BP Systolic 118 mm[Hg] Sara Santos RN [facility] Work Phone: Comment on above: Patient Position: Sitting; Cuff Location : Left Arm; Cuff Size: Standard 12-30-2007 13:26-0400 BSA (Body Surface Area) 1.8 m2 Sara Satnos RN [facility] Work Phone: 12-30-2007 13:26-0400 Head Circumference 0 cm Lenora Sarah [facility] Work Phone: 12-30-2007 13:26-0400 Head Occipital-frontal circumference 0 cm Sara Santos RN [facility]; [facility] Work Phone: 12-30-2007 13:26-0400 Height 172.72 cm Sara Santos RN [facility] Work Phone: 12-30-2007 13:26-0400 Pulse (Heart Rate) 72 /min Sara Santos RN [facility] Work Phone: Comment on above: Pattern: Regular 12-30-2007 13:26-0400 Respiratory Rate 20 /min Sara Santos RN [facility] Work Phone: Comment on above: Pattern: Unlabored 12-30-2007 13:26-0400 Weight 67.7 kg eLnora Lucason [facility] Work Phone: 12-13-2007 10:220400 BMI (Body Mass Index) 21.89 kg/m2 Sara Santos RN [facility] Work Phone: 12-13-2007 10:22-0400 Body Temperature 98 [degF] Sara Santos RN [facility] Work Phone: Comment on above: Method: Oral 12-13-2007 10:220400 Body weight 65.32 kg Sara Santos RN [facility] Work Phone: 12-13-2007 10:22-0400 BP Diastolic 68 mm[Hg] Sara Santos RN [facility] Work Phone: Comment on above: Patient Position: Sitting; Cuff Location : Left Arm; Cuff Size: Standard 12-13-2007 10:22-0400 BP Systolic 116 mm[Hg] Sara Santos RN [facility] Work Phone: Comment on above: Patient Position: Sitting; Cuff Location : Left Arm; Cuff Size: Standard 12-13-2007 10:22-0400 BSA (Body Surface Area) 1.78 m2 Sara Santos RN [facility] Work Phone: 12-13-2007 10:22-0400 Head Circumference 0 cm Lenora Sarah [facility] Work Phone: 12-13-2007 10:22-0400 Head Occipital-frontal circumference 0 cm Sara Santos RN [facility]; [facility] Work Phone: 12-13-2007 10:22-0400 Height 172.72 cm Sara Santos RN [facility] Work Phone: 12-13-2007 10:22-0400 Pulse (Heart Rate) 88 /min Sara Santos RN [facility] Work Phone: Comment on above: Pattern: Regular 12-13-2007 10:22-0400 Respiratory Rate 20 /min Sara Santos RN [facility] Work Phone: Comment on above: Pattern: Unlabored 12-13-2007 10:22-0400 Weight 65.32 kg Lenora Elin [facility] Work Phone: 02-08-2007 10:02-0400 Body Temperature 98.3 [degF] Kelli Woodson [facility] Work Phone: Comment on above: Method: Oral 02-08-2007 10:02-0400 Body weight 65.32 kg Kelli Woodson [facility] Work Phone: 02-08-2007 10:02-0400 BP Diastolic 60 mm[Hg] Kelli Woodson [facility] Work Phone: Comment on above: Patient Position: Sitting; Cuff Location : Right Arm; Cuff Size: Standard 02-08-2007 10:02-0400 BP Systolic 106 mm[Hg] Kelli Woodson [facility] Work Phone: Comment on above: Patient Position: Sitting; Cuff Location : Right Arm; Cuff Size: Standard 02-08-2007 10:02-0400 Head Circumference 0 cm Lenora Sarah [facility] Work Phone: 02-08-2007 10:02-0400 Head Occipital-frontal circumference 0 cm Kelli Woodson [facility]; [facility] Work Phone: 02-08-2007 10:02-0400 Height 0 cm Kelli Woodson [facility] Work Phone: 02-08-2007 10:02-0400 Pulse (Heart Rate) 98 /min Kelli [facility] Work Phone: Comment on above: Pattern: Regular 02-08-2007 10:02-0400 Respiratory Rate 16 /min Kelli Woodson [facility] Work Phone: Comment on above: Pattern: Unlabored 02-08-2007 10:02-0400 Weight 65.32 kg Lenora Sarah [facility] Work Phone: 11-26-2006 14:43-0500 Body weight 0 kg Lenora Sarah [facility] Work Phone: 11-26-2006 14:43-0500 BP Diastolic 60 mm[Hg] Lenora Sarah [facility] Work Phone: Comment on above: Patient Position: Undefined; Cuff Locati on: Undefined; Cuff Size: Undefined 11-26-2006 14:43-0500 BP Systolic 100 mm[Hg] Lenora Sarah [facility] Work Phone: Comment on above: Patient Position: Undefined; Cuff Locati on: Undefined; Cuff Size: Undefined 11-26-2006 14:43-0500 Head Circumference 0 cm Lenora Sarah [facility] Work Phone: 11-26-2006 14:43-0500 Head Occipital-frontal circumference 0 cm Lenora Sarah Work Phone: [facility]; [facility] Work Phone: 11-26-2006 14:43-0500 Height 0 cm Lenora Sarah [facility] Work Phone: 11-26-2006 14:43-0500 Pulse (Heart Rate) 72 /min Lenora Sarah [facility] Work Phone: Comment on above: Pattern: Regular 11-26-2006 14:43-0500 Respiratory Rate 16 /min Lenora Sarah [facility] Work Phone: Comment on above: Pattern: Undefined 11-26-2006 14:43-0500 Weight 0 kg Lenora Sarah [facility] Work Phone: 11-06-2006 15:49-0500 Body Temperature 98.4 [degF] Nette Perez LPN [facility] Work Phone: Comment on above: Method: Undefined 11-06-2006 15:49-0500 Body weight 0 kg Nette Perez LPN [facility] Work Phone: 11-06-2006 15:49-0500 BP Diastolic 80 mm[Hg] Nette Perez [facility] Work Phone: Comment on above: Patient Position: Sitting; Cuff Location : Left Arm; Cuff Size: Standard 11-06-2006 15:49-0500 BP Systolic 102 mm[Hg] Nette Perez [facility] Work Phone: Comment on above: Patient Position: Sitting; Cuff Location : Left Arm; Cuff Size: Standard 11-06-2006 15:49-0500 Head Circumference 0 cm Lenora Sarah [facility] Work Phone: 11-06-2006 15:49-0500 Head Occipital-frontal circumference 0 cm Nette Perez [employer] [facility]; [facility] Work Phone: 11-06-2006 15:49-0500 Height 0 cm Nette Perez [employer] [facility] Work Phone: 11-06-2006 15:49-0500 Pulse (Heart Rate) 100 /min Nette Perez [employer] [facility] Work Phone: Comment on above: Pattern: Regular 11-06-2006 15:49-0500 Respiratory Rate 24 /min Nette Perez [employer] [facility] Work Phone: Comment on above: Pattern: Undefined 11-06-2006 15:49-0500 Weight 0 kg Lenora Sarah [facility] Work Phone: 11-05-2006 14:19-0500 BMI (Body Mass Index) 22.05 kg/m2 Kaye Freitas RN [facility] Work Phone: 11-05-2006 14:19-0500 Body Temperature 97.3 [degF] Kaye Freitas RN [facility] Work Phone: Comment on above: Method: Oral 11-05-2006 14:19-0500 Body weight 65.77 kg Kaye Freitas RN [facility] Work Phone: 11-05-2006 14:19-0500 BP Diastolic 64 mm[Hg] Kaye Freitas RN [facility] Work Phone: Comment on above: Patient Position: Sitting; Cuff Location : Left Arm; Cuff Size: Standard 11-05-2006 14:19-0500 BP Systolic 98 mm[Hg] Kaye Freitas RN [facility] Work Phone: Comment on above: Patient Position: Sitting; Cuff Location : Left Arm; Cuff Size: Standard 11-05-2006 14:19-0500 BSA (Body Surface Area) 1.78 m2 Kaye Freitas RN [facility] Work Phone: 11-05-2006 14:19-0500 Head Circumference 0 cm Lenora Sarah [facility] Work Phone: 11-05-2006 14:19-0500 Head Occipital-frontal circumference 0 cm Kaye Freitas RN [facility]; [facility] Work Phone: 11-05-2006 14:19-0500 Height 172.72 cm Kaye Freitas RN [facility] Work Phone: 11-05-2006 14:19-0500 Pulse (Heart Rate) 92 /min Kaye Freitas RN [facility] Work Phone: Comment on above: Pattern: Regular 11-05-2006 14:19-0500 Respiratory Rate 20 /min Kaye Freitas RN [facility] Work Phone: Comment on above: Pattern: Unlabored 11-05-2006 14:19-0500 Weight 65.77 kg Lenora Sarah [facility] Work Phone: Encounters Encounter Date Encounter Type Care Provider Facility Start: 06-05-2025 End: 06-05-[address] Alba Ricks MD -[facility] Work Phone: Start: 06-05-2025 End: 06-05-[address] Lenora Sarah DO Work Phone: -[facility] Start: 05-19-2025 End: 05-19-2025 Emergency department patient visit PINKY Henning MOOSE [facility] Start: 05-15-2025 End: 05-15-[address] Alba Ricks MD -[facility] Work Phone: Start: 05-15-2025 End: 05-15-[address] Lenora Sarah DO Work Phone: -[facility] Start: 03-31-2025 Non-patient / Non-visit Dr. Alba Ricks MD -[facility] Work Phone: Start: 01-16-2025 End: 01-17-2025 Emergency department patient visit Huy Argueta Nico DO Work Phone: [facility] Comment on above: Sprain of left knee, initial encounter (Primary Dx) Start: 09-02-2024 End: 09-02-2024 ambulatory Lenora Sarah Facility:[facility] Start: 09-02-2024 End: 09-02-2024 ambulatory Lenora Sarah Facility:[facility] Start: 01-31-2024 End: 01-31-2024 ambulatory [facility] Work Phone: Start: 01-31-2024 End: 01-31-2024 Patient encounter procedure [facility], [facility] Work Phone: Start: 06-07-2023 Review Lenora Fearo n DO Work Phone: [facility] Start: 06-07-2023 End: 06-08-2023 Office outpatient visit 15 minutes Lenora Elin DO Work Phone: [facility] Start: 06-02-2023 End: 06-02-2023 Emergency department patient visit Lucas Marino [facility] 02 Start: 12-14-2022 ambulatory Lenora Sarah DO [facility] Start: 12-14-2022 Review Lenora Lucaso n DO Work Phone: [facility] Start: 12-14-2022 End: 12-14-2022 Office outpatient visit 10 minutes Lenora Elin DO Work Phone: [facility] Start: 02-09-2021 ambulatory EMILIANO MEYERS Facility :[facility] Start: 07-12-2020 End: 07-12-2020 Patient encounter status Lenora Elin DO Work Phone: [facility]; [facility] Work Phone: Start: 07-12-2020 End: 07-12-2020 Periodic preventive med est patient 40-64yrs Lenora Elin [facility] Start: 01-22-2020 End: 01-22-2020 Office outpatient visit 15 minutes Lenora Elin [facility] Start: 12-25-2019 End: 12-25-2019 Office outpatient visit 10 minutes Lenora Elin [facility] Start: 08-07-2019 End: 08-07-2019 Office outpatient visit 15 minutes Lenora Elin [facility] Start: 04-07-2019 End: 04-07-2019 Lab Order Lenora Elin [facility] Start: 03-19-2019 End: 03-19-2019 Patient encounter procedure Lenora Elin DO Work Phone: [facility] Start: 03-19-2019 End: 03-19-2019 Phone Encounter Lenora Elin [facility] Start: 03-19-2019 End: 03-19-2019 Patient encounter procedure Syl Chandler CMA [facility]; [facility] Work Phone: Start: 03-19-2019 End: 06-19-2019 Periodic preventive med est patient 40-64yrs Lenoradarya Garc[facility] Start: 10-08-2018 End: 10-08-2018 Office outpatient visit 25 minutes Lenora Sarah [facility] Start: 06-20-2018 End: 06-20-2018 Annotation/Addendum Lenora Sarah [facility] Start: 06-20-2018 End: 06-20-2018 Annotation/Addendum Lenora Sarah [facility] Start: 06-18-2018 End: 06-18-2018 Annotation/Addendum Lenora Sarah [facility] Start: 06-18-2018 End: 06-18-2018 Phone Encounter Lenora Sarah [facility] Start: 06-17-2018 End: 06-17-2018 Office outpatient visit 25 minutes Lenora Sarah [facility] Start: 06-12-2018 End: 06-12-2018 Annotation/Addendum Lenora Sarah [facility] Start: 06-12-2018 End: 06-12-2018 Office outpatient visit 15 minutes Lenora Sarah [facility] Start: 01-11-2017 End: 01-11-2017 Annotation/Addendum Lenora Sarah [facility] Start: 01-08-2017 End: 01-08-2017 Office outpatient visit 40 minutes Lenora Sarah [facility] Start: 01-03-2017 End: 01-03-2017 Office outpatient visit 15 minutes Lenora Sarah [facility] Start: 07-22-2015 End: 07-22-2015 Office outpatient visit 10 minutes Lenora Sarah [facility] Start: 11-11-2014 End: 11-11-2014 Annotation/Addendum Lenora Sarah [facility] Start: 10-16-2014 End: 10-16-2014 Phone Encounter Lenora García [facility] Start: 10-14-2014 End: 10-14-2014 Office outpatient visit 25 minutes Lenora Sarah [facility] Start: 10-09-2014 End: 10-09-2014 Phone Encounter Lenora Sarah [facility] Start: 06-15-2014 End: 06-15-2014 Office outpatient visit 15 minutes Lenora Sarah [facility] Start: 04-29-2014 End: 04-29-2014 Office outpatient visit 15 minutes Lenora Sarah [facility] Start: 10-29-2013 End: 10-29-2013 Patient encounter procedure Lenora Sarah [facility] Start: 09-12-2013 End: 09-12-2013 Office outpatient visit 10 minutes Lenora Sarah [facility] Start: 08-27-2013 End: 08-27-2013 Office outpatient visit 15 minutes Lenora Sarah [facility] Start: 07-28-2013 End: 07-28-2013 Office outpatient visit 25 minutes Lenora Sarah [facility] Start: 07-04-2013 End: 07-04-2013 Patient encounter procedure Lenora Sarah [facility] Start: 06-11-2013 End: 06-11-2013 Phone Encounter Lenora Sarah [facility] Start: 06-09-2013 End: 06-09-2013 Patient encounter procedure Lenora Sarah [facility] Start: 05-01-2013 End: 05-01-2013 Patient encounter procedure Lenora Sarah [facility] Start: 07-10-2012 End: 07-10-2012 Patient encounter procedure Lenora Sarah [facility] Start: 03-05-2012 End: 03-05-2012 Office outpatient visit 15 minutes Lenora Sarah [facility] Start: 12-13-2011 End: 12-13-2011 Office outpatient visit 25 minutes Lenora Sarah [facility] Start: 09-08-2011 End: 09-08-2011 Refill Request Lenora Sarah [facility] Start: 08-31-2011 End: 08-31-2011 Patient encounter procedure Lenora Sarah [facility] Start: 05-03-2011 End: 05-03-2011 Patient encounter procedure Lenora Sarah [facility] Start: 08-15-2010 End: 08-15-2010 Patient encounter procedure Lenora Sarah [facility] Start: 03-07-2010 End: 03-07-2010 Patient encounter procedure Lenora Sarah [facility] Start: 02-16-2010 End: 02-16-2010 Patient encounter procedure Lenora Sarah [facility] Start: 03-08-2009 End: 03-08-2009 Office outpatient visit 25 minutes Lenora Sarah [facility] Start: 02-02-2009 End: 02-02-2009 Patient encounter procedure Lenora Sarah [facility] Start: 02-03-2008 End: 02-03-2008 Office outpatient visit 15 minutes Lenora Sarah [facility] Start: 12-30-2007 End: 12-30-2007 Patient encounter procedure Lenora Sarah [facility] Start: 12-13-2007 End: 12-13-2007 Patient encounter procedure Lenora Sarah [facility] Start: 02-08-2007 End: 02-08-2007 Office outpatient visit 15 minutes Lenora Sarah [facility] Start: 11-26-2006 End: 11-26-2006 Office outpatient visit 10 minutes Lenora Sarah [facility] Start: 11-06-2006 End: 11-07-2006 Office outpatient visit 25 minutes Lenora Sarah [facility] Start: 11-05-2006 End: 11-05-2006 Office outpatient visit 40 minutes Lenora Sarah [facility] Start: 10-29-2006 End: 10-29-2006 Historical Summary Lenora Sarah [facility] Patient encounter procedure Cristy Jacobo [facility] Work Phone: [facility] Work Phone: Patient encounter procedure Connor Khanyor [facility]; [facility] Work Phone: [facility] Work Phone: Patient encounter status Connor Singleton [facility]; [facility] Work Phone: Procedures Date Procedure Procedure Detail Performing Clinician Start: 05-19-2025 Urinalysis PINKY PACHECO Comment on above: Result Comment: URIN ALYSIS Performed By: #### [id number] #### [facility],[address] [place] [address] Start: 01-16-2025 Radiologic examinati on knee 1/2 views Huy Campbell DO Work Phone: Start: 01-31-2024 CT of head without contrast Start: 06-02-2023 End: 06-02-2023 EKG impression Lucas Marino Start: 10-27-2021 End: 10-28-2021 SCRN MAMM (CAD)W/DON BILAT Procedure Note: See Note; NOTES: [facility] Imaging Services [address] [place] [address] SCRN MAMM (CAD)W/DON BILAT MR#: [id number] Acct: [id number] Name: SUMANTH ACOSTA Rep #: [id number] : 1970 F 51 From: Wiliam hidalgo MD PCP: Dr. Lenora Sarah, DO Status: [facility] CLI Study: SCRN MAMM (CAD)W/DON BILAT Date of Exam: 10/02 04/21 Exam# [id number] Ordering Dr: Yesenia Nelson NP [employer] TEACHER -C MAMMOGRAPHY - BILATERAL SCREENING REASON FOR EXAM: Female, 51 years old. Routine annual screening examination. PERTINENT HISTORY: Mother with breast cancer. TECHNIQUE: Digital bilateral breast don (3D mammographic acquisition) in the CC and MLO projections. 2-D mediolateral oblique (MLO) and craniocaudad (CC) views of both breasts were obtained. CAD: Full Field Digital Mammography with Computer Added Detection was performed. COMPARISON: None. Baseline examination. FINDINGS: Breast Composition: The breasts are heterogeneously dense, which may obscure small masses. There are no dominant masses or suspicious calcifications. No other significant abnormalities are identified. BI/SCRN MAMM (CAD)W/DON BILAT IMPRESSION: Negative screening mammogram. Yearly followup mammogram recommended. (A) ASSESSMENT CATEGORY: BIRADS Category 1: Negative. A letter regarding these results will be sent to the patient by the facility within 30 days. Approximately 10% of breast cancers are not detected by mammography. A normal mammogram should not delay biopsy of a clinically suspicious abnormality. [id number] Electronically Signed: Wiliam Reynaga MD at 8:18 EST Reading Location ID and State: [facility] / [place] , Service support , CC: CHRIS Nelson; Dr. Lenora Sarah DO Barrel Dedenting Machine Operator: Signed Lenora Sarah DO Work Phone: Start: 09-15-2021 End: 09-15-2021 Field Operator Office Visit Report Procedure Note: See Note; NOTES: [facility] [address] [place], [place] [id number] OFFICE VISIT Date of Service: 09/15/21 MR#: [id number] Acct: [id number] Name: SUMANTH ACOSTA Rep #: [id number] : 1970 Provider: CHRIS fernandes Age/Sex: 51/F [place] [facility] [place]: Signed Intake Vital Signs 09/15/21 14:27 Height 5 ft 7.5 in Weight: 149 lb 4 oz BMI 23.0 BP 116/68 Intake Visit Reasons: Establish Care positive BRCA results Allergies acetaminophen [From Percocet] Allergy (Verified 09/15/21 14:22) Itching oxycodone HCl [From Percocet] Allergy (Verified 09/15/21 14:22) Itching morphine Adverse Reaction (Verified 09/15/21 14:22) Other anesthesia Adverse Reaction (Uncoded 09/15/21 14:22) Other Medications L.acidoph, paracasei,B. lactis 1 ea PO DAILY 09/22/19 [History Confirmed 09/15/21] Post menopausal: Yes Nurse's Note: pt here to discuss results of [facility] Medical History (Updated 09/15/21 @ 15:15 by Yesenia Nelson NP, CHRIS) Cardiac asystole Hypotension Palpitations Surgical History (Updated 05/21/18 @ 11:09 by Lamar Weaver) History of cholecystectomy S/P cardiac catheterization ( 04/23/18) Family History (Updated 09/15/21 @ 14:27 by Lidia Henriquez) Mother Breast cancer Ovarian cancer Father Cancer Social History (Updated 09/15/21 @ 15:16 by Yesenia Nelson NP, [employer] TEACHER-C) current occupational status: employed 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 Her mother had breast cancer and is now being treated for ovarian cancer. The patient did not want to be screened but 2 of her daughters were screened and both positive. She agreed to testing but is unsure of varient that she has. Was able to view [employer] results and she is BRCA 2 positive. She denies history of bloating or weight changes. Denies breast masses. No exam since novasure procedure 10-12 yr ago. Denies past history of abnormal pap or mammogram ROS Const Constitutional: Reports system reviewed and no additional complaints, except as documented Eyes Eyes: Reports system reviewed and no additional complaints, except as documented GI GI: Denies abdominal pain or change in bowel habits : Reports as per HPI Exam Const General: cooperative, healthy appearing, no acute distress and well developed Orientation: alert, oriented to person and oriented to place HENOH Head: normal to inspection Neck Neck: normal visual inspection Thyroid: thyroid normal Lymphatic: no lymphadenopathy noted Chest Breast inspection: normal inspection of the breasts and normal inspection of the axillae Breast palpation: normal palpation of the breasts, normal palpation of the axillae and no axillary lymphadenopathy Resp Effort Inspection: normal respiratory effort GI Palpation: soft, no masses and nontender Rectal Exam: deferred External Female Exam: normal external appearance and normal appearance of the urethra Urethra: normal appearance of the urethra and normal palpation Speculum Exam - Vagina: normal appearance of the vagina and normal vaginal discharge Speculum Exam - Cervix: normal appearance of the cervix Bimanual Exam- Vagina Uterus: normal bimanual exam, uterine size normal, uterine shape normal and non-tender Bimanual Exam- Adnexa, other: normal adnexae, no masses, normal and non-tender Pelvic Support: normal Neuro General: patient alert and patient oriented x3 Psych Affect: normal affect Coding Level of Care Code Off vis,new,prev 40-64yrs Diagnoses Routine gynecological examination Z01.411 Gynecological examination findings: abnormal findings PRESENT BRCA2 gene mutation positive in female Z15.01; Z15.02; Z15.09 Assessment and Plan Assessment and Plan (1) Routine gynecological examination: Qualifiers: Gynecological examination findings: abnormal findings PRESENT Qualified Code(s): Z01.411 - Encounter for gynecological examination (general) (routine) with abnormal findings (2) BRCA2 gene mutation positive in female: Status: Acute Comment: Patient and 2 daughters are positive. Patient's mother with breast and ovarian cancer. Orders: Orders: SCRN MAMM (CAD)W/DON BILAT Today Z15.01, Z15.09 Cancer Antigen 125 Today Z15.01, Z15.02, Z15.09 Plan - Yesenia Nelson PUBLIC HEALTH AIDES TEACHER, PUBLIC HEALTH AIDES TEACHER-C: Completed breast and pelvic exam Reviewed diet and exercise Pap thin prep pap with HPV Mammogram ordered CA 125 today breast self exam encouraged monthly Colonoscopy 2018 Discussed that I would recommend bilateral oopherectomy and consideration for bilateral mastectomy. If wanting to avoid surgery, I would recommend alternating mammgram and breast MRI every 6 months plus CA 125 and pelvic and TV US every 6 months. She is very hesitant for surgery and not sure she wants to do pelvic imaging. She is agreeable to mammogram and CA 125 today. I did encourage pelvic US and she declines today. She wants to consider her options. She does have written information on lifetime risks for breast and ovarian cancer. RTO 1 year, prn with problems Yesenia Nelson RADIATION SAFETY OFFICER Plan Details Other Orders: Orders: PAP IG HPV APTIMA 16/18,45 Today 09/15/21 1523 <Electronically signed by Yesenia Nelson NP PUBLIC HEALTH AIDES TEACHER-C> Date Yesenia Nelson NP PUBLIC HEALTH AIDES TEACHER-C Cosigner Signature: Date (if applicable) CC: Lenora Sarah DO Work Phone: Start: 12-25-2019 End: 12-25-2019 Discharge Instruction Comments: See Note; NOTES: [facility] Medical Records Department [address] [place] [address] Discharge Instruction 12/25/19 1230 MR#: [id number] Acct: [id number] Name: SUMANTH ACOSTA Rep #: [id number] : 1970 49 From: Marcus Dodge MD PCP: Lenora Sarah DO Status: DEP ER ED Disposition - Plan for ED Patient: Disposition: Home or Assisted Living Instructions: ED Viral Gastroenteritis Prescriptions: Dicyclomine HCl [Bentyl] 10 mg PO TID PRN PRN #10 cap PRN Reason: abdominal pain Prescription Printed Ondansetron [Zofran Odt] 4 mg PO Q8H PRN PRN #10 tab PRN Reason: Nausea Prescription Printed Referrals: Lenora Sarah DO [Primary Care Provider] - 3-5 Days if not improving Additional Instructions: Plenty of fluids and rest. Zofran as needed for nausea. Tylenol and Motrin for pain. This should improve over the next 24 to 48 hours. Follow-up with your doctor if not improving return emergency department if worse. Clinically this is most likely from a viral gastroenteritis. There is no signs of a bowel obstruction or any type of retained gallstone. What to do if you have Problems For any increased pain, shortness of breath, bleeding, nausea or vomiting, chest pain, or any unexpected problems, contact your Primary Care Provider. Call [facility] ([phone]) or report to the closest Emergency Room. Call 911 if necessary. 12/25/19 1554 <Electronically signed by Marcus Dodge MD> Date Marcus Dodge MD Cosigner Signature (If Indicated): Date CC: Lenora Escobar Start: 12-25-2019 End: 12-25-2019 Emergency Department Summary Comments: See Note; NOTES: [facility] Medical Records Department [address] [place] [address] Emergency Department Summary 12/25/19 1054 MR#: [id number] Acct: [id number] Name: SUMANTH ACOSTA Rep #: [id number] : 1970 49 From: Marcus Dodge MD PCP: Lenora Sarah DO Status: DEP ER - ER Visit Summary Date of Service: 12/25/19 Chief Complaint: Nausea, vomiting and diarrhea with epigastric abdominal pain History of Present Illness: The patient is a 49 F is post prior cholecystectomy. No other segment past medical history. Said last night she began feeling ill with indigestion. Today she is noted nausea vomiting and diarrhea. With epigastric pain. She denies any chest pain or shortness of breath. No exertional symptoms recently. She denies any hematemesis or melena. No fever. No dysuria. Physical Examination: Well-appearing middle-aged female. No acute distress. Vital signs showed initial blood pressure 91/60 consistent with mild dehydration. Heart rate 118. And afebrile. H EENT exam unremarkable save for mild dry mucous membranes. Neck nontender no lymphadenopathy. Lungs clear to auscultation. Heart tachycardic rate about 115 no murmur. Abdomen soft. Nondistended. Normal bowel sounds. No peritoneal signs. Mild tenderness periumbilical and epigastric. Right upper and right lower quadrant unremarkable. No hernias or masses. No signs of obstruction. Patient moving all 4 extremities. No edema. Back nontender. Neurologically she is awake alert with no focal motor deficits. Test Results: White count of 3. Hemoglobin 15. Chemistries normal normal creatinine gap. Liver enzymes are somewhat elevated alk phos 150 ALT 112 AST 79 but they have been this high or higher before. Lipase normal. Emergency Department Course and Treatment: Patient treated with IV fluids for dehydration, nausea and vomiting. Treated with Zofran for nausea. Labs are being obtained. Repeat exam patient doing well at 12:20 PM. Abdomen is benign. Nondistended. Soft. No peritoneal signs. No signs of obstruction. Patient I went over all of her labs. Clinically she is feeling better after the Toradol. She deferred getting the Zofran because her nausea was improving on its own. Clinically I do not feel this to be an obstruction nor do I feel that she needs any imaging. Treatment Plan: Fluids and rest. Zofran as needed for nausea. Tylenol and Motrin as needed. Follow-up with your doctor if not improving. Return if worse. Disposition: dc Impression: Acute viral gastroenteritis Acute abdominal pain Acute dehydration This note was generated with Tablefinder dictation software. It may contain incorrect words, spelling, and punctuation that were not noted in review of the chart prior to signing ED Disposition - Plan for ED Patient: Referrals: Lenora Sarah DO [Primary Care Provider] - What to do if you have Problems For any increased pain, shortness of breath, bleeding, nausea or vomiting, chest pain, or any unexpected problems, contact your Primary Care Provider. Call [facility] ([phone]) or report to the closest Emergency Room. Call 911 if necessary. 12/25/19 1554 <Electronically signed by Marcus Dodge MD> Date Marcus Dodge MD Cosigner Signature (If Indicated): Date CC: Lenora Escobar Start: 09-30-2019 End: 09-30-2019 Operative Report Comments: See Note; NOTES: [facility] Medical Records Department [address] [place] [address] Operative Report 09/30/19 0741 MR#: [id number] Acct: [id number] Name: SUMANTH ACOSTA Rep #: [id number] : 1970 49 From: Alba Ricks MD PCP: Lenora Sarah DO Status: [facility] Y Location: [place] [address] Problem List (1) Urethral stenosis Status: Acute (2) Urinary tract infection Status: Acute Report of Operation Date of Procedure: 09/30/19 Pre-Operative Diagnosis: urethral stenosis, urinary tract infection Post-Operative Diagnosis: same Surgery/Procedure Performed:: cystoscopy, urethral dilation, pelvic exam under anesthesia Type of Anesthesia:: General Specimen's removed: none Description of Procedure: The patient is a 49-year-old female who is been having issues with recurrent urinary tract infections, lower abdominal and pelvic pain. On evaluation in the office I was unable to pass the cystoscope for further evaluation. We have decided to proceed with intervention and evaluation under anesthesia. Risks benefits and alternatives were discussed and informed consent was obtained. The patient was taken to the operating room and placed on the operating room table. Anesthesia monitored the head, neck, airway, IV access and vital signs throughout the case. Once anesthesia was appropriately administered the patient was prepped and draped in usual sterile fashion. On pelvic exam, the posterior floor under anesthesia was felt to be very thin and there is significant atrophy of the levator complexes bilaterally. The uterus is enlarged on exam and definitely causing external compression of the bladder. The urethra was subsequently dilated from 16 Sami to 30 Sami, using urethral sounds. A cystourethroscopy with a 70 degree lens was then performed. There is diffuse cystitis cystica. There are no masses or areas of mucosal abnormality other than the cystitis cystica present. The the detrusor musculature appears thin and there are multiple varicose veins visible under the bladder mucosa. There are no ulcerations identified. There is no trabeculation present. The urethra was normal on cystoscopic visualization. The patient's bladder was then emptied. She was awakened and taken to the recovery room in good condition. There were no complications during the procedure. Grafts/Implants Used: none - Complications none - Admit VTE Documentation VTE Present on Admission: Yes VTE Mechan Device Prophylaxis: SCD's VTE Pharm Prophylaxis ordered?: No Reason prophylaxis not ordered:: Treatment Not Indicated 09/30/19 0837 <Electronically signed by Alba Ricks MD> Date Alba Ricks MD CC: Alba Ricks MD; Lenora Sarah DO Signed Lenora Sarah Start: 09-30-2019 End: 09-30-2019 Discharge Instruction Comments: See Note; NOTES: [facility] Medical Records Department [address] [place] [address] Instructions for Home/Discharge Instructions 09/30/19 0743 MR#: [id number] Acct: [id number] Name: SUMANTH ACOSTA Rep #: [id number] : 1970 49 From: Alba Ricks MD PCP: Lenora Sarah DO Status: REG MAC Discharge Diet: No Restrictions Discharge Activity: Return to Normal Activity, May not drive while taking narcotic pain medications. Call your doctor if you observe: Fever of 101 or Higher, Inability to urinate, Inability to have a bowel movement, Shortness of breath, Chest pain, Calf discomfort, Uncontrolled pain Allergies/Adverse Reactions: Allergies acetaminophen [From Percocet] Allergy (Verified 09/30/19 06:26) Itching oxycodone HCl [From Percocet] Allergy (Verified 09/30/19 06:26) Itching morphine Adverse Reaction (Verified 09/30/19 06:26) Other states heart stopped with morphine 2017. had to have narcan anesthesia Adverse Reaction (Uncoded 09/30/19 06:26) Other became very sick after previous surgeries pt does not know what kind of anesthetic was used Medications to take at Discharge L.acidoph,Paracasei, B.lactis [Probiotic] 1 ea PO DAILY 09/22/19 RX: Nitrofurantoin Macrocrystals [Macrobid] 1 cap PO BID 09/30/19 Primary Care Physician: Lenora Sarah DO [Primary Care Provider] - Test Results: Test results from this visit will be discussed in further detail at your follow-up appointment, if applicable. Please Follow Up With: Alba Ricks MD When: call office for appt in 2-3 weeks Proposed Discharge Date: 09/30/19 09/30/19 0744 <Electronically signed by Alba Ricks MD> Date Alba Ricks MD CC: Lenora Sarah DO Signed Lenora Sarah Start: 08-25-2019 End: 08-26-2019 Kidney and Bladder Comments: See Note; NOTES: [facility] Imaging Services [address] [place] [address] Kidney and Bladder MR#: [id number] Acct: [id number] Name: SUMANTH ACOSTA Rep #: [id number] : 1970 F 49 From: Mauricio Alexander MD PCP: Lenora Sarah DO Status: REG CLI Study: Kidney and Bladder Date of Exam: 08/25/19 Exam# [id number] Ordering Dr: Alba Ricks MD STUDY: RENAL ULTRASOUND - COMPLETE REASON FOR EXAM: Female, 49 years old. Chronic, recurrent UTIs TECHNIQUE: Ultrasound evaluation of the kidneys was performed with real-time and static franklin-scale imaging. COMPARISON: None. FINDINGS: RIGHT KIDNEY: Normal location of the right kidney, which is normal in size. The right kidney measures 11.5 x 5.0 x 3.9 cm. There is a normal cortex of the right kidney. The renal cortex measures 1.6 cm. There is no right renal mass or cyst. There are no right renal calculi. There is an extra-renal pelvis of the right kidney. There is no distention of the renal calyces. DISTAL RIGHT URETER: There is non-visualization of the distal right ureter. There is no demonstrated right ureterovesical junction calculus. There is a visualized right ureteral jet. LEFT KIDNEY: Normal location of the left kidney, which is normal in size. The left kidney measures 11.2 x 5.2 x 5.6 cm. There is a normal cortex of the left kidney. The renal cortex measures 2.1 cm. There is no left renal mass or cyst. There are no left renal calculi. There is no left hydronephrosis. DISTAL LEFT URETER: There is non-visualization of the distal left ureter. There is no demonstrated left ureterovesical junction calculus. There is a visualized left ureteral jet. BLADDER: The distended urinary bladder has a volume of 240 ml. The empty urinary bladder has a volume of 33 ml. There is a normal wall thickness of the distended urinary bladder. There is no demonstrated mass within the urinary bladder. Low-level spectral foci of the urinary bladder. US/Kidney and Bladder IMPRESSION: 1. No hydronephrosis or shadowing calculi. 2. Urinary bladder luminal spectral foci to be related to infectious debris, hemorrhagic products or proteinaceous material. Electronically Signed: Mauricio Alexander MD (Brooks) at 9:07 EST , Service support , CC: Alba Ricks MD; Lenora Sarah DO Barrel Dedenting Machine Operator: Signed Alba Ricks Work Phone: Start: 08-05-2018 End: 08-05-2018 Cardiology Visit Report Comments: See Note; NOTES: [facility] [address] [place] [address]. [address] [place] [address] OFFICE VISIT Date of Service: 08/05/18 MR#: [id number] Acct: [id number] Name: SUMANTH ACOSTA Rep #: [id number] : 1970 Provider: BRANDON Zazueta Age/Sex: 48/F Location: [facility] Status: Signed HPI HPI Details: SUMANTH ACOSTA, is a 48 F who presents to the office today for a cardiovascular outpatient follow-up. She has a history of a asystolic event in March 2018. She presented to [facility] emergency department in March 2018 with a nausea/emesis induced syncopal episode. This was associated abdominal pain and chest pain. In the emergency department she received a GI cocktail that did not completely resolve symptoms. She also received morphine and Benadryl. She subsequently had marked sinus bradycardia and became asystolic. She required CPR of 20 compressions. Her cardiac enzymes were negative. Her EKG showed sinus rhythm with no acute ECG changes. Her echocardiogram showed ejection fraction of 60%. Her heart catheterization showed angiographically normal coronary arteries. There is no clear etiology for her a systolic event. She was discharged with a 30-day event monitor. This monitor showed sinus rhythm, sinus tachycardia, and PVCs. Pt denies chest, arm, jaw, or neck discomfort. His exercise tolerance is stable. Pt denies symptoms of CHF, palpitations, lightheadedness, dizziness, near syncopal or syncopal episodes. Pt denies edema or claudication issues. Pt. denies orthopnea, PND, fever, chills, blood in urine, blood in stool, myalgia, or unexplainable fatigue. She states an increase palpitations with caffeine intake. She states SOB when attempting to work out. 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 Required: No Accompanied by: none Is patient in pain?: No Allergies acetaminophen [From Percocet] Allergy (Verified 08/05/18 09:06) Itching oxycodone HCl [From Percocet] Allergy (Verified 08/05/18 09:06) Itching anesthesia Adverse Reaction (Uncoded 04/23/18 00:01) Other Medications NK 08/05/18 [History Confirmed 08/05/18] PFSH Medical History Palpitations (Chronic) Chest pain (Acute) Cardiac asystole (Resolved) Hypotension (Acute) Surgical History History of cholecystectomy (Resolved) S/P cardiac catheterization (Resolved 04/23/18) Social History Smoking Status: Never smoker alcohol intake: never substance use type: does not use ROS Const Const: Positive for fatigue; negative for body ache, fever(s), chills or weakness ENT ENT: Negative for dizziness Cardio Chest Pain: No Palpitations: Yes Edema: None Muscle aches with walking: None Resp Respiratory: Positive for SOB with activity; negative for SOB at rest, SOB orthopnea\SOB lying down or paroxysmal nocturnal dyspnea GI GI: Negative nausea, black,tarry stools, bright, red blood in stools or vomiting blood/hematemesis : Negative for hematuria or frequent nighttime urination/ nocturia Musc Musc: Negative for muscle aches/ myalgia Skin Skin: Negative non-healing lesions or rash Neuro Neuro: Negative for dizziness, lightheadedness, near syncope, syncope, orthostatic symptoms or weakness Endo Endo: Positive for fatigue Allergy Allergy/Immunology: Negative for rash Cardiology Exam Const Appearance: cooperative, healthy appearing, comfortable and no acute distress Nutritional Appearance: average body habitus and well nourished Orientation: alert, awake and oriented x3 Head Head: normal to inspection Ears: hearing grossly normal bilaterally Nose: external nose normal Face and Sinus: face symmetric Mouth: oral mucosae normal Eyes General: appearance normal, both eyes and all related structures Eyelids: eyelids normal EOM: EOM intact bilaterally Neck Neck: no JVD and normal visual inspection Carotids: normal carotid upstroke Chest Chest inspection: normal inspection of the chest and normal respiratory effort; negative cough Auscultation: Bilateral: Clear to Auscultation Cardio Rate: regular rate Rhythm: regular rhythm Heart sounds: S1 normal and S2 normal; negative rub, gallop or murmur GI GI: normal to inspection Neuro General: alert, awake, oriented x3 and CN's II-XI intact bilaterally Skin Skin: no rashes or lesions noted Extremities Pulses: Normal: Right Posterior Tibial Pulse, Left Posterior Tibial Pulse, Right Radial Pulse, Left Radial Pulse Lower Extremity Edema: None: Bilateral Psych Psychological: normal affect Supplemental Info Echocardiogram from March 2018 showed ejection fraction of 60%, borderline enlarged right ventricle, trivial mitral valve insufficiency, mild to moderate tricuspid valve insufficiency, trivial pericardial effusion, no echocardiographic indication of cardiac tamponade, RVSP of 22 mmHg, and normal diastology or age. Heart catheterization from March 2018 showed ejection fraction of 65%, normal LVEDP, left main as angiographically normal, LAD as angiographically normal, LCx as angiographically normal, RCA as angiographically normal, normal aortic valve function, normal mitral valve function, and possible aortic root dilation. CTA of chest in March 2018 was negative for aortic dissection or pulmonary emboli. Assessment AND Plan 1. Cardiac asystole I46.9 Plan The exact etiology of this remains unclear. Since this event in March 2018 her energy level has not been to baseline and her overall activity has not returned to baseline. Her blood pressure and heart rate remains well controlled. Her echocardiogram showed an ejection fraction of 60% and her heart catheterization showed angiographically normal coronary arteries. She was asked to slowly increase her activity level in hopes of improving her energy and evaluated functional capacity. 2. Palpitations R00.2 Plan Her palpitations noted on 30-day event monitor correlated with PVCs. These were very few episodes. At this time we will continue to monitor. She was asked to contact office if she notices an increase in overall frequency or worsening secondary symptoms. She was also asked to limit her overall caffeine intake. Plan Detail Additional Comments Thank you for allowing us to participate in the patient's plan of care, if you have any questions please do not hesitate to call. This note was generated using a voice recognition system and there may be incorrect words, spelling, or punctuation that were not noted upon reviewing the office note prior to saving. Follow Up 12 Months (PFM) Coding Level of Care Code Off vis,est,level 3 Diagnoses Cardiac asystole I46.9 Palpitations R00.2 Coding Level of Care Code Off vis,est,level 3 Diagnoses Cardiac asystole I46.9 Palpitations R00.2 08/05/18 1606 <Electronically signed by Mahesh PEREZ> Date Mahesh PEREZ Cosigner Signature: Date (if applicable) CC: Lenora Escobar Start: 04-23-2018 End: 04-23-2018 History and Physical Exam Comments: See Note; NOTES: [facility] Medical Records Department [address] [place] [address] History and Physical 04/23/18 0136 MR#: [id number] Acct: [id number] Name: SUMANTH ACOSTA Rep #: [id number] : 1970 48 From: Raffi Rosales MD PCP: Lenora Sarah DO Status: REG ER Y Location: ED Problem List (1) Chest pain Status: Acute Qualifiers: Chest pain type: unspecified Qualified Code(s): R07.9 - Chest pain, unspecified History of Present Illness Date of Admission: 04/23/18 Chief Complaint: chest pain The patient is a 48 year old female patient who presented with chest pain that began yesterday. She complained of burning and indigestion in her chest that radiated up to her throat. She has no previous cardiac history nor risk factors. Initial troponin was negative and a GI cocktail was administered with the thought of GI etiology. Her pain in the esophagus/chest pain became worse so she received 4mg of morphine for her pain. She started to develop some hives as well and Benadryl was given. Soon thereafter she was in asystole. Rashid lainez team was called in the ER. She received chest compressions x 20 and a pulse was obtained. She had a heart rate of 20-30 and was given atropine and her heart rate returned to within normal limits. She received a dose of Narcan as well. It was thought that she responded strongly to the narcotics. She is now tired but denies chest pain. She will be admitted to the ICU overnight for continued monitoring following rashid lainez team and intervention. Past Medical History Allergies acetaminophen [From Percocet] Allergy (Verified 04/23/18 00:01) Itching oxycodone HCl [From Percocet] Allergy (Verified 04/23/18 00:01) Itching anesthesia Adverse Reaction (Uncoded 04/23/18 00:01) Other became very sick after previous surgeries pt does not know what kind of anesthetic was used Home Medications: Ambulatory Orders Medication Instructions Recorded Famotidine [Pepcid] 20 mg PO BID #28 tab 04/22/18 Surgical History: cholecystectomy Smoking Status: Never smoker - *Family History Maternal History Items: No pertinent history Review of Systems Constitutional: Denies: Chills, Fever, Weight Change HEENT: Denies: Head Aches, Sinus Congestion, Sinus Drainage Cardiovascular: Reports: Chest Pain. Denies: Palpitations Respiratory: Denies: Cough, Shortness of breath at rest, Sputum production Gastrointestinal: Denies: Abdominal Pain, Nausea, Vomiting Genitourinary: Denies: Dysuria Musculoskeletal: Denies: Joint Pain, Joint Tenderness Skin: Denies: Rash, Wounds Neurological: Denies: Numbness, Tingling, Focal weakness Psychiatric: Denies: Anxiety, Depression, Homicidal Ideations, Suicidal Ideations Hematologic/ Lymphatic: Denies: Easy Bruising, Easy Bleeding VTE Information - Inpt Only VTE Present on Admission: No VTE Mechan Device Prophylaxis: None VTE Pharm Prophylaxis ordered?: Yes Patient Problems: Active and Suspected Problems Chest pain (Acute) - Physical Exam General: Alert, Oriented x3, Cooperative HEENT: Atraumatic, Normocephalic Neck: Supple, No JVD, Negative Carotid Bruits Lungs: Clear to auscultation, Normal air movement, No rhonchi, No wheeze, No rales Cardiovascular: Regular rate, Regular Rhythm, Normal S1, Normal S2, No murmurs Abdomen: Bowel Sounds Present, Soft, Non Tender Extremities: No edema Skin: No breakdown Musculoskeletal: No Tenderness to Palpation of Joints or Extremities Neurological: Neuro grossly intact Psych/Mental Status: Normal Affect, Appropriate Vital Signs Temp Pulse Resp BP Pulse Ox 97.1 F L 69 16 103/66 99 04/22/18 21:31 04/23/18 01:23 04/23/18 01:23 04/23/18 01:23 04/23/18 01:23 Oxygen Flow Rate (L/min) 2 Oxygen Delivery Method Nasal Cannula Weight: 142 lb 6.698 oz Body Mass Index (BMI) 21.9 Laboratory Tests Past 24 Hrs Assessment/Plan All Active Problems Chest pain (Acute) Plan - admit to ICU - consult ICU physician - cycle cardiac enzymes - toradol 15mg iv q 6hrs prn pain, asa and oxygen per protocol - may consider stress test in future but sumi will continue to monitor her recovery - cbc, bmp in am - LMWH for DVT prophylaxis Code Visit Inpatient E AND M: 44691 Init Hosp L3 04/23/18 0145 <Electronically signed by Raffi Rosales MD> Date Raffi Rosales MD Cosigner Signature: Date (if applicable) CC: Lenora Sarah DO; Raffi Rosales MD Signed Lenora Sarah Start: 04-23-2018 End: 04-23-2018 CTA Chest W/WO Contrast Comments: See Note; NOTES: [facility] Imaging Services [address] [place] [address] CTA Chest W/WO Contrast MR#: [id number] Acct: [id number] Name: SUMANTH ACOSTA Rep #: [id number] : 1970 F 48 From: Anju Burt MD PCP: Lenora Sarah DO Status: REG ER Study: CTA Chest W/WO Contrast Date of Exam: 04/23/18 Exam# [id number] Ordering Dr: Tyshawn Ivey MD STUDY: CTA CHEST REASON FOR EXAM: Female, 48 years old. Chest pain and shortness of breath RADIATION DOSAGE (If Supplied By Facility): CTDIvol = ( 9.35 ) mGy, DLP = ( 392.95 ) mGycm TECHNIQUE: The examination was performed with the intravenous administration of 75ML ml of Isovue 370 contrast material. Post-processing of the angiographic images was performed, with multiplanar reformation and 3D reconstruction. Individualized dose optimization techniques were used for this CT. COMPARISON: April 22, 2018 chest x-ray FINDINGS: Normal enhancement of the main pulmonary artery and right and left pulmonary arteries. Normal enhancement of the bilateral peripheral pulmonary arteries. There is no demonstrated pulmonary embolism. The aorta has a anterior arch bulge/outpouching seen on image #164 /301 series #602 sagittal views which is most suggestive of a ductus diverticulum. There is no demonstrated aortic dissection. Normal heart and pericardium. Normal mediastinum. Normal hilar regions. Normal visualized trachea and bronchi. There is a hyperinflated appearance of the lungs without focal consolidation pleural effusion or pulmonary edema. Normal pulmonary parenchyma. Normal pleura. Normal chest wall structures. There are degenerative changes of thoracic spine. Normal visualized upper abdomen. CT/CTA Chest W/WO Contrast IMPRESSION: No evidence of pulmonary embolism. No evidence of focal infiltrate. Ductus diverticulum of the aorta. Electronically Signed: Anju Burt MD at 1:22 EDT Tel , Service support , CC: Lenora Sarah DO; Tyshawn Ivey MD Barrel Dedenting Machine Operator: Signed Lenora Sarah Start: 04-22-2018 End: 04-22-2018 Chest 1 View (Portable) Comments: See Note; NOTES: [facility] Imaging Services [address] [place] [address] Chest 1 View (Portable) MR#: [id number] Acct: [id number] Name: SUMANTH ACOSTA Rep #: [id number] : 1970 F 48 From: Hernandez Mckeon MD PCP: Lenora Sarah DO Status: REG ER Study: Chest 1 View (Portable) Date of Exam: 04/22/18 Exam# [id number] Ordering Dr: Tyshawn Ivey MD STUDY: X-RAY CHEST REASON FOR EXAM: Female, 48 years old. Chest pain TECHNIQUE: AP COMPARISON: January 08, 2017 FINDINGS: The lungs are clear and expanded. There is no demonstrated pleural abnormality. Normal size heart. Normal mediastinum and patrick. Normal visualized pulmonary arteries. Normal visualized aortic arch and descending thoracic aorta. Normal visualized thoracic spine. Normal visualized ribs, clavicles, and shoulders. There is no demonstrated abnormality of the visualized soft tissue structures of the upper abdomen. RAD/Chest 1 View (Portable) IMPRESSION: Normal x-ray examination of the chest. Electronically Signed: Hernandez Mckeon MD at 22:29 EDT , Service support , CC: Lenora Sarah DO; Tyshawn Ivey MD Barrel Dedenting Machine Operator: Signed Lenora Sarah Start: 01-14-2017 End: 01-14-2017 Emergency Department Summary Comments: See Note; NOTES: [facility] Medical Records Department [address] [place] [address] Emergency Department Summary MR#: [id number] Acct: [id number] Name: SUMANTH ACOSTA Rep #: [id number] : 1970 46 From: Tanner Sue MD PCP: Lenora Sarah DO Status: [facility] ER DATE OF SERVICE: 01/08/2017 CHIEF COMPLAINT: Back pain. HISTORY OF PRESENT ILLNESS: A 46-year-old female started having urinary symptoms consistent with a bladder infection about 5 days ago, followed by a fever up to 103 that night, although she has had none of those since. She was prescribed Macrobid that was only able to keep 2 of them down total because she began vomiting and that has become worse. Since vomiting she has developed some epigastric discomfort as well. She has also developed pain across her low back bilaterally, but when she was in the office today, seen her PCP for this issue, according to the patient and PCP, with superficial palpation of the left paraspinal lumbar area, she had severe pain and spasms, seemingly of the musculature there, although the patient states at this time things have calmed down and generally speaking her low back pain does not get worse when she sits up or moves around. She denies any bowel or bladder dysfunction or radiation down into her legs or saddle anesthesia. She was sent to the ER by squad for further evaluation. She states that she also had little trouble breathing here and there. PAST MEDICAL HISTORY: Kidney failure when I was 17 and , lumbar disk disease. PAST SURGICAL HISTORY: Cholecystectomy, back surgery. PHYSICAL EXAMINATION: GENERAL: On exam, she is in no acute distress. VITAL SIGNS: She is afebrile and her vital signs are otherwise normal with a pulse of 69, pulse ox on room air 99%, blood pressure 103/70. NECK: No JVD. LUNGS: She has clear lungs throughout, no splinting on deep inspiration and no chest wall tenderness. HEART: Regular. No tachycardia, no murmurs. ABDOMEN: Tender in the epigastrium. There is no guarding or rebound tenderness. The rest of her abdominal exam is normal with no distention, no masses palpable and normal bowel sounds. She does have tenderness in the left CVA. SKIN: No rashes or skin abnormalities. MUSCULOSKELETAL: No spinal bony tenderness. She is able to sit up without difficulty. Neurologically intact throughout both lower extremities and throughout otherwise. She is little anxious, but otherwise her exam is unremarkable. EMERGENCY DEPARTMENT COURSE: Chest x-ray is normal. EKG seen prehospital, this was done to a presyncopal symptoms in relation to the severe pain she was having in the office. It is normal. This was not felt needed to be repeated. Her urinalysis shows nitrite positive and 25 leukocyte esterase, although there was no pyuria or epithelial cells, 4+ bacteria were seen. CT of the abdomen and pelvis shows no acute abnormalities, this was without contrast. Initially, she declined analgesics, she was given Zofran. She has some transient improvement, but then had more nausea, she was then given Reglan 5 mg. Her potassium is 3.3, otherwise her labs are only remarkable for slight liver enzyme elevations, AST 46, ALT 167 and alkaline phosphatase 207. These are very mild and without any hyperbilirubinemia. I did review surgical summary from July 2013, showing a couple of liver biopsies that showed nonspecific chronic inflammation and reactive changes along with chronic cholecystitis of the gallbladder. These were performed when her gallbladder appearance surgically did not appear consistent with her elevated liver enzymes at that time. She states that her doctor is following liver enzymes, although she has not had them drawn in over a year and these are not severely elevated and probably in my opinion not related to these symptoms, which I think are more likely to be pyelonephritis. That would explain why the Macrobid may not have helped, if she developed it prior to starting that. She is stable clinically and hemodynamically here. While awaiting callback from her doctor to coordinator her care, she is getting IV potassium in case her hypokalemia contributed to muscle spasms and pain in her back as well as IV Rocephin and she will be discharged on a prescription for Macrobid for 14 days and p.r.n. Phenergan and she will be advised to follow up closely with her doctor. If there was no culture performed in the office I will add one to the urinalysis here. IMPRESSION: 1. Pyelonephritis. 2. Hypokalemia secondary to loss from vomiting. 3. Elevated liver enzymes. DISPOSITION: Home. CONDITION: Stable and improved. Tanner Espino: Lenora Sarah DO T: SUSANA JOB: [id number] 01/14/17 7271 <Electronically signed by Tanner Sue MD> Date Tanner Sue MD Cosigner Signature (If Indicated): Date ___ CC: Lenora Sarah DO Date Dictated: 01/08/171656 Date Transcribed: 01/08/171656 Barrel Dedenting Machine Operator: Signed Lenora Sarah Start: 01-08-2017 End: 01-08-2017 Discharge Instruction Comments: See Note; NOTES: [facility] Medical Records Department [address] [facility] [place] [address] Discharge Instruction 01/08/17 1640 MR#: [id number] Acct: [id number] Name: SUMANTH ACOSTA Rep #: [id number] : 1970 46 From: Tanner Sue MD PCP: Lenora Sarah DO Status: REG ER ED Disposition - Plan for ED Patient: Disposition: Home or Assisted Living Chief Complaint: Syncope Instructions: ED Kidney Infec Female Prescriptions: ProMETHAzine [Phenergan] 25 mg PO Q6H PRN PRN #20 tablet PRN Reason: Nausea Smz/Tmp Ds [Bactrim Ds] 1 tablet PO BID #14 tablet Referrals: Lenora Sarah DO [Primary Care Provider] - 3-5 Days What to do if you have Problems For any increased pain, shortness of breath, bleeding, nausea or vomiting, chest pain, or any unexpected problems, contact your Primary Care Provider. Call [facility] ([phone]) or report to the closest Emergency Room. Call 911 if necessary. 01/08/17 901 <Electronically signed by Tanner Sue MD> Date Tanner Sue MD Cosigner Signature (If Indicated): Date CC: Lenora Escobar Start: 01-08-2017 End: 01-08-2017 Chest PA and Lateral Comments: See Note; NOTES: [facility] Imaging Services [address] [place] [address] Verdana 4d Chest PA and Lateral MR#: [id number] Acct: [id number] Name: SUMANTH ACOSTA Rep #: [id number] : 1970 F 46 From: Wiliam Reynaga MD PCP: Lenora Sarah DO Status: REG ER Study: Chest PA and Lateral Date of Exam: 01/08/17 Exam# [id number] Ordering Dr: Tanner Sue MD STUDY: X-RAY CHEST REASON FOR EXAM: Female, 46 years old. Syncopal episodes. Shortness of breath. TECHNIQUE: PA and lateral views of the chest. COMPARISON: Comparison is made with prior study dated July 10, 2012. FINDINGS: The lungs are clear and expanded. There is no demonstrated pleural abnormality. Normal size heart. Normal mediastinum and patrick. Normal visualized pulmonary arteries. Normal visualized aortic arch and descending thoracic aorta. Normal visualized thoracic spine. Normal visualized ribs, clavicles, and shoulders. There is no demonstrated abnormality of the visualized soft tissue structures of the upper abdomen. RAD/Chest PA and Lateral IMPRESSION: Normal x-ray examination of the chest. Electronically Signed: Wiliam Reynaga MD at 13:42 EDT Tel [phone], Service support [phone], CC: TANNER SUE MD; Lenora Sarah DO Barrel Dedenting Machine Operator: Signed Lenora Sarah Start: 01-08-2017 End: 01-08-2017 Abdomen/Pelvis without Cont Comments: See Note; NOTES: [facility] Imaging Services [address] [place] [address] Verdana 4d Abdomen/Pelvis without Cont MR#: [id number] Acct: [id number] Name: SUMANTH ACOSTA Rep #: [id number] : 1970 F 46 From: Wiliam Reynaga MD PCP: Lenora Sarah DO Status: [facility] ER Study: Abdomen/Pelvis without Cont Date of Exam: 01/08/17 Exam# [id number] Ordering Dr: Tanner Sue MD STUDY: CT ABDOMEN AND PELVIS WITHOUT CONTRAST REASON FOR EXAM: Female, 46 years old. Fever, nausea and UTIs. Back pain. RADIATION DOSAGE (If Supplied By Facility): CTDIvol = ( 7.37 ) mGy, DLP = ( 362.53 ) mGycm TECHNIQUE: Transaxial images were obtained from the dome of the diaphragm to the symphysis pubis without oral contrast, and without intravenous contrast. Sagittal and coronal images were reconstructed. Individualized dose optimization techniques were used for this CT. COMPARISON: Comparison is made with prior study dated October 09, 2014. FINDINGS: Minimal increased linear markings at the lung bases suggestive of atelectasis. The visualized portions of the heart are within normal limits. Normal liver. There are surgical clips in the gallbladder fossa consistent with a prior cholecystectomy. Normal spleen. Normal pancreas. Normal bilateral adrenal glands. Normal right kidney. Normal left kidney. Normal visualized stomach. Normal small intestine. Normal colon. The appendix is visualized and appears normal. There is scattered atherosclerotic calcification of the abdominal aorta, without a demonstrated aneurysm. Normal inferior vena cava. Normal retroperitoneum. Normal urinary bladder. Retroverted uterus. Normal abdominal wall. There is straightening of the normal lumbar lordosis. Disc space narrowing at the L5-S1 level. CT/Abdomen/Pelvis without Cont IMPRESSION: Normal unenhanced CT of the abdomen and pelvis. Electronically Signed: Wiliam Reynaga MD at 13:28 EDT Tel [phone], Service support [phone], CC: TANNER SUE MD; Lenora Sarah DO Barrel Dedenting Machine Operator: Signed Lenora Sarah Start: 01-12-2015 End: 01-12-2015 Emergency Department Summary Comments: See Note; NOTES: [facility] Medical Records Department [address] [place] [address] Emergency Department Summary MR#: [id number] Acct: [id number] Name: SUMANTH ACOSTA Rep #: [id number] : 1970 44 From: Gus Anaya MD PCP: Lenora Sarah DO Status: DEP ER DATE OF SERVICE: 01/12/2015 HISTORY OF PRESENT ILLNESS: A 44-year-old female who presents with acute onset of severe back pain. She had an MRI in October 2014, which revealed a broad-based foraminal protrusion L5-S1 with mild left foraminal stenosis unchanged from prior exam performed in 2007. She reports epidural injection by Dr. Meza approximately a month ago with significant improvement. She had multiple injections this past Sunday. She states Sunday the pain was severe with tingling, burning sensation down to her posterior aspect of her left lower extremity to her toes. She states she was unable to sit, preferred to stand. She denies any bowel or bladder dysfunction. She denies saddle paresthesia or anesthesia. She denies footdrop. She denies quadriceps weakness going up and down steps. She reports no improvement with any type of medication. PHYSICAL EXAMINATION: VITAL SIGNS: Noted. HEENT, NECK, CARDIAC, RESPIRATORY AND ABDOMEN: Normal. PELVIS: Nontender. MUSCULOSKELETAL: Straight leg test is positive on the right at 45 degrees with positive crossover test. DTRs at the patella and ankle are 1+. EHL is intact. The patient able to walk on heels and toes. Squatting causes her significant discomfort on the left side and unable to do. DP, PT pulses are palpable. EMERGENCY DEPARTMENT COURSE: The patient was initially medicated with 4 mg of Zofran IV push, 30 mg of Toradol IV push, 4 mg of morphine IV push and 2 mg of Valium. MRI was ordered because of new symptoms and concern for acute herniated disk. The MRI reveals a central canal and severe left lateral recess stenosis at L5-S1 secondary to a large left paracentral disk protrusion and facet arthropathy. There is a new minimal annular bulge at L4-L5 without significant spinal stenosis. The patient required additional dose of morphine and Valium. She was discharged with prescription for morphine, Valium and Toradol. IMPRESSION: Acute low back pain secondary to L5-S1 herniation with severe left lateral recess stenosis at L5-S1. PLAN: Case was discussed with Dr. Gordon. He requested the patient call tomorrow to be seen tomorrow. She did receive a dose of Decadron. MD Kenzie Jacobs C: Yahir Escobar DO T: [facility] JOB: [id number] 01/12/15 2214 <Electronically signed by Gus Anaya MD> Date Gus Anaya MD CC: Tu Meza; Yahir Gordon MD; Lenora Sarah DO Date Dictated: 01/12/152009 Date Transcribed: 01/12/152009 Barrel Dedenting Machine Operator: Signed Lenora Sarah Start: 01-12-2015 End: 01-12-2015 Discharge Instruction Comments: See Note; NOTES: [facility] Medical Records Department [address] [place] [address] Discharge Instruction 01/12/152002 MR#: [id number] Acct: [id number] Name: SUMANTH ACOSTA Jairo Rep #: [id number] : 1970 44 From: Gus Anaya MD PCP: Lenora Sarah DO Status: REG ER ED Disposition - Plan for ED Patient: Chief Complaint: Back Instructions: ED Herniated Intervertebral Disk, Understanding Sciatica Prescriptions: Morphine [Morphine IR] 15 mg PO Q4H PRN PRN #30 tablet PRN Reason: severe back pain Ketorolac [Toradol] 10 mg PO Q6H #20 tablet Diazepam [Valium] 2 mg PO TID #10 tablet Referrals: Lenora Sarah DO [Primary Care Provider] - Yahir Gordon MD [STAFF PHYSICIAN] - 01/13/15 What to do if you have Problems For any increased pain, shortness of breath, bleeding, nausea or vomiting, chest pain, or any unexpected problems, contact your doctor. Call [facility] ) or report to the closest Emergency Room. Call 911 if necessary. 01/12/152005 <Electronically signed by Gus Anaya MD> Date Gus Anaya MD Cosigner Signature (If Indicated): Date CC: Lenora Escobar Start: 01-12-2015 End: 01-12-2015 Spine Lumbar (Routine) Comments: See Note; NOTES: [facility] Imaging Services [address] [place] [address] MRI Report MR#: [id number] Acct: [id number] Name: SUMANTH ACOSTA Rep #: [id number] : 1970 F 44 From: Hernandez Mckeon MD PCP: Lenora Sarah DO Status: REG ER Study: Spine Lumbar (Routine) Date of Exam: 01/12/15 Exam# [id number] Ordering Dr: Gus Anaya MD STUDY: MRI LUMBAR SPINE WITHOUT CONTRAST REASON FOR EXAM: Female, 44 years old. Back pain radiating to left leg TECHNIQUE: Standardized fat and water weighted pulse sequences were obtained in the sagittal and axial planes. COMPARISON: October 21, 2014 FINDINGS: T12-L1: Normal endplates. Normal disc height, hydration and morphology. Normal bilateral facet joints. Normal central canal and bilateral lateral recesses. Normal bilateral intervertebral neural foramina. Normal lumbar lordosis. There is mild scoliosis. Normal conus medullaris L1-2: Normal endplates. Normal disc height, hydration and morphology. Normal bilateral facet joints. Normal central canal and bilateral lateral recesses. Normal bilateral intervertebral neural foramina. L2-3: Normal endplates. Normal disc height, hydration and morphology. Normal bilateral facet joints. Normal central canal and bilateral lateral recesses. Normal bilateral intervertebral neural foramina. L3-4: Normal endplates. Normal disc height, hydration and morphology. Normal bilateral facet joints. Normal central canal and bilateral lateral recesses. Normal bilateral intervertebral neural foramina. L4-5: Normal endplates. Normal disc height, hydration and minimal annular bulge. Normal bilateral facet joints. Normal central canal and bilateral lateral recesses. Normal bilateral intervertebral neural foramina. L5-S1: Normal endplates. Narrowed disc space with desiccation of the disc demonstrating mild annular bulge and large broad-based left paracentral/posterolateral disc protrusion. Bilateral facet arthropathy. There is mild narrowing of central canal and severe left lateral recess stenosis. Minor bilateral neural foraminal encroachment Normal visualized sacral ala. 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 Normal visualized paraspinous soft tissue structures. The disc protrusion at L5-S1 has increased in size and there is increased spinal stenosis is prior study IMPRESSION: Central canal and severe left lateral recess stenosis at L5-S1 secondary to large left paracentral/posterolateral disc protrusion and facet arthropathy Minimal annular bulge at L4-5 without significant spinal stenosis Electronically Signed: Hernandez Mckeon MD at 18:23 EDT , Service support [phone], CC: Lenora Sarah DO; Gus Anaya MD Barrel Dedenting Machine Operator: Signed Lenora Sarah Start: 10-21-2014 End: 10-21-2014 Spine Lumbar (Routine) Comments: See Note; NOTES: [facility] Imaging Services [address] [place] [address] MRI Report MR#: [id number] Acct: [id number] Name: SUMANTH ACOSTA Rep #: [id number] : 1970 F 44 From: Mati Crawford MD PCP: Lenora Sarah DO [facility] Study: Spine Lumbar (Routine) Date of Exam: 10/21/14 Exam# [id number] Ordering Dr: Nereyda Iyer STUDY: MRI LUMBAR SPINE WITHOUT CONTRAST REASON FOR EXAM: Female, 44 years old with back pain radiation to the left leg. TECHNIQUE: Standardized fat and water weighted pulse sequences were obtained in the sagittal and axial planes. COMPARISON: Prior MRI of lumbar spine 12/23/07 FINDINGS: T12-L1: Normal endplates. Normal disc height, hydration and morphology. Normal bilateral facet joints. Normal central canal and bilateral lateral recesses. Normal bilateral intervertebral neural foramina. Normal lumbar lordosis. There is no substantial scoliosis. Normal conus medullaris that terminates at the L1-2: Normal endplates. Normal disc height, hydration and morphology. Normal bilateral facet joints. Normal central canal and bilateral lateral recesses. Normal bilateral intervertebral neural foramina. L2-3: Normal endplates. Normal disc height, hydration and morphology. Normal bilateral facet joints. Normal central canal and bilateral lateral recesses. Normal bilateral intervertebral neural foramina. L3-4: Normal endplates. Normal disc height, hydration and morphology. Normal bilateral facet joints. Normal central canal and bilateral lateral recesses. Normal bilateral intervertebral neural foramina. L4-5: Normal endplates. Normal disc height, hydration and morphology. Normal bilateral facet joints. Normal central canal and bilateral lateral recesses. Normal bilateral intervertebral neural foramina. L5-S1: There is disc desiccation and decrease in disc height. There is broad-based foraminal protrusion and bilateral facet arthrosis . Normal central canal and mild left foraminal stenosis, unchanged as compared to prior study. Normal visualized sacral ala. Normal visualized paraspinous soft tissue structures. IMPRESSION: Broad-based foraminal protrusion L5-S1 with mild left foraminal stenosis, unchanged as compared to prior exam. Electronically Signed: Mati Crawford MD at 22:16 EST Tel , Service support [phone], CC: Nereyda Iyer; Lenora Sarah DO Barrel Dedenting Machine Operator: Signed Theodora Jaylon Work Phone: Start: 10-10-2014 End: 10-10-2014 Discharge Instruction Comments: See Note; NOTES: [facility] Medical Records Department [address] [facility] [place] [address] Discharge Instruction 10/09/14 1759 MR#: [id number] Acct: [id number] Name: SUMANTH ACOSTA Rep #: [id number] : 1970 44 From: Epi Pascual MD PCP: Lenora Sarah DO Status: DEP ER ED Disposition - Plan for ED Patient: Chief Complaint: Back Instructions: ED Abdominal Pain, Unknown Cause, (Female) Prescriptions: Oxycodone HCl/Acetaminophen [Percocet 5/325] 1 - 2 tablet PO Q4H PRN PRN #20 tablet PRN Reason: Pain Referrals: Lenora Sarah DO [Primary Care Provider] - 1-2 Days if not improving Katina Rios MD [STAFF PHYSICIAN] - What to do if you have Problems For any increased pain, shortness of breath, bleeding, nausea or vomiting, chest pain, or any unexpected problems, contact your doctor. Call [facility] ) or report to the closest Emergency Room. Call 911 if necessary. 10/10/14 2906 <Electronically signed by Epi Pascual MD> Date Epi Pascual MD Cosigner Signature (If Indicated): Date CC: Lenora Escobar Start: 10-10-2014 End: 10-10-2014 Emergency Department Summary Comments: See Note; NOTES: [facility] [facility] Medical Records Department [address] [place] [address] Emergency Department Summary MR#: [id number] Acct: [id number] Name: SUMANTH ACOSTA Rep #: [id number] : 1970 44 From: Epi Pascual MD PCP: Lenora Sarah DO Status: [facility] ER DATE OF SERVICE: 10/09/2014 METHOD OF ARRIVAL: Private car. CHIEF COMPLAINT: Back pain. HISTORY OF PRESENT ILLNESS: A 44-year-old female patient of Dr. Sarah, who reports she has low back pain that began 3 weeks ago, but it has been much worse since yesterday. It is a sharp pain, radiates down the back of her left leg to the level of her ankle, but now radiates around the right side of her lower abdomen and is worsened by lifting her right leg or sitting. The patient is unable to find a comfortable position. The patient denies any problems with her bowels or bladder, any numbness or weakness in her arms or her legs, any numbness in her groin. PHYSICAL EXAMINATION: GENERAL: Reveals alert woman in no acute distress. VITAL SIGNS: 98.1, 99/71, 110 and 24. BACK: Significant physical exam findings includes the exam of her back, which shows her to have moderate diffuse tenderness to palpation over the lumbar spine and paraspinous musculature in the lumbar region bilaterally. She has a negative straight leg raise bilaterally. She has 5/5 dorsiflexion, plantar flexion, extensor hallucis longus bilaterally and normal sensation to light touch throughout. ABDOMEN: Abdominal exam shows her to have severe tenderness to palpation in the right lower quadrant. Abdomen is soft and nontender otherwise, nondistended. No guarding or rebound. The remainder of the physical exam is unremarkable. TEST RESULTS: The patient had a CT of the abdomen and pelvis that shows a normal appendix without stones and she had a CBC that is remarkable for a hemoglobin of 15.9, segmented neutrophils of 40, lymphocytes of 45. Chem-7 that is remarkable for a sodium of 135. UA that is remarkable for nitrites. This was sent for culture. She had negative test. EMERGENCY DEPARTMENT COURSE: The patient was treated with morphine and Zofran IV. She is resting comfortably. TREATMENT PLAN: The patient will be discharged with Percocet, Zofran and instructed to follow up with Dr. Sarah. She has also asked for a referral to another physician. She is given the name of Dr. Rios, who is next on list for no doc, in a week for another exam. DISPOSITION: Home, stable condition. IMPRESSION: 1. Abdominal pain, uncertain cause. 2. Low back pain. MD Kenzie Martinez C: Katina Sarah DO T: NTS JOB: [id number] 10/10/14 2254 <Electronically signed by Epi Pascual MD> Date Epi Pascual MD CC: Katina Rios MD; Lenora Sarah DO Date Dictated: 10/10/14 1553 Date Transcribed: 10/10/141552 Bar[employer] Dedenting Machine Operator: Signed Lenora Sarah Start: 10-10-2014 End: 10-10-2014 Emergency Department Summary Comments: See Note; NOTES: [facility] Medical Records Department [address] [place] [address] Emergency Department Summary MR#: [id number] Acct: [id number] Name: SUMANTH ACOSTA Rep #: [id number] : 1970 44 From: Shweta Stratton DO PCP: Lenora Sarah DO Status: [facility] ER DATE OF SERVICE: 10/08/2014 CHIEF COMPLAINT: Back pain. HISTORY OF CHIEF COMPLAINT: A 44-year-old female with back pain that she has had ongoing now for about 4 weeks. Denies any injury, but she does work out frequently. She states she had similar back pain about 2 years ago at which time, she was found to have a herniated disk on MRI. She had spinal injections at that time that helped with her pain and subsequently was scheduled to have back surgery. However, just prior her back surgery, she states that she woke up one morning and her pain resolved, therefore she never followed through with the back surgery and had been doing relatively well. The patient states today the pain was severe and had a hard time getting out of bed. She complains of some numbness to her left leg , but no real pains shooting down the left leg. Denies any weakness in the extremities. She denies any change in bowel or bladder function. Denies any saddle anesthesia. PAST MEDICAL HISTORY: None. PAST SURGICAL HISTORY: None other than knee epidural injections. PRIMARY CARE PHYSICIAN: Dr. Sarah. MEDICATIONS: The patient did take ibuprofen at home. ALLERGIES: QUESTIONABLE ALLERGY TO ANESTHESIA. SOCIAL HISTORY: The patient does not smoke, drinks alcohol occasionally. Denies any illicit drug use. PHYSICAL EXAMINATION: VITAL SIGNS: On presentation, blood pressure 102/67, temperature 97.8, heart rate 88 and respirations 16. GENERAL APPEARANCE: She is awake, alert, in no acute distress. She is nontoxic appearing. HEENT: She is normocephalic, atraumatic. Pupils equal, reactive to light. TMs are clear. NECK: Supple, mucous membranes moist. CARDIOVASCULAR: Heart is regular rate and rhythm. LUNGS: Clear. No rales or wheezes. ABDOMEN: Soft, nontender. No rebound, rigidity or peritoneal signs. EXTREMITIES: Intact x4. MUSCULOSKELETAL: Evaluation of her back reveals some tenderness to palpation over the low lumbar paraspinal musculature, mostly on the left. She has got positive straight leg raise on the left with pain at about 30 degrees. Deep tendon reflexes are hyporeflexic at both patella at 3/4, Achilles +2/4 and she has had normal L5 extension, normal sensation to light touch to both lower extremities. She ambulates in the department without any difficulty. Exam otherwise unremarkable. EMERGENCY DEPARTMENT COURSE: The patient was medicated with Dilaudid, Zofran here. She did take 800 mg of Motrin prior to coming in, therefore no NSAID was given. The patient at this point is requesting to go home. I did discuss case with Dr. Sarah and recommended a close followup with Dr. Sarah. I do not feel any imaging is warranted at this point. She has really had no trauma and I do not feel x-rays would be helpful in this instance. I did recommend that if her pain or symptoms worsen to return to the Emergency Department or follow up with Dr. Sarah for possible outpatient MRI to evaluate further. She will be discharged to home with diagnosis of lumbar radiculopathy/sciatica. Instructed to return if worsening pain, weakness in the extremities, change in bowel or bladder function, saddle anesthesia or condition worsens in any way. DISPOSITION: The patient discharged to home in stable condition. Shweta Stratton DO T: NTS JOB: [id number] 10/10/14 1722 <Electronically signed by Shweta Stratton DO> Date Shweta Stratton DO CC: Lenora Sarah DO Date Dictated: 10/08/14905 Date Transcribed: 10/08/14905 Bar[employer] Dedenting Machine Operator: Signed Lenora Sarah Start: 10-09-2014 End: 10-09-2014 Transvaginal Non- Comments: See Note; NOTES: [facility] Imaging Services [address] [place] [address] Ultrasound Report MR#: [id number] Acct: [id number] Name: SUMANTH ACOSTA Rep #: [id number] : 1970 F 44 From: Hernandez Mckeon MD PCP: Lenora Sarah DO Status: [facility] ER Study: Transvaginal Non- Date of Exam: 10/09/14 Exam# [id number] Ordering Dr: Epi Pascual MD STUDY: ULTRASOUND TRANSVAGINAL CLINICAL: Female, 44 years old. Right pelvic pain TECHNIQUE: Transvaginal COMPARISON: None. FINDINGS: Normal uterine size measuring 7.9 x 2.2 x 4.9 cm in maximal craniocaudal dimension. There are no myometrial masses. Normal endometrial thickness measuring 7 mm. There are no endometrial masses, and there is no fluid in the endometrial cavity. Appearance of the uterus is somewhat heterogeneous however no well-defined fibroids are observed Nabothian cysts noted within the lower uterine segment. Normal right ovary, measuring 2.9 x 2.2 x 1.4 cm. There are multiple follicles and a 1.6 x 1.0 x 1.0 cm follicular cyst Normal left ovary, measuring 4.3 x 3.2 x 1.9 cm. There are multiple follicles without a dominant cyst. There is no mild fluid in the pelvis. IMPRESSION: Small right ovarian cyst with mild fluid in the cul-de-sac possibly secondary to ovulation. Clinical correlation recommended Electronically Signed: Hernandez Mckeon MD at 17:21 EST , Service support [phone], CC: Lenora Sarah DO; Epi Pascual MD Barrel Dedenting Machine Operator: Signed Lenora Sarah Start: 10-09-2014 End: 10-09-2014 Abdomen/Pelvis WITH Contrast Comments: See Note; NOTES: [facility] Imaging Services [address] [place] [address] CAT Scan Report MR#: [id number] Acct: [id number] Name: SUMANTH ACOSTA Rep #: [id number] : 1970 F 44 From: Wiliam Reynaga MD PCP: Lenora Sarah DO Status: [facility] ER Study: Abdomen/Pelvis WITH Contrast Date of Exam: 10/09/14 Exam# [id number] Ordering Dr: Epi Pascual MD STUDY: CT ABDOMEN AND PELVIS WITH CONTRAST REASON FOR EXAM: Female, 44 years old. Back pain and right lower quadrant pain. RADIATION DOSAGE (If Supplied By Facility): CTDIvol = ( 8.99 ) mGy, DLP = ( 750.13 ) mGycm TECHNIQUE: Transaxial images were obtained from the dome of the diaphragm to the symphysis pubis with oral contrast. 80ML ml of Isovue 300 contrast was administered. Sagittal and coronal images were reconstructed. Delayed imaging was obtained as well. COMPARISON: Comparison is made with prior study dated November 11, 2013. FINDINGS: The visualized lung bases are unremarkable. The visualized portions of the heart are within normal limits. Normal liver. The patient is status post cholecystectomy. Normal spleen. Normal pancreas. Normal bilateral adrenal glands. Normal right kidney. Normal left kidney. There is a small hiatal hernia. Normal small intestine. Moderate amount of fecal material is seen in the right hemicolon. The appendix is visualized and appears normal. There is scattered atherosclerotic calcification of the abdominal aorta, without a demonstrated aneurysm. Normal inferior vena cava. Normal retroperitoneum. Normal urinary bladder. The uterus is retroverted. There is a small umbilical hernia containing fat. The space narrowing at the L5-S1 level. IMPRESSION: Status post cholecystectomy. Moderate amount of fecal material is seen in the right hemicolon. Electronically Signed: Wiliam Reynaga MD at 14:10 EST Tel [phone], Service support [phone], CC: Lenora Sarah DO; Epi Pascual MD Barrel Dedenting Machine Operator: Signed Lenora Sarah Start: 10-08-2014 End: 10-08-2014 Discharge Instruction Comments: See Note; NOTES: [facility] Medical Records Department [address] [place] [address] Discharge Instruction 10/08/14 09 MR#: [id number] Acct: [id number] Name: SUMANTH ACOSTA Rep #: [id number] : 1970 44 From: Shweta Stratton DO PCP: Lenora Sarah DO Status: [facility] ER ED Disposition - Plan for ED Patient: Chief Complaint: Back Instructions: ED Sciatica Prescriptions: Hydrocodone Bitart/Apap 5-325 [[place] 5/325] 1 - 2 tablet PO Q4H PRN PRN #20 tablet PRN Reason: Pain Ondansetron [Zofran Odt] 4 mg PO Q8H PRN PRN #10 tablet PRN Reason: Nausea Orphenadrine [Norflex] 100 mg PO BID #14 tablet Referrals: Lenora Sarah DO [Primary Care Provider] - 3-5 Days What to do if you have Problems For any increased pain, shortness of breath, bleeding, nausea or vomiting, chest pain, or any unexpected problems, contact your doctor. Call [facility] ) or report to the closest Emergency Room. Call 911 if necessary. 10/08/14 09 <Electronically signed by Remus Ungur DO> Date Remus Ungur DO Cosigner Signature (If Indicated): Date CC: Lenora Escobar Start: 11-11-2013 End: 11-11-2013 Abdomen/Pelvis without Cont Comments: See Note; NOTES: [facility] Imaging Services [address] [place], [place] [address] [place] [address] CAT Scan Report MR#: [id number] Acct: [id number] Name: SUMANTH ACOSTA Rep #: [id number] : 1970 F 43 From: Wiliam Reynaga MD PCP: Lenora Sarah DO Status: REG CLI Study: Abdomen/Pelvis without Cont Date of Exam: 11/11/13 Exam# [id number] Ordering Dr: Lenora Sarah DO STUDY: CT ABDOMEN AND PELVIS WITHOUT CONTRAST REASON FOR EXAM: Female, 43 years old. Right upper quadrant pain. Frequent UTIs. RADIATION DOSAGE (If Supplied By Facility): CTDIvol = ( 8.26 ) mGy, DLP = ( 380.10 ) mGycm TECHNIQUE: Transaxial images were obtained from the dome of the diaphragm to the symphysis pubis without oral contrast, and without intravenous contrast. Sagittal and coronal images were reconstructed. COMPARISON: Comparison is made with prior study dated July 30, 2013. FINDINGS: The visualized lung bases are unremarkable. The visualized portions of the heart are within normal limits. Normal liver. There are surgical clips in the gallbladder fossa consistent with a prior cholecystectomy. Normal spleen. Normal pancreas. Normal bilateral adrenal glands. Normal right kidney. Normal left kidney. Normal visualized stomach. Normal small intestine. Normal colon. The appendix is visualized and appears normal. There is scattered atherosclerotic calcification of the abdominal aorta, without a demonstrated aneurysm. Normal inferior vena cava. Normal retroperitoneum. Normal urinary bladder. There is a 2.1 cm x 1.5 cm cyst in the left ovary. The uterus is retroverted. I suspect nabothian cysts. There is a small umbilical hernia containing fat. Mild degree of disc space narrowing at the L5-S1 level. IMPRESSION: Small left ovarian cyst. No urinary tract obstruction is seen. Electronically Signed: Wiliam Reynaga M.D. at 10:27 EST , Service support [phone], CC: Lenora Sarah DO Barrel Dedenting Machine Operator: Signed Lenora Sarah Work Phone: Start: 07-28-2013 End: 07-28-2013 Gallbladder Comments: See Note; NOTES: [facility] Imaging Services [address] [place] [address] Ultrasound Report MR#: [id number] Acct: [id number] Name: SUMANTH ACOSTA Rep #: [id number] : 1970 F 43 From: Wiliam Reynaga MD PCP: Status: PRE CLI Study: Gallbladder Date of Exam: 07/28/13 Exam# [id number] Ordering Dr: Nereyda Iyer STUDY: ABDOMINAL ULTRASOUND - RIGHT UPPER QUADRANT REASON FOR VISIT: Female, 43 years old. 3 week history of right upper quadrant pain. Elevated liver function tests. TECHNIQUE: Ultrasound evaluation of the right upper quadrant was performed with real-time and static mock-scale imaging. TECHNICAL QUALITY: Adequate. COMPARISON: None. FINDINGS: Liver: The liver measures 11.8 cm. There is normal echogenicity of the liver. The bile ducts are within normal limits. There is hepatic color flow. The direction of portal flow is hepatopetal. There is no demonstrated mass lesion. Gallbladder: Normal distended gallbladder. The gallbladder wall measures 1.8 mm. There is a positive sonographic Tanner's sign. There is no pericholecystic fluid. There is a solitary gallstone within the gallbladder lumen. Common Bile Duct (C.B.D.): The common bile duct measures 4.6 mm. Pancreas: Normal size of the head, body and tail of the pancreas. There is normal echogenicity of the pancreas. There is no demonstrated pancreatic mass or cyst. Right Kidney: Normal size of the right kidney. The right kidney measures 12.1 cm. Normal renal cortex. The right cortex measures 1.7 cm. There is no demonstrated renal mass or cyst. There is no right hydronephrosis. IMPRESSION: Solitary gallstone. Positive sonographic Tanner's sign. Signed: Wiliam Reynaga M.D. July 28, 2013 at 3:54:28 PM EDT [phone] Electronically Signed GP/GP If you are the referring physician and would like to consult with the radiologist who provided this interpretation, please contact Wiliam Reynaga M.D. at [phone]. If this radiologist is unavailable, you will be directed to another radiologist to assist. If you are a patient with a question regarding this report, please contact your referring physician directly. Professional Interpretation Provided By: [employer], Phone , These documents contain legally protected and confidential health information intended only for the use of the individual or entity named above. If you are not the intended recipient, you are hereby notified that any disclosure, copying, distribution, or other use of these documents is strictly prohibited. If you have received this information in error, please notify the sender immediately and arrange for the return or destruction of these documents. CC: Nereyda Iyer Barrel Dedenting Machine Operator: Signed Nereyda Iyer Work Phone: Back Surgery Syl Chandler Comment on above: 2014 [facility] Janny Pink Comment on above: 2014 [facility] Cristy Centeno Comment on above: 2014 [facility] Syl Chandler D&C Janny Pink D&C Cristy Centeno D&C Kayela Marry MEDICAL RECORDS CUSTODIAN D&C Connor [facility] N Gallbladder Surgery Syl G ravius Gallbladder Surgery Janny L Long Gallbladder Surgery Cristy olson Operation on gallbladder Tacoyela Bailey MEDICAL RECORDS CUSTODIAN Operation on gallbladder [place] [employer] Operation on vertebra Kayela Bailey MEDICAL RECORDS CUSTODIAN Comment on above: 2014 [facility] Operation on vertebra Connor Mani [employer] Comment on above: 2014 [facility] End: 07-22-2015 Tonsillectomy Tonsillectomy LIDIACHAVA Jacques [employer] Plan of Treatment Date Care Activity Detail Author Start: 06-01-2025 Influenza vaccination Influenza Vaccine (Season Ended) [facility] Start: 06-01-2024 COVID-19 Vaccine ( season) COVID-19 Vaccine ( season) [facility] Start: 06-07-2023 Procedure Education Eprescribed prescriptions (G8553) [facility]; [facility] Work Phone: Start: 12-14-2022 Culture bct isol&prsmptv id isolate ea urine URINE COURTNEY CULTURE-IDENTIFICATN (84033) [facility]; [facility] Work Phone: Start: 12-14-2022 Procedure Education Eprescribed prescriptions (G8553) [facility]; [facility] Work Phone: Start: 07-12-2020 Lipid panel LIPID PANEL (44375) [facility] Work Phone: Start: 07-12-2020 Procedure Education Eprescribed prescriptions (G8553) [facility] Work Phone: Start: 07-12-2020 Provider Instructions for Treatment Reviewed Lab [facility] Work Phone: Start: 01-22-2020 Procedure Education Eprescribed prescriptions (G8553) [facility] Work Phone: Start: 08-07-2019 Culture bct isol&prsmptv id isolate ea urine URINE COURTNEY CULTURE-IDENTIFICATN (70503) [facility] Work Phone: Start: 08-07-2019 Patient Education Urinary Tract Infection in Women *: urinary tract infection [facility] Work Phone: Start: 08-07-2019 Procedure Education Eprescribed prescriptions (G8553) [facility] Work Phone: Start: 08-07-2019 Provider Instructions for Treatment Follow up if no improvement or if symptoms worsen [facility] Work Phone: Start: 04-07-2019 Hepatic function panel HEPATIC FUNCTION PANEL (81564) [facility] Work Phone: Start: 04-07-2019 Lipoprotein blood deven numbers & subclasses NMR Profile (71200) [facility] Work Phone: Start: 03-19-2019 Hpv, dna, amp probe HPV, Reflex (97768) [facility] Work Phone: Start: 03-19-2019 Provider Instructions for Treatment [facility] Work Phone: Start: 03-19-2019 Lipoprotein blood deven numbers & subclasses NMR Profile (00068) [facility] Work Phone: Start: 03-19-2019 Protein mass conc NMR Profile (97891) [facility] Work Phone: Start: 03-19-2019 Cytp cerv/vag auto thin layer prep mnl screen Thin prep Pap (84765) (no STD testing) [facility] Work Phone: Start: 10-08-2018 Provider Instructions for Treatment Reviewed Lab [facility] Work Phone: Start: 06-20-2018 Blood count complete auto&auto difrntl wbc CBC, PLATELETS & AUT DIFF (88894) [facility] Work Phone: Start: 06-20-2018 Comprehensive metabolic panel METABOLIC PANEL, COMPREHENSIVE (27628) [facility] Work Phone: Start: 06-20-2018 C-reactive protein C-REACTIVE PROTEIN (54397) [facility]; [facility] Work Phone: Start: 06-20-2018 CRP mass conc C-REACTIVE PROTEIN (25349) [facility] Work Phone: Start: 06-17-2018 Procedure Education Eprescribed prescriptions (G8553) [facility] Work Phone: Start: 06-17-2018 Provider Instructions for Treatment Follow up if no improvement or if symptoms worsen [facility] Work Phone: Start: 06-12-2018 Procedure Education Eprescribed prescriptions (G8553) [facility] Work Phone: Start: 06-12-2018 Provider Instructions for Treatment Follow up if no improvement or if symptoms worsen [facility] Work Phone: Start: 2018 Pneumococcal vaccination Pneumococcal Vaccine (1 of 1 - PCV) [facility] Start: 2018 Zoster Vaccines (1 of 2) Zoster Vaccines (1 of 2) [facility] Start: 01-08-2017 Procedure Education Eprescribed prescriptions (G8553) [facility] Work Phone: Start: 01-08-2017 Provider Instructions for Treatment Follow up if no improvement or if symptoms worsen [facility] Work Phone: Start: 01-08-2017 HCG.beta subunit ( test) Ql (U) Urine Test, Office (49081) [facility] Work Phone: Comment on above: Negative Start: 01-08-2017 Urine test visual color cmprsn meths Urine Test, Office (57434) [facility]; [facility] Work Phone: Comment on above: Negative Start: 01-08-2017 Urnls dip stick/tablet rgnt non-auto w/o micrscp Urinalysis, Office (09246) [facility] Work Phone: Start: 01-03-2017 Procedure Education Eprescribed prescriptions (G8553) [facility] Work Phone: Start: 10-14-2014 Provider Instructions for Treatment Follow up if no improvement or if symptoms worsen [facility] Work Phone: Start: 06-15-2014 Provider Instructions for Treatment [facility] Work Phone: Start: 04-29-2014 Patient Education Water in diet, brief version [facility] Work Phone: Start: 04-29-2014 Provider Instructions for Treatment [facility] Work Phone: Start: 11-10-2013 Culture bacterial quanttative colony count urine URINE COURTNEY CULTURE-DEVEN COL COUNT (90600) [facility] Work Phone: Start: 08-27-2013 Provider Instructions for Treatment Follow up in 2 weeks [facility] Work Phone: Start: 07-28-2013 Comprehensive metabolic panel Metabolic Panel, Comprehensive (49032) [facility] Work Phone: Comment on above: stat Start: 07-28-2013 Blood count complete auto&auto difrntl wbc CBC, PLATELETS & AUT DIFF (95708) [facility] Work Phone: Comment on above: stat Start: 07-07-2013 Cyclic citrullinated peptide antibody CCP ANTIBODY (29621) [facility] Work Phone: Start: 07-07-2013 Sedimentation rate rbc non-automated SED RATE ERYTHROCYTE (19549) [facility] Work Phone: Start: 07-07-2013 C-reactive protein C-REACTIVE PROTEIN (67583) [facility]; [facility] Work Phone: Start: 07-07-2013 CRP mass conc C-REACTIVE PROTEIN (98120) [facility] Work Phone: Start: 07-07-2013 Assay of thyroid stimulating hormone tsh TSH (60319) [facility]; [facility] Work Phone: Start: 07-07-2013 Thyrotropin Qn TSH (39132) [facility] Work Phone: Start: 07-07-2013 Rheumatoid factor quantitative RHEUMATOID FACTOR-QUANT (73815) [facility] Work Phone: Start: 07-07-2013 Antinuclear antibodies finn FINN (ANTINUCLEAR ANTIBODY) (16682) [facility]; [facility] Work Phone: Start: 07-07-2013 Nuclear Ab IF titer (S) FINN (ANTINUCLEAR ANTIBODY) (64197) [facility] Work Phone: Start: 07-07-2013 Blood count manual cell count each CBC WITH MANUAL DIFF (27979) [facility] Work Phone: Start: 07-07-2013 Comprehensive metabolic panel METABOLIC PANEL, COMPREHENSIVE (24647) [facility] Work Phone: Start: 07-04-2013 Provider Instructions for Treatment Reviewed Lab [facility] Work Phone: Start: 06-11-2013 Hepatic function panel HEPATIC FUNCTION PANEL (65802) [facility] Work Phone: Start: 06-09-2013 Blood count manual cell count each CBC WITH MANUAL DIFF (25059) [facility] Work Phone: Start: 06-09-2013 Hepatic function panel HEPATIC FUNCTION PANEL (14017) [facility] Work Phone: Start: 06-09-2013 Acute hepatitis panel HEPATITIS PANEL (13622) [facility] Work Phone: Start: 06-09-2013 Immunoassay analyte qual/semiqual multiple step ANTIMITOCHONDRIAL ANTIBODY (54800) [facility] Work Phone: Start: 06-09-2013 Assay of glutamyltrase gamma GGT (GAMMA GLUTAMYLTRANSFERASE) (95105) [facility]; [facility] Work Phone: Start: 06-09-2013 Assay of [id number] TRANSFERRIN (83991) [facility]; [facility] Work Phone: Start: 06-09-2013 Gamma glutamyl transferase enzyme act/vol GGT (GAMMA GLUTAMYLTRANSFERASE) (25961) [facility] Work Phone: Start: 06-09-2013 Transferrin mass conc TRANSFERRIN (14344) [facility] Work Phone: Start: 06-09-2013 Assay of ferritin FERRITIN (63004) [facility]; [facility] Work Phone: Start: 06-09-2013 Ferritin mass conc FERRITIN (48743) [facility] Work Phone: Start: 06-09-2013 Antibody ricardo-collier eb virus early antigen ea EBV IGM ANTIBODY (02273) [facility] Work Phone: Start: 06-09-2013 Antibody cytomegalovirus cmv igm CMV IGM ANTBDY (89051) [facility] Work Phone: Start: 06-09-2013 Ceruloplasmin CERULOPLASMIN (66370) [facility] Work Phone: Start: 06-09-2013 Fluorescent nonnfct agt antb screen ea antibody ASM (ANTI SMOOTH MUSCLE ANTIBODY) (38038) [facility] Work Phone: Start: 06-09-2013 Microsomal antibodies each ANTI-LIVER/KIDNEY MICROSOMAL ANTIBODY (51822) [facility] Work Phone: Start: 07-10-2012 Patient Education Cough: chest congestion [facility] Work Phone: Start: 07-10-2012 Provider Instructions for Treatment Continue Current Prescription(s) [facility] Work Phone: Start: 03-05-2012 Culture bacterial quanttative colony count urine URINE COURTNEY CULTURE-DEVEN COL COUNT (31083) [facility] Work Phone: Start: 03-05-2012 Provider Instructions for Treatment follow up for recheck urine 1 week after complete antibiotic [facility] Work Phone: Start: 12-13-2011 Provider Instructions for Treatment *Vertigo Education [facility] Work Phone: Start: 08-31-2011 Provider Instructions for Treatment Reviewed Lab [facility] Work Phone: Start: 05-03-2011 Culture bacterial quanttative colony count urine URINE COURTNEY CULTURE-DEVEN COL COUNT (83845) [facility] Work Phone: Start: 05-03-2011 Provider Instructions for Treatment *Antibiotic Usage Education - Female [facility] Work Phone: Start: 08-15-2010 Provider Instructions for Treatment [facility] Work Phone: Start: 03-07-2010 Provider Instructions for Treatment Solu Medrol Injection/ Education [facility] Work Phone: Start: 02-16-2010 Provider Instructions for Treatment [facility] Work Phone: Start: 2008 Screening for malignant neoplasm of breast Mammogram [facility] Start: 02-03-2008 Provider Instructions for Treatment Follow up for recheck urine 1 week after complete antibiotic [facility] Work Phone: Start: 12-13-2007 Provider Instructions for Treatment exercises [facility] Work Phone: Start: 02-08-2007 Antinuclear antibodies finn FINN (ANTINUCLEAR ANTIBODY) (24308) [facility]; [facility] Work Phone: Start: 02-08-2007 Assay of thyroid stimulating hormone tsh TSH (61066) [facility]; [facility] Work Phone: Start: 02-08-2007 Blood count manual cell count each CBC WITH MANUAL DIFF (71821) [facility] Work Phone: Start: 02-08-2007 C-reactive protein C-REACTIVE PROTEIN (46684) [facility]; [facility] Work Phone: Start: 02-08-2007 Comprehensive metabolic panel METABOLIC PANEL, COMPREHENSIVE (17822) [facility] Work Phone: Start: 02-08-2007 CRP mass conc C-REACTIVE PROTEIN (02871) [facility] Work Phone: Start: 02-08-2007 Nuclear Ab IF titer (S) FINN (ANTINUCLEAR ANTIBODY) (96238) [facility] Work Phone: Start: 02-08-2007 Rheumatoid factor quantitative RHEUMATOID FACTOR-QUANT (66853) [facility] Work Phone: Start: 02-08-2007 Sedimentation rate rbc non-automated SED RATE ERYTHROCYTE (17213) [facility] Work Phone: Start: 02-08-2007 Thyrotropin Qn TSH (29749) [facility] Work Phone: Start: 11-06-2006 Provider Instructions for Treatment [facility] Work Phone: Start: 11-05-2006 Cholesterol mass conc CHOLESTEROL TOTAL, SERUM (22574) [facility] Work Phone: Comment on above: harry Start: 11-05-2006 Cholesterol serum/whole blood total CHOLESTEROL TOTAL, SERUM (97636) [facility]; [facility] Work Phone: Comment on above: harry Start: 11-05-2006 Provider Instructions for Treatment MDI Education [facility] Work Phone: Start: 1990 DTaP/Tdap/Td Vaccines (1 - Tdap) DTaP/Tdap/Td Vaccines (1 - Tdap) [facility] Start: 1989 Screening for malignant neoplasm of cervix [facility] Start: 1987 Hepatitis B Vaccines (1 of 3 - 19+ 3-dose series) Hepatitis B Vaccines (1 of 3 - 19+ 3-dose series) [facility] Start: 1986 Hepatitis C screening Hepatitis C Screening [facility] Start: 1969 MMR Vaccines (1 of 1 - Standard series) MMR Vaccines (1 of 1 - Standard series) [facility] Start: 1968 HIV screening HIV Screening [facility] Start: 1968 Lipid panel Lipid Panel [facility] Start: 1968 Screening for malignant neoplasm of colon [facility] Start: 1968 Yearly Adult Physical Yearly Adult Physical [facility] Work Phone: [facility] Work Phone: [facility] Work Phone: [facility] Work Phone: [facility] Work Phone: [facility] Work Phone: [facility] Work Phone: [facility] Work Phone: [facility] Work Phone: [facility] Work Phone: [facility] Work Phone: [facility] Work Phone: [facility] Work Phone: [facility] Work Phone: [facility] Work Phone: [facility] Work Phone: [facility] Work Phone: [facility] Work Phone[facility] Work Phone: [facility] Work Phone: [facility] Work Phone: [facility] Work Phone: [facility] Work Phone: [facility] Work Phone: [facility] Work Phone: [facility] Work Phone: [facility]; [facility] Work Phone: Payers Date Payer Category Payer Self-pay [id number] 2019 Managed Care (Private) [facility] [id number] 2019 Unknown [id number] 2019 Unknown [id number] 2018 Unknown [id number] 2009 Private Health Insurance [id number] 2009 Unknown 2009 Unknown [id number] 1968 Unknown [id number] 1968 Unknown [id number] 1968 Unknown [id number] Unknown [id number] Unknown [id number] Unknown [id number] Unknown [id number] Unknown [id number] Unknown [id number] Social History Date Type Detail Facility Start: 01-16-2025 Alcohol Use Former smoker [facility] Work Phone: Comment on above: Occasional alcohol u se A little QD Tobacco use: Former smoker. [facility] Work Phone: Tobacco use: Tobacco use: [facility] Work Phone: Start: 09-15-2021 Tobacco smokin g consumption unknown [facility] Start: 04-23-2018 None [facility] Start: 04-23-2018 Spouse/ Signif icant Other [facility] Start: 12-25-2019 Cigarettes [facility] Start: 1970 Sex Assigned At Female [facility] Start: 01-16-2025 End: 05-15-2025 Tobacco smoking status NHIS Ex-smoker [facility] Work Phone: History of tobacco use Current smoker [facility] Work Phone: History of tobacco use Cigarette Smoker [facility] Work Phone: Start: 01-16-2025 Tobacco use and exposure Smokeless tobacco non-user [facility] Work Phone: Start: 01-16-2025 Tobacco use panel [facility] Work Phone: Start: 1970 Sex assigned at Not on file [facility] Work Phone: Start: 01-06-2025 End: 01-17-2025 Exposure to SARS-CoV-2 (event) Not sure [facility] Work Phone: Functional Status Date Assessment Result Facility 01-16-2025 [place] - 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 .The LP-IR score is a laboratory developed index that has beenassociated with insulin resistance and diabetes risk and should beused as one component of a physician's clinical assessment. TheLP-IR score listed above has not been cleared by the [place] Food andDrug Administration. PATIENT WAS FASTINGP ERFORMED BY: [address] [id number] Clinical Notes 01-16-2025 to 05-15-2025 Note Date & Type Note Facility 05-15-2025 Evaluation note Diagnosis Onset Date Resolution UTI (urinary tract infection) acute May 15 11:11am [facility] Work Phone: 1(686) 199-184304-18-2025 Emergency department Note* Huy Campbell, - 01/16/2025 10:19 PM EDT HPI Chief Complaint Patient presents with Knee Pain Patient presents to the emergency department secondary to left knee pain. She states that she aggravated this when squatting down earlier today and then performed the same activity this evening reaggravated her pain. Took tramadol prior to arrival. No history of direct trauma. No history of fall. Difficulty bearing weight at the time of arrival. Brought back from triage in a wheelchair. History provided by: Patient plateman used: No Patient History Medical History[1] Surgical History[2] Family History[3] Social History[4] Physical Exam ED Triage Vitals [01/16/25 2215] Temperature Heart Rate Respirations BP 36.1 C (96.9 F) 89 20 128/81 Pulse Ox Temp src Heart Rate Source Patient Position 98 % -- Monitor -- BP Location FiO2 (%) -- -- Physical Exam Vitals and nursing note reviewed. Constitutional: General: She is not in acute distress. Appearance: Normal appearance. She is normal weight. She is not ill-appearing, toxic-appearing or diaphoretic. Comments: Anxious. Hyperventilating. Appears uncomfortable. Not confused. Provides a full history. HENT: Head: Normocephalic and atraumatic. Nose: Nose normal. No rhinorrhea. Neck: Comments: Trachea is midline Cardiovascular: Pulses: Normal pulses. Musculoskeletal: General: Tenderness present. No swelling, deformity or signs of injury. Cervical back: Normal range of motion. Comments: Patient is grasping the popliteal fossa behind the left knee with both hands. She states this helps to place her in a position of comfort. Range of motion is essentially nonexistent secondary to pain. Upon gross examination there is no bony deformity or joint effusion. Patella is midline.She is holding the knee in flexion. Skin: General: Skin is warm and dry. Findings: No rash. Neurological: General: No focal deficit present. Mental Status: She is alert and oriented to person, place, and time. Mental status is at baseline. Sensory: No sensory deficit. Psychiatric: Mood and Affect: Mood normal. Behavior: Behavior normal. Thought Content: Thought content normal. Judgment: Judgment normal. ED Course & MDM Diagnoses as of 01/17/25 0034 Sprain of left knee, initial encounter No data recorded [place] Coma Scale Score: 15 (01/16/25 2217 : Jaimie Tirado RN) Medical Decision Making Patient was medicated for pain with good improvement of her symptoms. Differential considerations would include knee sprain versus knee strain. The patient will be discharged with a short course of Percocet as well as crutches and a knee immobilizer. I checked an [place] [employer] prescription reporting system report on the patient and it was noted to be negative. Referral to orthopedics, weightbearing as tolerated, ice the affected area, return if worse. Procedure Procedures [1] History reviewed. No pertinent past medical history. [2] History reviewed. No pertinent surgical history. [3] No family history on file. [4] Social History Tobacco Use Smoking status: Former Types: Cigarettes Smokeless tobacco: Never Substance Use Topics Alcohol use: Not on file Drug use: Not on file Huy G DO Nico 01/17/25 0035 documented in this [facility] Work Phone: 1(811) 153-779904-18-2025 Physician Emergency department Note* Huy Kendall DO Nico - 01/16/2025 10:19 PM EDT HPI Chief Complaint Patient presents with Knee Pain Patient presents to the emergency department secondary to left knee pain. She states that she aggravated this when squatting down earlier today and then performed the same activity this evening reaggravated her pain. Took tramadol prior to arrival. No history of direct trauma. No history of fall. Difficulty bearing weight at the time of arrival. Brought back from triage in a wheelchair. History provided by: Patient plateman used: No Patient History Medical History[1] Surgical History[2] Family History[3] Social History[4] Physical Exam ED Triage Vitals [01/16/252214] Temperature Heart Rate Respirations BP 36.1 C (96.9 F) 89 20 128/81 Pulse Ox Temp src Heart Rate Source Patient Position 98 % -- Monitor -- BP Location FiO2 (%) -- -- Physical Exam Vitals and nursing note reviewed. Constitutional: General: She is not in acute distress. Appearance: Normal appearance. She is normal weight. She is not ill-appearing, toxic-appearing or diaphoretic. Comments: Anxious. Hyperventilating. Appears uncomfortable. Not confused. Provides a full history. HENT: Head: Normocephalic and atraumatic. Nose: Nose normal. No rhinorrhea. Neck: Comments: Trachea is midline Cardiovascular: Pulses: Normal pulses. Musculoskeletal: General: Tenderness present. No swelling, deformity or signs of injury. Cervical back: Normal range of motion. Comments: Patient is grasping the popliteal fossa behind the left knee with both hands. She states this helps to place her in a position of comfort. Range of motion is essentially nonexistent secondary to pain. Upon gross examination there is no bony deformity or joint effusion. Patella is midline.She is holding the knee in flexion. Skin: General: Skin is warm and dry. Findings: No rash. Neurological: General: No focal deficit present. Mental Status: She is alert and oriented to person, place, and time. Mental status is at baseline. Sensory: No sensory deficit. Psychiatric: Mood and Affect: Mood normal. Behavior: Behavior normal. Thought Content: Thought content normal. Judgment: Judgment normal. ED Course & MDM Diagnoses as of 01/17/254 Sprain of left knee, initial encounter No data recorded [place] Coma Scale Score: 15 (01/16/25 2217 : Jaimie Tirado RN) Medical Decision Making Patient was medicated for pain with good improvement of her symptoms. Differential considerations would include knee sprain versus knee strain. The patient will be discharged with a short course of Percocet as well as crutches and a knee immobilizer. I checked an [place] [employer] prescription reporting system report on the patient and it was noted to be negative. Referral to orthopedics, weightbearing as tolerated, ice the affected area, return if worse. Procedure Procedures [1] History reviewed. No pertinent past medical history. [2] History reviewed. No pertinent surgical history. [3] No family history on file. [4] Social History Tobacco Use Smoking status: Former Types: Cigarettes Smokeless tobacco: Never Substance Use Topics Alcohol use: Not on file Drug use: Not on file Huy Campbell DO 01/17/2534 [facility] Work Phone: Evaluation noteNo assessment information available [facility] Work Phone: Evaluation note* Diagnosis Sprain of left knee, initial encounter- Primary documented in this encounter [facility] Work Phone: Hospital Discharge instructions* Attachments The following attachments cannot be sent through Care Everywhere. * Knee Sprain Discharge Instructions ([place]) * Using Cold for Pain ([place]) * How to Use Crutches ([place]) [facility] Instructions* Name Dates Details Patient Instructions Indication:BMI 24.0-24.9, adult Start:14-Dec-2022 Instruction Type:Provider Instructions for Treatment How to Access Health Informa tion Online using Patient Portal and [employer] Apps Indication:BMI 24.0-24.9, adult Start:14-Dec-2022 Instruction Type:Patient Education How to access health informa tion online Indication:Nonsmoker Start:12-Jul-2020 Instruction Type:Patient Education How to access health informa tion online - Detail Indication:Nonsmoker Start:12-Jul-2020 Instruction Type:Patient Education Patient Instructions Indication:Nonsmoker Start:12-Jul-2020 Instruction Type:Provider Instructions for Treatment How to access health informa tion online Indication:Nonsmoker Start:22-Jan-2020 Instruction Type:Patient Education How to access health informa tion online - Detail Indication:Nonsmoker Start:22-Jan-2020 Instruction Type:Patient Education Patient Instructions Indication:Nonsmoker Start:22-Jan-2020 Instruction Type:Provider Instructions for Treatment How to access health informa tion online Indication:Nonsmoker Start:25-Dec-2019 Instruction Type:Patient Education How to access health informa tion online - Detail Indication:Nonsmoker Start:25-Dec-2019 Instruction Type:Patient Education Patient Instructions Indication:Nonsmoker Start:25-Dec-2019 Instruction Type:Provider Instructions for Treatment How to access health informa tion online Indication:BMI 21.0-21.9, adult Start:07-Aug-2019 Instruction Type:Patient Education How to access health informa tion online - Detail Indication:BMI 21.0-21.9, adult Start:07-Aug-2019 Instruction Type:Patient Education Patient Instructions Indication:UTI symptoms Start:07-Aug-2019 Instruction Type:Provider Instructions for Treatment How to access health informa tion online Indication:Nonsmoker Start:08-Oct-2018 Instruction Type:Patient Education How to access health informa tion online - Detail Indication:Nonsmoker Start:08-Oct-2018 Instruction Type:Patient Education Patient Instructions Indication:Nonsmoker Start:08-Oct-2018 Instruction Type:Provider Instructions for Treatment How to access health informa tion online Indication:BMI 20.0-20.9, adult Start:17-Jun-2018 Instruction Type:Patient Education How to access health informa tion online - Detail Indication:BMI 20.0-20.9, adult Start:17-Jun-2018 Instruction Type:Patient Education Patient Instructions Indication:Dizzy Start:17-Jun-2018 Instruction Type:Provider Instructions for Treatment How to access health informa tion online Indication:BMI 21.0-21.9, adult Start:12-Jun-2018 Instruction Type:Patient Education How to access health informa tion online - Detail Indication:BMI 21.0-21.9, adult Start:12-Jun-2018 Instruction Type:Patient Education Patient Instructions Indication:BMI 21.0-21.9, adult Start:12-Jun-2018 Instruction Type:Provider Instructions for Treatment How to access health informa tion online Indication:UTI symptoms Start:08-Jan-2017 Instruction Type:Patient Education How to access health informa tion online - Detail Indication:UTI symptoms Start:08-Jan-2017 Instruction Type:Patient Education Patient Instructions Indication:UTI symptoms Start:08-Jan-2017 Instruction Type:Provider Instructions for Treatment How to access health informa tion online Indication:UTI symptoms Start:03-Jan-2017 Instruction Type:Patient Education How to access health informa tion online - Detail Indication:UTI symptoms Start:03-Jan-2017 Instruction Type:Patient Education Patient Instructions Indication:UTI symptoms Start:03-Jan-2017 Instruction Type:Provider Instructions for Treatment Patient Instructions Indication:Dysuria Start:29-Oct-2013 Instruction Type:Provider Instructions for Treatment Patient Instructions Indication:Lower urinary tract infection Start:27-Aug-2013 Instruction Type:Provider Instructions for Treatment Patient Instructions Indication:Abnormal finding of blood chemistry, unspecified Start:04-Jul-2013 Instruction Type:Provider Instructions for Treatment Patient Instructions Indication:Cough Start:10-Jul-2012 Instruction Type:Provider Instructions for Treatment [facility] Work Phone: Instructions* Name Dates Details Patient Instructions Indication:BMI 24.0-24.9, adult Start:14-Dec-2022 Instruction Type:Provider Instructions for Treatment How to Access Health Informa tion Online using Patient Portal and [employer] Apps Indication:BMI 24.0-24.9, adult Start:14-Dec-2022 Instruction Type:Patient Education How to access health informa tion online Indication:Nonsmoker Start:12-Jul-2020 Instruction Type:Patient Education How to access health informa tion online - Detail Indication:Nonsmoker Start:12-Jul-2020 Instruction Type:Patient Education Patient Instructions Indication:Nonsmoker Start:12-Jul-2020 Instruction Type:Provider Instructions for Treatment How to access health informa tion online Indication:Nonsmoker Start:22-Jan-2020 Instruction Type:Patient Education How to access health informa tion online - Detail Indication:Nonsmoker Start:22-Jan-2020 Instruction Type:Patient Education Patient Instructions Indication:Nonsmoker Start:22-Jan-2020 Instruction Type:Provider Instructions for Treatment How to access health informa tion online Indication:Nonsmoker Start:25-Dec-2019 Instruction Type:Patient Education How to access health informa tion online - Detail Indication:Nonsmoker Start:25-Dec-2019 Instruction Type:Patient Education Patient Instructions Indication:Nonsmoker Start:25-Dec-2019 Instruction Type:Provider Instructions for Treatment How to access health informa tion online Indication:BMI 21.0-21.9, adult Start:07-Aug-2019 Instruction Type:Patient Education How to access health informa tion online - Detail Indication:BMI 21.0-21.9, adult Start:07-Aug-2019 Instruction Type:Patient Education Patient Instructions Indication:UTI symptoms Start:07-Aug-2019 Instruction Type:Provider Instructions for Treatment How to access health informa tion online Indication:Nonsmoker Start:08-Oct-2018 Instruction Type:Patient Education How to access health informa tion online - Detail Indication:Nonsmoker Start:08-Oct-2018 Instruction Type:Patient Education Patient Instructions Indication:Nonsmoker Start:08-Oct-2018 Instruction Type:Provider Instructions for Treatment How to access health informa tion online Indication:BMI 20.0-20.9, adult Start:17-Jun-2018 Instruction Type:Patient Education How to access health informa tion online - Detail Indication:BMI 20.0-20.9, adult Start:17-Jun-2018 Instruction Type:Patient Education Patient Instructions Indication:Dizzy Start:17-Jun-2018 Instruction Type:Provider Instructions for Treatment How to access health informa tion online Indication:BMI 21.0-21.9, adult Start:12-Jun-2018 Instruction Type:Patient Education How to access health informa tion online - Detail Indication:BMI 21.0-21.9, adult Start:12-Jun-2018 Instruction Type:Patient Education Patient Instructions Indication:BMI 21.0-21.9, adult Start:12-Jun-2018 Instruction Type:Provider Instructions for Treatment How to access health informa tion online Indication:UTI symptoms Start:08-Jan-2017 Instruction Type:Patient Education How to access health informa tion online - Detail Indication:UTI symptoms Start:08-Jan-2017 Instruction Type:Patient Education Patient Instructions Indication:UTI symptoms Start:08-Jan-2017 Instruction Type:Provider Instructions for Treatment How to access health informa tion online Indication:UTI symptoms Start:03-Jan-2017 Instruction Type:Patient Education How to access health informa tion online - Detail Indication:UTI symptoms Start:03-Jan-2017 Instruction Type:Patient Education Patient Instructions Indication:UTI symptoms Start:03-Jan-2017 Instruction Type:Provider Instructions for Treatment Patient Instructions Indication:Dysuria Start:29-Oct-2013 Instruction Type:Provider Instructions for Treatment Patient Instructions Indication:Lower urinary tract infection Start:27-Aug-2013 Instruction Type:Provider Instructions for Treatment Patient Instructions Indication:Abnormal finding of blood chemistry, unspecified Start:04-Jul-2013 Instruction Type:Provider Instructions for Treatment Patient Instructions Indication:Cough Start:10-Jul-2012 Instruction Type:Provider Instructions for Treatment [facility] Work Phone: Instructions* Name Dates Details Patient Instructions Indication:Nonsmoker Start:07-Jun-2023 Instruction Type:Provider Instructions for Treatment How to Access Health Informa tion Online using Patient Portal and [employer] Apps Indication:Nonsmoker Start:07-Jun-2023 Instruction Type:Patient Education Patient Instructions Indication:BMI 24.0-24.9, adult Start:14-Dec-2022 Instruction Type:Provider Instructions for Treatment How to Access Health Informa tion Online using Patient Portal and [employer] Apps Indication:BMI 24.0-24.9, adult Start:14-Dec-2022 Instruction Type:Patient Education How to access health informa tion online Indication:Nonsmoker Start:12-Jul-2020 Instruction Type:Patient Education How to access health informa tion online - Detail Indication:Nonsmoker Start:12-Jul-2020 Instruction Type:Patient Education Patient Instructions Indication:Nonsmoker Start:12-Jul-2020 Instruction Type:Provider Instructions for Treatment How to access health informa tion online Indication:Nonsmoker Start:22-Jan-2020 Instruction Type:Patient Education How to access health informa tion online - Detail Indication:Nonsmoker Start:22-Jan-2020 Instruction Type:Patient Education Patient Instructions Indication:Nonsmoker Start:22-Jan-2020 Instruction Type:Provider Instructions for Treatment How to access health informa tion online Indication:Nonsmoker Start:25-Dec-2019 Instruction Type:Patient Education How to access health informa tion online - Detail Indication:Nonsmoker Start:25-Dec-2019 Instruction Type:Patient Education Patient Instructions Indication:Nonsmoker Start:25-Dec-2019 Instruction Type:Provider Instructions for Treatment How to access health informa tion online Indication:BMI 21.0-21.9, adult Start:07-Aug-2019 Instruction Type:Patient Education How to access health informa tion online - Detail Indication:BMI 21.0-21.9, adult Start:07-Aug-2019 Instruction Type:Patient Education Patient Instructions Indication:UTI symptoms Start:07-Aug-2019 Instruction Type:Provider Instructions for Treatment How to access health informa tion online Indication:Nonsmoker Start:08-Oct-2018 Instruction Type:Patient Education How to access health informa tion online - Detail Indication:Nonsmoker Start:08-Oct-2018 Instruction Type:Patient Education Patient Instructions Indication:Nonsmoker Start:08-Oct-2018 Instruction Type:Provider Instructions for Treatment How to access health informa tion online Indication:BMI 20.0-20.9, adult Start:17-Jun-2018 Instruction Type:Patient Education How to access health informa tion online - Detail Indication:BMI 20.0-20.9, adult Start:17-Jun-2018 Instruction Type:Patient Education Patient Instructions Indication:Dizzy Start:17-Jun-2018 Instruction Type:Provider Instructions for Treatment How to access health informa tion online Indication:BMI 21.0-21.9, adult Start:12-Jun-2018 Instruction Type:Patient Education How to access health informa tion online - Detail Indication:BMI 21.0-21.9, adult Start:12-Jun-2018 Instruction Type:Patient Education Patient Instructions Indication:BMI 21.0-21.9, adult Start:12-Jun-2018 Instruction Type:Provider Instructions for Treatment How to access health informa tion online Indication:UTI symptoms Start:08-Jan-2017 Instruction Type:Patient Education How to access health informa tion online - Detail Indication:UTI symptoms Start:08-Jan-2017 Instruction Type:Patient Education Patient Instructions Indication:UTI symptoms Start:08-Jan-2017 Instruction Type:Provider Instructions for Treatment How to access health informa tion online Indication:UTI symptoms Start:03-Jan-2017 Instruction Type:Patient Education How to access health informa tion online - Detail Indication:UTI symptoms Start:03-Jan-2017 Instruction Type:Patient Education Patient Instructions Indication:UTI symptoms Start:03-Jan-2017 Instruction Type:Provider Instructions for Treatment Patient Instructions Indication:Dysuria Start:29-Oct-2013 Instruction Type:Provider Instructions for Treatment Patient Instructions Indication:Lower urinary tract infection Start:27-Aug-2013 Instruction Type:Provider Instructions for Treatment Patient Instructions Indication:Abnormal finding of blood chemistry, unspecified Start:04-Jul-2013 Instruction Type:Provider Instructions for Treatment Patient Instructions Indication:Cough Start:10-Jul-2012 Instruction Type:Provider Instructions for Treatment [facility] Work Phone: Instructions* Name Dates Details Patient Instructions Indication:Nonsmoker Start:07-Jun-2023 Instruction Type:Provider Instructions for Treatment How to Access Health Informa tion Online using Patient Portal and [employer] Indication:Nonsmoker Start:07-Jun-2023 Instruction Type:Patient Education Patient Instructions Indication:BMI 24.0-24.9, adult Start:14-Dec-2022 Instruction Type:Provider Instructions for Treatment How to Access Health Informa tion Online using Patient Portal and [employer] Apps Indication:BMI 24.0-24.9, adult Start:14-Dec-2022 Instruction Type:Patient Education How to access health informa tion online Indication:Nonsmoker Start:12-Jul-2020 Instruction Type:Patient Education How to access health informa tion online - Detail Indication:Nonsmoker Start:12-Jul-2020 Instruction Type:Patient Education Patient Instructions Indication:Nonsmoker Start:12-Jul-2020 Instruction Type:Provider Instructions for Treatment How to access health informa tion online Indication:Nonsmoker Start:22-Jan-2020 Instruction Type:Patient Education How to access health informa tion online - Detail Indication:Nonsmoker Start:22-Jan-2020 Instruction Type:Patient Education Patient Instructions Indication:Nonsmoker Start:22-Jan-2020 Instruction Type:Provider Instructions for Treatment How to access health informa tion online Indication:Nonsmoker Start:25-Dec-2019 Instruction Type:Patient Education How to access health informa tion online - Detail Indication:Nonsmoker Start:25-Dec-2019 Instruction Type:Patient Education Patient Instructions Indication:Nonsmoker Start:25-Dec-2019 Instruction Type:Provider Instructions for Treatment How to access health informa tion online Indication:BMI 21.0-21.9, adult Start:07-Aug-2019 Instruction Type:Patient Education How to access health informa tion online - Detail Indication:BMI 21.0-21.9, adult Start:07-Aug-2019 Instruction Type:Patient Education Patient Instructions Indication:UTI symptoms Start:07-Aug-2019 Instruction Type:Provider Instructions for Treatment How to access health informa tion online Indication:Nonsmoker Start:08-Oct-2018 Instruction Type:Patient Education How to access health informa tion online - Detail Indication:Nonsmoker Start:08-Oct-2018 Instruction Type:Patient Education Patient Instructions Indication:Nonsmoker Start:08-Oct-2018 Instruction Type:Provider Instructions for Treatment How to access health informa tion online Indication:BMI 20.0-20.9, adult Start:17-Jun-2018 Instruction Type:Patient Education How to access health informa tion online - Detail Indication:BMI 20.0-20.9, adult Start:17-Jun-2018 Instruction Type:Patient Education Patient Instructions Indication:Dizzy Start:17-Jun-2018 Instruction Type:Provider Instructions for Treatment How to access health informa tion online Indication:BMI 21.0-21.9, adult Start:12-Jun-2018 Instruction Type:Patient Education How to access health informa tion online - Detail Indication:BMI 21.0-21.9, adult Start:12-Jun-2018 Instruction Type:Patient Education Patient Instructions Indication:BMI 21.0-21.9, adult Start:12-Jun-2018 Instruction Type:Provider Instructions for Treatment How to access health informa tion online Indication:UTI symptoms Start:08-Jan-2017 Instruction Type:Patient Education How to access health informa tion online - Detail Indication:UTI symptoms Start:08-Jan-2017 Instruction Type:Patient Education Patient Instructions Indication:UTI symptoms Start:08-Jan-2017 Instruction Type:Provider Instructions for Treatment How to access health informa tion online Indication:UTI symptoms Start:03-Jan-2017 Instruction Type:Patient Education How to access health informa tion online - Detail Indication:UTI symptoms Start:03-Jan-2017 Instruction Type:Patient Education Patient Instructions Indication:UTI symptoms Start:03-Jan-2017 Instruction Type:Provider Instructions for Treatment Patient Instructions Indication:Dysuria Start:29-Oct-2013 Instruction Type:Provider Instructions for Treatment Patient Instructions Indication:Lower urinary tract infection Start:27-Aug-2013 Instruction Type:Provider Instructions for Treatment Patient Instructions Indication:Abnormal finding of blood chemistry, unspecified Start:04-Jul-2013 Instruction Type:Provider Instructions for Treatment Patient Instructions Indication:Cough Start:10-Jul-2012 Instruction Type:Provider Instructions for Treatment [facility] Work Phone: reason for referral (narrative)No reason for [facility]: Family History No Family History Records FoundUnknown Family Member Name Dates Details Family Members In General Comments:Cancer, Emotional/a nxiety/depression Status:Active Unknown Family Member Name Dates Details Family Members In General Comments:Cancer, Emotional/a nxiety/depression Status:Active Unknown Family Member Name Dates Details Family Members In General Comments:Cancer, Emotional/a nxiety/depression Status:Active Unknown Family Member Name Dates Details Family Members In General Comments:Cancer, Emotional/a nxiety/depression Status:Active Unknown Family Member Name Dates Details Family Members In General Comments:Cancer, Emotional/a nxiety/depression Status:Active Unknown Family Member Name Dates Details Family Members In General Comments:Cancer, Emotional/a nxiety/depression Status:Active Unknown Family Member Name Dates Details Family Members In General Comments:Cancer, Emotional/a nxiety/depression Status:Active Unknown Family Member Name Dates Details Family Members In General Comments:Cancer, Emotional/a nxiety/depression Status:Active Unknown Family Member Name Dates Details Family Members In General Comments:Cancer, Emotional/a nxiety/depression Status:Active Unknown Family Member Name Dates Details Family Members In General Comments:Cancer, Emotional/a nxiety/depression Status:Active Unknown Family Member Name Dates Details Family Members In General Comments:Cancer, Emotional/a nxiety/depression Status:Active Unknown Family Member Name Dates Details Family Members In General Comments:Cancer, Emotional/a nxiety/depression Status:Active Unknown Family Member Name Dates Details Family Members In General Comments:Cancer, Emotional/a nxiety/depression Status:Active Unknown Family Member Name Dates Details Family Members In General Comments:Cancer, Emotional/a nxiety/depression Status:Active Relationship Condition Age at Onset Recorded Date/T alec mother Malignant neoplasm of breast Unknown Malignant neoplasm of ovary Unknown father Malignant neoplasm Unknown Instructions Name Dates Details How to access health informa tion online Indication:Nonsmoker Start:08-Oct-2018 Instruction Type:Patient Education How to access health informa tion online - Detail Indication:Nonsmoker Start:08-Oct-2018 Instruction Type:Patient Education Patient Instructions Indication:Nonsmoker Start:08-Oct-2018 Instruction Type:Provider Instructions for Treatment How to access health informa tion online Indication:BMI 20.0-20.9, adult Start:17-Jun-2018 Instruction Type:Patient Education How to access health informa tion online - Detail Indication:BMI 20.0-20.9, adult Start:17-Jun-2018 Instruction Type:Patient Education Patient Instructions Indication:Dizzy Start:17-Jun-2018 Instruction Type:Provider Instructions for Treatment How to access health informa tion online Indication:BMI 21.0-21.9, adult Start:12-Jun-2018 Instruction Type:Patient Education How to access health informa tion online - Detail Indication:BMI 21.0-21.9, adult Start:12-Jun-2018 Instruction Type:Patient Education Patient Instructions Indication:BMI 21.0-21.9, adult Start:12-Jun-2018 Instruction Type:Provider Instructions for Treatment How to access health informa tion online Indication:UTI symptoms Start:08-Jan-2017 Instruction Type:Patient Education How to access health informa tion online - Detail Indication:UTI symptoms Start:08-Jan-2017 Instruction Type:Patient Education Patient Instructions Indication:UTI symptoms Start:08-Jan-2017 Instruction Type:Provider Instructions for Treatment How to access health informa tion online Indication:UTI symptoms Start:03-Jan-2017 Instruction Type:Patient Education How to access health informa tion online - Detail Indication:UTI symptoms Start:03-Jan-2017 Instruction Type:Patient Education Patient Instructions Indication:UTI symptoms Start:03-Jan-2017 Instruction Type:Provider Instructions for Treatment Patient Instructions Indication:Dysuria Start:29-Oct-2013 Instruction Type:Provider Instructions for Treatment Patient Instructions Indication:Lower urinary tract infection Start:27-Aug-2013 Instruction Type:Provider Instructions for Treatment Patient Instructions Indication:Abnormal finding of blood chemistry, unspecified Start:04-Jul-2013 Instruction Type:Provider Instructions for Treatment Patient Instructions Indication:Cough Start:10-Jul-2012 Instruction Type:Provider Instructions for Treatment Name Dates Details How to access health informa tion online Indication:Nonsmoker Start:08-Oct-2018 Instruction Type:Patient Education How to access health informa tion online - Detail Indication:Nonsmoker Start:08-Oct-2018 Instruction Type:Patient Education Patient Instructions Indication:Nonsmoker Start:08-Oct-2018 Instruction Type:Provider Instructions for Treatment How to access health informa tion online Indication:BMI 20.0-20.9, adult Start:17-Jun-2018 Instruction Type:Patient Education How to access health informa tion online - Detail Indication:BMI 20.0-20.9, adult Start:17-Jun-2018 Instruction Type:Patient Education Patient Instructions Indication:Dizzy Start:17-Jun-2018 Instruction Type:Provider Instructions for Treatment How to access health informa tion online Indication:BMI 21.0-21.9, adult Start:12-Jun-2018 Instruction Type:Patient Education How to access health informa tion online - Detail Indication:BMI 21.0-21.9, adult Start:12-Jun-2018 Instruction Type:Patient Education Patient Instructions Indication:BMI 21.0-21.9, adult Start:12-Jun-2018 Instruction Type:Provider Instructions for Treatment How to access health informa tion online Indication:UTI symptoms Start:08-Jan-2017 Instruction Type:Patient Education How to access health informa tion online - Detail Indication:UTI symptoms Start:08-Jan-2017 Instruction Type:Patient Education Patient Instructions Indication:UTI symptoms Start:08-Jan-2017 Instruction Type:Provider Instructions for Treatment How to access health informa tion online Indication:UTI symptoms Start:03-Jan-2017 Instruction Type:Patient Education How to access health informa tion online - Detail Indication:UTI symptoms Start:03-Jan-2017 Instruction Type:Patient Education Patient Instructions Indication:UTI symptoms Start:03-Jan-2017 Instruction Type:Provider Instructions for Treatment Patient Instructions Indication:Dysuria Start:29-Oct-2013 Instruction Type:Provider Instructions for Treatment Patient Instructions Indication:Lower urinary tract infection Start:27-Aug-2013 Instruction Type:Provider Instructions for Treatment Patient Instructions Indication:Abnormal finding of blood chemistry, unspecified Start:04-Jul-2013 Instruction Type:Provider Instructions for Treatment Patient Instructions Indication:Cough Start:10-Jul-2012 Instruction Type:Provider Instructions for Treatment Name Dates Details How to access health informa tion online Indication:Nonsmoker Start:08-Oct-2018 Instruction Type:Patient Education How to access health informa tion online - Detail Indication:Nonsmoker Start:08-Oct-2018 Instruction Type:Patient Education Patient Instructions Indication:Nonsmoker Start:08-Oct-2018 Instruction Type:Provider Instructions for Treatment How to access health informa tion online Indication:BMI 20.0-20.9, adult Start:17-Jun-2018 Instruction Type:Patient Education How to access health informa tion online - Detail Indication:BMI 20.0-20.9, adult Start:17-Jun-2018 Instruction Type:Patient Education Patient Instructions Indication:Dizzy Start:17-Jun-2018 Instruction Type:Provider Instructions for Treatment How to access health informa tion online Indication:BMI 21.0-21.9, adult Start:12-Jun-2018 Instruction Type:Patient Education How to access health informa tion online - Detail Indication:BMI 21.0-21.9, adult Start:12-Jun-2018 Instruction Type:Patient Education Patient Instructions Indication:BMI 21.0-21.9, adult Start:12-Jun-2018 Instruction Type:Provider Instructions for Treatment How to access health informa tion online Indication:UTI symptoms Start:08-Jan-2017 Instruction Type:Patient Education How to access health informa tion online - Detail Indication:UTI symptoms Start:08-Jan-2017 Instruction Type:Patient Education Patient Instructions Indication:UTI symptoms Start:08-Jan-2017 Instruction Type:Provider Instructions for Treatment How to access health informa tion online Indication:UTI symptoms Start:03-Jan-2017 Instruction Type:Patient Education How to access health informa tion online - Detail Indication:UTI symptoms Start:03-Jan-2017 Instruction Type:Patient Education Patient Instructions Indication:UTI symptoms Start:03-Jan-2017 Instruction Type:Provider Instructions for Treatment Patient Instructions Indication:Dysuria Start:29-Oct-2013 Instruction Type:Provider Instructions for Treatment Patient Instructions Indication:Lower urinary tract infection Start:27-Aug-2013 Instruction Type:Provider Instructions for Treatment Patient Instructions Indication:Abnormal finding of blood chemistry, unspecified Start:04-Jul-2013 Instruction Type:Provider Instructions for Treatment Patient Instructions Indication:Cough Start:10-Jul-2012 Instruction Type:Provider Instructions for Treatment Name Dates Details How to access health informa tion online Indication:Nonsmoker Start:08-Oct-2018 Instruction Type:Patient Education How to access health informa tion online - Detail Indication:Nonsmoker Start:08-Oct-2018 Instruction Type:Patient Education Patient Instructions Indication:Nonsmoker Start:08-Oct-2018 Instruction Type:Provider Instructions for Treatment How to access health informa tion online Indication:BMI 20.0-20.9, adult Start:17-Jun-2018 Instruction Type:Patient Education How to access health informa tion online - Detail Indication:BMI 20.0-20.9, adult Start:17-Jun-2018 Instruction Type:Patient Education Patient Instructions Indication:Dizzy Start:17-Jun-2018 Instruction Type:Provider Instructions for Treatment How to access health informa tion online Indication:BMI 21.0-21.9, adult Start:12-Jun-2018 Instruction Type:Patient Education How to access health informa tion online - Detail Indication:BMI 21.0-21.9, adult Start:12-Jun-2018 Instruction Type:Patient Education Patient Instructions Indication:BMI 21.0-21.9, adult Start:12-Jun-2018 Instruction Type:Provider Instructions for Treatment How to access health informa tion online Indication:UTI symptoms Start:08-Jan-2017 Instruction Type:Patient Education How to access health informa tion online - Detail Indication:UTI symptoms Start:08-Jan-2017 Instruction Type:Patient Education Patient Instructions Indication:UTI symptoms Start:08-Jan-2017 Instruction Type:Provider Instructions for Treatment How to access health informa tion online Indication:UTI symptoms Start:03-Jan-2017 Instruction Type:Patient Education How to access health informa tion online - Detail Indication:UTI symptoms Start:03-Jan-2017 Instruction Type:Patient Education Patient Instructions Indication:UTI symptoms Start:03-Jan-2017 Instruction Type:Provider Instructions for Treatment Patient Instructions Indication:Dysuria Start:29-Oct-2013 Instruction Type:Provider Instructions for Treatment Patient Instructions Indication:Lower urinary tract infection Start:27-Aug-2013 Instruction Type:Provider Instructions for Treatment Patient Instructions Indication:Abnormal finding of blood chemistry, unspecified Start:04-Jul-2013 Instruction Type:Provider Instructions for Treatment Patient Instructions Indication:Cough Start:10-Jul-2012 Instruction Type:Provider Instructions for Treatment Name Dates Details How to access health informa tion online Indication:BMI 21.0-21.9, adult Start:07-Aug-2019 Instruction Type:Patient Education How to access health informa tion online - Detail Indication:BMI 21.0-21.9, adult Start:07-Aug-2019 Instruction Type:Patient Education Patient Instructions Indication:UTI symptoms Start:07-Aug-2019 Instruction Type:Provider Instructions for Treatment How to access health informa tion online Indication:Nonsmoker Start:08-Oct-2018 Instruction Type:Patient Education How to access health informa tion online - Detail Indication:Nonsmoker Start:08-Oct-2018 Instruction Type:Patient Education Patient Instructions Indication:Nonsmoker Start:08-Oct-2018 Instruction Type:Provider Instructions for Treatment How to access health informa tion online Indication:BMI 20.0-20.9, adult Start:17-Jun-2018 Instruction Type:Patient Education How to access health informa tion online - Detail Indication:BMI 20.0-20.9, adult Start:17-Jun-2018 Instruction Type:Patient Education Patient Instructions Indication:Dizzy Start:17-Jun-2018 Instruction Type:Provider Instructions for Treatment How to access health informa tion online Indication:BMI 21.0-21.9, adult Start:12-Jun-2018 Instruction Type:Patient Education How to access health informa tion online - Detail Indication:BMI 21.0-21.9, adult Start:12-Jun-2018 Instruction Type:Patient Education Patient Instructions Indication:BMI 21.0-21.9, adult Start:12-Jun-2018 Instruction Type:Provider Instructions for Treatment How to access health informa tion online Indication:UTI symptoms Start:08-Jan-2017 Instruction Type:Patient Education How to access health informa tion online - Detail Indication:UTI symptoms Start:08-Jan-2017 Instruction Type:Patient Education Patient Instructions Indication:UTI symptoms Start:08-Jan-2017 Instruction Type:Provider Instructions for Treatment How to access health informa tion online Indication:UTI symptoms Start:03-Jan-2017 Instruction Type:Patient Education How to access health informa tion online - Detail Indication:UTI symptoms Start:03-Jan-2017 Instruction Type:Patient Education Patient Instructions Indication:UTI symptoms Start:03-Jan-2017 Instruction Type:Provider Instructions for Treatment Patient Instructions Indication:Dysuria Start:29-Oct-2013 Instruction Type:Provider Instructions for Treatment Patient Instructions Indication:Lower urinary tract infection Start:27-Aug-2013 Instruction Type:Provider Instructions for Treatment Patient Instructions Indication:Abnormal finding of blood chemistry, unspecified Start:04-Jul-2013 Instruction Type:Provider Instructions for Treatment Patient Instructions Indication:Cough Start:10-Jul-2012 Instruction Type:Provider Instructions for Treatment Name Dates Details How to access health informa tion online Indication:BMI 21.0-21.9, adult Start:07-Aug-2019 Instruction Type:Patient Education How to access health informa tion online - Detail Indication:BMI 21.0-21.9, adult Start:07-Aug-2019 Instruction Type:Patient Education Patient Instructions Indication:UTI symptoms Start:07-Aug-2019 Instruction Type:Provider Instructions for Treatment How to access health informa tion online Indication:Nonsmoker Start:08-Oct-2018 Instruction Type:Patient Education How to access health informa tion online - Detail Indication:Nonsmoker Start:08-Oct-2018 Instruction Type:Patient Education Patient Instructions Indication:Nonsmoker Start:08-Oct-2018 Instruction Type:Provider Instructions for Treatment How to access health informa tion online Indication:BMI 20.0-20.9, adult Start:17-Jun-2018 Instruction Type:Patient Education How to access health informa tion online - Detail Indication:BMI 20.0-20.9, adult Start:17-Jun-2018 Instruction Type:Patient Education Patient Instructions Indication:Dizzy Start:17-Jun-2018 Instruction Type:Provider Instructions for Treatment How to access health informa tion online Indication:BMI 21.0-21.9, adult Start:12-Jun-2018 Instruction Type:Patient Education How to access health informa tion online - Detail Indication:BMI 21.0-21.9, adult Start:12-Jun-2018 Instruction Type:Patient Education Patient Instructions Indication:BMI 21.0-21.9, adult Start:12-Jun-2018 Instruction Type:Provider Instructions for Treatment How to access health informa tion online Indication:UTI symptoms Start:08-Jan-2017 Instruction Type:Patient Education How to access health informa tion online - Detail Indication:UTI symptoms Start:08-Jan-2017 Instruction Type:Patient Education Patient Instructions Indication:UTI symptoms Start:08-Jan-2017 Instruction Type:Provider Instructions for Treatment How to access health informa tion online Indication:UTI symptoms Start:03-Jan-2017 Instruction Type:Patient Education How to access health informa tion online - Detail Indication:UTI symptoms Start:03-Jan-2017 Instruction Type:Patient Education Patient Instructions Indication:UTI symptoms Start:03-Jan-2017 Instruction Type:Provider Instructions for Treatment Patient Instructions Indication:Dysuria Start:29-Oct-2013 Instruction Type:Provider Instructions for Treatment Patient Instructions Indication:Lower urinary tract infection Start:27-Aug-2013 Instruction Type:Provider Instructions for Treatment Patient Instructions Indication:Abnormal finding of blood chemistry, unspecified Start:04-Jul-2013 Instruction Type:Provider Instructions for Treatment Patient Instructions Indication:Cough Start:10-Jul-2012 Instruction Type:Provider Instructions for Treatment Name Dates Details How to access health informa tion online Indication:Nonsmoker Start:12-Jul-2020 Instruction Type:Patient Education How to access health informa tion online - Detail Indication:Nonsmoker Start:12-Jul-2020 Instruction Type:Patient Education Patient Instructions Indication:Nonsmoker Start:12-Jul-2020 Instruction Type:Provider Instructions for Treatment How to access health informa tion online Indication:Nonsmoker Start:22-Jan-2020 Instruction Type:Patient Education How to access health informa tion online - Detail Indication:Nonsmoker Start:22-Jan-2020 Instruction Type:Patient Education Patient Instructions Indication:Nonsmoker Start:22-Jan-2020 Instruction Type:Provider Instructions for Treatment How to access health informa tion online Indication:Nonsmoker Start:25-Dec-2019 Instruction Type:Patient Education How to access health informa tion online - Detail Indication:Nonsmoker Start:25-Dec-2019 Instruction Type:Patient Education Patient Instructions Indication:Nonsmoker Start:25-Dec-2019 Instruction Type:Provider Instructions for Treatment How to access health informa tion online Indication:BMI 21.0-21.9, adult Start:07-Aug-2019 Instruction Type:Patient Education How to access health informa tion online - Detail Indication:BMI 21.0-21.9, adult Start:07-Aug-2019 Instruction Type:Patient Education Patient Instructions Indication:UTI symptoms Start:07-Aug-2019 Instruction Type:Provider Instructions for Treatment How to access health informa tion online Indication:Nonsmoker Start:08-Oct-2018 Instruction Type:Patient Education How to access health informa tion online - Detail Indication:Nonsmoker Start:08-Oct-2018 Instruction Type:Patient Education Patient Instructions Indication:Nonsmoker Start:08-Oct-2018 Instruction Type:Provider Instructions for Treatment How to access health informa tion online Indication:BMI 20.0-20.9, adult Start:17-Jun-2018 Instruction Type:Patient Education How to access health informa tion online - Detail Indication:BMI 20.0-20.9, adult Start:17-Jun-2018 Instruction Type:Patient Education Patient Instructions Indication:Dizzy Start:17-Jun-2018 Instruction Type:Provider Instructions for Treatment How to access health informa tion online Indication:BMI 21.0-21.9, adult Start:12-Jun-2018 Instruction Type:Patient Education How to access health informa tion online - Detail Indication:BMI 21.0-21.9, adult Start:12-Jun-2018 Instruction Type:Patient Education Patient Instructions Indication:BMI 21.0-21.9, adult Start:12-Jun-2018 Instruction Type:Provider Instructions for Treatment How to access health informa tion online Indication:UTI symptoms Start:08-Jan-2017 Instruction Type:Patient Education How to access health informa tion online - Detail Indication:UTI symptoms Start:08-Jan-2017 Instruction Type:Patient Education Patient Instructions Indication:UTI symptoms Start:08-Jan-2017 Instruction Type:Provider Instructions for Treatment How to access health informa tion online Indication:UTI symptoms Start:03-Jan-2017 Instruction Type:Patient Education How to access health informa tion online - Detail Indication:UTI symptoms Start:03-Jan-2017 Instruction Type:Patient Education Patient Instructions Indication:UTI symptoms Start:03-Jan-2017 Instruction Type:Provider Instructions for Treatment Patient Instructions Indication:Dysuria Start:29-Oct-2013 Instruction Type:Provider Instructions for Treatment Patient Instructions Indication:Lower urinary tract infection Start:27-Aug-2013 Instruction Type:Provider Instructions for Treatment Patient Instructions Indication:Abnormal finding of blood chemistry, unspecified Start:04-Jul-2013 Instruction Type:Provider Instructions for Treatment Patient Instructions Indication:Cough Start:10-Jul-2012 Instruction Type:Provider Instructions for Treatment Name Dates Details How to access health informa tion online Indication:Nonsmoker Start:08-Oct-2018 Instruction Type:Patient Education How to access health informa tion online - Detail Indication:Nonsmoker Start:08-Oct-2018 Instruction Type:Patient Education Patient Instructions Indication:Nonsmoker Start:08-Oct-2018 Instruction Type:Provider Instructions for Treatment How to access health informa tion online Indication:BMI 20.0-20.9, adult Start:17-Jun-2018 Instruction Type:Patient Education How to access health informa tion online - Detail Indication:BMI 20.0-20.9, adult Start:17-Jun-2018 Instruction Type:Patient Education Patient Instructions Indication:Dizzy Start:17-Jun-2018 Instruction Type:Provider Instructions for Treatment How to access health informa tion online Indication:BMI 21.0-21.9, adult Start:12-Jun-2018 Instruction Type:Patient Education How to access health informa tion online - Detail Indication:BMI 21.0-21.9, adult Start:12-Jun-2018 Instruction Type:Patient Education Patient Instructions Indication:BMI 21.0-21.9, adult Start:12-Jun-2018 Instruction Type:Provider Instructions for Treatment How to access health informa tion online Indication:UTI symptoms Start:08-Jan-2017 Instruction Type:Patient Education How to access health informa tion online - Detail Indication:UTI symptoms Start:08-Jan-2017 Instruction Type:Patient Education Patient Instructions Indication:UTI symptoms Start:08-Jan-2017 Instruction Type:Provider Instructions for Treatment How to access health informa tion online Indication:UTI symptoms Start:03-Jan-2017 Instruction Type:Patient Education How to access health informa tion online - Detail Indication:UTI symptoms Start:03-Jan-2017 Instruction Type:Patient Education Patient Instructions Indication:UTI symptoms Start:03-Jan-2017 Instruction Type:Provider Instructions for Treatment Patient Instructions Indication:Dysuria Start:29-Oct-2013 Instruction Type:Provider Instructions for Treatment Patient Instructions Indication:Lower urinary tract infection Start:27-Aug-2013 Instruction Type:Provider Instructions for Treatment Patient Instructions Indication:Abnormal finding of blood chemistry, unspecified Start:04-Jul-2013 Instruction Type:Provider Instructions for Treatment Patient Instructions Indication:Cough Start:10-Jul-2012 Instruction Type:Provider Instructions for Treatment Name Dates Details How to access health informa tion online Indication:Nonsmoker Start:12-Jul-2020 Instruction Type:Patient Education How to access health informa tion online - Detail Indication:Nonsmoker Start:12-Jul-2020 Instruction Type:Patient Education Patient Instructions Indication:Nonsmoker Start:12-Jul-2020 Instruction Type:Provider Instructions for Treatment How to access health informa tion online Indication:Nonsmoker Start:22-Jan-2020 Instruction Type:Patient Education How to access health informa tion online - Detail Indication:Nonsmoker Start:22-Jan-2020 Instruction Type:Patient Education Patient Instructions Indication:Nonsmoker Start:22-Jan-2020 Instruction Type:Provider Instructions for Treatment How to access health informa tion online Indication:Nonsmoker Start:25-Dec-2019 Instruction Type:Patient Education How to access health informa tion online - Detail Indication:Nonsmoker Start:25-Dec-2019 Instruction Type:Patient Education Patient Instructions Indication:Nonsmoker Start:25-Dec-2019 Instruction Type:Provider Instructions for Treatment How to access health informa tion online Indication:BMI 21.0-21.9, adult Start:07-Aug-2019 Instruction Type:Patient Education How to access health informa tion online - Detail Indication:BMI 21.0-21.9, adult Start:07-Aug-2019 Instruction Type:Patient Education Patient Instructions Indication:UTI symptoms Start:07-Aug-2019 Instruction Type:Provider Instructions for Treatment How to access health informa tion online Indication:Nonsmoker Start:08-Oct-2018 Instruction Type:Patient Education How to access health informa tion online - Detail Indication:Nonsmoker Start:08-Oct-2018 Instruction Type:Patient Education Patient Instructions Indication:Nonsmoker Start:08-Oct-2018 Instruction Type:Provider Instructions for Treatment How to access health informa tion online Indication:BMI 20.0-20.9, adult Start:17-Jun-2018 Instruction Type:Patient Education How to access health informa tion online - Detail Indication:BMI 20.0-20.9, adult Start:17-Jun-2018 Instruction Type:Patient Education Patient Instructions Indication:Dizzy Start:17-Jun-2018 Instruction Type:Provider Instructions for Treatment How to access health informa tion online Indication:BMI 21.0-21.9, adult Start:12-Jun-2018 Instruction Type:Patient Education How to access health informa tion online - Detail Indication:BMI 21.0-21.9, adult Start:12-Jun-2018 Instruction Type:Patient Education Patient Instructions Indication:BMI 21.0-21.9, adult Start:12-Jun-2018 Instruction Type:Provider Instructions for Treatment How to access health informa tion online Indication:UTI symptoms Start:08-Jan-2017 Instruction Type:Patient Education How to access health informa tion online - Detail Indication:UTI symptoms Start:08-Jan-2017 Instruction Type:Patient Education Patient Instructions Indication:UTI symptoms Start:08-Jan-2017 Instruction Type:Provider Instructions for Treatment How to access health informa tion online Indication:UTI symptoms Start:03-Jan-2017 Instruction Type:Patient Education How to access health informa tion online - Detail Indication:UTI symptoms Start:03-Jan-2017 Instruction Type:Patient Education Patient Instructions Indication:UTI symptoms Start:03-Jan-2017 Instruction Type:Provider Instructions for Treatment Patient Instructions Indication:Dysuria Start:29-Oct-2013 Instruction Type:Provider Instructions for Treatment Patient Instructions Indication:Lower urinary tract infection Start:27-Aug-2013 Instruction Type:Provider Instructions for Treatment Patient Instructions Indication:Abnormal finding of blood chemistry, unspecified Start:04-Jul-2013 Instruction Type:Provider Instructions for Treatment Patient Instructions Indication:Cough Start:10-Jul-2012 Instruction Type:Provider Instructions for Treatment Name Dates Details How to access health informa tion online Indication:Nonsmoker Start:12-Jul-2020 Instruction Type:Patient Education How to access health informa tion online - Detail Indication:Nonsmoker Start:12-Jul-2020 Instruction Type:Patient Education Patient Instructions Indication:Nonsmoker Start:12-Jul-2020 Instruction Type:Provider Instructions for Treatment How to access health informa tion online Indication:Nonsmoker Start:22-Jan-2020 Instruction Type:Patient Education How to access health informa tion online - Detail Indication:Nonsmoker Start:22-Jan-2020 Instruction Type:Patient Education Patient Instructions Indication:Nonsmoker Start:22-Jan-2020 Instruction Type:Provider Instructions for Treatment How to access health informa tion online Indication:Nonsmoker Start:25-Dec-2019 Instruction Type:Patient Education How to access health informa tion online - Detail Indication:Nonsmoker Start:25-Dec-2019 Instruction Type:Patient Education Patient Instructions Indication:Nonsmoker Start:25-Dec-2019 Instruction Type:Provider Instructions for Treatment How to access health informa tion online Indication:BMI 21.0-21.9, adult Start:07-Aug-2019 Instruction Type:Patient Education How to access health informa tion online - Detail Indication:BMI 21.0-21.9, adult Start:07-Aug-2019 Instruction Type:Patient Education Patient Instructions Indication:UTI symptoms Start:07-Aug-2019 Instruction Type:Provider Instructions for Treatment How to access health informa tion online Indication:Nonsmoker Start:08-Oct-2018 Instruction Type:Patient Education How to access health informa tion online - Detail Indication:Nonsmoker Start:08-Oct-2018 Instruction Type:Patient Education Patient Instructions Indication:Nonsmoker Start:08-Oct-2018 Instruction Type:Provider Instructions for Treatment How to access health informa tion online Indication:BMI 20.0-20.9, adult Start:17-Jun-2018 Instruction Type:Patient Education How to access health informa tion online - Detail Indication:BMI 20.0-20.9, adult Start:17-Jun-2018 Instruction Type:Patient Education Patient Instructions Indication:Dizzy Start:17-Jun-2018 Instruction Type:Provider Instructions for Treatment How to access health informa tion online Indication:BMI 21.0-21.9, adult Start:12-Jun-2018 Instruction Type:Patient Education How to access health informa tion online - Detail Indication:BMI 21.0-21.9, adult Start:12-Jun-2018 Instruction Type:Patient Education Patient Instructions Indication:BMI 21.0-21.9, adult Start:12-Jun-2018 Instruction Type:Provider Instructions for Treatment How to access health informa tion online Indication:UTI symptoms Start:08-Jan-2017 Instruction Type:Patient Education How to access health informa tion online - Detail Indication:UTI symptoms Start:08-Jan-2017 Instruction Type:Patient Education Patient Instructions Indication:UTI symptoms Start:08-Jan-2017 Instruction Type:Provider Instructions for Treatment How to access health informa tion online Indication:UTI symptoms Start:03-Jan-2017 Instruction Type:Patient Education How to access health informa tion online - Detail Indication:UTI symptoms Start:03-Jan-2017 Instruction Type:Patient Education Patient Instructions Indication:UTI symptoms Start:03-Jan-2017 Instruction Type:Provider Instructions for Treatment Patient Instructions Indication:Dysuria Start:29-Oct-2013 Instruction Type:Provider Instructions for Treatment Patient Instructions Indication:Lower urinary tract infection Start:27-Aug-2013 Instruction Type:Provider Instructions for Treatment Patient Instructions Indication:Abnormal finding of blood chemistry, unspecified Start:04-Jul-2013 Instruction Type:Provider Instructions for Treatment Patient Instructions Indication:Cough Start:10-Jul-2012 Instruction Type:Provider Instructions for Treatment Summary Purpose Advance Directives No Advanced Directives Records Found Advance Directive Response Recorded Date/ Time Advance Directives Yes July 28, 2013 8:05pm Living Will No December 25, 2019 10:33am Power of Teachers' Assistant Yes December 24 10:33am Advance Directive Response Recorded Date/ Time Advance Directives Yes May 15, 2025 9:04am Chief Complaint and Reason for Visit Chief Complaint Headache, unspecifie d Chief Complaint Admit Date UTI. URINE DROP May 15, 2025 11 :11am Chief Complaint Admit Date UTI. URINE DROP May 15, 2025 11 :11am uti f/u June 05, 2025 1:31pm Reason for Visit Admit Date UTI (urinary tract infection) May 11:11am Additional Source Comments INFORMATION SOURCE (unrecogn ized section and content) DATE CREATED AUTHOR 02/11/2021 [facility] DATE CREATED AUTHOR AUTHOR'S ORGANIZ ATION 12/15/2022 [facility] DATE CREATED AUTHOR AUTHOR'S ORGANIZ ATION 01/23/2025 [facility] DATE CREATED AUTHOR AUTHOR'S ORGANIZ ATION 05/23/2025 [facility] DATE CREATED AUTHOR AUTHOR'S ORGANIZ ATION 05/27/2025 [facility] DATE CREATED AUTHOR AUTHOR'S ORGANIZ ATION 06/18/2025 [facility] <item> Privacy Markings (unrecogniz ed section and content) Section Author: Lina Roberts PROHIBITION ON REDISCLOSURE OF CONFIDENTIAL INFORMATION This notice accompanies a disclosure of information concerning a client made to you with the consent of such client. Care Teams (unrecognized sec tion and content) Team Status: Active Member Role Status Dates Dr. Lenora Sarah DO Family Provider Active Dr. Lenora Sarah DO Primary Care Provider Active Team Status: Inactive Member Role Status Dates Dr. eLnora Sarah DO Primary Care Pr ovider, Attending Provider, Referring Provider Active [employer] Relationship Specialty Start Date End Date Lenora Sarah DO [id number] [facility] [address] [place], [place] [id number] PCP - [facility] PCP 11/29/22 Lenora Sarah DO [id number] [facility] [address] [place], [place] [id number] PCP - General 06/02/23 Team Status: Active Member Role/Relationship Status Dates Dr. Lenora Sarah DO Family Provider Active Dr. Lenora Sarah DO Primary Care Provider Active Team Status: Inactive Member Role/Relationship Status Dates Dr. Lenora Sarah DO Primary Care Provider Active Start: March 31, 2025 Dr. Alba Ricks MD Attending Provider Active Start: March 31, 2025 Team Status: Inactive Member Role/Relationship Status Dates Dr. Lenora Sarah DO Primary Care Provider Active Start: May 15, 2025 End: May 15, 2025 Dr. Lenora Sarah DO Referring Provider Active Start: May 15, 2025 End: May 15, 2025 Dr. Alba Ricks MD Attending Provider Active Start: May 15, 2025 End: May 15, 2025 Team Status: Inactive Member Role/Relationship Status Dates Dr. Lenora Sarah DO Primary Care Provider Active Start: June 05, 2025 End: June 05, 2025 Dr. Lenora Sarah DO Referring Provider Active Start: June 05, 2025 End: June 05, 2025 Dr. Alba Ricks MD Attending Provider Active Start: June 05, 2025 End: June 05, 2025 Goals (unrecognized section and content) Goals may be documented in a n alternate sectionGoals may be documented in an alternate sectionGoals may be documented in an alternate section Reason for Visit (unrecogniz ed section and content) Reason Comments Knee Pain C/o left knee pain t hat started today after squatting down. Scheduled Active and Recently Administ ered Medications (unrecognized section and content) Medication Order 01/15/2025 01/16/2025 01/17/2025 ketorolac (Toradol) injection 15 mg (COMPLETED) 15 mg, intramuscular, Once, On 01/17/25 at 0030, For 1 dose 0039 (Given - Provid er: Kateryna Phillips RN) oxyCODONE-acetaminophen (Percocet) 5-325 mg per tablet 1 tablet (COMPLETED) 1 tablet, oral, Once, On 01/16/25 at 2220, For 1 dose, If ordered PRN for pain, nurse is permitted to administer this medication for higher pain scores based on patient preference? Yes 2220 (Given - Provider: Kateryna Phillips, JAIDEN) FOR RECORDS PERTAINING TO PATIENTS WHO ARE OR HAVE BEEN ENROLLED IN A CHEMICAL DEPENDENCY/SUBSTANCEABUSE PROGRAM, SOME INFORMATION MAY BE OMITTED. This clinical summary was aggregated from multiple sources. Caution should be exercised in using it in the provision of clinical care. This summary normalizes information from multiple sources, and as a consequence, information in this document may materially change the coding, format and clinical context of patient data. In addition, data may be omitted in some cases. CLINICAL DECISIONS SHOULD BE BASED ON THE PRIMARY CLINICAL RECORDS. [employer] provides no warranty or guarantee of the accuracy or completeness of information in this document.
[2025-09-10 19:21] LABS: Color, Urine Yellow (Yellow); Glucose, Dipstick Normal (Normal); Ketone-Dipstick Negative (Negative); Leukocyte Esterase-Dipstick 500 /ul (Negative); Nitrite-Dipstick Positive (Negative); Occult Blood-Urine 10 /ul (Negative); Protein-Dipstick 15 mg/dl (Negative); Specific Gravity, Urine 1.015 (1.002-1.030); Urine Bilirubin Dipstick Negative (Negative)
[2025-09-10 21:45] LABS: Red Blood Cells-Urine 0-5 SEEN /hpf (0-5); Squamous Epithelial Cells - UA 0-5 SEEN /hpf (5-10)
== END | disposition home or self-care (01) ==
LOC: CIMLAB 15:22
PROVIDERS: PCP Internal Medicine; Referring Provider Internal Medicine; Visit Provider Internal Medicine
DX: N39.0 Urinary tract infection, site not specified (principal)
CPT/HCPCS: 81001; 87086; 87088; 87186